=== PATIENT | female | born 1950 | race Caucasian/White ===

== ENCOUNTER 2016-08-28 06:42 | Observation (INO) | payer OTHER ==
[~2016-08-28] VITALS: Ht 175.3 cm; Wt 92.4 kg
[~2016-08-28 06:42] MED LIST: /ESOM40CA OR; /ESOM40CA PO; /WARF3TA OR; /WARF5TA PO; ACET65TA OR; ALBUTEROL INH; ALPR0.5T3 OR; AMBI5TAB OR; ANTI25TA OR; ASPI81TA45 OR; CLON1TAB OR; EFFE150C PO; GLUC1000 OR; HYDR25TA6 OR; LISI10TA4 OR; LISINOPRIL/HCTZ PO; LOPR100T OR; LOPR50TA PO; MACR50CA OR; MAGNESIUM OXIDE PO; METFORMIN PO; NICO21DI4 TD; NITR0.4S SL; PLAV75TA2 OR; SIMV80TA OR; ZOCO40TA OR; ZOCO80TA OR; ZYPR2.5T OR
[2016-08-28] MEDS ORDERED: LASI20TA PO (07:02)
[2016-08-28] MEDS ORDERED: SITA50TAB PO (07:02)
[2016-08-28] MEDS ORDERED: LISI10TA4 PO (07:02)
[2016-08-28] MEDS ORDERED: LIPI80TA PO (07:02)
[2016-08-28] MEDS ORDERED: RANI150T PO (07:02)
[2016-08-28] MEDS ORDERED: PLAV75TA38 PO (07:02)
[2016-08-28 07:32] LABS: CALCIUM LEVEL 9.3 MG/DL (8.8-10.2); CREATININE FOR GFR 1.48 MG/DL (0.55-1.02); GLOMERULAR FILTRATION RATE 37.8 (>45); POTASSIUM SERUM 4.1 MEQ/L (3.5-5.1)
[2016-08-28 07:35] LABS: BASO % 0.2 % (0.0-1.0); EOS % 0.4 % (0.0-3.0); LARGE UNSTAINED CELL # 0.2 K/mm3 (0.0-0.4); LARGE UNSTAINED CELL % 1.3 % (0.0-4.0); LYMPH # 1.1 K/mm3 (1.5-4.5); LYMPH % 9.2 % (24.0-44.0); MEAN CORPUSCULAR HEMOGLOBIN 31.9 pg (27.0-33.0); MEAN CORPUSCULAR HGB CONC 33.3 g/dl (32.0-36.5); MEAN CORPUSCULAR VOLUME 95.8 fl (80.0-96.0); MONO # 0.8 K/mm3 (0.0-0.8); MONO % 6.7 % (0.0-5.0); NEUTROPHILS # 9.8 K/mm3 (1.8-7.7); NEUTROPHILS % 82.1 % (36.0-66.0); PLATELET COUNT, AUTOMATED 202 k/mm3 (150-450); RED CELL DISTRIBUTION WIDTH 12.3 % (11.5-14.5)
[2016-08-28 07:42] LABS: INR 0.95
[2016-08-28] MEDS: IPRATROPIUM 0.5MG/ALBUTEROL 2.5MG INH SOL UD 3ML (DUONEB)(J7620) NEB SCH ×3 (08:00→20:09)
[2016-08-28] MEDS ORDERED: LORazepam 2 MG/ML VIAL (J2060) IV STA (08:05)
--- NOTE | 2016-08-28 08:09 | REP ---
CT study of the brain without contrast: History: CVA. Comparison study March 12, 2011. Findings: Bone window settings demonstrate an intact bony calvarium. There is fairly heavy vascular calcification in the distal carotid arteries bilaterally. Visualized paranasal sinuses are clear. No intraorbital abnormality is appreciated. There is mild to moderate diffuse cerebral atrophy. There is an area of encephalomalacia related to an old right middle cerebral artery territory infarct involving the right temporal lobe and right parietal lobe. A small cortical area of old encephalomalacia is seen in the left parietal lobe. These two areas are unchanged from the comparison CT study from March 12, 2011. No new cortical infarct is seen. There is no evidence of intracranial hemorrhage. There is however a small lacunar infarct in the periventricular white matter of the right frontal lobe which was not present in 2011. This does not appear acute either. No extra-axial fluid collection, mass, or midline shift is seen. There is also some vascular calcification in the vertebral arteries. No midline shift is seen. Impression: Old cortical infarcts bilaterally unchanged from the prior study. There is an old appearing lacunar infarct in the periventricular white matter of the right frontal lobe which has developed since 2010. No definite new infarct. No bleed, mass, or midline shift. Signed by Nic De La Fuente MD 08/28/2016 09:38 A
--- NOTE | 2016-08-28 08:10 | REP ---
Portable chest x-ray: Single view. History: CVA. Comparison study March 12, 2011. Findings: EKG monitoring electrodes overlie the chest. The lungs are hyperinflated as before. No acute infiltrate is seen. Heart size is normal. Pulmonary vasculature is not increased. Impression: Evidence of COPD. No acute disease. Signed by Nic De La Fuente MD 08/28/2016 09:38 A
[2016-08-28] MEDS ORDERED: GLUCAGON FOR INJ 1 MG VIAL (J1610) SC PRN (09:15)
[2016-08-28] MEDS ORDERED: GLUCOSE 4 GM CHEW TABLET PO PRN (09:15)
[2016-08-28] MEDS ORDERED: DEXTROSE 50% 50 ML SYRINGE IV PRN (09:15)
[2016-08-28] MEDS ORDERED: MAGN400T5 PO (09:41)
[2016-08-28] MEDS ORDERED: VENL75CA PO (09:41)
[2016-08-28] MEDS ORDERED: NITR4TASL SL (09:41)
[2016-08-28] MEDS ORDERED: METO50TA2 PO (09:41)
[2016-08-28] MEDS ORDERED: METF-699 PO (09:41)
[2016-08-28 09:42] LABS: ALBUMIN 4.4 GM/DL (3.2-5.2); ALBUMIN/GLOBULIN RATIO 1.07 (1.00-1.93); BILIRUBIN,DIRECT 0.1 MG/DL (0.0-0.2); BILIRUBIN,TOTAL 0.6 MG/DL (0.2-1.0); MAGNESIUM LEVEL 2.3 MG/DL (1.8-2.4); TOTAL PROTEIN 8.5 GM/DL (6.4-8.2)
[2016-08-28] MEDS ORDERED: ASPI81TA13 PO (09:42)
[2016-08-28] MEDS ORDERED: ACET-654 PO (09:42)
[2016-08-28] MEDS ORDERED: PROA1AER INH (09:42)
[2016-08-28] MEDS ORDERED: ONDANSETRON 4MG/2ML VIAL (J2405) IV PRN (10:15)
--- NOTE | 2016-08-28 10:18 | REP ---
MRI study of the brain without contrast: Technique: Axial and sagittal imaging planes are utilized for T1 and T2-weighted scans. Sequences include spin-echo, fast spin echo, FLAIR, and diffusion weighted sequences. Comparison MRI study is from March 12, 2011. MRI findings: No bony calvarial lesion is seen. No intraorbital abnormalities observed. The visualized paranasal sinuses are unremarkable. There is a large area of old encephalomalacia in the right temporal lobe extending into the right parietal lobe consistent with an old infarct. This is unchanged. There are is a small area of encephalomalacia in the left posterior parietal lobe consistent with an old infarct. These two areas are unchanged from the comparison study. There is a old lacunar infarct in the periventricular white matter of the right frontal lobe which is a new finding compared with 2011. Diffusion weighted scans show no evidence of acute ischemia today. There is no evidence of intracranial hemorrhage. No extra-axial fluid collection, mass or midline shift is seen. Craniocervical junction and upper cervical cord are normal in appearance. Impression: Old cortical infarctions in the right temporal and parietal lobes and left posterior parietal lobes unchanged from 2011. Old lacunar infarct in the periventricular white matter of the right frontal lobe as seen on CT. This is an interval change from 2011 but appears old. No acute ischemia is seen. No hemorrhage or mass. Signed by Nic De LaF uente MD 08/28/2016 10:18 A
[2016-08-28] MEDS: NS 1,000 ML IV SCH (10:20)
--- NOTE | 2016-08-28 10:42 | REP ---
MR angiography the brain without contrast: History: TIA. Comparison brain MR ANGIO is from March 12, 2011. Technique: 3-D [id number] MR angiography of the brain is acquired in the usual fashion and maximal intensity projection images were generated in rotational format about the vertical and horizontal axes. In addition, source axial T1-weighted images are viewed in cine mode. MR angiographic findings: The distal vertebral arteries are patent and co-dominant. Basilar artery is a little tortuous but widely patent. The posterior cerebral and superior cerebellar vessels are normal and symmetric. The distal internal carotid arteries are unremarkable, except for some mild atherosclerotic changes in the petrous segments unchanged from the prior study. Anterior and middle cerebral arteries appear intact. There is no visible cornejo aneurysm or arteriovenous malformation. Impression: Mild atherosclerotic irregularity again noted in the petrous segments of the internal carotid arteries bilaterally, otherwise unremarkable MR angiography the brain. Signed by Nic De La Fuente MD 08/28/2016 11:00 A
[2016-08-28 10:58] LABS: OSMOLALITY URINE 197 MOSM/KG (500-800)
[2016-08-28] MEDS ORDERED: IPRATROPIUM 0.5MG/ALBUTEROL 2.5MG INH SOL UD 3ML (DUONEB)(J7620) NEB PRN (11:00)
[2016-08-28] MEDS: HumaLOG INSULIN (NovoLOG) PER UNIT SC SCH ×2 (13:10→17:39)
[2016-08-28 13:13] VITALS: BP 135/71
[2016-08-28 15:57] VITALS: BP 153/71
--- NOTE | 2016-08-28 19:16 | CR ---
DATE OF CONSULTATION: 08/28/2016 REFERRING PHYSICIAN: Dr. Darrin Carranza REASON FOR CONSULTATION: Left arm numbness and weakness. HISTORY OF PRESENT ILLNESS: Jaquelin Hu is a 66-year-old woman with history of bilateral temporoparietal strokes in July and August 2010, who was at her baseline state of health until this morning when she woke up and felt fine. She went downstairs to make coffee and for 5-10 seconds, she felt that her left arm was numb and weak. There is no speech deficit. There was no incoordination or left leg weakness and numbness. Her symptoms went away on their own. The patient states that she has been going through increased stress due to health of her son who has cirrhosis and ascites. She denies any headaches, neck or back pain. She does feel symptoms of anxiety at times. She denies any falls, loss of consciousness. She takes her medications regularly. She had transesophageal echocardiogram when she had her strokes in 2010, and it showed atherosclerosis in her ascending and transverse aorta. She was on Coumadin for a couple of years and had no transient ischemic attacks or new strokes, so her medications were switched to aspirin and Plavix along with Zocor which she continues to take without any problems. She is very compliant with treatment. PAST MEDICAL HISTORY: Diabetes, hypertension, dyslipidemia, depression, anxiety, coronary artery disease status post myocardial infarction, bilateral temporoparietal strokes. ALLERGIES: CODEINE. CURRENT MEDICATIONS: - Zantac 300 mg by mouth daily - Zocor 80 mg by mouth daily - Plavix 75 mg by mouth daily - aspirin 81 mg by mouth daily - magnesium oxide 400 mg by mouth twice a day - Effexor XR 150 mg by mouth daily - she thinks that she is also on metoprolol - metformin XL 1500 mg by mouth daily SOCIAL HISTORY: She used to smoke cigarettes in past. She quit smoking in 2010. She currently does not work. She denies alcohol or illicit drugs. FAMILY HISTORY: Significant for diabetes, hypertension and dyslipidemia. REVIEW OF SYSTEMS: All systems were reviewed and were found to be noncontributory except as mentioned in history of present illness. PHYSICAL EXAMINATION: VITAL SIGNS: Blood pressure 146/71, pulse 66, 93% saturation on room air. Height 5 feet 9 inches, weight 200 pounds. HEART: Regular rate and rhythm. LUNGS: Clear to auscultation. ABDOMEN: Soft, nontender, nondistended. NEUROLOGIC EXAMINATION: The patient is awake, alert, oriented to place, person and time. Normal speech, comprehension and repetition. Extraocular muscles are intact. No facial weakness. Tongue and uvula midline. 5/5 strength in all four extremities. Deep tendon flexes 2+ throughout. Normal sensation to pinprick and light touch in arms. She has decreased cold, pinprick, vibration sensation in her feet likely due to her diabetic peripheral neuropathy. Gait is normal. There is no ataxia, dysmetria or nystagmus. DIAGNOSTIC STUDIES: Her MRI scan of brain was reviewed and showed old bilateral temporoparietal strokes. Her right-sided stroke was larger than left side. There is no new acute ischemic stroke. MRA brain showed mild carotid atherosclerosis. ASSESSMENT: 1. Possible transient ischemic attack. 2. History of bilateral temporoparietal old strokes. 3. Aortic atherosclerotic disease in ascending and thoracic aorta. 4. A peripheral nerve compressive neuropathy such as carpal tunnel syndrome or ulnar nerve compression in left arm can also produce these symptoms. PLAN 1. Carotid ultrasound. 2. Continue aspirin 81 mg by mouth daily and Plavix 75 mg by mouth daily. 3. Continue Zocor 80 mg by mouth daily. 4. Start hydroxyzine 12.5 or 25 mg by mouth three times a day as needed if she feels increased stress and anxiety due to health of her son. We will continue her Effexor XR which she believes is currently 75 mg by mouth daily. Its dose can be increased. Will confirm her current dose first. 5. Follow with us in 1-2 weeks after hospital discharge as outpatient. Electromyogram (EMG) nerve conduction study of left arm will be considered as outpatient. JENNIFERD
--- NOTE | 2016-08-28 19:58 | ECGEPIP ---
Stationary ECG Study [facility] - ED Test Date: 2016-08-28 Pat Name: GORDON CARIAS Department: Room: [place] [address] Gender: F Java Application Engineer: jazmine : [id number] Requested By: Danette Raymundo Order Number: [id number] Reading MD: Danette Raymundo Measurements Intervals [place] Rate: 66 P: 53 TX: 122 QRS: 76 QRSD: 158 T: 24 QT: 434 QTc: 455 Interpretive Statements SINUS RHYTHM RIGHT BUNDLE BRANCH BLOCK NO PRIOR FOR COMPARISON Electronically Signed On 08-28-2016 19:58:13 EDT by Danette Raymundo
[2016-08-28 20:00] VITALS: BP 145/91
[2016-08-28] MEDS: HEPARIN SOD (PORCINE) 5000 UNITS/ML VIAL SC SCH (20:36)
[2016-08-28] MEDS: DOCUSATE SODIUM 100 MG CAP PO SCH (20:36)
[2016-08-28] MEDS: ACETAMINOPHEN TAB 650MG DOSE (2X325MG) PO PRN (20:36)
[2016-08-28] MEDS ORDERED: HumaLOG INSULIN (NovoLOG) PER UNIT SC SCH (21:00)
--- NOTE | 2016-08-28 22:42 | HPE ---
DATE OF ADMISSION: 08/28/2016 The time the patient was seen was this morning at 9:30 a.m. PRIMARY CARE PROVIDER: Dr. Rahman at [facility] The patient's mineral industry teacher is Dr. Feliciano. NEUROLOGIST: Dr. Delgadillo CHIEF COMPLAINT: Numbness of the left arm and unable to move the arm. HISTORY OF PRESENT ILLNESS: 66-year-old female with multiple comorbidities including recurrent cerebrovascular accidents (CVAs), coronary artery disease, status post myocardial infarction (NE), chronic kidney disease, stage II to III, asthma, hypertension, noc-npnsyzf-hknlsrckx type 2 diabetes, depression, anxiety , presented with numbness in the left arm and was unable to move the left arm, started this morning after the patient woke up trying to make some coffee. The patient noticed the left arm was numb and she was unable to move it. It lasted 5 to 10 seconds. The patient and her came to the hospital due to she did have multiple strokes in the past and as far as heart attack. In addition, the patient has a history of aphasia from her bilateral temporoparietal stroke prior. Per the patient's , sometimes she has slow processing of words and could not pronounce certain words as well. Otherwise, she also admits to feeling more stressed last night when she found out that her son had end-stage liver disease. In addition to that, she did have an asthma attack last night and she did not give her treatment for it. In addition, she did have hyperkalemia for the past few weeks and was started on low-dose Lasix 20 mg per day, which makes her urinate more than usual. She has been told that she should make appointment with nephrology to establish with them to investigate the hyperkalemia. Otherwise, she denies any fever or chills, any chest pain, trouble breathing, any abdominal pains, nausea, vomiting, diarrhea or constipation, any problems with urination. ALLERGIES: The patient is allergic to CODEINE, which drops her blood pressure and makes her nauseous. HOME MEDICATIONS INCLUDE: - acetaminophen 650 mg one tablet by mouth every 6 hours as needed - ProAir 2 puffs inhalation four times a day as needed - aspirin 81 mg one tablet by mouth daily - Lipitor 80 mg one tablet by mouth at bedtime (hs) - Plavix 75 mg one tablet by mouth daily - Lasix 20 mg one tablet by mouth daily - lisinopril 10 mg one tablet by mouth daily - magnesium oxide 400 mg one tablet by mouth twice a day - metformin 1500 mg one tablet by mouth every morning - metoprolol 50 mg one tablet by mouth twice a day - nitroglycerin 0.4 mg sublingual every 5 minutes as needed - ranitidine one tablet by mouth as needed - Januvia 50 mg one tablet by mouth at bedtime (q.h.s.) - venlafaxine 75 mg by mouth daily PAST MEDICAL HISTORY INCLUDE: 1. Recurrent cerebrovascular accidents (CVAs) including bilateral temporoparietal stroke in the past. The patient's last one was in 2010, follows with Dr. Delgadillo. 2. Coronary artery disease, status post myocardial infarction (NE). Follows with Dr. Feliciano. 3. Chronic kidney disease, stage II to III. Has plans to establish with nephrology. 4. Recent hyperkalemia. 5. Asthma. 6. Hypertension. 7. Type 2 diabetes. 8. Depression/anxiety. 9. History of hypomagnesemia. PAST SURGICAL HISTORY INCLUDE: 1. Appendectomy. 2. Cholecystectomy. SOCIAL HISTORY: The patient currently smokes a few cigarettes a day for the past 30 years. She denies any drinking, denies any recreational drug use. FAMILY HISTORY: The patient's father had heart disease, also diabetes, hypertension, high cholesterol runs in the family. REVIEW OF SYSTEMS: GENERAL: The patient admits to losing 5 pounds, due to the patient is eating healthier. Denies any sick contact or recent traveling. Denies any fever or chills. HEENT: Denies any changes with vision, smell, hearing or taste. Denies any trouble swallowing, any sore throat. CARDIOVASCULAR: Denies any chest pain, any palpitations, any trouble breathing currently. PULMONARY: The patient does have asthma and had asthma attack last night. The patient did not care to give herself treatment. GASTROINTESTINAL (GI): Denies any abdominal pain, nausea, vomiting, diarrhea or constipation. Denies any blood in her stool. The patient also admits to some lower abdominal pain; however, she said it was mild and it was not a concern to her. GENITOURINARY (): Denies any problem with urination. However, she has been urinating more after she has been on Lasix. Denies any blood in her urine. MUSCULOSKELETAL: Denies any pain anywhere currently. ENDOCRINE: The patient does have diabetes; however, is not insulin dependent. Denies any heat or cold intolerance. HEMATOLOGY/ONCOLOGY: Denies any easy bruising, any bleeding anywhere. However, she did have a 5 pound weight loss over the past few months. NEURO: The patient does have a history of recurrent strokes and this morning she did have numbness of the left arm and also was unable to move the left arm for 5 to 10 seconds and the patient stated that when she stood up the numbness would return before she got to the hospital. PSYCHIATRIC: The patient does have anxiety/depression. Recently, she became more stress, found out that her son had end-stage liver disease. PHYSICAL EXAMINATION: VITAL SIGNS: Temperature 99.6, pulse 67, respirations 18 , blood pressure 138/76, oxygen was saturating 94% on room air. GENERAL: The patient is a morbidly obese elderly female, who was very pleasant, was alert, awake, oriented times three, does not appear to be in distress, laying in comfortably in bed with head elevated at 45 degree angle. HEENT: Normocephalic, atraumatic. Extraocular motor intact. Mucosa moist. NECK: Supple. No lymphadenopathy. CARDIOVASCULAR: Regular rate and rhythm. S1, S2. Difficult to auscultate due to increased AP diameter and body habitus. LUNGS: Slight wheezing bilaterally. ABDOMEN: Positive bowel sounds, soft, nontender. There are no peritoneal signs or ecchymosis. EXTREMITIES: No edema, clubbing or cyanosis. SKIN: Warm and dry. NEURO: Cranial nerves II/XII intact. No focal neurological deficit. Eyebrow raise was equal bilaterally. Tongue protruding was midline. Smile was symmetrical. Sensations were intact bilateral face. Xfqwjb-eh-ynbl was sluggish bilaterally. Eicy-gs-zztv was performed appropriately. Deep tendon reflex was showed somewhat hyperspasticity. However, muscle strength was 5/5 in upper and lower extremities. LABORATORY: White blood count (WBC) 12, hemoglobin 16.1 with hematocrit of 48.4 , platelet count of 202, MCV of 95.8. Sodium 138, potassium 4.1, chloride 102, bicarbonate 28, BUN 22, creatine 1.48, glomerular filtration rate (GFR) was 37.8%. Fasting glucose 202. Osmolality was elevated 302, calcium 9.3, magnesium 2.3, total bilirubin is 0.6, direct bilirubin is 0.1, AST 21, ALT 29, alkaline phosphatase 93. CK 74, CK-MB 1.1. Troponin was slightly elevated at 0.07, total protein 8.5, albumin 4.4, thyroid simulating hormone (TSH) was 1.78. COAGULATIONS: PT 12.8, INR 0.95, PTT 28.2. Urinalysis was negative. Urine osmolality was low 197. Urine culture is pending. The patient's brain Magnetic Resonance Imaging (MRI), Magnetic Resonance Angiography (MRA) shows mild atherosclerotic irregularity in the petrous segment of the internal carotid artery bilaterally, otherwise unremarkable Magnetic Resonance Angiography of the brain. The patient's Magnetic Resonance Imaging (MRI) also showed old cortical infarction at the right temporal and parietal lobes, left posterior parietal lobes unchanged from 2011. Old lacunar infarct in the periventricular white matter of the right frontal lobe as seen on CT. This is interval change from 2011 and appears to be old. No acute ischemia. No hemorrhagic or masses. The patient had portable chest x-ray in the emergency room, shows evidence of chronic obstructive pulmonary disease (COPD), no acute disease. The patient had a head CT without contrast in the emergency room, shows old cortical infarct bilaterally unchanged from prior study. There is an old appearing lacunar infarct in the periventricular white matter of the right frontal lobe, which has developed since 2011. No definite new infarct. No bleed, mass or midline shift. ASSESSMENT AND PLAN: 66-year-old female with past medical history most significantly for recurrent strokes, coronary artery disease, status post myocardial infarction (NE), chronic kidney disease, recent hyperkalemia, hypertension, hnu-yblztjs-addmhdmel type 2 diabetes, depression, anxiety, hypomagnesemia, presented with: 1. Left arm numbness and weakness, most likely secondary to transient ischemic attack (TIA), possible recurrent stroke. However, CT of the head and also MRI and MRA of the head was negative for any acute findings. Dr. Delgadillo from neurology was consulted. Will follow his recommendation at this point due to the patient has transesophageal echocardiogram (SHEILA) last time she was here in 2010. Will not perform a new echocardiogram. However, will order an ultrasound of her carotid. Will continue the patient on statin, Plavix and aspirin and continue to monitor the patient, neuro check every [address] the patient on aspiration and seizure precaution and continue to monitor the patient. 2. Slightly elevated troponin 0.07. Will trend cardiac marker two more times. Will order electrocardiogram (EKG) next day morning. The patient does have a coronary artery disease history and status post myocardial infarction (NE). Will continue statin, Plavix and beta bess. Continue to monitor the patient. 3. Acute on chronic kidney disease with a closed reduction of 1.48. Baseline was roughly 1.2. Will obtain urine lytes and the patient currently likely has prerenal azotemia secondary to Lasix usage for the past few weeks. Will hold the Lasix right now and start the patient on normal saline at a rate of 60 mL per hour. Resume the patient on normal diet. The patient's serum osmolality appears to be elevated and confirms that the patient likely has dehydration. Will continue to monitor. 4. Elevated white blood count (WBC) and polycythemia likely secondary to prerenal azotemia. Continue to monitor. Will repeat her complete blood count (CBC) in the morning. 5. Asthma with questionable chronic obstructive pulmonary disease (COPD). The patient did say that she had an attack last night. Today, her lung sounds appear to be slightly wheezy. Will start the patient on DuoNeb as needed and continue to monitor. 6. Recent hyperkalemia, which is resolved today. The patient has appointment with an establishment with nephrology. The patient will likely need outpatient work up. 7. Hypertension. Continue lisinopril, metoprolol and continue to monitor. Will hold Lasix. 8. Insulin-dependent type 2 diabetes. Will hold Januvia and metformin due to acute and chronic kidney disease (CKD) and will continue insulin sliding scale. If the patient's kidney function does not improve, will likely need to lower the patient's dose of metformin before she goes home. 9. Anxiety/depression. Continue home medication. 10. Hypomagnesemia. Will order daily magnesium level and supplement as needed. 11. Deep vein thrombosis (DVT) prophylaxis. Continue the patient on subcutaneous heparin every 12 hours. DISPOSITION: It is questionable if the patient has a transient ischemic attack (TIA). Neurology, Dr. Delgadillo, has been consulted. Will appreciate his recommendation. Will followup with carotid ultrasound. Will neuro check every 4 hours. Will also rule out any cardiac etiologies and possibly discharge the patient tomorrow pending physical therapy (PT), occupational therapy (OT) clearance. The patient has been discussed with attending doctor, Dr. Carranza. My preceptor for this patient encounter was Dr. Carranza. The preceptor was physically present in the building during the encounter and was fully available. As needed, all aspects of the patient interview, examination, medical decision making process, and medical care plan development were reviewed and approved by the preceptor. The preceptor is aware and concurs with the plan as stated in the body of this note and will attest to such by his/her cosignature. Attending note: Patient was examined independently. All aspects of the history and findings were discussed at length with the resident. I concur with the plan outlined above and a member of the hospitalist team will follow along during the hospital course. EYAL
[2016-08-28 23:59] VITALS: BP 147/76
[2016-08-29] MEDS: ACETAMINOPHEN TAB 650MG DOSE (2X325MG) PO PRN (01:35)
[2016-08-29] MEDS: NS 1,000 ML IV SCH (01:35)
[2016-08-29 04:45] VITALS: BP 132/75
[2016-08-29 06:02] LABS: BASO % 0.3 % (0.0-1.0); EOS % 0.6 % (0.0-3.0); LARGE UNSTAINED CELL # 0.2 K/mm3 (0.0-0.4); LARGE UNSTAINED CELL % 1.8 % (0.0-4.0); MEAN CORPUSCULAR VOLUME 97.1 fl (80.0-96.0); MONO # 0.8 K/mm3 (0.0-0.8); MONO % 8.8 % (0.0-5.0); NEUTROPHILS % 67.4 % (36.0-66.0); PLATELET COUNT, AUTOMATED 166 k/mm3 (150-450); RED CELL DISTRIBUTION WIDTH 12.5 % (11.5-14.5); WHITE BLOOD COUNT 8.9 K/mm3 (4.0-10.0)
[2016-08-29 06:04] LABS: CALCIUM LEVEL 8.4 MG/DL (8.8-10.2); CREATININE FOR GFR 1.11 MG/DL (0.55-1.02); GLOMERULAR FILTRATION RATE 52.7 (>45); MAGNESIUM LEVEL 2.2 MG/DL (1.8-2.4); POTASSIUM SERUM 4.4 MEQ/L (3.5-5.1)
[2016-08-29] MEDS: IPRATROPIUM 0.5MG/ALBUTEROL 2.5MG INH SOL UD 3ML (DUONEB)(J7620) NEB SCH (07:31)
[2016-08-29] MEDS: HEPARIN SOD (PORCINE) 5000 UNITS/ML VIAL SC SCH (07:43)
[2016-08-29] MEDS: DOCUSATE SODIUM 100 MG CAP PO SCH (07:43)
[2016-08-29] MEDS: HumaLOG INSULIN (NovoLOG) PER UNIT SC SCH ×2 (07:44→11:48)
[2016-08-29 07:57] VITALS: BP 144/76
--- NOTE | 2016-08-29 08:22 | REP ---
Duplex carotid sonography: History: TIA. Comparison carotid sonography August 07, 2010. Findings: Antegrade flow was observed in both vertebral arteries. Right carotid: The right common carotid artery shows mild diffuse intimal thickening. There is mixed plaquing in the bulb and proximal ICA on two-dimensional scanning on the right side. Color flow and spectral Doppler interrogation are unremarkable however. PSV EDV Right CCA 97.0 cm/s Right ICA 109.0 38.0 Right ECA 104.0 Right ICA/CCA ratio normal 1.1. Impression: 16-49% category narrowing in the right ICA by Doppler velocity criteria. Left carotid: The left common carotid artery shows mild diffuse intimal thickening. There is mixed plaquing in the bulb and proximal ICA on two-dimensional scanning on the left side. Color flow and spectral Doppler interrogation are unremarkable however on the left. PSV EDV Left CCA 138.0 cm/s Left ICA 72.0 29.0 Left ECA 106.0 Left ICA/CCA ratio 1.5. Impression: 16-49% category narrowing in the left ICA by Doppler velocity criteria, probably near the upper end of this range. Signed by Nic De La Fuente MD 08/29/2016 08:43 A
--- NOTE | 2016-08-29 10:37 | IPN ---
DATE: 08/29/2016 SUBJECTIVE: 66-year-old female resting comfortably. Symptomatology from yesterday has completely resolved and likely TIA. She can followup outpatient with Dr. Delgadillo. OBJECTIVE: Temperature is 99.1, pulse 72, respiratory rate 18, blood pressure 144/76, SpO2 is 94% on room air. GENERAL: The patient is alert, pleasant. HEENT: Unremarkable. LUNGS: Clear. HEART: Regular rate and rhythm. ABDOMEN: Soft. EXTREMITIES: No edema. No calf tenderness. NEURO: No focal deficits. Cranial nerves II through XII are intact. LABORATORY DATA: White count is 8.9, hemoglobin 13.5, platelets 166. Sodium is 143, potassium 4.4, chloride 109 bicarb 28, anion gap 6, BUN 16, creatinine 1.11, glucose 152. Lipid panel shows triglycerides 126, cholesterol 106, LDL is 49.8, HDL is 31, TSH 1.780. ASSESSMENT/PLAN: 1. Possible transient ischemic attack, which symptomatology has resolved. Workup so far is unremarkable. Carotid ultrasound shows less than 16-49% stenosis bilaterally. This does not appear to be a significant amount of stenosis. Can followup outpatient. 2. Bilateral temporal parietal old strokes as outlined previously. Can followup in 1-[address] Delgadillo as an outpatient for EMG nerve conduction involving the left arm. 3. Peripheral nerve compression neuropathy. Possible carpal tunnel syndrome or ulnar nerve compression. Again, follow up with Dr. Delgadillo as an outpatient for EMG study in 1-2 weeks. 4. Coronary artery disease status post myocardial infarction. Follows with Dr. Feliciano outpatient. 5. Chronic kidney disease, stage II. Stable and at baseline. 6. Asthma, stable. 7. Hypertension, stable. 8. Diabetes, stable. Keep outpatient followup. 9. Depression stable. 10. Hypomagnesemia. DISPOSITION: The patient likely will be discharged later today.
--- NOTE | 2016-08-29 10:55 | DSES ---
DATE OF ADMISSION: 08/28/2016 DATE OF DISCHARGE: 08/29/2016 PRIMARY CARE PROVIDER : Troy Charito PUBLIC WELFARE WORKER: Dr. Feliciano NEUROLOGIST: Dr. Delgadillo CONSULTANTS: Dr. Delgadillo PROCEDURES: None. COMPLICATIONS: None. ADMISSION/DISCHARGE DIAGNOSES: 1. Presumed transient ischemic attack (TIA). 2. Left arm weakness and numbness, possible nerve entrapment syndrome, possibly carpal tunnel versus ulnar nerve entrapment. 3. Coronary artery disease. 4. Chronic kidney disease (CKD) stage III. 5. Recurrent hyperkalemia. 6. Asthma. 7. Hypertension. 8. Diabetes. 9. Depression. 10. Hypomagnesemia by history. BRIEF HOSPITAL COURSE: 66-year-old female presented to the emergency department numbness of the left arm, unable to move temporarily for 5-10 seconds with gradual improvement. She states she has been under quite a bit of stress recently with her son diagnosed with end-stage cirrhosis. However, she was concerned because she had a heaviness, numbness in the left arm that she was concerned about. We did admit her for further evaluation for possible TIA versus stroke. Please refer to the history and physical dated yesterday by Dr. Hammonds. Her CT of the brain and head was only remarkable for old cortical infarcts bilaterally, unchanged from prior study, an old appearing lacunar infarct in the paraventricular white matter of the right frontal lobe, does not appear to be any acute finding. Her chest x-ray was unremarkable. MRI, MRA of the brain: Old cortical infarcts again noted in right temporal and parietal lobes, left posterior parietal lobes, unchanged from 2011. Interval change from 2011 did note the lacunar infarction in the periventricular white matter of the right frontal lobe, but there does not appear to be any acute findings seen on this study. The MRA did show some mild sclerotic irregularities and segments of the internal carotid arteries bilaterally, otherwise unremarkable, and carotid ultrasound showed 16-49% stenosis bilaterally with no significant stenosis. Dr. Delgadillo has seen the patient on consult and felt that there was no further intervention needed at this time, but she should followup with him as an outpatient for an EMG in the next couple weeks regarding workup for possible nerve entrapment syndrome involving the left upper extremity. Today, she is ambulating well without any difficulty. No complaints and feels that she is back to her baseline. For further examination and labs, please refer to this progress note from today. Discharge condition is good. DISPOSITION: Discharge to home. - Tylenol 650 mg every 6 hours as needed - ProAir inhaler 1-2 puffs every 4-6 hours as needed - aspirin 81 mg daily - Lipitor 80 mg daily - Plavix 75 mg daily - Lasix 10 mg daily - lisinopril 10 mg daily - magnesium oxide 400 mg twice a day - metformin 1500 mg every morning - metoprolol tartrate 50 mg twice a day - Nitrostat 0.4 mg sublingually every 5 minutes as needed, chest pain - ranitidine 150 mg daily - Januvia 50 mg nightly - Effexor 75 mg daily DISCHARGE INSTRUCTIONS: Discharge to home. Activity as tolerated. Consistent carbohydrate diet. Followup with primary care provider at [facility] in a week. See Dr. Delgadillo in 1-2 weeks for an EMG study and Dr. Feliciano to keep regular appointments. She should seek medical attention should symptoms worsen or progress. She voices understanding. Discharge took approximately 35 minutes. EYAL
--- NOTE | 2016-08-29 15:22 | ECGEPIP ---
Stationary ECG Study [facility] Test Date: 2016-08-29 Pat Name: GORDON CARIAS Department: Room: [place] [address] Gender: F Green Pipefitter: DANIEL : 1950 Requested By: MAT MEDRANO Order Number: [id number] Reading MD: John Feliciano Measurements Intervals [place] Rate: 79 P: 73 ID: 150 QRS: 76 QRSD: 154 T: 27 QT: 417 QTc: 478 Interpretive Statements Normal sinus rhythm with isolated PVC Right axis deviation with right bundle branch block Rule out prior IWMI No change from 08/29/15 Electronically Signed On 08-29-2016 15:21:30 EDT by John Feliciano
== END 2016-08-29 12:52 | disposition home or self-care (01) ==
LOC: M ED 08:14 → INTOOBSV 08:45 → M ED INP 08:45 → M PCU 13:01
PROVIDERS: ADMIT Hospitalist; ATTEND Hospitalist
DX: G45.9 Transient cerebral ischemic attack, unspecified (principal); R53.1 Weakness; I25.10 Atherosclerotic heart disease of native coronary artery without angina pectoris; N18.3 Chronic kidney disease, stage 3 (moderate); F32.9 Major depressive disorder, single episode, unspecified; I12.9 Hypertensive chronic kidney disease with stage 1 through stage 4 chronic kidney disease, or unspecified chronic kidney disease; I25.2 Old myocardial infarction; Z79.4 Long term (current) use of insulin; Z79.02 Long term (current) use of antithrombotics/antiplatelets; Z79.899 Other long term (current) drug therapy; Z79.82 Long term (current) use of aspirin; F17.210 Nicotine dependence, cigarettes, uncomplicated; E78.5 Hyperlipidemia, unspecified

== ENCOUNTER 2016-10-14 10:19 | Emergency (ER) | payer OTHER ==
[~2016-10-14] VITALS: Ht 175.3 cm; Wt 90.7 kg
[~2016-10-14 10:19] MED LIST changes: +ACET-654 PO; +ASPI81TA13 PO; +LASI20TA PO; +LIPI80TA PO; +LISI10TA4 PO; +MAGN400T5 PO; +METF-699 PO; +METO50TA2 PO; +NITR4TASL SL; +PLAV75TA38 PO; +PROA1AER INH; +RANI150T PO; +SITA50TAB PO; +VENL75CA PO
[2016-10-14 11:24] LABS: BASO % 0.2 % (0.0-1.0); EOS # 0.1 K/mm3 (0.0-0.50); EOS % 0.6 % (0.0-3.0); LARGE UNSTAINED CELL # 0.1 K/mm3 (0.0-0.4); LARGE UNSTAINED CELL % 0.9 % (0.0-4.0); LYMPH # 1.4 K/mm3 (1.5-4.5); LYMPH % 11.6 % (24.0-44.0); MEAN CORPUSCULAR HEMOGLOBIN 33.1 pg (27.0-33.0); MEAN CORPUSCULAR HGB CONC 32.7 g/dl (32.0-36.5); MEAN CORPUSCULAR VOLUME 101.3 fl (80.0-96.0); MONO # 0.6 K/mm3 (0.0-0.8); MONO % 4.7 % (0.0-5.0); NEUTROPHILS # 9.5 K/mm3 (1.8-7.7); NEUTROPHILS % 81.9 % (36.0-66.0); PLATELET COUNT, AUTOMATED 179 k/mm3 (150-450); RED CELL DISTRIBUTION WIDTH 12.6 % (11.5-14.5); WHITE BLOOD COUNT 11.6 K/mm3 (4.0-10.0)
[2016-10-14] MEDS: NITROGLYCERIN 0.4 MG SUBL TABLET SL PRN ×3 (11:25→11:45)
[2016-10-14 11:34] LABS: CALCIUM LEVEL 8.4 MG/DL (8.8-10.2); CREATININE FOR GFR 1.44 MG/DL (0.55-1.02); POTASSIUM SERUM 4.6 MEQ/L (3.5-5.1)
--- NOTE | 2016-10-14 11:56 | REP ---
PORTABLE CHEST: AP portable view of the chest is performed. Diffuse increased interstitial markings are stable. No new infiltrates are seen. Heart is not significantly enlarged. There is some calcification of the thoracic aorta. Mediastinal silhouette is unchanged. There is biapical pleural thickening. IMPRESSION: Stable chronic findings without evidence of acute infiltrate. Signed by Taurus Bermudez MD 10/15/2016 05:11 P
[2016-10-14] MEDS: MORPHINE 2 MG/ML 1ML SYRINGE IV PRN ×4 (13:00→14:40)
[2016-10-14 13:38] LABS: INR 0.98
[2016-10-14] MEDS ORDERED: HEPARIN DRIP 25,000 UNITS in APPROPRIATE DILUENT 1 EA IV SCH (14:05)
[2016-10-14] MEDS ORDERED: HEPARIN SOD (PORCINE) 5000 UNITS/ML VIAL IV ONE (14:15)
[2016-10-14] MEDS ORDERED: NITROGLYCERIN 2% OINT 1 GM *U/D* PKT TOP ONE (14:15)
[2016-10-14 14:27] VITALS: BP 160/102
[2016-10-14 14:47] VITALS: BP 121/73
--- NOTE | 2016-10-15 10:59 | ECGEPIP ---
Stationary ECG Study [facility] - ED Test Date: 2016-10-14 Pat Name: GORDON CARIAS Department: Room: - Gender: F Hand Cooper Helper: candido : 1950 Requested By: David Gonzalez Order Number: [id number] Reading MD: Danette Raymundo Measurements Intervals [place] Rate: 66 P: 56 ME: 132 QRS: 65 QRSD: 154 T: 24 QT: 426 QTc: 448 Interpretive Statements SINUS RHYTHM WITH OCCASIONAL SUPRAVENTRICULAR PREMATURE COMPLEXES RIGHT BUNDLE BRANCH BLOCK INCREASED ECTOPY 08/29/16 Electronically Signed On 10-15-2016 10:58:52 EDT by Danette Raymundo
--- NOTE | 2016-10-15 11:00 | ECGEPIP ---
Stationary ECG Study [facility] - ED Test Date: 2016-10-14 Pat Name: GORDON CARIAS Department: Room: - Gender: F Credit Cashier: josé antonio : 1950 Requested By: David Gonzalez Order Number: [id number] Reading MD: Danette Raymundo Measurements Intervals [place] Rate: 62 P: 69 [place]: 169 QRS: 66 QRSD: 154 T: 35 QT: 427 QTc: 435 Interpretive Statements SINUS RHYTHM RIGHT BUNDLE BRANCH BLOCK POSSIBLE ANTERIOR MYOCARDIAL INFARCTION, PROBABLY OLD Electronically Signed On 10-15-2016 11:00:08 EDT by Danette Raymundo
--- NOTE | 2016-10-15 11:02 | ECGEPIP ---
Stationary ECG Study [facility] - ED Test Date: 2016-10-14 Pat Name: GORDON CARIAS Department: Room: - Gender: F Gang Worker: josé antonio : 1950 Requested By: David Gonzalez Order Number: [id number] Reading MD: Danette Raymundo Measurements Intervals [place] Rate: 60 P: 59 [place]: 170 QRS: 61 QRSD: 150 T: -2 QT: 422 QTc: 424 Interpretive Statements SINUS RHYTHM INDETERMINATE AXIS RIGHT BUNDLE BRANCH BLOCK POSSIBLE ANTERIOR MYOCARDIAL INFARCTION, CLINICAL CORRELATION Electronically Signed On 10-15-2016 11:01:52 EDT by Danette Raymundo
== END 2016-10-14 14:52 | disposition short-term general hospital (02) ==
LOC: EDBD 10:19 → M ED 11:20
DX: I22.2 Subsequent non-ST elevation (NSTEMI) myocardial infarction (principal); I25.2 Old myocardial infarction; I25.10 Atherosclerotic heart disease of native coronary artery without angina pectoris; E11.29 Type 2 diabetes mellitus with other diabetic kidney complication; I12.9 Hypertensive chronic kidney disease with stage 1 through stage 4 chronic kidney disease, or unspecified chronic kidney disease; J45.909 Unspecified asthma, uncomplicated; N18.9 Chronic kidney disease, unspecified; Z95.5 Presence of coronary angioplasty implant and graft; Z88.5 Allergy status to narcotic agent; Z79.02 Long term (current) use of antithrombotics/antiplatelets; Z79.82 Long term (current) use of aspirin; Z79.899 Other long term (current) drug therapy

== ENCOUNTER → 2017-01-27 | Outpatient (REF) ==
[~2017-01-27] MED LIST changes: -ACET-654 PO; +ACET1TAB17 PO; -ASPI81TA13 PO; +ASPI81TA24 PO; -METO50TA2 PO; +METO50TA7 PO; +PLAV1TAB2 PO; -PLAV75TA38 PO; -PROA1AER INH; +PROAAER10 INH; -VENL75CA PO; +VENL75CA2 PO
[2017-01-27 09:25] LABS: MEAN CORPUSCULAR HEMOGLOBIN 34.9 pg (27.0-33.0); MEAN CORPUSCULAR HGB CONC 33.5 g/dl (32.0-36.5); RED CELL DISTRIBUTION WIDTH 12.8 % (11.5-14.5); WHITE BLOOD COUNT 16.4 K/mm3 (4.0-10.0)
[2017-01-27 09:39] LABS: CALCIUM LEVEL 8.7 MG/DL (8.8-10.2); CREATININE FOR GFR 1.18 MG/DL (0.55-1.02); GLOMERULAR FILTRATION RATE 49.1 (>45); POTASSIUM SERUM 4.1 MEQ/L (3.5-5.1)
== END ==
LOC: SKLAB5 07:50
PROVIDERS: ATTEND Internal Medicine
DX: E11.9 Type 2 diabetes mellitus without complications (principal); D64.9 Anemia, unspecified; N18.9 Chronic kidney disease, unspecified

== ENCOUNTER → 2017-01-29 | Outpatient (REF) ==
--- NOTE | 2017-01-30 12:42 | ECGEPIP ---
Stationary ECG Study [facility] Test Date: 2017-01-29 Pat Name: GORDON CARIAS Department: Room: - Gender: F Certified Ethical Hacker: SYLVIA : 1950 Requested By: IWONA Belle Order Number: [id number] Reading MD: Nicolas Saucedo Measurements Intervals [place] Rate: 95 P: 56 [place]: 164 QRS: 93 QRSD: 142 T: 40 QT: 400 QTc: 504 Interpretive Statements SINUS RHYTHM RIGHT BUNDLE BRANCH BLOCK CANNOT R/O IWMI, PROBABLY OLD SINCE 10/14/16 HR IS FASTER AND STT ABNORMALITIES ARE NO LONGER PRESENT Electronically Signed On 01-30-2017 12:42:11 EDT by Nicolas Saucedo
== END ==
LOC: SKLAB5 14:10
PROVIDERS: ATTEND Internal Medicine
DX: R00.8 Other abnormalities of heart beat (principal)

== ENCOUNTER → 2017-02-24 | Outpatient (REF) | LOC: SKLAB5 07:31 | PROVIDERS: ATTEND Internal Medicine | DX: E11.9 Type 2 diabetes mellitus without complications (principal) ==

== ENCOUNTER → 2017-02-28 | Outpatient (REF) | payer OTHER, MEDICARE ==
[2017-02-28 13:53] LABS: MEAN CORPUSCULAR HEMOGLOBIN 34.4 pg (27.0-33.0); MEAN CORPUSCULAR HGB CONC 34.1 g/dl (32.0-36.5); RED CELL DISTRIBUTION WIDTH 12.4 % (11.5-14.5); WHITE BLOOD COUNT 9.3 K/mm3 (4.0-10.0)
[2017-02-28 14:01] LABS: CALCIUM LEVEL 9.1 MG/DL (8.8-10.2); GLOMERULAR FILTRATION RATE 59.4 (>45); MAGNESIUM LEVEL 2.2 MG/DL (1.8-2.4); POTASSIUM SERUM 3.9 MEQ/L (3.5-5.1)
== END ==
LOC: SKLAB5 08:00
PROVIDERS: ATTEND Internal Medicine
DX: I50.9 Heart failure, unspecified (principal); Z79.01 Long term (current) use of anticoagulants

== ENCOUNTER 2017-11-08 18:24 | Emergency (ER) | payer OTHER, MEDICARE ==
[2017-11-08] MEDS: METHOCARBAMOL 750 MG TAB PO (20:32)
[2017-11-08] MEDS: NORCO, ANEXSIA 5/325MG TABLET (HYDROcodone/ACETAMINOPHEN) PO (20:32)
[2017-11-08] MEDS: NORCO 5/325MG TABLET (BULK FOR ED) PO (21:20)
== END 2017-11-08 21:40 | disposition home or self-care (01) ==
LOC: M ED 18:24
DX: S32.040A Wedge compression fracture of fourth lumbar vertebra, initial encounter for closed fracture (principal); W18.11XA Fall from or off toilet without subsequent striking against object, initial encounter; Y92.018 Other place in single-family (private) house as the place of occurrence of the external cause; E11.9 Type 2 diabetes mellitus without complications; J44.9 Chronic obstructive pulmonary disease, unspecified; I10 Essential (primary) hypertension; E78.5 Hyperlipidemia, unspecified; I25.2 Old myocardial infarction; Z86.73 Personal history of transient ischemic attack (TIA), and cerebral infarction without residual deficits; Z79.899 Other long term (current) drug therapy; Z79.82 Long term (current) use of aspirin; Z79.84 Long term (current) use of oral hypoglycemic drugs; Z79.02 Long term (current) use of antithrombotics/antiplatelets; Z88.5 Allergy status to narcotic agent; Z87.891 Personal history of nicotine dependence
CPT/HCPCS: 72110

== ENCOUNTER 2017-11-11 08:01 | Emergency (ER) | payer MEDICARE, OTHER ==
[2017-11-11] MEDS: ONDANSETRON 4 MG ORAL DISINTEGRATING TAB (Q0162 PER 1MG) PO (08:51)
[2017-11-11] MEDS: NORCO, ANEXSIA 5/325MG TABLET (HYDROcodone/ACETAMINOPHEN) PO (08:52)
[2017-11-11] MEDS: FLEET ENEMA PR (11:40)
== END 2017-11-11 12:47 | disposition home or self-care (01) ==
LOC: M ED 08:01
DX: M48.00 Spinal stenosis, site unspecified (principal); S20.229A Contusion of unspecified back wall of thorax, initial encounter; W01.198A Fall on same level from slipping, tripping and stumbling with subsequent striking against other object, initial encounter; Y92.89 Other specified places as the place of occurrence of the external cause; K59.00 Constipation, unspecified; E11.9 Type 2 diabetes mellitus without complications; I25.2 Old myocardial infarction; I10 Essential (primary) hypertension; Z87.891 Personal history of nicotine dependence; Z89.612 Acquired absence of left leg above knee; Z79.899 Other long term (current) drug therapy; Z79.84 Long term (current) use of oral hypoglycemic drugs; Z79.82 Long term (current) use of aspirin; Z88.5 Allergy status to narcotic agent
CPT/HCPCS: Q0162

== ENCOUNTER → 2017-11-24 | Outpatient (CLI) | payer MEDICARE, OTHER | LOC: M RAD 07:21 | DX: S32.040A Wedge compression fracture of fourth lumbar vertebra, initial encounter for closed fracture (principal); Y92.89 Other specified places as the place of occurrence of the external cause; X58.XXXA Exposure to other specified factors, initial encounter; Y93.9 Activity, unspecified; Y99.9 Unspecified external cause status | CPT/HCPCS: 78315 ==

== ENCOUNTER → 2017-11-28 | Outpatient (CLI) | payer MEDICARE, OTHER ==
[~2017-11-28] MED LIST changes: -/ESOM40CA OR; -/ESOM40CA PO; -/WARF3TA OR; -/WARF5TA PO; -ACET1TAB17 PO; -ACET65TA OR; -ALBUTEROL INH; -ALPR0.5T3 OR; -AMBI5TAB OR; -ANTI25TA OR; -ASPI81TA24 PO; -ASPI81TA45 OR; -CLON1TAB OR; -EFFE150C PO; -GLUC1000 OR; -HYDR25TA6 OR; +ISOVUE-370 76% 100ML VIAL (Q9967) As Ordered; -LASI20TA PO; -LIPI80TA PO; -LISI10TA4 OR; -LISI10TA4 PO; -LISINOPRIL/HCTZ PO; -LOPR100T OR; -LOPR50TA PO; -MACR50CA OR; -MAGN400T5 PO; -MAGNESIUM OXIDE PO; -METF-699 PO; -METFORMIN PO; -METO50TA7 PO; -NICO21DI4 TD; -NITR0.4S SL; -NITR4TASL SL; -PLAV1TAB2 PO; -PLAV75TA2 OR; -PROAAER10 INH; -RANI150T PO; -SIMV80TA OR; -SITA50TAB PO; -VENL75CA2 PO; -ZOCO40TA OR; -ZOCO80TA OR; -ZYPR2.5T OR
== END ==
LOC: M RAD 07:50
DX: R91.8 Other nonspecific abnormal finding of lung field (principal); J90 Pleural effusion, not elsewhere classified; Z87.891 Personal history of nicotine dependence; R59.0 Localized enlarged lymph nodes
CPT/HCPCS: Q9967

== ENCOUNTER → 2017-12-13 | Outpatient (CLI) | payer MEDICARE, OTHER | LOC: M PLARAD 11:15 | DX: C34.90 Malignant neoplasm of unspecified part of unspecified bronchus or lung (principal) | CPT/HCPCS: 78815 ==

== ENCOUNTER 2017-12-30 08:40 | Day surgery (SDC) | payer MEDICARE, OTHER ==
[2017-12-30] MEDS: ISOVUE-300 61% 50ML VIAL (Q9967) As Ordered ×2 (08:49)
[2017-12-30] MEDS: BACITRACIN PWD 50,000 UNITS VIAL As Ordered ×2 (08:49)
[2017-12-30] MEDS ORDERED: LR 1,000 ML IV ×2 (09:00)
[2017-12-30 09:53] LABS: BEDSIDE GLUCOSE 149 MG/DL (80-115)
[2017-12-30] MEDS: ACETAMINOPHEN TAB 650MG DOSE (2X325MG) PO ×2 (10:30)
[2017-12-30] MEDS: METOPROLOL TART 25 MG TABLET PO ×2 (10:43)
[2017-12-30] MEDS ORDERED: PROPOFOL 200 MG/20 ML VIAL As Ordered ×2 (11:10)
[2017-12-30] MEDS ORDERED: MIDAZOLAM INJ 2 MG/2 ML VIAL (J2250) As Ordered ×2 (11:10)
[2017-12-30] MEDS ORDERED: ROCURONIUM BROMIDE 50 MG/5 ML VIAL As Ordered ×2 (11:10)
[2017-12-30] MEDS ORDERED: LIDOCAINE 2% INJ 100 MG/5 ML SDV (FOR ANES.) As Ordered ×2 (11:10)
[2017-12-30] MEDS ORDERED: fentaNYL 100 MCG/2 ML INJECTION (J3010) As Ordered ×4 (11:11→12:55)
[2017-12-30] MEDS: ceFAZolin SOD 1 GM in D5W MINI-BAG PLUS 50 ML IV (11:30)
[2017-12-30] MEDS ORDERED: dexameTHASONE 4 MG/ML 1ML VIAL (J1100) As Ordered ×4 (12:00)
[2017-12-30] MEDS ORDERED: PHENYLEPHRINE INJ 10MG/ML VIAL (J2370) As Ordered ×2 (12:07)
[2017-12-30] MEDS ORDERED: ONDANSETRON 4MG/2ML VIAL (J2405) As Ordered ×2 (12:20)
[2017-12-30] MEDS ORDERED: NEOSTIGMINE 10 MG/10 ML VIAL (J2710) As Ordered ×2 (12:50)
[2017-12-30] MEDS ORDERED: GLYCOPYRROLATE INJ 0.2 MG/ML 2 ML VIAL As Ordered ×2 (12:50)
[2017-12-30] MEDS: BUPIVACAINE/EPIN 0.25% 30 ML VIAL As Ordered ×2 (12:53)
[2017-12-30] MEDS: ISOVUE-370 76% 100ML VIAL (Q9967) XX ×2 (13:23)
[2017-12-30] MEDS ORDERED: oxyCODONE 5MG TAB As Ordered ×2 (13:29)
[2017-12-30] MEDS ORDERED: ONDANSETRON 4MG/2ML VIAL (J2405) IV ×2 (13:30)
[2017-12-30] MEDS: LR 1,000 ML IV ×4 (13:30→15:12)
[2017-12-30] MEDS ORDERED: fentaNYL 100 MCG/2 ML INJECTION (J3010) IV ×2 (13:30)
[2017-12-30] MEDS: oxyCODONE 5MG TAB PO ×2 (13:32)
[2017-12-30] MEDS ORDERED: METAMUCIL (PSYLLIUM) PACKET PO ×2 (13:45)
[2017-12-30] MEDS ORDERED: NORCO, ANEXSIA 5/325MG TABLET (HYDROcodone/ACETAMINOPHEN) PO ×2 (13:45)
[2017-12-30] MEDS ORDERED: traZODone 50 MG TAB PO ×2 (13:45)
[2017-12-30] MEDS ORDERED: NITROGLYCERIN 0.4 MG SUBL TABLET SL ×2 (15:45)
[2017-12-30 17:12] LABS: BEDSIDE GLUCOSE 163 MG/DL (80-115)
[2017-12-30] MEDS: METAMUCIL (PSYLLIUM) PACKET PO ×2 (17:22)
[2017-12-30] MEDS: HumaLOG INSULIN (NovoLOG) PER UNIT SC ×4 (17:23→21:00)
[2017-12-30 20:53] LABS: BEDSIDE GLUCOSE 195 MG/DL (80-115)
[2017-12-30] MEDS: LISINOPRIL *2.5 MG* TAB PO ×2 (21:45)
[2017-12-30] MEDS: FAMOTIDINE 20 MG TAB PO ×2 (21:45)
[2017-12-31] MEDS: LR 1,000 ML IV ×2 (04:03)
[2017-12-31] MEDS: HumaLOG INSULIN (NovoLOG) PER UNIT SC ×2 (07:30)
[2017-12-31 07:45] LABS: BEDSIDE GLUCOSE 179 MG/DL (80-115)
[2017-12-31] MEDS: SITagliptin 50 MG TAB (JANUVIA) PO ×2 (08:16)
[2017-12-31] MEDS: ASPIRIN 81 MG CHEW TABLET PO ×2 (08:16)
[2017-12-31] MEDS: FAMOTIDINE 20 MG TAB PO ×2 (08:16)
[2017-12-31] MEDS: METOPROLOL TART 25 MG TABLET PO ×2 (08:17)
[2017-12-31] MEDS: VENLAFAXINE **XR** 75MG CAPSULE PO ×2 (08:19)
[2017-12-31] MEDS: NORCO, ANEXSIA 5/325MG TABLET (HYDROcodone/ACETAMINOPHEN) PO ×2 (08:51)
== END 2017-12-31 12:00 | disposition home or self-care (01) ==
LOC: M SDC 08:40 → M MS5PR 14:20
DX: M48.56XA Collapsed vertebra, not elsewhere classified, lumbar region, initial encounter for fracture (principal); M85.88 Other specified disorders of bone density and structure, other site; I25.10 Atherosclerotic heart disease of native coronary artery without angina pectoris; E78.00 Pure hypercholesterolemia, unspecified; E11.9 Type 2 diabetes mellitus without complications; I25.2 Old myocardial infarction; Z87.891 Personal history of nicotine dependence; F32.9 Major depressive disorder, single episode, unspecified; F41.9 Anxiety disorder, unspecified; Z79.899 Other long term (current) drug therapy; Z79.82 Long term (current) use of aspirin; Z98.61 Coronary angioplasty status; J44.9 Chronic obstructive pulmonary disease, unspecified; Z89.612 Acquired absence of left leg above knee; Z79.02 Long term (current) use of antithrombotics/antiplatelets
CPT/HCPCS: 22514

== ENCOUNTER → 2018-01-05 | Outpatient (REF) | payer MEDICARE, OTHER ==
[2018-01-05 14:46] LABS: FERRITIN 539 NG/ML (8-252); IRON (FE) 61 UG/DL (50-170); PERCENT SATURATION 23.3 % (13.2-45.0); TOTAL IRON BINDING CAPACITY 262 UG/DL (250-450)
== END ==
LOC: M LAB REF 13:24
DX: D50.9 Iron deficiency anemia, unspecified (principal)
CPT/HCPCS: 83550

== ENCOUNTER 2018-01-16 07:49 | Day surgery (SDC) | payer MEDICARE, OTHER ==
[2018-01-16] MEDS ORDERED: LIDOCAINE 2% INJ 100 MG/5 ML SDV (FOR ANES.) As Ordered (08:23)
[2018-01-16] MEDS ORDERED: ROCURONIUM BROMIDE 50 MG/5 ML VIAL As Ordered (08:23)
[2018-01-16] MEDS ORDERED: PROPOFOL 200 MG/20 ML VIAL As Ordered (08:23)
[2018-01-16] MEDS ORDERED: ONDANSETRON 4MG/2ML VIAL (J2405) As Ordered (08:23)
[2018-01-16] MEDS ORDERED: fentaNYL 100 MCG/2 ML INJECTION (J3010) As Ordered (08:23)
[2018-01-16] MEDS ORDERED: dexameTHASONE 4 MG/ML 1ML VIAL (J1100) As Ordered (08:23)
[2018-01-16] MEDS ORDERED: MIDAZOLAM INJ 2 MG/2 ML VIAL (J2250) As Ordered (08:23)
[2018-01-16] MEDS: LR 1,000 ML IV (08:35)
[2018-01-16] MEDS ORDERED: MORPHINE 10 MG/ML 1ML VIAL (J2270) As Ordered (08:40)
[2018-01-16 08:41] LABS: BEDSIDE GLUCOSE 158 MG/DL (80-115)
[2018-01-16] MEDS: MORPHINE 4 MG/ML 1ML VIAL/SYRINGE (J2270) IV (08:44)
[2018-01-16] MEDS: ALBUTEROL SULFATE 2.5 MG/0.5 ML INH NEB SOLN INH (08:45)
[2018-01-16] MEDS ORDERED: PHENYLephrine HCL 500 MCG/5 ML (100MCG/ML) SYRINGE (J2370) As Ordered (09:43)
[2018-01-16] MEDS: EPINEPHrine 1MG/10ML SYRINGE 1.5IN As Ordered (09:48)
[2018-01-16] MEDS: CETACAINE SPRAY 5GM As Ordered (09:48)
[2018-01-16] MEDS ORDERED: NEOSTIGMINE 10 MG/10 ML VIAL (J2710) As Ordered (09:56)
[2018-01-16] MEDS ORDERED: GLYCOPYRROLATE INJ 0.2 MG/ML 2 ML VIAL As Ordered (09:56)
[2018-01-16] MEDS ORDERED: ONDANSETRON 4MG/2ML VIAL (J2405) IV (11:15)
[2018-01-16] MEDS ORDERED: fentaNYL 100 MCG/2 ML INJECTION (J3010) IV (11:15)
[2018-01-16] MEDS ORDERED: LR 1,000 ML IV (11:15)
[2018-01-16] MEDS: LIDOCAINE 1% SDV INJ 30 ML VIAL As Ordered (11:37)
[2018-01-16] MEDS: LIDOCAINE VISCOUS 2% SOLN 15ML UDC As Ordered (11:38)
[2018-01-16] MEDS: THROMBIN SOLN 5,000 UNITS VIAL As Ordered (11:38)
[2018-01-16] MEDS ORDERED: PERCOCET 5MG/325MG TAB As Ordered (12:18)
[2018-01-16] MEDS: PERCOCET 5MG/325MG TAB PO ×2 (12:20→13:20)
[2018-01-16] MEDS ORDERED: LABETALOL HCL 100 MG/20 ML VIAL IV (13:30)
== END 2018-01-16 15:05 | disposition home or self-care (01) ==
LOC: M SDC 07:49
DX: R91.8 Other nonspecific abnormal finding of lung field (principal); I25.10 Atherosclerotic heart disease of native coronary artery without angina pectoris; E11.9 Type 2 diabetes mellitus without complications; N18.9 Chronic kidney disease, unspecified; I12.9 Hypertensive chronic kidney disease with stage 1 through stage 4 chronic kidney disease, or unspecified chronic kidney disease; F32.9 Major depressive disorder, single episode, unspecified; F41.9 Anxiety disorder, unspecified; E78.00 Pure hypercholesterolemia, unspecified; J44.9 Chronic obstructive pulmonary disease, unspecified; Z98.61 Coronary angioplasty status; Z79.82 Long term (current) use of aspirin; Z79.899 Other long term (current) drug therapy; Z79.02 Long term (current) use of antithrombotics/antiplatelets
CPT/HCPCS: 31623

== ENCOUNTER → 2018-01-24 | Outpatient (REF) | payer MEDICARE, OTHER ==
[2018-01-24 17:49] LABS: PLATELET COUNT, AUTOMATED 187 10^3/uL (150-450)
[2018-01-24 18:14] LABS: INR 1.16; PROTHROMBIN TIME 14.9 SECONDS (12.1-14.4)
[2018-01-24 18:15] LABS: PARTIAL THROMBOPLASTIN TIME 28.7 SECONDS (25.4-37.6)
== END ==
LOC: M LAB REF 16:52
DX: R91.8 Other nonspecific abnormal finding of lung field (principal); Z79.01 Long term (current) use of anticoagulants
CPT/HCPCS: 85049

== ENCOUNTER → 2018-02-06 | Outpatient (CLI) | payer MEDICARE, OTHER ==
[~2018-02-06] MED LIST changes: +ACETAMINOPHEN 325 MG TAB As Ordered; -ISOVUE-370 76% 100ML VIAL (Q9967) As Ordered; +LIDOCAINE 1% MDV 20ML VIAL As Ordered
== END ==
LOC: M RADPRO 08:30
DX: R91.8 Other nonspecific abnormal finding of lung field (principal); C34.90 Malignant neoplasm of unspecified part of unspecified bronchus or lung; I51.7 Cardiomegaly; J84.112 Idiopathic pulmonary fibrosis; J44.9 Chronic obstructive pulmonary disease, unspecified; Z87.891 Personal history of nicotine dependence; Z79.899 Other long term (current) drug therapy
CPT/HCPCS: 32405

== ENCOUNTER 2018-02-17 07:07 | Inpatient (IN) | payer MEDICARE, OTHER ==
[2018-02-17] MEDS: NS 1,000 ML IV (08:24)
[2018-02-17 08:27] LABS: VENOUS BASE EXCESS -0.7 (-2.0-2.0); VENOUS HCO3 24.6 MEQ/L (23.0-27.0); VENOUS O2 SATURATION 63.6 % (60.0-80.0); VENOUS PARTIAL PRESSURE CO2 42.5 mmHg (38.0-50.0); VENOUS PARTIAL PRESSURE O2 35.6 mmHg (30.0-50.0); VENOUS STANDARD HCO3 22.9 MEQ/L; VENOUS TOTAL CO2 25.9 MEQ/L (24.0-28.0)
[2018-02-17 08:28] LABS: BASO % 0.2 % (0.0-1.0); EOS % 0.3 % (0.0-3.0); HEMATOCRIT 52.8 % (36.0-47.0); IMMATURE GRANULOCYTE % 0.3 % (0-3.0); LYMPH # 0.8 10^3/uL (1.5-4.5); LYMPH % 8.2 % (24.0-44.0); MEAN CORPUSCULAR HEMOGLOBIN 33.2 pg (27.0-33.0); MEAN CORPUSCULAR HGB CONC 32.2 g/dl (32.0-36.5); MEAN CORPUSCULAR VOLUME 103.1 fl (80.0-96.0); MONO # 0.8 10^3/uL (0.0-0.8); MONO % 8.9 % (0.0-5.0); NEUTROPHILS # 7.7 10^3/uL (1.8-7.7); NEUTROPHILS % 82.1 % (36.0-66.0); PLATELET COUNT, AUTOMATED 147 10^3/uL (150-450); RED BLOOD COUNT 5.12 10^6/uL (4.00-5.40); RED CELL DISTRIBUTION WIDTH 16.3 % (11.5-14.5); WHITE BLOOD COUNT 9.4 10^3/uL (4.0-10.0)
[2018-02-17] MEDS: IPRATROPIUM 0.5MG/ALBUTEROL 2.5MG INH SOL UD 3ML (DUONEB)(J7620) NEB (08:28)
[2018-02-17] MEDS: ALBUTEROL SULFATE 2.5 MG/0.5 ML INH NEB SOLN INH (08:28)
[2018-02-17] MEDS: ONDANSETRON 4MG/2ML VIAL (J2405) IV (08:35)
[2018-02-17] MEDS: MORPHINE 2 MG/ML 1ML SYRINGE (J2270) IV ×3 (08:35→11:45)
[2018-02-17 08:40] LABS: INR 1.11; PROTHROMBIN TIME 14.5 SECONDS (12.1-14.4)
[2018-02-17 08:41] LABS: PARTIAL THROMBOPLASTIN TIME 29.6 SECONDS (25.4-37.6)
[2018-02-17 08:56] LABS: ALBUMIN 3.7 GM/DL (3.2-5.2); ALBUMIN/GLOBULIN RATIO 0.93 (1.00-1.93); ALKALINE PHOSPHATASE 255 U/L (45-117); ALT/SGPT 48 U/L (12-78); AMYLASE 21 U/L (25-115); ANION GAP 10 MEQ/L (8-16); AST/SGOT 34 U/L (7-37); BILIRUBIN,DIRECT 1.1 MG/DL (0.0-0.2); BILIRUBIN,TOTAL 2.3 MG/DL (0.2-1.0); BLOOD UREA NITROGEN 17 MG/DL (7-18); CALCIUM LEVEL 8.9 MG/DL (8.8-10.2); CARBON DIOXIDE LEVEL 26 MEQ/L (21-32); CHLORIDE LEVEL 104 MEQ/L (98-107); CK-MB VALUE MASS 1.9 NG/ML (<3.6); CPK CREATINE PHOSPHOKINASE 99 U/L (26-192); CREATININE FOR GFR 1.23 MG/DL (0.55-1.30); GLOMERULAR FILTRATION RATE 46.6 (>45); GLUCOSE, FASTING 154 MG/DL (70-100); LIPASE 88 U/L (73-393); MB/CK RELATIVE INDEX 1.91 (< OR =4); POTASSIUM SERUM 3.9 MEQ/L (3.5-5.1); SODIUM LEVEL 140 MEQ/L (136-145); THYROXINE (T4) 11.7 UG/DL (4.5-12.0); TOTAL PROTEIN 7.7 GM/DL (6.4-8.2); TROPONIN I 0.48 NG/ML (< 0.10)
[2018-02-17 09:08] LABS: LACTIC ACID SEPSIS PROTOCOL 2.5 MMOL/L (0.4-2.0)
[2018-02-17] MEDS ORDERED: ISOVUE-370 76% 100ML VIAL (Q9967) As Ordered (10:09)
[2018-02-17] MEDS: FUROSEMIDE 20 MG/2 ML VIAL (J1940) IV (12:59)
[2018-02-17 13:34] LABS: CK-MB VALUE MASS 2.1 NG/ML (<3.6); CPK CREATINE PHOSPHOKINASE 106 U/L (26-192); MB/CK RELATIVE INDEX 1.98 (< OR =4); TROPONIN I 0.42 NG/ML (< 0.10)
[2018-02-17 13:55] LABS: KETONE, URINE AUTO RFX NEGATIVE (NEGATIVE); MUCUS, URINE RFX SMALL (NEGATIVE); RBC, URINE AUTO RFX 9 /HPF (0-3); SQUAM EPITHELIAL CELL UR AURFX 2 /HPF (0-6)
[2018-02-17 14:05] LABS: LEUKOCYTE ESTERASE UR AUTO RFX 2+ (NEGATIVE); NITRITE, URINE AUTO RFX POSITIVE (NEGATIVE); WBC, URINE AUTO RFX 65 /HPF (0-3)
[2018-02-17] MEDS ORDERED: ACETAMINOPHEN TAB 650MG DOSE (2X325MG) PO (14:15)
[2018-02-17] MEDS ORDERED: NITROGLYCERIN 0.4 MG SUBL TABLET SL (14:15)
[2018-02-17] MEDS ORDERED: ONDANSETRON 4MG/2ML VIAL (J2405) IV (14:15)
[2018-02-17] MEDS ORDERED: GLUCOSE 4 GM CHEW TABLET PO (16:15)
[2018-02-17] MEDS ORDERED: IPRATROPIUM 0.5MG/ALBUTEROL 2.5MG INH SOL UD 3ML (DUONEB)(J7620) NEB (16:15)
[2018-02-17] MEDS ORDERED: GLUCAGON FOR INJ 1 MG VIAL (J1610) SC (16:15)
[2018-02-17] MEDS ORDERED: DEXTROSE 50% 50 ML SYRINGE IV (16:15)
[2018-02-17] MEDS ORDERED: PILL CRUSHER/CUTTER 1 EACH XX (16:30)
[2018-02-17 17:17] LABS: BEDSIDE GLUCOSE 122 MG/DL (80-115)
[2018-02-17] MEDS: FUROSEMIDE 40 MG/4 ML VIAL (J1940) IV (17:19)
[2018-02-17] MEDS: HumaLOG INSULIN (NovoLOG) PER UNIT SC ×2 (17:30→20:31)
[2018-02-17] MEDS: ACETAMINOPHEN 500 MG TAB PO (19:15)
[2018-02-17 20:19] LABS: BEDSIDE GLUCOSE 191 MG/DL (80-115)
[2018-02-17] MEDS: DOCUSATE SODIUM 100 MG CAP PO (20:30)
[2018-02-17] MEDS: traZODone 50 MG TAB PO (20:30)
[2018-02-17] MEDS: ATORVASTATIN 20 MG TAB PO (20:30)
[2018-02-17] MEDS: METOPROLOL TART 12.5 MG PER 1/2 TAB PO (20:31)
[2018-02-17] MEDS: **NOTE PATIENT COMMENT** MISC XX (20:32)
[2018-02-17] MEDS: HEPARIN SOD (PORCINE) 5000 UNITS/ML VIAL SC (20:32)
[2018-02-18 02:24] LABS: CK-MB VALUE MASS 2.1 NG/ML (<3.6); CPK CREATINE PHOSPHOKINASE 92 U/L (26-192); MB/CK RELATIVE INDEX 2.28 (< OR =4); TROPONIN I 0.49 NG/ML (< 0.10)
[2018-02-18 03:29] LABS: BEDSIDE GLUCOSE 118 MG/DL (80-115)
[2018-02-18] MEDS: HEPARIN SOD (PORCINE) 5000 UNITS/ML VIAL SC ×3 (05:44→21:16)
[2018-02-18 06:14] LABS: HEMATOCRIT 50.5 % (36.0-47.0); HEMOGLOBIN 15.9 g/dl (12.0-15.5); MEAN CORPUSCULAR HEMOGLOBIN 32.7 pg (27.0-33.0); MEAN CORPUSCULAR HGB CONC 31.5 g/dl (32.0-36.5); MEAN CORPUSCULAR VOLUME 103.9 fl (80.0-96.0); PLATELET COUNT, AUTOMATED 135 10^3/uL (150-450); RED BLOOD COUNT 4.86 10^6/uL (4.00-5.40); RED CELL DISTRIBUTION WIDTH 15.9 % (11.5-14.5); WHITE BLOOD COUNT 7.5 10^3/uL (4.0-10.0)
[2018-02-18 06:35] LABS: ANION GAP 9 MEQ/L (8-16); BLOOD UREA NITROGEN 16 MG/DL (7-18); CALCIUM LEVEL 8.8 MG/DL (8.8-10.2); CARBON DIOXIDE LEVEL 28 MEQ/L (21-32); CHLORIDE LEVEL 105 MEQ/L (98-107); CK-MB VALUE MASS 2.3 NG/ML (<3.6); CPK CREATINE PHOSPHOKINASE 121 U/L (26-192); CREATININE FOR GFR 1.24 MG/DL (0.55-1.30); GLOMERULAR FILTRATION RATE 46.2 (>45); GLUCOSE, FASTING 110 MG/DL (70-100); POTASSIUM SERUM 4.8 MEQ/L (3.5-5.1); SODIUM LEVEL 142 MEQ/L (136-145); TROPONIN I 0.48 NG/ML (< 0.10)
[2018-02-18] MEDS: HumaLOG INSULIN (NovoLOG) PER UNIT SC ×4 (08:12→20:54)
[2018-02-18] MEDS: VENLAFAXINE **XR** 75MG CAPSULE PO (08:14)
[2018-02-18] MEDS: FUROSEMIDE 40 MG/4 ML VIAL (J1940) IV (08:14)
[2018-02-18] MEDS: FAMOTIDINE 20 MG TAB PO (08:14)
[2018-02-18] MEDS: CLOPIDOGREL 75 MG TAB PO (08:15)
[2018-02-18] MEDS: METOPROLOL TART 12.5 MG PER 1/2 TAB PO ×2 (08:15→21:11)
[2018-02-18] MEDS: DOCUSATE SODIUM 100 MG CAP PO ×2 (08:15→21:16)
[2018-02-18] MEDS: ASPIRIN 81 MG ENTERIC TAB PO (08:16)
[2018-02-18] MEDS: INFLUENZA VIRUS VACCINE HIGH DOSE 0.5 ML SYRINGE (90662) IM (08:16)
[2018-02-18] MEDS: ARIPiprazole 2 MG TAB PO (10:17)
[2018-02-18] MEDS: NORCO, ANEXSIA 5/325MG TABLET (HYDROcodone/ACETAMINOPHEN) PO ×2 (11:08→18:38)
[2018-02-18 11:34] LABS: BEDSIDE GLUCOSE 166 MG/DL (80-115)
[2018-02-18] MEDS: ENTRESTO 24-26MG TABLET (SACUBITRIL/VALSARTAN) PO ×2 (14:22→21:16)
[2018-02-18] MEDS ORDERED: FUROSEMIDE 40 MG TAB PO (17:00)
[2018-02-18 17:08] LABS: BEDSIDE GLUCOSE 97 MG/DL (80-115)
[2018-02-18 20:53] LABS: BEDSIDE GLUCOSE 110 MG/DL (80-115)
[2018-02-18] MEDS: ATORVASTATIN 20 MG TAB PO (21:16)
[2018-02-18] MEDS: traZODone 50 MG TAB PO (21:16)
[2018-02-18] MEDS: **NOTE PATIENT COMMENT** MISC XX (21:17)
[2018-02-18 22:38] LABS: BEDSIDE GLUCOSE 94 MG/DL (80-115)
[2018-02-19] MEDS: HEPARIN SOD (PORCINE) 5000 UNITS/ML VIAL SC ×3 (05:04→20:27)
[2018-02-19 05:34] LABS: HEMATOCRIT 51.2 % (36.0-47.0); MEAN CORPUSCULAR HGB CONC 31.3 g/dl (32.0-36.5); MEAN CORPUSCULAR VOLUME 105.6 fl (80.0-96.0); PLATELET COUNT, AUTOMATED 122 10^3/uL (150-450); RED BLOOD COUNT 4.85 10^6/uL (4.00-5.40); RED CELL DISTRIBUTION WIDTH 15.9 % (11.5-14.5); WHITE BLOOD COUNT 7.4 10^3/uL (4.0-10.0)
[2018-02-19 05:46] LABS: BLOOD UREA NITROGEN 18 MG/DL (7-18); CALCIUM LEVEL 8.7 MG/DL (8.8-10.2); CARBON DIOXIDE LEVEL 32 MEQ/L (21-32); CHLORIDE LEVEL 105 MEQ/L (98-107); CREATININE FOR GFR 1.28 MG/DL (0.55-1.30); GLOMERULAR FILTRATION RATE 44.6 (>45); GLUCOSE, FASTING 96 MG/DL (70-100)
[2018-02-19 05:49] LABS: ANION GAP 5 MEQ/L (8-16); SODIUM LEVEL 142 MEQ/L (136-145)
[2018-02-19 05:50] LABS: POTASSIUM SERUM 3.4 MEQ/L (3.5-5.1)
[2018-02-19] MEDS: HumaLOG INSULIN (NovoLOG) PER UNIT SC ×4 (07:30→20:33)
[2018-02-19] MEDS: VENLAFAXINE **XR** 75MG CAPSULE PO (08:56)
[2018-02-19] MEDS: ENTRESTO 24-26MG TABLET (SACUBITRIL/VALSARTAN) PO ×2 (08:56→20:27)
[2018-02-19] MEDS: DOCUSATE SODIUM 100 MG CAP PO ×2 (08:56→20:27)
[2018-02-19] MEDS: SPIRONOLACTONE 12.5MG PER 1/2 TABLET PO (08:56)
[2018-02-19] MEDS: METOPROLOL TART 12.5 MG PER 1/2 TAB PO ×2 (08:57→20:32)
[2018-02-19] MEDS: FAMOTIDINE 20 MG TAB PO (08:57)
[2018-02-19] MEDS: ARIPiprazole 2 MG TAB PO (08:57)
[2018-02-19] MEDS: CLOPIDOGREL 75 MG TAB PO (08:58)
[2018-02-19] MEDS: ASPIRIN 81 MG ENTERIC TAB PO (08:58)
[2018-02-19] MEDS: NORCO, ANEXSIA 5/325MG TABLET (HYDROcodone/ACETAMINOPHEN) PO ×2 (08:58→19:37)
[2018-02-19] MEDS: POTASSIUM CHLORIDE 10 MEQ SR TABLET PO ×3 (08:59→20:27)
[2018-02-19 11:51] LABS: BEDSIDE GLUCOSE 136 MG/DL (80-115)
[2018-02-19 16:55] LABS: BEDSIDE GLUCOSE 153 MG/DL (80-115)
[2018-02-19 20:21] LABS: BEDSIDE GLUCOSE 105 MG/DL (80-115)
[2018-02-19] MEDS: **NOTE PATIENT COMMENT** MISC XX (20:27)
[2018-02-19] MEDS: ATORVASTATIN 20 MG TAB PO (20:27)
[2018-02-19] MEDS: traZODone 50 MG TAB PO (20:27)
[2018-02-20] MEDS: HEPARIN SOD (PORCINE) 5000 UNITS/ML VIAL SC ×3 (05:12→21:10)
[2018-02-20 06:00] LABS: HEMATOCRIT 53.5 % (36.0-47.0); HEMOGLOBIN 16.6 g/dl (12.0-15.5); MEAN CORPUSCULAR HEMOGLOBIN 32.8 pg (27.0-33.0); MEAN CORPUSCULAR VOLUME 105.7 fl (80.0-96.0); PLATELET COUNT, AUTOMATED 132 10^3/uL (150-450); RED BLOOD COUNT 5.06 10^6/uL (4.00-5.40); WHITE BLOOD COUNT 6.4 10^3/uL (4.0-10.0)
[2018-02-20 06:17] LABS: ANION GAP 6 MEQ/L (8-16); BLOOD UREA NITROGEN 17 MG/DL (7-18); CALCIUM LEVEL 8.6 MG/DL (8.8-10.2); CARBON DIOXIDE LEVEL 27 MEQ/L (21-32); CHLORIDE LEVEL 110 MEQ/L (98-107); GLOMERULAR FILTRATION RATE 53.1 (>45); GLUCOSE, FASTING 106 MG/DL (70-100); POTASSIUM SERUM 4.3 MEQ/L (3.5-5.1); SODIUM LEVEL 143 MEQ/L (136-145)
[2018-02-20 06:18] LABS: POS COUNT POS FLAG
[2018-02-20 08:12] LABS: BEDSIDE GLUCOSE 166 MG/DL (80-115)
[2018-02-20] MEDS: HumaLOG INSULIN (NovoLOG) PER UNIT SC ×4 (08:21→21:11)
[2018-02-20] MEDS: tiZANidine 4 MG TAB PO ×2 (08:32→17:39)
[2018-02-20] MEDS: NORCO, ANEXSIA 5/325MG TABLET (HYDROcodone/ACETAMINOPHEN) PO ×2 (08:33→16:43)
[2018-02-20] MEDS: METOPROLOL TART 12.5 MG PER 1/2 TAB PO ×3 (09:00→21:10)
[2018-02-20] MEDS: CLOPIDOGREL 75 MG TAB PO (09:00)
[2018-02-20] MEDS: FAMOTIDINE 20 MG TAB PO (09:00)
[2018-02-20] MEDS: DOCUSATE SODIUM 100 MG CAP PO ×2 (09:00→21:11)
[2018-02-20] MEDS: ARIPiprazole 2 MG TAB PO (09:00)
[2018-02-20] MEDS: ASPIRIN 81 MG ENTERIC TAB PO (09:00)
[2018-02-20] MEDS: VENLAFAXINE **XR** 75MG CAPSULE PO (09:01)
[2018-02-20] MEDS: POTASSIUM CHLORIDE 10 MEQ SR TABLET PO ×3 (09:01→21:10)
[2018-02-20] MEDS: ENTRESTO 24-26MG TABLET (SACUBITRIL/VALSARTAN) PO ×2 (09:03→21:10)
[2018-02-20] MEDS: SPIRONOLACTONE 12.5MG PER 1/2 TABLET PO (09:03)
[2018-02-20] MEDS ORDERED: SLF 3 ML SYR IV (11:00)
[2018-02-20 12:38] LABS: BEDSIDE GLUCOSE 104 MG/DL (80-115)
[2018-02-20] MEDS: SLF 3 ML SYR IV ×2 (14:00→21:14)
[2018-02-20 14:21] LABS: BEDSIDE GLUCOSE 100 MG/DL (80-115)
[2018-02-20] MEDS: LIDOCAINE 5% (LIDODERM) PATCH TD (14:40)
[2018-02-20] MEDS: ACETAMINOPHEN 500 MG TAB PO (14:41)
[2018-02-20 17:14] LABS: BEDSIDE GLUCOSE 136 MG/DL (80-115)
[2018-02-20] MEDS: **NOTE PATIENT COMMENT** MISC XX (21:00)
[2018-02-20 21:10] LABS: BEDSIDE GLUCOSE 100 MG/DL (80-115)
[2018-02-20] MEDS: ATORVASTATIN 20 MG TAB PO (21:10)
[2018-02-20] MEDS: traZODone 50 MG TAB PO (21:11)
[2018-02-21] MEDS: NORCO, ANEXSIA 5/325MG TABLET (HYDROcodone/ACETAMINOPHEN) PO ×2 (03:32→21:55)
[2018-02-21] MEDS: HEPARIN SOD (PORCINE) 5000 UNITS/ML VIAL SC ×3 (05:12→21:19)
[2018-02-21] MEDS: SLF 3 ML SYR IV ×3 (05:12→21:20)
[2018-02-21 06:39] LABS: HEMOGLOBIN 16.4 g/dl (12.0-15.5); MEAN CORPUSCULAR HEMOGLOBIN 32.9 pg (27.0-33.0); MEAN CORPUSCULAR HGB CONC 31.5 g/dl (32.0-36.5); MEAN CORPUSCULAR VOLUME 104.2 fl (80.0-96.0); PLATELET COUNT, AUTOMATED 159 10^3/uL (150-450); RED BLOOD COUNT 4.99 10^6/uL (4.00-5.40); WHITE BLOOD COUNT 7.3 10^3/uL (4.0-10.0)
[2018-02-21 07:10] LABS: ANION GAP 8 MEQ/L (8-16); BLOOD UREA NITROGEN 15 MG/DL (7-18); CALCIUM LEVEL 9.2 MG/DL (8.8-10.2); CARBON DIOXIDE LEVEL 24 MEQ/L (21-32); CHLORIDE LEVEL 111 MEQ/L (98-107); CREATININE FOR GFR 1.13 MG/DL (0.55-1.30); GLOMERULAR FILTRATION RATE 51.4 (>45); GLUCOSE, FASTING 108 MG/DL (70-100); POTASSIUM SERUM 4.7 MEQ/L (3.5-5.1); SODIUM LEVEL 143 MEQ/L (136-145)
[2018-02-21] MEDS: HumaLOG INSULIN (NovoLOG) PER UNIT SC ×4 (08:17→21:00)
[2018-02-21] MEDS: FAMOTIDINE 20 MG TAB PO (08:18)
[2018-02-21] MEDS: DOCUSATE SODIUM 100 MG CAP PO ×2 (08:18→21:00)
[2018-02-21] MEDS: SPIRONOLACTONE 12.5MG PER 1/2 TABLET PO (08:18)
[2018-02-21] MEDS: ENTRESTO 24-26MG TABLET (SACUBITRIL/VALSARTAN) PO ×2 (08:18→21:19)
[2018-02-21] MEDS: ASPIRIN 81 MG ENTERIC TAB PO (08:19)
[2018-02-21] MEDS: METOPROLOL TART 12.5 MG PER 1/2 TAB PO ×2 (08:19→21:20)
[2018-02-21] MEDS: POTASSIUM CHLORIDE 10 MEQ SR TABLET PO ×3 (08:19→21:19)
[2018-02-21] MEDS: ARIPiprazole 2 MG TAB PO (08:20)
[2018-02-21] MEDS: CLOPIDOGREL 75 MG TAB PO (08:20)
[2018-02-21] MEDS: VENLAFAXINE **XR** 75MG CAPSULE PO (08:33)
[2018-02-21] MEDS: tiZANidine 4 MG TAB PO (10:51)
[2018-02-21] MEDS: TORSEMIDE 20 MG TAB PO (10:52)
[2018-02-21] MEDS: METHOCARBAMOL 500 MG TAB PO ×2 (12:11→18:17)
[2018-02-21 12:16] LABS: BEDSIDE GLUCOSE 122 MG/DL (80-115)
[2018-02-21 16:43] LABS: BEDSIDE GLUCOSE 148 MG/DL (80-115)
[2018-02-21] MEDS ORDERED: MIRALAX *UNIT DOSE* 17GM PACKET PO (17:15)
[2018-02-21] MEDS: MOM 30ML SUSPENSION UDC PO (18:16)
[2018-02-21] MEDS: **NOTE PATIENT COMMENT** MISC XX (21:00)
[2018-02-21 21:02] LABS: BEDSIDE GLUCOSE 104 MG/DL (80-115)
[2018-02-21] MEDS: ATORVASTATIN 20 MG TAB PO (21:19)
[2018-02-21] MEDS: traZODone 50 MG TAB PO (21:20)
[2018-02-22] MEDS: SLF 3 ML SYR IV ×3 (05:30→20:19)
[2018-02-22] MEDS: HEPARIN SOD (PORCINE) 5000 UNITS/ML VIAL SC ×3 (05:30→20:18)
[2018-02-22 05:42] LABS: HEMATOCRIT 54.7 % (36.0-47.0); HEMOGLOBIN 17.1 g/dl (12.0-15.5); MEAN CORPUSCULAR HEMOGLOBIN 32.3 pg (27.0-33.0); MEAN CORPUSCULAR HGB CONC 31.3 g/dl (32.0-36.5); MEAN CORPUSCULAR VOLUME 103.2 fl (80.0-96.0); PLATELET COUNT, AUTOMATED 151 10^3/uL (150-450); RED CELL DISTRIBUTION WIDTH 15.9 % (11.5-14.5); WHITE BLOOD COUNT 6.4 10^3/uL (4.0-10.0)
[2018-02-22 05:55] LABS: ANION GAP 7 MEQ/L (8-16); BLOOD UREA NITROGEN 17 MG/DL (7-18); CALCIUM LEVEL 9.2 MG/DL (8.8-10.2); CARBON DIOXIDE LEVEL 22 MEQ/L (21-32); CHLORIDE LEVEL 111 MEQ/L (98-107); CREATININE FOR GFR 1.22 MG/DL (0.55-1.30); GLOMERULAR FILTRATION RATE 47.1 (>45); GLUCOSE, FASTING 148 MG/DL (70-100); POTASSIUM SERUM 5.2 MEQ/L (3.5-5.1); SODIUM LEVEL 140 MEQ/L (136-145)
[2018-02-22] MEDS: NORCO, ANEXSIA 5/325MG TABLET (HYDROcodone/ACETAMINOPHEN) PO (06:12)
[2018-02-22] MEDS: HumaLOG INSULIN (NovoLOG) PER UNIT SC ×4 (08:05→20:16)
[2018-02-22] MEDS: VENLAFAXINE **XR** 75MG CAPSULE PO (08:08)
[2018-02-22] MEDS: METOPROLOL TART 12.5 MG PER 1/2 TAB PO ×2 (08:08→20:17)
[2018-02-22] MEDS: ENTRESTO 24-26MG TABLET (SACUBITRIL/VALSARTAN) PO ×2 (08:08→20:18)
[2018-02-22] MEDS: ARIPiprazole 2 MG TAB PO (08:08)
[2018-02-22] MEDS: ASPIRIN 81 MG ENTERIC TAB PO (08:09)
[2018-02-22] MEDS: CLOPIDOGREL 75 MG TAB PO (08:09)
[2018-02-22] MEDS: SPIRONOLACTONE 12.5MG PER 1/2 TABLET PO (08:09)
[2018-02-22] MEDS: FAMOTIDINE 20 MG TAB PO (08:09)
[2018-02-22] MEDS: DOCUSATE SODIUM 100 MG CAP PO ×2 (08:09→20:18)
[2018-02-22] MEDS: POTASSIUM CHLORIDE 10 MEQ SR TABLET PO (09:00)
[2018-02-22 11:41] LABS: BEDSIDE GLUCOSE 143 MG/DL (80-115)
[2018-02-22] MEDS: METHOCARBAMOL 500 MG TAB PO (12:05)
[2018-02-22 12:56] LABS: ANION GAP 6 MEQ/L (8-16); BLOOD UREA NITROGEN 19 MG/DL (7-18); CALCIUM LEVEL 9.1 MG/DL (8.8-10.2); CARBON DIOXIDE LEVEL 26 MEQ/L (21-32); CHLORIDE LEVEL 109 MEQ/L (98-107); CREATININE FOR GFR 1.19 MG/DL (0.55-1.30); GLOMERULAR FILTRATION RATE 48.5 (>45); GLUCOSE, FASTING 134 MG/DL (70-100); POTASSIUM SERUM 5.4 MEQ/L (3.5-5.1); SODIUM LEVEL 141 MEQ/L (136-145)
[2018-02-22] MEDS: TORSEMIDE 10 MG TABLET PO (14:38)
[2018-02-22 16:28] LABS: BEDSIDE GLUCOSE 150 MG/DL (80-115)
[2018-02-22] MEDS ORDERED: BACLOFEN 5MG PER 1/2 TABLET PO (19:45)
[2018-02-22 20:12] LABS: BEDSIDE GLUCOSE 126 MG/DL (80-115)
[2018-02-22] MEDS: ATORVASTATIN 20 MG TAB PO (20:18)
[2018-02-22] MEDS: traZODone 50 MG TAB PO (20:18)
[2018-02-22] MEDS: **NOTE PATIENT COMMENT** MISC XX (20:19)
[2018-02-23] MEDS: NORCO, ANEXSIA 5/325MG TABLET (HYDROcodone/ACETAMINOPHEN) PO ×2 (01:51→08:33)
[2018-02-23] MEDS: HEPARIN SOD (PORCINE) 5000 UNITS/ML VIAL SC (05:54)
[2018-02-23] MEDS: SLF 3 ML SYR IV (05:54)
[2018-02-23 06:02] LABS: HEMATOCRIT 55.1 % (36.0-47.0); HEMOGLOBIN 17.5 g/dl (12.0-15.5); MEAN CORPUSCULAR HEMOGLOBIN 32.2 pg (27.0-33.0); MEAN CORPUSCULAR HGB CONC 31.8 g/dl (32.0-36.5); MEAN CORPUSCULAR VOLUME 101.5 fl (80.0-96.0); PLATELET COUNT, AUTOMATED 166 10^3/uL (150-450); RED BLOOD COUNT 5.43 10^6/uL (4.00-5.40); RED CELL DISTRIBUTION WIDTH 15.8 % (11.5-14.5); WHITE BLOOD COUNT 7.6 10^3/uL (4.0-10.0)
[2018-02-23 06:55] LABS: ANION GAP 7 MEQ/L (8-16); BLOOD UREA NITROGEN 20 MG/DL (7-18); CALCIUM LEVEL 9.2 MG/DL (8.8-10.2); CARBON DIOXIDE LEVEL 26 MEQ/L (21-32); CHLORIDE LEVEL 108 MEQ/L (98-107); CREATININE FOR GFR 1.23 MG/DL (0.55-1.30); GLOMERULAR FILTRATION RATE 46.6 (>45); GLUCOSE, FASTING 122 MG/DL (70-100); POTASSIUM SERUM 4.7 MEQ/L (3.5-5.1); SODIUM LEVEL 141 MEQ/L (136-145)
[2018-02-23] MEDS: ARIPiprazole 2 MG TAB PO (08:30)
[2018-02-23] MEDS: CLOPIDOGREL 75 MG TAB PO (08:30)
[2018-02-23] MEDS: DOCUSATE SODIUM 100 MG CAP PO (08:30)
[2018-02-23] MEDS: SPIRONOLACTONE 12.5MG PER 1/2 TABLET PO (08:30)
[2018-02-23] MEDS: FAMOTIDINE 20 MG TAB PO (08:30)
[2018-02-23] MEDS: VENLAFAXINE **XR** 75MG CAPSULE PO (08:30)
[2018-02-23] MEDS: ASPIRIN 81 MG ENTERIC TAB PO (08:31)
[2018-02-23] MEDS: HumaLOG INSULIN (NovoLOG) PER UNIT SC (08:32)
[2018-02-23] MEDS: METOPROLOL TART 12.5 MG PER 1/2 TAB PO (08:32)
[2018-02-23] MEDS: ENTRESTO 24-26MG TABLET (SACUBITRIL/VALSARTAN) PO (08:32)
[2018-02-23] MEDS: TORSEMIDE 5MG TABLET PO (10:14)
== END 2018-02-23 11:35 | disposition home or self-care (01) | DRG 291 ==
LOC: M ED 07:07 → M ED INP 14:13 → M PCU 16:41
DX: I13.0 Hypertensive heart and chronic kidney disease with heart failure and stage 1 through stage 4 chronic kidney disease, or unspecified chronic kidney disease (principal); I50.43 Acute on chronic combined systolic (congestive) and diastolic (congestive) heart failure; E87.2 Acidosis; C34.11 Malignant neoplasm of upper lobe, right bronchus or lung; M84.48XA Pathological fracture, other site, initial encounter for fracture; I25.10 Atherosclerotic heart disease of native coronary artery without angina pectoris; E11.22 Type 2 diabetes mellitus with diabetic chronic kidney disease; I25.2 Old myocardial infarction; N18.3 Chronic kidney disease, stage 3 (moderate); F41.9 Anxiety disorder, unspecified; F32.9 Major depressive disorder, single episode, unspecified; I27.20 Pulmonary hypertension, unspecified; I34.0 Nonrheumatic mitral (valve) insufficiency; I36.1 Nonrheumatic tricuspid (valve) insufficiency; E78.00 Pure hypercholesterolemia, unspecified; Z89.512 Acquired absence of left leg below knee; Z79.82 Long term (current) use of aspirin; Z86.73 Personal history of transient ischemic attack (TIA), and cerebral infarction without residual deficits; Z86.74 Personal history of sudden cardiac arrest; Z95.5 Presence of coronary angioplasty implant and graft; Z79.4 Long term (current) use of insulin; Z79.899 Other long term (current) drug therapy; Z88.5 Allergy status to narcotic agent; Z79.02 Long term (current) use of antithrombotics/antiplatelets; Z87.891 Personal history of nicotine dependence; Z91.14 Patient's other noncompliance with medication regimen

== ENCOUNTER → 2018-05-30 | Outpatient (CLI) | payer MEDICARE, OTHER ==
[~2018-05-30] MED LIST changes: +/ESOM40CA OR; +/ESOM40CA PO; +/WARF3TA OR; +/WARF5TA PO; +ABIL1TAB13 PO; +ACET-683 PO; +ACET1TAB55 PO; +ACET65TA OR; -ACETAMINOPHEN 325 MG TAB As Ordered; +ALBUTEROL INH; +ALDA25TA2 PO; +ALPR0.5T3 OR; +AMBI5TAB OR; +ANTI25TA OR; +ASPI1TAB20 PO; +ASPI81CH3 PO; +ASPI81TA24 PO; +ASPI81TA45 OR; +CLON1TAB OR; +COLA100C5 PO; +EFFE150C PO; +ENTR1TAB PO; +ENTR1TAB7 PO; +FURO40TA2 PO; +GLUC1000 OR; +HYDR-3713 PO; +HYDR25TA6 OR; +LASI20TA3 PO; +LIDO5DIS41 TD; -LIDOCAINE 1% MDV 20ML VIAL As Ordered; +LIPI80TA PO; +LISI10TA4 OR; +LISI10TA4 PO; +LISI2.5T5 PO; +LISINOPRIL/HCTZ PO; +LOPR100T OR; +LOPR50TA PO; +MACR50CA OR; +MAGN400T5 PO; +MAGNESIUM OXIDE PO; +METF-699 PO; +METFORMIN PO; +METH1TAB40 PO; +METO25TA4 PO; +METO50TA7 PO; +NICO21DI4 TD; +NITR0.4S SL; +NITR4TASL SL; +NORCOTAB PO; +PLAV1TAB2 PO; +PLAV75TA2 OR; +PROAAER10 INH; +RANI150T PO; +ROBA500T PO; +SIMV80TA OR; +SITA50TAB PO; +SPIR-10 PO; +TORS10TA3 PO; +TORS5TAB2 PO; +TRAM-533 PO; +TRAZ-163 PO; +VENL75CA2 PO; +ZANA2CAP PO; +ZOCO40TA OR; +ZOCO80TA OR; +ZYPR2.5T OR; +trazadone PO
--- NOTE | 2018-05-30 14:16 | REP ---
Show chest two views HISTORY: Lung cancer Comparison: 02/21/2018 The lungs are clear. The cardiac silhouette is enlarged. The pulmonary vasculature is normal in appearance. There are old right rib fractures. Degenerative change is present in the thoracic spine. IMPRESSION: Cardiomegaly. Electronically Signed by Fabricio Gomez MD 05/30/2018 02:08 P
== END ==
LOC: M RAD 13:00
PROVIDERS: ATTEND Internal Medicine Medical Oncology
DX: I51.7 Cardiomegaly (principal); N18.9 Chronic kidney disease, unspecified

== ENCOUNTER 2018-07-24 12:25 | Emergency (ER) | payer MEDICARE, OTHER ==
[~2018-07-24] VITALS: Ht 170.2 cm; Wt 77.3 kg
[2018-07-24] MEDS ORDERED: NS 1,000 ML IV ONE (13:00)
[2018-07-24 13:26] LABS: BASO % 0.3 % (0.0-1.0); EOS # 0.1 10^3/uL (0.0-0.50); HEMATOCRIT 42.4 % (36.0-47.0); HEMOGLOBIN 13.8 g/dl (12.0-15.5); LYMPH # 1.1 10^3/uL (1.5-4.5); LYMPH % 16.1 % (24.0-44.0); MEAN CORPUSCULAR HEMOGLOBIN 33.7 pg (27.0-33.0); MEAN CORPUSCULAR HGB CONC 32.5 g/dl (32.0-36.5); MEAN CORPUSCULAR VOLUME 103.4 fl (80.0-96.0); MONO # 0.7 10^3/uL (0.0-0.8); MONO % 10.6 % (0.0-5.0); NEUTROPHILS # 4.9 10^3/uL (1.8-7.7); NEUTROPHILS % 71.7 % (36.0-66.0); PLATELET COUNT, AUTOMATED 150 10^3/uL (150-450); WHITE BLOOD COUNT 6.8 10^3/uL (4.0-10.0)
[2018-07-24 13:58] LABS: ALBUMIN 4.4 GM/DL (3.2-5.2); BILIRUBIN,DIRECT 0.1 MG/DL (0.0-0.2); BILIRUBIN,TOTAL 0.3 MG/DL (0.2-1.0); CALCIUM LEVEL 9.1 MG/DL (8.8-10.2); CREATININE FOR GFR 1.77 MG/DL (0.55-1.30); GLOMERULAR FILTRATION RATE 30.6 (>45); POTASSIUM SERUM 5.7 MEQ/L (3.5-5.1); TOTAL PROTEIN 7.8 GM/DL (6.4-8.2)
[2018-07-24] MEDS ORDERED: PATIROMER SORBITEX CALCIUM 8.4 GM POWDER PACKET (VELTASSA) PO ONE (14:45)
[2018-07-24 15:16] VITALS: BP 133/64
--- NOTE | 2018-07-25 18:53 | ECGEPIP ---
Stationary ECG Study [facility] - ED Test Date: 2018-07-24 Pat Name: GORDON CARIAS Department: Room: - Gender: F Manager Category: : 1950 Requested By: NAZARIO FAIR PA-C. Order Number: [id number] Reading MD: Danette Raymundo Measurements Intervals [place] Rate: 57 P: 23 [place]: 152 QRS: 88 QRSD: 170 T: 42 QT: 489 QTc: 477 Interpretive Statements SINUS BRADYCARDIA RIGHT BUNDLE BRANCH BLOCK ANTEROSEPTAL MYOCARDIAL INFARCTION, OF INDETERMINATE AGE DECREASED RATE 02/17/18 Electronically Signed On 07-25-2018 18:52:43 EST by Danette Raymundo
== END 2018-07-24 15:23 | disposition home or self-care (01) ==
LOC: M ED 12:25
DX: E87.5 Hyperkalemia (principal); E86.0 Dehydration; I50.9 Heart failure, unspecified; N18.9 Chronic kidney disease, unspecified; Z79.899 Other long term (current) drug therapy; Z79.02 Long term (current) use of antithrombotics/antiplatelets; Z79.82 Long term (current) use of aspirin; Z88.5 Allergy status to narcotic agent

== ENCOUNTER → 2018-08-07 | Outpatient (CLI) | payer MEDICARE, OTHER ==
--- NOTE | 2018-08-07 10:33 | REP ---
Clinical: History of malignancy. Technique: Axial noncontrast images from the thoracic inlet to the upper abdomen with coronal and sagittal re-formations. Comparison: 02/17/2018. Findings: Right apical mass measuring approximately 2.8 cm with spiculated margins and adjacent small surgical clips again identified and essentially unchanged. Chronic left apical scarring along with evidence for diffuse emphysematous disease and minimal scattered subpleural fibrosis remains unchanged. Previously identified pleural effusions have resolved. Mediastinum demonstrates atherosclerotic changes to the thoracic aorta and coronary arteries along with stable mild cardiomegaly. No pericardial effusion. Small hiatal hernia noted at the gastroesophageal junction. Mediastinal and right hilar lymph nodes measuring up to approximately 14 mm are again identified. Surrounding musculoskeletal structures demonstrate osteopenia and degenerative changes along with old healed right rib fractures. Impression: 1. Right apical mass unchanged. Associated mediastinal/right hilar adenopathy with lymph nodes measuring up to approximately 14 mm. 2. Previously identified pleural effusions and changes related to CHF/interstitial edema have resolved. Electronically Signed by Armando Ca MD 08/07/2018 10:24 A
== END ==
LOC: M RAD 07:46
PROVIDERS: ATTEND Internal Medicine Pulmonary Disease
DX: C34.11 Malignant neoplasm of upper lobe, right bronchus or lung (principal)

== ENCOUNTER → 2018-08-08 | Outpatient (REF) | payer MEDICARE, OTHER ==
[2018-08-08 14:31] LABS: PERCENT SATURATION 38.8 % (13.2-45.0)
== END ==
LOC: M LAB REF 13:05
PROVIDERS: ATTEND Internal Medicine Nephrology
DX: D50.9 Iron deficiency anemia, unspecified (principal)

== ENCOUNTER → 2019-02-05 | Outpatient (CLI) | payer MEDICARE, OTHER ==
[~2019-02-05] MED LIST changes: -/ESOM40CA OR; -/ESOM40CA PO; -/WARF3TA OR; -/WARF5TA PO; +ASPI-524 PO; -ASPI1TAB20 PO; -ASPI81CH3 PO; +ASPI81CH48 PO; +COUM1TAB17 PO; +COUM1TAB19 OR; +HYDR-3715 PO; +LISI-1046 PO; -LISI2.5T5 PO; +NEXI1CAP3 OR; +NEXI1CAP3 PO; -NORCOTAB PO; +TREL1AER PO
--- NOTE | 2019-02-06 11:12 | REP ---
CT of the chest without IV contrast: Comparison is 08/07/2018. The known right apical pleural-based spiculated mass is unchanged in size. Again measuring 2.8 cm. Surgical clips again noted along the medial margin of this mass. There is chronic pleuroparenchymal scarring in the apex of the left lung. This is unchanged. There are scattered bulla throughout the lung beckham, unchanged. There is subpleural honeycombing compatible with fibrosis, vertically in the lower lobes, unchanged. There are no acute infiltrates. No pleural effusions. There are old right rib fractures, unchanged. There are borderline enlarged mediastinal paratracheal nodes measuring up to 8 mm short axis. This is unchanged. In the absence of IV contrast the study is insensitive for hilar lymph node evaluation. The thoracic aorta is unremarkable except for calcified atheroma. Cardiac size is upper normal. There is calcified vascular atheroma in the coronary arteries, unchanged. There is no pleural effusion. There is a fixed hiatal hernia, unchanged. The visualized unenhanced upper abdominal contents are unremarkable. There is no adrenal mass. There are surgical clips in the gallbladder fossa. This is unchanged. Impression: The known right apical mass is unchanged. The known mediastinal borderline lymph node enlargement is unchanged. There are no pleural effusions. There are scattered bulla throughout the lung beckham and subpleural fibrosis, unchanged. Electronically Signed by Taurus Bradshaw MD 02/05/2019 07:55 A
== END ==
LOC: M RAD 07:21
PROVIDERS: ATTEND Internal Medicine Pulmonary Disease
DX: C34.11 Malignant neoplasm of upper lobe, right bronchus or lung (principal)

== ENCOUNTER → 2019-03-21 | Outpatient (REF) | payer MEDICARE, OTHER ==
[~2019-03-21] MED LIST changes: -ASPI-524 PO; +ASPI325T57 PO; +FERR32TA PO
[2019-03-21 13:38] LABS: HEMOGLOBIN A1c 6.3 %
[2019-03-21 14:14] LABS: CHOLESTEROL RISK RATIO 3.044 (<5)
== END ==
LOC: M SFHCPLAZ 11:20
PROVIDERS: ATTEND Nurse Practitioner Adult Health
DX: E11.9 Type 2 diabetes mellitus without complications (principal)
CPT/HCPCS: 36415; 80061; 83036; G0463

== ENCOUNTER → 2019-03-22 | Outpatient (REF) | payer MEDICARE, OTHER ==
[~2019-03-22] MED LIST changes: -FERR32TA PO
[2019-03-22 18:16] LABS: CREATININE, URINE 53.2 MG/DL; MALB URINE SIEMENS 31.6 MG/L; MAU/CREAT RATIO 59.3 MCG/MG (0.0-30.0)
== END ==
LOC: M SFHCPLAZ 16:10
PROVIDERS: ATTEND Nurse Practitioner Adult Health
DX: E11.9 Type 2 diabetes mellitus without complications (principal)

== ENCOUNTER → 2019-03-23 | Outpatient (CLI) | payer MEDICARE, OTHER ==
[~2019-03-23] MED LIST changes: +FERR32TA PO
--- NOTE | 2019-03-23 13:04 | REPMRS ---
Patient History The patient states she has not had a clinical breast exam in over a year. Patient is postmenopausal, had previous chest radiation therapy at age 66, and has history of other cancer at age 66. No known family history of cancer. Benign cyst aspiration of the right breast, 1980. No Hormone Replacement Therapy Digital Woman Screen Mammo: March 23, 2019 - Exam #: [id number] Bilateral CC and MLO view(s) were taken. Technologist: Humaira Rivera, Technologist Prior study comparison: 2016, bilateral digital mammo screening bilat, performed at [facility] [employer]. May 21, 2015, bilateral digital woman screen mammo, performed at [facility] [employer] [facility]. FINDINGS: There are scattered fibroglandular densities. There has been no change in the appearance of the mammogram from the prior studies. There is a mild amount of scattered fibroglandular density which is fairly symmetric. There is no interval development of dominant mass, architectural distortion, or grouped microcalcification suggestive of malignancy. 3-D tomosynthesis shows no additional findings. Assessment: BI-RADS/ACR category 1 mammogram. Negative Mammogram. Recommendation Routine screening mammogram of both breasts in 1 year (for women over age 40). This patient's Lifetime Breast Cancer Risk is estimated at 3.4 %. This mammogram was interpreted with the aid of an FDA-approved computer-aided dectection system. Electronically Signed By: Valentin De La Fuente MD 03/23/19 [id number]
== END ==
LOC: M WHC 11:23
PROVIDERS: ATTEND Nurse Practitioner Adult Health
DX: Z12.31 Encounter for screening mammogram for malignant neoplasm of breast (principal); Z78.0 Asymptomatic menopausal state; Z92.3 Personal history of irradiation; Z85.3 Personal history of malignant neoplasm of breast

== ENCOUNTER → 2019-06-20 | Outpatient (REF) | payer MEDICARE, OTHER ==
[2019-06-20 14:35] LABS: ALBUMIN 4.1 GM/DL (3.2-5.2); BILIRUBIN,TOTAL 0.5 MG/DL (0.2-1.0); CALCIUM LEVEL 8.9 MG/DL (8.8-10.2); CREATININE FOR GFR 1.58 MG/DL (0.55-1.30); GLOMERULAR FILTRATION RATE 34.7 (>45); POTASSIUM SERUM 4.7 MEQ/L (3.5-5.1); TOTAL PROTEIN 7.4 GM/DL (6.4-8.2)
[2019-06-20 14:39] LABS: HEMOGLOBIN A1c 6.3 %
[2019-06-21 16:26] LABS: PTH INTACT 173.4 PG/ML (18.5-88.0)
== END ==
LOC: M SFHCPLAZ 11:38
PROVIDERS: ATTEND Nurse Practitioner Adult Health
DX: E11.9 Type 2 diabetes mellitus without complications (principal)

== ENCOUNTER → 2019-07-31 | Outpatient (CLI) | payer MEDICARE, OTHER ==
[~2019-07-31] MED LIST changes: -TRAZ-163 PO; +TRAZ-257 PO
--- NOTE | 2019-07-31 10:16 | REP ---
Clinical: Right axillary pain. Technique: Real time lewis scale ultrasound examination using linear high frequency transducer. Findings: Directed ultrasound examination demonstrates no obvious abnormality. No fluid, mass or adenopathy. Impression: Normal limited ultrasound examination. Electronically Signed by Armando Ca MD 07/31/2019 10:06 A
== END ==
LOC: M RAD 09:33
PROVIDERS: ATTEND Nurse Practitioner Adult Health
DX: M79.621 Pain in right upper arm (principal)

== ENCOUNTER → 2019-08-03 | Outpatient (REF) | payer MEDICARE, OTHER ==
[~2019-08-03] MED LIST changes: +TRUL10IN SC
== END ==
LOC: M SFHCPLAZ 13:09
PROVIDERS: ATTEND Nurse Practitioner Adult Health
DX: R35.0 Frequency of micturition (principal)
CPT/HCPCS: 81002; 87088; 87186; G0463

== ENCOUNTER → 2020-05-14 | Outpatient (CLI) | payer SELFPAY ==
[~2020-05-14] MED LIST changes: -LISI-1046 PO; +LISI2.5T2 PO; -METF-699 PO; +METF-817 PO; +OMEP40CA97 PO; +OSTE1TAB2 PO
== END ==
LOC: M LABSMTC 12:45
PROVIDERS: ATTEND Pediatrics
DX: Z20.828 Contact with and (suspected) exposure to other viral communicable diseases (principal)

== ENCOUNTER → 2020-08-26 | Outpatient (REF) | payer MEDICARE, OTHER ==
[~2020-08-26] MED LIST changes: +LISI10TA22 PO; -LISI10TA4 PO; +METH-1164 PO; -METH1TAB40 PO
[2020-08-26 17:50] LABS: ALBUMIN 4.1 GM/DL (3.2-5.2); BILIRUBIN,TOTAL 0.6 MG/DL (0.2-1.0); CALCIUM LEVEL 9.2 MG/DL (8.8-10.2); CHOLESTEROL RISK RATIO 3.441 (<5); CREATININE FOR GFR 1.5 MG/DL (0.55-1.30); GLOMERULAR FILTRATION RATE 36.8 (>45); POTASSIUM SERUM 4.6 MEQ/L (3.5-5.1); THYROID STIMULATING HORMONE 1.4 uIU/ML (0.358-3.740); TOTAL PROTEIN 7.4 GM/DL (6.4-8.2)
[2020-08-26 17:52] LABS: CREATININE, URINE 53.3 MG/DL
== END ==
LOC: M LAB REF 16:42
PROVIDERS: ATTEND Nurse Practitioner Adult Health
DX: E11.9 Type 2 diabetes mellitus without complications (principal); Z13.29 Encounter for screening for other suspected endocrine disorder

== ENCOUNTER → 2020-08-26 | Outpatient (REF) | payer MEDICARE, OTHER | LOC: M LAB REF 16:41 | PROVIDERS: ATTEND Internal Medicine Nephrology | DX: N39.0 Urinary tract infection, site not specified (principal) ==

== ENCOUNTER → 2020-08-29 | Outpatient (CLI) | payer MEDICARE, OTHER ==
--- NOTE | 2020-08-29 12:03 | REP ---
INDICATION: MAL LIZZIE OF UPPER LOBE, RT BRONCHUS OR LUNG. COMPARISON: Chest CT studies dated 07/19/2019 and 01/31/2020. TECHNIQUE: Chest CT without IV contrast. FINDINGS: There is a known right apical pleural-based lung mass posteriorly containing a surgical clip along its anterior margin, not significantly changed in size from the comparison studies. There are no other lung masses or nodules. There are multiple old healed right rib fractures. There are chronic fibrotic changes bilaterally, unchanged. There are no infiltrates or pleural effusions. There are subcentimeter the study is insensitive for hilar lymph node enlargement in the absence of IV contrast. There is no axillary lymph node enlargement. Thoracic aorta is unremarkable except for calcified atheroma. Cardiac size is normal. There is no pericardial effusion. There is a pacemaker, unchanged. Upper abdomen: There is no adrenal mass. There are surgical clips in the gallbladder fossa. The visualized portions of the unenhanced liver, pancreas and spleen are unremarkable. Mediastinal nodes, all unchanged. IMPRESSION: There is no significant interval change in size of the right apical pleural-based mass or in the mediastinal lymph nodes. There are no new nodules or masses. There are no infiltrates or pleural effusions. There are no lytic, blastic or destructive skeletal changes. There are compression deformities of the T12 and L1 vertebral bodies, unchanged. <Electronically signed by Taurus Bradshaw > 08/29/20 [id number]
== END ==
LOC: M RAD 11:26
PROVIDERS: ATTEND Internal Medicine Pulmonary Disease
DX: C34.11 Malignant neoplasm of upper lobe, right bronchus or lung (principal)

== ENCOUNTER → 2020-10-01 | Outpatient (CLI) | payer MEDICARE, OTHER ==
--- NOTE | 2020-10-01 11:12 | REPMRS ---
Patient History The patient states she has not had a clinical breast exam in over a year. Patient is postmenopausal, had previous chest radiation therapy at age 66, and has history of lung cancer at age 66. No known family history of cancer. Benign cyst aspiration of the right breast, 1980. Patient states no breast complaints Patient has signed the MRS history sheet Digital Woman Screen Mammo: October 01, 2020 - Exam #: [id number] Bilateral CC and MLO view(s) were taken. Technologist: Keyanna Leiva, Technologist Prior study comparison: March 23, 2019, bilateral digital woman screen mammo performed at [facility]. 2017, bilateral digital mammo screening bilat, performed at [facility]. FINDINGS: There are scattered fibroglandular densities. Screening. Digital screening (2D) mammography was performed bilaterally in the CC and MLO projections. Additionally, breast tomosynthesis (3D mammography) was performed bilaterally in the CC and MLO projections. Todays exam was compared to the prior exams(s). By history, the patient has no complaints of a palpable breast abnormality or other significant breast complaints. The breasts are unchanged in size and shape. There are no mike-soft tissue densities or spiculated masses. There is no internal architectural distortion. Stable benign appearing calcifications are again seen bilaterally. There are no suspicious mike-calcific clusters. Skin thickening or nipple retraction is not present. IMPRESSION: BI-RADS Category 2- Benign Findings(s). There is no evidence of malignant alteration of the breasts. Followup examination recommended in one year. The Volpara volumetric breast density category is B, there are scattered areas of fibroglandular density. This mammogram was read with the assistance of [employer],an FDA approved computer aided detection system for mammography. Negative x-ray reports should not delay surgical consultation if a dominant or clinically suspicious mass is present. Not all breast cancers can be identified by mammography. Therefore, we recommend that you continue to perform regular breast self-examination and physical examination and then promptly contact your physician of any concerns or changes. Adenosis and dense breasts may obscure an underlying neoplasm. Assessment: BI-RADS/ACR category 2 mammogram. Benign Findings. Recommendation Routine screening mammogram of both breasts in 1 year. Electronically Signed By: Derrick Plummer DO 10/01/20 1111
== END ==
LOC: M WHC 09:35
PROVIDERS: ATTEND Nurse Practitioner Adult Health
DX: Z12.31 Encounter for screening mammogram for malignant neoplasm of breast (principal)

== ENCOUNTER → 2020-12-05 | Outpatient (CLI) | payer MEDICARE, OTHER ==
[~2020-12-05] MED LIST changes: +CALC1CAP31 PO; +CRAN400C PO; +OMEP40CA4 PO; -OMEP40CA97 PO; +THERSOL3 OU; +TRUL0.5I SC; +VENTAER INH; +VITA200038 PO; +VITMTA PO
== END ==
LOC: M LABSMTC 11:04
PROVIDERS: ATTEND Anesthesiology
DX: Z01.818 Encounter for other preprocedural examination (principal); Z11.52 Encounter for screening for COVID-19

== ENCOUNTER 2020-12-10 07:01 | Day surgery (SDC) | payer MEDICARE, OTHER ==
[~2020-12-10] VITALS: Ht 175.3 cm; Wt 104.3 kg
[~2020-12-10 07:01] MED LIST changes: +NS 1,000 ML IV ONE
[2020-12-10] MEDS ORDERED: fentaNYL 100 MCG/2 ML INJECTION (J3010) As Ordered ONE ×2 (07:45→08:12)
[2020-12-10] MEDS ORDERED: propofoL 200 MG/20 ML VIAL As Ordered ONE ×3 (07:45→09:18)
[2020-12-10] MEDS ORDERED: LIDOCAINE 2% 100MG/5ML SDV (FOR ANES.) As Ordered ONE ×2 (07:45→08:16)
[2020-12-10] MEDS ORDERED: ePHEDrine SULFATE 25 MG/5 ML(5MG/ML) SYRINGE As Ordered ONE ×2 (08:29→08:51)
[2020-12-10] MEDS ORDERED: PROMETHAZINE INJ 25 MG/ML VIAL (J2550) As Ordered ONE ×3 (08:32→09:09)
[2020-12-10] MEDS ORDERED: PHENYLEPHRINE 10MG/ML 1ML VIAL (J2370 PER 1) As Ordered ONE (09:23)
--- NOTE | 2020-12-10 10:00 | ROOR ---
Patient Name: Jaquelin Hu Procedure Date: 12/10/2020 7:58 AM Date of : 1950 Age: 70 Room: [facility] Gender: Female Note Status: Finalized Procedure: Upper GI endoscopy Indications: Iron deficiency anemia Providers: Toney Melgar MD Referring MD: Daya Cedillo NP Requesting Provider: Medicines: Monitored Anesthesia Care Complications: No immediate complications. Procedure: Pre-Anesthesia Assessment: - Prior to the procedure, a History and Physical was performed, and patient medications and allergies were reviewed. The patient is competent. The risks and benefits of the procedure and the sedation options and risks were discussed with the patient. All questions were answered and informed consent was obtained. Patient identification and proposed procedure were verified by the physician, the nurse and the anesthesiologist in the procedure room. Mental Status Examination: alert and oriented. Airway Examination: normal oropharyngeal airway and neck mobility. Respiratory Examination: clear to auscultation. CV Examination: normal. Prophylactic Antibiotics: The patient does not require prophylactic antibiotics. Prior Anticoagulants: The patient has taken Plavix (clopidogrel), last dose was 6 days prior to procedure. ASA Grade Assessment: II - A patient with mild systemic disease. After reviewing the risks and benefits, the patient was deemed in satisfactory condition to undergo the procedure. The anesthesia plan was to use monitored anesthesia care (MAC). Immediately prior to administration of medications, the patient was re-assessed for adequacy to receive sedatives. The heart rate, respiratory rate, oxygen saturations, blood pressure, adequacy of pulmonary ventilation, and response to care were monitored throughout the procedure. The physical status of the patient was re-assessed after the procedure. The Endoscope was introduced through the mouth, and advanced to the second part of duodenum. The upper GI endoscopy was accomplished without difficulty. The patient tolerated the procedure well. Findings: A medium-sized hiatal hernia was present. The Z-line was regular and was found in the distal esophagus. Patchy moderate inflammation characterized by congestion (edema), erythema and granularity was found in the gastric body and in the gastric antrum. Biopsies were taken with a cold forceps for histology. Verification of patient identification for the specimen was done by the physician and nurse using the patient's name, date and medical record number. Estimated blood loss was minimal. The duodenal bulb and second portion of the duodenum were normal. Impression: - Medium-sized hiatal hernia. - Z-line regular, in the distal esophagus. - Gastritis. Biopsied. - Normal duodenal bulb and second portion of the duodenum. Recommendation: - Patient has a contact number available for emergencies. The signs and symptoms of potential delayed complications were discussed with the patient. Return to normal activities tomorrow. Written discharge instructions were provided to the patient. - Clear liquid diet today, then advance as tolerated to high fiber diet. - Continue present medications. - Resume Plavix (clopidogrel) at prior dose tomorrow. Refer to primary physician for further adjustment of therapy. - Telephone GI clinic if symptomatic. - Telephone GI clinic for pathology results in 2 weeks. - Follow the recommendations as per the other procedure note. - Return to primary care physician. Procedure Code(s): --- Professional --- 66113, Esophagogastroduodenoscopy, flexible, transoral; with biopsy, single or multiple Diagnosis Code(s): --- Professional --- K44.9, Diaphragmatic hernia without obstruction or gangrene K29.70, Gastritis, unspecified, without bleeding D50.9, Iron deficiency anemia, unspecified CPT copyright 2019 [employer]. All rights reserved. The codes documented in this report are preliminary and upon nutrition program instructor review may be revised to meet current compliance requirements. Toney Melgar MD Toney Melgar MD 12/10/2020 9:59:54 AM Electronically signed by Toney Melgar MD Number of Addenda: 0 Note Initiated On: 12/10/2020 7:58 AM Estimated Blood Loss: Estimated blood loss was minimal.
[2020-12-10 10:10] VITALS: BP 115/58
--- NOTE | 2020-12-10 10:50 | ROOR ---
Patient Name: Jaquelin Hu Procedure Date: 12/10/2020 7:59 AM Date of : 1950 Age: 70 Room: [facility] Gender: Female Note Status: Finalized Procedure: Colonoscopy Indications: Screening for colorectal malignant neoplasm, Incidental - Positive Cologuard test Providers: Toney Melgar MD Referring MD: Daya Cedillo NP Requesting Provider: Medicines: Monitored Anesthesia Care Complications: No immediate complications. Procedure: Pre-Anesthesia Assessment: - Prior to the procedure, a History and Physical was performed, and patient medications and allergies were reviewed. The patient is competent. The risks and benefits of the procedure and the sedation options and risks were discussed with the patient. All questions were answered and informed consent was obtained. Patient identification and proposed procedure were verified by the physician, the nurse and the anesthesiologist in the procedure room. Mental Status Examination: alert and oriented. Airway Examination: normal oropharyngeal airway and neck mobility. Respiratory Examination: clear to auscultation. CV Examination: normal. Prophylactic Antibiotics: The patient does not require prophylactic antibiotics. Prior Anticoagulants: The patient has taken Plavix (clopidogrel), last dose was 5 days prior to procedure. ASA Grade Assessment: III - A patient with severe systemic disease. After reviewing the risks and benefits, the patient was deemed in satisfactory condition to undergo the procedure. The anesthesia plan was to use monitored anesthesia care (MAC). Immediately prior to administration of medications, the patient was re-assessed for adequacy to receive sedatives. The heart rate, respiratory rate, oxygen saturations, blood pressure, adequacy of pulmonary ventilation, and response to care were monitored throughout the procedure. The physical status of the patient was re-assessed after the procedure. The Colonoscope was introduced through the anus and advanced to the cecum, identified by appendiceal orifice and ileocecal valve. The colonoscopy was performed without difficulty. The patient tolerated the procedure well. The quality of the bowel preparation was good. The terminal ileum, ileocecal valve, appendiceal orifice, and rectum were photographed. Scope insertion time was 2 minutes. Scope withdrawal time was 9 minutes. The total duration of the procedure was 12 minutes. Findings: The perianal and digital rectal examinations were normal. Multiple sessile polyps were found in the recto-sigmoid colon, transverse colon and ascending colon. The polyps were 6 to 20 mm in size. These polyps were removed with a hot snare. Resection and retrieval were complete. Verification of patient identification for the specimen was done by the physician and nurse using the patient's name, date and medical record number. Estimated blood loss was minimal. To close a defect after polypectomy, six hemostatic clips were successfully placed. There was no bleeding at the end of the procedure. A 25 mm polyp was found in the descending colon. The polyp was pedunculated. The polyp was removed with a hot snare. Resection and retrieval were complete. One ligature was successfully placed. There was no bleeding during and at the end of the procedure. Multiple small and large-mouthed diverticula were found from sigmoid to descending colon. There was no evidence of diverticular bleeding. Non-bleeding external and internal hemorrhoids were found during retroflexion. The hemorrhoids were medium-sized. Impression: - Multiple 6 to 20 mm polyps at the recto-sigmoid colon, in the transverse colon and in the ascending colon, removed with a hot snare. Resected and retrieved. Clips were placed. - One 25 mm polyp in the descending colon, removed with a hot snare. Resected and retrieved. Ligated. - Moderate diverticulosis from sigmoid to descending colon. There was no evidence of diverticular bleeding. - Non-bleeding external and internal hemorrhoids. Recommendation: - Patient has a contact number available for emergencies. The signs and symptoms of potential delayed complications were discussed with the patient. Return to normal activities tomorrow. Written discharge instructions were provided to the patient. - High fiber diet. - Continue present medications. - Resume Plavix (clopidogrel) at prior dose tomorrow. Refer to managing physician for further adjustment of therapy. - Await pathology results. - Repeat colonoscopy in 3 months for surveillance based on pathology results. - Telephone GI clinic to schedule appointment 1 - 2 weeks. Please call GI clinic @ [phone] for apppointment date and time. - Return to GI clinic in 4 weeks. - Return to primary care physician. Procedure Code(s): --- Professional --- 53371, Colonoscopy, flexible; with removal of tumor(s), polyp(s), or other lesion(s) by snare technique Diagnosis Code(s): --- Professional --- K63.5, Polyp of colon Z12.11, Encounter for screening for malignant neoplasm of colon K64.8, Other hemorrhoids K57.30, Diverticulosis of large intestine without perforation or abscess without bleeding CPT copyright 2019 [employer]. All rights reserved. The codes documented in this report are preliminary and upon crating and moving estimator review may be revised to meet current compliance requirements. Toney Melgar MD Toney Melgar MD 12/10/2020 10:50:35 AM Electronically signed by Toney Melgar MD Number of Addenda: 0 Note Initiated On: 12/10/2020 7:59 AM Estimated Blood Loss: Estimated blood loss was minimal.
== END 2020-12-10 10:37 | disposition home or self-care (01) ==
LOC: M OPP 07:01
PROVIDERS: ATTEND Internal Medicine Gastroenterology
DX: D12.2 Benign neoplasm of ascending colon (principal); D12.3 Benign neoplasm of transverse colon; D12.5 Benign neoplasm of sigmoid colon; R19.5 Other fecal abnormalities; K44.9 Diaphragmatic hernia without obstruction or gangrene; D50.9 Iron deficiency anemia, unspecified; K29.70 Gastritis, unspecified, without bleeding; I50.42 Chronic combined systolic (congestive) and diastolic (congestive) heart failure; Z79.82 Long term (current) use of aspirin; Z79.84 Long term (current) use of oral hypoglycemic drugs; Z79.899 Other long term (current) drug therapy; Z88.5 Allergy status to narcotic agent; Z91.040 Latex allergy status; Z95.5 Presence of coronary angioplasty implant and graft; Z87.891 Personal history of nicotine dependence
CPT/HCPCS: 43239; 45385; 88305; J2370; J3010

== ENCOUNTER → 2021-03-06 | Outpatient (CLI) | payer MEDICARE, OTHER ==
[~2021-03-06] MED LIST changes: -LISI2.5T2 PO; +LISI2.5T9 PO; -NS 1,000 ML IV ONE
[2021-03-06 07:20] LABS: CREATININE FOR GFR 1.6 MG/DL (0.55-1.30); GLOMERULAR FILTRATION RATE 34.1 (>45)
== END ==
LOC: M LAB 06:18
DX: C34.11 Malignant neoplasm of upper lobe, right bronchus or lung (principal)

== ENCOUNTER → 2021-03-10 | Outpatient (CLI) | payer MEDICARE, OTHER ==
[~2021-03-10] MED LIST changes: +ISOVUE-370 76% 100ML VIAL As Ordered ONE
--- NOTE | 2021-03-10 12:37 | REP ---
INDICATION: MALIGN NEOPLASM OF UPPER LOBE,RIGHT BRONCHUS OR LUNG. Right lung cancer status post SB RT. COMPARISON: Comparison CT studies are from August 29, 2020 and January 31, 2020. TECHNIQUE: Helical scanning is acquired following the intravenous injection of 75 mL of Isovue 370. 3 mm axial images are reformatted. Coronal and sagittal MPR images are generated. FINDINGS: Preliminary digital equal opportunity director radiograph shows a bipolar pacemaker and evidence of a fairly large hiatal hernia. There is no evidence of pleural or pericardial effusion. There is a hiatal hernia confirmed on axial CT images. Vascular calcification is noted in a pacemaker is seen in place in the right heart. Gallbladder surgically absent. The kidneys appear somewhat atrophic bilaterally and the adrenal glands are somewhat thickened. These findings are unchanged. There is a fiducial marker in is spiculated 3.7 cm mass in the right lung apex posterior adjacent the pleural space. This mass density appears essentially unchanged from the August 2020 study. No new pulmonary nodule is seen. There are mild emphysematous bulla lie in the lung apices. No mediastinal mass or adenopathy is observed. Stable pretracheal/precarinal nodes are seen. IMPRESSION: The previously noted spiculated right apical mass is again seen essentially unchanged. This contains a fiducial marker denoting previous biopsy. No new abnormality. <Electronically signed by Valentin De La Fuente > 03/10/21 [id number]
== END ==
LOC: M RAD 11:38
DX: C34.11 Malignant neoplasm of upper lobe, right bronchus or lung (principal)
CPT/HCPCS: 71260; Q9967

== ENCOUNTER → 2021-03-25 | Outpatient (CLI) | payer MEDICARE, OTHER ==
[~2021-03-25] MED LIST changes: +FAMO40TA3; -ISOVUE-370 76% 100ML VIAL As Ordered ONE
== END ==
LOC: M LABSMTC 09:51
PROVIDERS: ATTEND Anesthesiology
DX: Z01.818 Encounter for other preprocedural examination (principal); Z11.52 Encounter for screening for COVID-19

== ENCOUNTER 2021-03-30 06:44 | Day surgery (SDC) | payer MEDICARE, OTHER ==
[~2021-03-30] VITALS: Ht 175.3 cm; Wt 104.3 kg
[~2021-03-30 06:44] MED LIST changes: +NS 1,000 ML IV ONE
--- OUTSIDE RECORDS SUMMARY | 2021-03-30 06:47 | CCD | Continuity of Care Document ---
Author Author Jaquelin SNADERS PPhoebe Organization Unknown Address [address] [place] [address] Phone [phone] Care Team Providers Care Convention Services Manager Name Role Phone Daya Cedillo Keyla Logan AUTM [phone] AUTM Unavailable AUTM Unavailable AUTM Unavailable Problems Active Problems Provider Date Chronic obstructive lung disease Chandana Yang D.O. Onset: 12/19/2017 Ex-smoker Chandana Yang D.O. Onset: 12/19/2017 Full respiratory system examination Chandana Yang D.O. Onse t: 12/19/2017 Malignant neoplasm of upper lobe, bronchus or lung Chandana mendez D.O. Onset: 02/10/2018 Panacinar emphysema Chandana Yang D.O. Onset: 02/20/2019 Lung mass Chandana Yang D.O. Onset: 12/19/2017 History of malignant neoplasm of lung Chandana Yang D.O. On set: 09/05/2020 Essential hypertension CLAUDIA Gerber Onset: History of malignant neoplasm of lung Carlos Sloan On set: 03/25/2021 Social History Type Date Description Comments Sex Unknown ETOH Use Denies alcohol use Tobacco Use Start: Unknown End: Patient is a former smoker 1 1/2 ppd x 30 years; quit october 2016 Smoking Status Reviewed: 03/25/21 Patient is a former smoker 1 1/2 ppd x 30 years; quit october 2016 Allergies and adverse reactions Active Allergies Criticality Reaction | Severity Comments Date Codeine Unable to assess criticality 12/19/2017 Medications Active Medications SIG Qnty Indications Ordering Provide r Date Dulcolax 5mg Tablets DR take 4 tabs by mouth prior to procedure per instructions. 4tabs Z86.010 Chivo Glynn MD 02/04/2021 Miralax 17GM/Scoop Powder use as instructed by doctor for bowel prep 510gm Z86.010 Chivo Glynn MD 02/04/2021 Trelegy Ellipta 100- 62.5-25mcg/Inh Aerosol one inhalation daily 180units C34.11 Chandana Yang D.O. 04/2019 Trulicity 1.5mg/0.5ML Solution Pen -Inject once weekly Unknown Famotidine 20mg Tablets Daily Unknown Carboxymethylcellulose Sodium 0.5% Solution 1 drop each eye tid Unknown 00 Calcitriol 0.25mcg Capsules e very day Unknown Cranberry Extract 200mg Capsules takes 2 400 mg tabs daily Unknown Abilify 2mg Tablets Daily Unknown Acetaminophen 500mg Tablets a s needed Unknown Nitroglycerin 0.4mg Tablets Sub as needed Unknown Torsemide 5mg Tablets 2 ta bs every day Unknown Metoprolol Tartrate 25mg Tablets 1/2 tab by mouth twice a day Unknown Vitamin D 2000Unit Tablets da dangelo Unknown Multivitamin Tablets 1 by mouth every day Unknown Iron 325(65Fe) mg Tablets 1 by mouth every day Unknown Colace 100mg Capsules 1 by mouth twice a day 60caps Unknown Entresto 49-51mg Tablets 1 by mouth twice a day Unknown Proair HFA 108(90Base) mcg/Act Aer osol 2 puffs four times a day as needed Unknown Januvia 50mg Tablets 1 by mouth every day Unknown Aspir-[address] 1 by mouth every day Unknown Venlafaxine HCL ER 75mg Caps ER 24 HR 1 by mouth every day Unknown Plavix 75mg Tablets 1 by mouth every day Unknown Trazodone HCL 100mg Tablets 1 tab by mouth every night 30tabs Unknown Lipitor 80mg Tablets 1 by mouth every day every night Unknown History Medications Miralax 17GM/Scoop Powder use as instructed by doctor for bowel prep 510gm R19.5 Chivo Glynn MD 11/19/2020 - 02/02/[address] take 4 tabs by mouth prior to procedure per instructions. 4tabs R19.5 Chivo Glynn MD 11/19/2020 - 02/02/2021 Immunizations Description No Information Available Vital Signs Date Vital Result Comment 03/25/2021 10:43am BP Systolic 140 mmHg BP Diastolic 72 mmHg Heart Rate 73 /min O2 % BldC Oximetry 92 % Height 69 inches 5'9" Weight 230.00 lb verbally BMI (Body Mass Index) 34.0 kg/m2 [place] Body Weight 145 lb Weight 104.328 kg BSA (Body Surface Area) 2.19 m2 02/04/2021 8:33am BP Systolic 122 mmHg BP Diastolic 72 mmHg Height 69 inches 5'9" Weight 239.00 lb BMI (Body Mass Index) 35.3 kg/m2 [place] Body Weight 145 lb Weight 108.410 kg BSA (Body Surface Area) 2.23 m2 Results Test Acquired Date Facility Test Result H/L Range Note FVL/[place] 03/25/2021 [employer] PDFReport SEE IMAGE FVC-Pred 3.50 L FVC-Pre 2.61 L FVC-%Pred-Pre 74 L FVC-LLN 2.73 L Fev1-Pred 2.67 L Fev1-Pre 1.77 L Fev1-%Pred-Pre 66 L Fev1-LLN 2.02 L Fev6-Pred 3.36 L Fev6-Pre 2.59 L Fev6-%Pred-Pre 76 L Fev6-LLN 2.60 L Hln6qax-Drfl 76 % Tjv3val-Qrl 68 % Qmg9siq-%Pred-Pre 88 % Ecs0swp-HLH 67 % Pfc4mwf-Ajfv 96 % Gpk2wmx-Alk 99 % Wed1dvn-%Pred-Pre 103 % FEFMax-Pred 6.35 L/E/sec FEFMax-Pre 4.88 L/E/sec FEFMax-%Pred-Pre 76 L/E/sec FEFMax-LLN 4.44 L/E/sec Umz0570-Hmlx 2.20 L/E/sec Zse6960-Zyg 0.95 L/E/sec Nub3281-%Pred-Pre 43 L/E/sec Wbh6974-YVV 0.82 L/E/sec ExpTime-Pre 6.59 sec Dbm2jdz9-Brgf 79 % Vrh2rwe2-Hub 68 % Xeu9gns5-%Pred-Pre 85 % Qhz2npd4-YJJ 71 % Procedures Date Code Description Status 03/25/2021 16101 Office/Outpatient Established Mo d MDM 30-39 Min Completed 03/25/2021 77227 Spirometry Completed 02/04/2021 58047 Office/Outpatient Established Mo d MDM 30-39 Min Completed 12/10/2020 57129 Colonoscopy W/ Poly Completed 12/10/2020 15371 Endoscopy Upper GI Biopsy Comple sherron 11/19/2020 33786 Office/Outpatient New Moderate M DM 45-59 Minutes Completed Medical Devices Description No Information Available Encounters Type Date Location Provider Dx Diagnosis Office Visit 03/25/2021 11:00a [facility] Pulmonary/Thoracic Bruce Sanders P.A. J43.1 Panlobular emphysema Z85.118 Personal history of malignan t neoplasm of bronchus and lung Z87.891 Personal history of nicotine dependence Office Visit 02/04/2021 8:30a [facility] Gastroenterology Pra ROBLES ZavalaC D50.9 Iron deficiency anemia, unsp ecified Z86.010 Personal history of colonic polyps R12 Heartburn Office Visit 11/19/2020 11:30a [facility] Gastroenterology Pra CLAUDIA Zavala R19.5 Other fecal abnormalities D50.9 Iron deficiency anemia, unsp ecified Assessments Date Code Description Provider 03/25/2021 J43.1 Panlobular emphysema Bruce rojas, P.A. 03/25/2021 Z85.118 History of malignant neoplasm of lung Bruce Sanders P.AJanet 03/25/2021 Z87.891 Personal history of nicotine dep endence Bruce Sanders P.A. 02/04/2021 D50.9 Iron deficiency anemia, unspecif ied CLAUDIA Gerber 02/04/2021 Z86.010 Personal history of colonic poly ps Sarina Mir CLAUDIA Mullen 02/04/2021 R12 Heartburn Sarina lewisCLAUDIA 12/10/2020 Z12.11 Encounter for screening for kamaljit gnant neoplasm of colon Toney Melgar M.D. 12/10/2020 D12.2 Benign neoplasm of ascending col on Toney Melgar M.D. 12/10/2020 D12.5 Benign neoplasm of sigmoid colon Toney Melgar M.D. 12/10/2020 D12.3 Benign neoplasm of transverse co compa Toney Melgar M.D. 12/10/2020 K57.30 Diverticulosis of la rge intestine without perforation or abscess without bleeding Toney Melgar M.D. 12/10/2020 K64.8 Other hemorrhoids Toney johnson M.D. 12/10/2020 D50.9 Iron deficiency anemia, unspecif ied Toney Melgar M.D. 12/10/2020 K44.9 Diaphragmatic hernia without obs truction or gangrene Toney Melgar M.D. 12/10/2020 K29.70 Gastritis, unspecified, without bleeding Toney Melagr M.D. 11/19/2020 R19.5 Other fecal abnormalities Echodenise mir CLAUDIA Crane 11/19/2020 D50.9 Iron deficiency anemia, unspecif ied Sarina Mir CLAUDIA Mullen Plan of Treatment Future Appointment(s):* 06/25/2021 8:30 am - Chandana Yang D.O. at [facility] Pulmonary/Thoracic * 04/08/2021 2:15 pm - Toney Melgar M.D. at [facility] Gastroenterology Practice * 03/30/2021 7:30 am - Toney Melgar M.D. at [facility] Gastroenterology Practice 03/25/2021 - Bruce Sanders PKesha.* J43.1 Panlobular emphysema * Z85.118 History of malignant neoplasm of lung * Z87.891 Personal history of nicotine dependence * * Follow up:* Follow up in [address] Yang Functional Status Description No Information Available Mental Status Description No Information Available Referrals Refer to Reason for Referral Status Appt Date Toney Melgar M.D. POSITIVE OGUALIZ Scheduled 11/21/2020 [facility]-[address], [address] [place], [place] [address] [phone]
--- OUTSIDE RECORDS SUMMARY | 2021-03-30 06:47 | CCD | Continuity of Care Document ---
Author Author Jaquelin SANDERS PPhoebe Organization Unknown Address [address] [place] [address] Phone [phone] Care Team Providers Care Access Developer Name Role Phone Daya Cedillo Keyla Logan AUTM [phone] AUTM Unavailable AUTM Unavailable AUTM Unavailable Problems [...] verbally BMI (Body Mass Index) 34.0 kg/m2 [employer] Body Weight 145 lb Weight 104.328 kg BSA (Body Surface Area) 2.19 m2 02/04/2021 8:33am BP Systolic 122 mmHg BP Diastolic 72 mmHg Height 69 inches 5'9" Weight 239.00 lb BMI (Body Mass Index) 35.3 kg/m2 [employer] Body Weight 145 lb Weight 108.410 kg BSA (Body Surface Area) 2.23 m2 Results Test Acquired Date Facility Test Result H/L Range Note FVL/[place] 03/25/2021 [employer] PDFReport SEE IMAGE FVC-Pred 3.50 L FVC-Pre 2.61 L FVC-%Pred-Pre 74 L FVC-LLN 2.73 L Fev1-Pred 2.67 L Fev1-Pre 1.77 L Fev1-%Pred-Pre 66 L Fev1-LLN 2.02 L Fev6-Pred 3.36 L Fev6-Pre 2.59 L Fev6-%Pred-Pre 76 L Fev6-LLN 2.60 L Dhs5xds-Zyoo 76 % Pzz2yge-Nth 68 % Kmy5bob-%Pred-Pre 88 % Dqi3yqw-GFA 67 % Vlo8ozy-Hryo 96 % Uyc3cvj-Gtt 99 % Koh6fsw-%Pred-Pre 103 % FEFMax-Pred 6.35 L/E/sec FEFMax-Pre 4.88 L/E/sec FEFMax-%Pred-Pre 76 L/E/sec FEFMax-LLN 4.44 L/E/sec Shu8418-Ovcd 2.20 L/E/sec Uls8113-Jpn 0.95 L/E/sec Tcr2786-%Pred-Pre 43 L/E/sec Ifc4353-JVG 0.82 L/E/sec ExpTime-Pre 6.59 sec Vwq5eho7-Sdbm 79 % Drp6ffb4-Axv 68 % Rxp3skl1-%Pred-Pre 85 % Ffr4noe5-HVI 71 % Procedures Date Code Description Status 02/04/2021 98356 Office/Outpatient Established Mo d MDM 30-39 Min Completed 12/10/2020 92527 Colonoscopy W/ Poly Completed 12/10/2020 06756 Endoscopy Upper GI Biopsy Comple sherron 11/19/2020 46786 Office/Outpatient New Moderate M DM 45-59 Minutes Completed Medical Devices Description No Information Available Encounters Type Date Location Provider Dx Diagnosis Office Visit 02/04/2021 8:30a [facility] Gastroenterology Pra ctice Sarina Lafleurjoshua, LÓPEZ-C D50.9 Iron deficiency anemia, unsp ecified Z86.010 Personal history of colonic polyps R12 Heartburn Office Visit 11/19/2020 11:30a [facility] Gastroenterology Pra ctice Sarina Daltontristan, RPA-C R19.5 Other fecal abnormalities D50.9 Iron deficiency anemia, unsp ecified Assessments Date Code Description Provider 03/25/2021 J43.1 Panlobular emphysema Bruce rojas, P.A. 03/25/2021 Z85.118 History of malignant neoplasm of lung Bruce Sanders P.A. 03/25/2021 Z87.891 Personal history of nicotine dep endence Bruce Sanders, P.A. 02/04/2021 D50.9 Iron deficiency anemia, unspecif ied Sarina Daltontristan, RPA-C 02/04/2021 Z86.010 Personal history of colonic poly ps Sarina Mcleod Ambermalikjoshua, LÓPEZ-C 02/04/2021 R12 Heartburn Sarina Lafleur botristan, LÓPEZ-C 12/10/2020 Z12.11 Encounter for screening for kamaljit [...] 12/10/2020 K29.70 Gastritis, unspecified, without bleeding Toney Melgar M.D. 11/19/2020 R19.5 Other fecal abnormalities CLAUDIA Gutierrez 11/19/2020 D50.9 Iron deficiency anemia, unspecif ied CLAUDIA Gerber Plan of Treatment Future Appointment(s):* 06/25/2021 8:30 am - Chandana Yang D.O. at [facility] Pulmonary/Thoracic * 04/08/2021 2:15 pm - Toney Melgar M.D. at [facility] Gastroenterology Practice * 03/30/2021 7:30 am - Toney Melgar M.D. at [facility] Gastroenterology Practice 03/25/2021 - Bruce Sanders, PJanetAJanet* J43.1 Panlobular emphysema * Z85.118 History of malignant neoplasm of lung * Z87.891 Personal history of nicotine dependence * * Follow up:* Follow up in [address] Yang Functional Status Description No Information Available Mental Status Description No Information Available Referrals Refer to Reason for Referral Status Appt Date Toney Melgar M.D. POSITIVE COLOGUARD Scheduled 11/21/2020 [facility]-GI [address], [address] [place] [address] [phone]
--- OUTSIDE RECORDS SUMMARY | 2021-03-30 06:47 | CCD | Continuity of Care Document ---
Author Author Jaquelin SANDERS PPhoebe Organization Unknown Address [address] [place] [address] Phone [phone] Care Team Providers Care Beater Room Supervisor Name Role Phone Daya Cedillo Keyla Logan AUTM [phone] AUTM Unavailable AUTM Unavailable AUTM Unavailable Problems [...] verbally BMI (Body Mass Index) 34.0 kg/m2 [place] Body Weight 145 lb Weight 104.328 kg BSA (Body Surface Area) 2.19 m2 02/04/2021 8:33am BP Systolic 122 mmHg BP Diastolic 72 mmHg Height 69 inches 5'9" Weight 239.00 lb BMI (Body Mass Index) 35.3 kg/m2 [place] Body Weight 145 lb Weight 108.410 kg BSA (Body Surface Area) 2.23 m2 Results Test Acquired Date Facility Test Result H/L Range Note FVL/[place] 03/25/2021 [employer] PDFReport SEE IMAGE FVC-Pred 3.50 L FVC-Pre 2.61 L FVC-%Pred-Pre 74 L FVC-LLN 2.73 L Fev1-Pred 2.67 L Fev1-Pre 1.77 L Fev1-%Pred-Pre 66 L Fev1-LLN 2.02 L Fev6-Pred 3.36 L Fev6-Pre 2.59 L Fev6-%Pred-Pre 76 L Fev6-LLN 2.60 L Akw7yzq-Nerh 76 % Nqb9rsv-Kso 68 % Ydg7qsx-%Pred-Pre 88 % Zrw9nwe-MCT 67 % Zsl4btc-Gbdj 96 % Ywg1jdl-Mvu 99 % Hlo2iok-%Pred-Pre 103 % FEFMax-Pred 6.35 L/E/sec FEFMax-Pre 4.88 L/E/sec FEFMax-%Pred-Pre 76 L/E/sec FEFMax-LLN 4.44 L/E/sec Vyb8961-Uecb 2.20 L/E/sec Cnn5582-Gmp 0.95 L/E/sec Dyu2787-%Pred-Pre 43 L/E/sec Hun0463-YMH 0.82 L/E/sec ExpTime-Pre 6.59 sec Pis7osi0-Taox 79 % Ibb7hgl6-Bvz 68 % Rfk1tql3-%Pred-Pre 85 % Pen3jlt7-JCZ 71 % Procedures Date Code Description Status 02/04/2021 86537 Office/Outpatient Established Mo d MDM 30-39 Min Completed 12/10/2020 74499 Colonoscopy W/ Poly Completed 12/10/2020 70880 Endoscopy Upper GI Biopsy Comple sherron 11/19/2020 87371 Office/Outpatient New Moderate M DM 45-59 Minutes Completed Medical Devices Description No Information Available Encounters Type Date Location Provider Dx Diagnosis Office Visit 02/04/2021 8:30a [facility] Gastroenterology Pra ctice Sarina Lafleurjoshua, LÓPEZ-C D50.9 Iron deficiency anemia, unsp ecified Z86.010 Personal history of colonic polyps R12 Heartburn Office Visit 11/19/2020 11:30a [facility] Gastroenterology Pra ctice Sarina Daltontristan, RPA-C [...] 8:30 am - Chandana Yang D.O. at [facility] Pulmonary/Thoracic * 04/08/2021 2:15 pm - Toney Melgar M.D. at [facility] Gastroenterology Practice * 03/30/2021 7:30 am - Toney Melgar M.D. at [facility] Gastroenterology Practice 03/25/2021 - Bruce Sanders, [...] Toney Melgar M.D. POSITIVE COLOGUARD Scheduled 11/21/2020 [facility]-GI [address], [address] [place] [address] [phone]
--- OUTSIDE RECORDS SUMMARY | 2021-03-30 06:47 | CCD | Continuity of Care Document ---
Author Author Jaquelin SANDERS PPhoebe Organization Unknown Address [address] [place] [address] Phone [phone] Care Team Providers Care Torch Brazer Name Role Phone Daya Cedillo Keyla Logan AUTM [phone] AUTM Unavailable AUTM Unavailable AUTM Unavailable Problems [...] verbally BMI (Body Mass Index) 34.0 kg/m2 [place] Body Weight 145 lb Weight 104.328 kg BSA (Body Surface Area) 2.19 m2 02/04/2021 8:33am BP Systolic 122 mmHg BP Diastolic 72 mmHg Height 69 inches 5'9" Weight 239.00 lb BMI (Body Mass Index) 35.3 kg/m2 [place] Body Weight 145 lb Weight 108.410 kg BSA (Body Surface Area) 2.23 m2 Results Test Acquired Date Facility Test Result H/L Range Note FVL/[place] 03/25/2021 [facility] SEE IMAGE FVC-Pred 3.50 L FVC-Pre 2.61 L FVC-%Pred-Pre 74 L FVC-LLN 2.73 L Fev1-Pred 2.67 L Fev1-Pre 1.77 L Fev1-%Pred-Pre 66 L Fev1-LLN 2.02 L Fev6-Pred 3.36 L Fev6-Pre 2.59 L Fev6-%Pred-Pre 76 L Fev6-LLN 2.60 L Xbc8dug-Oiim 76 % Xdt6wva-Zav 68 % Bwj0zkh-%Pred-Pre 88 % Izm3eab-AOI 67 % Rvt6scj-Uikr 96 % Vhi7gpy-Rsi 99 % Ggu7nqi-%Pred-Pre 103 % FEFMax-Pred 6.35 L/E/sec FEFMax-Pre 4.88 L/E/sec FEFMax-%Pred-Pre 76 L/E/sec FEFMax-LLN 4.44 L/E/sec Wud4275-Hckw 2.20 L/E/sec Beg2404-Iho 0.95 L/E/sec Cwj7432-%Pred-Pre 43 L/E/sec Ijr6846-DDX 0.82 L/E/sec ExpTime-Pre 6.59 sec Qni4syg9-Ggah 79 % Kbk4nsw5-His 68 % Tlw0tjf4-%Pred-Pre 85 % Mnr1epq2-KXV 71 % Procedures Date Code Description Status 02/04/2021 57338 Office/Outpatient Established Mo d MDM 30-39 Min Completed 12/10/2020 05718 Colonoscopy W/ Poly Completed 12/10/2020 22094 Endoscopy Upper GI Biopsy Comple sherron 11/19/2020 80295 Office/Outpatient New Moderate M DM 45-59 Minutes Completed Medical Devices Description No Information Available Encounters Type Date Location Provider Dx Diagnosis Office Visit 02/04/2021 8:30a [facility] Gastroenterology Pra ctice Sarina Lafleurojshua, LÓPEZ-C D50.9 Iron deficiency anemia, unsp ecified Z86.010 Personal history of colonic polyps R12 Heartburn Office Visit 11/19/2020 11:30a [facility] Gastroenterology Pra ctice Sarina Daltontristan, RPA-C [...] - Chandana Yang D.O. at [facility] Pulmonary/Thoracic * 04/08/2021 2:15 pm - Toney Melgar M.D. at [facility] Gastroenterology Practice * 03/30/2021 7:30 am - Toney Melgar M.D. at [facility] Gastroenterology Practice 03/25/2021 - Bruce Sanders, [...] Toney Melgar M.D. POSITIVE COLOGUARD Scheduled 11/21/2020 [facility]-GI [address] [facility], [address] [place] [address] [phone]
--- OUTSIDE RECORDS SUMMARY | 2021-03-30 06:47 | CCD ---
Author Author [facility] Organization [facility] Address Unknown Phone Unavailable Care Team Providers Care Managing Principal Name Role Phone Daya Cedillo Unavailable PROBLEMS Type Condition ICD9-CM Code OGS75-YR Code Onset Dates Condition S tatus W/U Status Risk SNOMED Code Notes Problem CVA, old, aphasia I69.320 Active confirmed 4 23425440 Problem Stage II pressure ulcer of sacral region L89.152 Active confirmed 962100830 Problem Psychophysiological insomnia F51.04 Active confirme d 890403690 Problem Reactive depression F32.9 Active confirmed 54187649 Problem Malignant neoplasm of right lung, unspecified part of lung C34.91 Active confirmed 127988150 Problem Above knee amputation of left lower extremity S78. 112A Active confirmed [id number] Problem Type 2 diabetes mellitus wit hout complication, without long-term current use of insulin E11.9 Active confirmed 242079318 Problem AAA (abdominal aortic aneurysm) without rupture I7 1.4 Active confirmed 30162911 Problem Cardiac disease I51.9 Active confirmed 5626 5001 Problem Panlobular emphysema J43.1 Active confirmed 6534876 Problem Systolic and diastolic CHF, chronic I50.42 Acti ve confirmed 734783508137309 Problem Gastroesophageal reflux disease without esophagitis K21.9 Active confirmed 807288010 Problem CKD (chronic kidney disease) stage 3, GFR 30-59 ml/min N18.3 Active confirmed 697427751 ALLERGIES Allergen (clinical drug ingredient) Drug/Non Drug Allergy do cumented on EMR Reaction Allergy Type Onset Date Status Codeine Codeine Nausea/Vomiting Non Drug Allergy Act eugene ENCOUNTERS from 1950 to 2021-03-23 Encounter Location Date Provider Diagnosis [address] [phone] [place] [address] 06 Mar, 2021 Daya Cedillo Type 2 diabetes mellitus wit hout complication, without long-term current use of insulin E11.9 ; Encounter for Medicare annual wellness exam Z00.00 ; Malignant neoplasm of right lung, unspecified part of lung C34.91 ; Systolic and diastolic CHF, chronic I50.42 ; Panlobular emphysema J43.1 ; Cardiac disease I51.9 ; Reactive depression F32.9 ; Psychophysiological insomnia F51.04 ; Gastroesophageal reflux disease without esophagitis K21.9 ; CKD (chronic kidney disease) stage 3, GFR 30-59 ml/min N18.3 ; Physical deconditioning R53.81 and AAA (abdominal aortic aneurysm) without rupture I71.4 IMMUNIZATIONS Vaccine Route Administration Date Status Moderna #1 dose COVID-19 (given elsewhere) SARSCOV2 VAC 100M CG/0.5ML IM Unknown Aug 07, 2020 Administered Moderna #2 dose COVID-19 (given elsewhere) SARSCOV2 VAC 100M CG/0.5ML IM Unknown September 08, 2020 Administered Influenza 18 yrs & older Flublok IM Intramuscular Mar 13, 2020 Administered Influenza 18 yrs & older Flublok Unknown Mar 27, 2018 Administered Pneumococcal Adult 0.5mL Pneumovax 23 Unknown Apr 19 16 Administered Pneumococcal 0.5mL Prevnar 13 Unknown Mar 20, 2018 Ad ministered SOCIAL HISTORY Tobacco Use: Social History Observation Description Date Details (start date - stop date) Former Smoker Sex Assigned At : Social History Observation Description Sex Assigned At Unknown Education: Question Answer Notes Level of Education: College Audit Question Answer Notes Total Score: 0 Interpretation: Alcohol Education Language: Question Answer Notes Languages spoken: Uzbek Pentecostalism: Question Answer Notes Pentecostalism No synagogue beliefs that would impact health care. Domestic Violence: Question Answer Notes Status: Does the patient divulge that the partner hit them? No Does the patient divulge that the partner hits the children in the household? N/A Does the patient consider the partner abusive? No Has the patient ever been in a situation involving domestic violence? No Has the patietn ever been injured, homeb ound, or hospitalized due to an altercation with significant other? No Drug and Alcohol Question Answer Notes Total Score: 0 Interpretation: No problems reported Alcohol Screening: Question Answer Notes Did you have a drink containing alcohol in the past year? No Points 0 Interpretation Negative Tobacco Use: Question Answer Notes Are you a: former smoker Smoking Cessation Information Given 03/04/2017 How long has it been since you last smoked? 5-10 years REASON FOR REFERRAL No Information VITAL SIGNS Weight 230 lbs Mar, Weight-kg 104.33 kg Mar, Height 67.5 in Mar, BMI 35.49 kg/m2 Mar, Heart Rate 77 /min Mar, Respiratory Rate 18 /min Mar, Temperature 98.6 degrees Fahrenheit Mar, Oximetry 100 Mar, Blood pressure systolic 132 mm Hg Mar, Blood pressure diastolic 74 mm Hg Mar, MEDICATIONS Medication SIG (Take, Route, Frequency, Duration) Notes Start Da te End Date Status Calcitriol 0.25 MCG 1 capsule Orally Once a day for 30 day(s) Active Trulicity 1.5 MG/0.5ML as directed Subcutaneous weekly for 90 days Active Multivitamin Adult - Orally Acti ve Aspirin 81 MG 1 tablet Orally Once a day for 90 day(s) Active Vitamin D 1000 UNIT 1 tablet Orally Once a day for 30 day(s) Active Docusate Sodium 100 MG 1 capsule as needed Orally twice daily Active Trelegy Ellipta 100-62.5-25 MCG/INH 1 puff Inhalation Once a day Active Lipitor 80 MG 1 tablet Orally Once a day for 90 days Active Blood Glucose Test - 1 strip/Free Style In Vitro/E11.9 Daily for 90 day(s) Apr, Active traZODone HCl 50 MG 1 tablet at bedtime as needed Orally Onc e a day for 90 days Active Nitroglycerin 0.4 MG as directed Sublingual take 1 tab x's 3 doses 5 minutes apart if no relief from chest pain after 3 does go to the ER for 90 day(s) as needed Active traZODone HCl 100 MG 1 tablet at bedtime Orally before bedtime f or 90 days Jun, Active Tylenol Extra Strength 500 MG 1 tablet as needed Orally every 6 hrs Active ProAir HFA 108 (90 Base) MCG/ACT 2 puff as needed Inha lation every 4 hrs for cough/shortness of breath Jun, Active Effexor XR 75 MG 1 capsule with food Orally Once a day for 90 days Active Refresh Plus 0.5 % 1 drop into affected eye as needed Ophthalmic Three times a day for 90 day(s) Feb, Active FreeStyle Lancets - 1 lancet E11.9- 28 guage use bid for 90 day( s) Jun, Active Abilify 2 MG 1 tablet Orally Once a day 990399133 for 30 days Active Famotidine 40 MG 1 tablet at bedtime Orally Once a day for 90 da ys Dec, Active Entresto 49-51 MG 1 tablet Orally Twice a day Active Torsemide 5 MG 2 tablets Orally Once a day Active Omeprazole 40 MG 1 capsule Orally Once a day for 90 days Active Plavix 75 MG 1 tablet Orally Once a day for 90 days Active Metoprolol Tartrate 25 MG 1/2 tablet Orally Twice a day Active PROCEDURES No Information RESULTS No Results REASON FOR VISIT 6 month MAW MEDICAL (GENERAL) HISTORY Type Description Date Medical History Chronic Systolic/Diasolic CHF-Grade III- IV EF 15% echo 02/18/18 Medical History Chronic Kidney Disease Stage IIImoderate GFR 34- 41-Dr. 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 Medical History moderately differentialed on a right upper lobe lung biopsy 01/2018 PD-L1 tumor proprotion score 80% Medical History non rheumatic mitral insuffiency Medical History moderate stenosis of 50% right internal carotid artery Medical History Left Lower extremity ischemi a following cardiac arrest requiring above knee amputation AKA 10/2016 Medical History Compression fx T12-L1 and L3 02/2018 Medical History prior 30 yr one-half pack per day smokin g quit 2006 Medical History secondary hyperparathyroidism renal orig in Medical History Osteoporosis Medical History vitamin d defiency 29.8 Dr. Perez Medical History AAA 2.9 cm 02/[address] Feliciano Surgical History Appendectomy age 17 1965 Surgical History right breast cystectomy 1988 Surgical History Cholecystectomy age 42 1991 Surgical History Left AKA 10/2016 Surgical History Kyphoplasty 01/08/18 Surgical History ovarian cystectomy Surgical History Colonoscopy 2011 Hospitalization History PR 1993 Hospitalization History Stroke 2010 Hospitalization History PR/Stroke [place] 10/2016 Hospitalization History [facility]F 02/2018 Goals Section No Information Health Concerns No Information MEDICAL EQUIPMENT No Information MENTAL STATUS No Information FUNCTIONAL STATUS No Information ASSESSMENTS Encounter Date Diagnosis Assessment Notes Treatment Notes Treatm ent Clinical Notes Mar, Type 2 diabetes mellitus wit hout complication, without long-term current use of insulin (ICD-10 - E11.9) started on trulicity weekly ok with renal status. to aide in weight loss, may need to stop januvia blood sugars low dropped down trulicity does, has gained weight discussed will go back to 1.5 mg dose. will use up what they have then call for new script russell sent 12/2020 hga1c 6.2 lost 11 lbs doing well feels good 03/2021 off januvia only trulicity hga1c 6.1 Mar, Encounter for Medicare annual wellness exam (ICD -10 - Z00.00) Mar, Malignant neoplasm of right lung, unspecified part of lung (ICD-10 - C34.91) follows with pulmonary as well as [facility] [place] Mar, Systolic and diastolic CHF, chronic (ICD-10 - I5 0.42) follows with Cardiology notes reviewed doing well with pacemaker feels better Mar, Panlobular emphysema (ICD-10 - J43.1) pulmonary notes reviewed on inhaler, [facility] Mar, Cardiac disease (ICD-10 - I51.9) pt signed release to obtain records follows with cardiology, arrived extensive history dating back to first PR 1991 and 1996. Mar, Reactive depression (ICD-10 - F32.9) due to health, states she is doing well on her meds. has enough meds for now Mar, Psychophysiological insomnia (ICD-10 - F51.04) has enough trazadone at the current time works well for sleep Mar, Gastroesophageal reflux dise ase without esophagitis (ICD-10 - K21.9) controlled with omeprazole Mar, CKD (chronic kidney disease) stage 3, GFR 30-59 ml/min (ICD-10 - N18.3) follows with nephrology stable at the current time. recent notes and labs reviewed Mar, Physical deconditioning (ICD-10 - R53.81) doing well with physical therapy to strengthen muscles and continue to learn to walk with prothesis balance improving has used up her visits for this year has to wait until June to she can restart her physical therapy Mar, AAA (abdominal aortic aneurysm) without rupture (ICD-10 - I71.4) followed thru Dr. Feliciano, ultrasound November 18 2020, performed, stable per pt PLAN OF TREATMENT Medication Medication Name Sig Start Date Stop Date traZODone HCl 50 MG 1 tablet at bedtime as needed Orally Onc e a day for 90 days Omeprazole 40 MG 1 capsule Orally Once a day for 90 days Abilify 2 MG 1 tablet Orally Once a day 578572437 for 30 days Effexor XR 75 MG 1 capsule with food Orally Once a day for 90 da ys Trulicity 1.5 MG/0.5ML as directed Subcutaneous weekly for 90 da ys Torsemide 5 MG 2 tablets Orally Once a day Metoprolol Tartrate 25 MG 1/2 tablet Orally Twice a day ProAir HFA 108 (90 Base) MCG/ACT 2 puff as needed Inha lation every 4 hrs for cough/shortness of breath Jun, Entresto 49-51 MG 1 tablet Orally Twice a day Trelegy Ellipta 100-62.5-25 MCG/INH 1 puff Inhalation Once a day Treatment Notes Assessment Notes Clinical Notes Type 2 diabetes mellitus without complic ation, without long-term current use of insulin started on trulicity weekly ok with renal status. to aide in weight loss, may need to stop januviablood sugars low dropped down trulicity does,has gained weight discussed will go back to 1.5 mg dose. will use up what they have then call for new script russell sent12/2020 hga1c 6.2 lost 11 lbs doing well feels good03/2021 off januvia only trulicity hga1c 6.1 Malignant neoplasm of right lung, unspecified part of lung follows with pulmonary as well as [facility] [place] Systolic and diastolic CHF, chronic foll ows with Cardiology notes reviewed doing well with pacemaker feels better Panlobular emphysema pulmonary notes rev iewed on inhaler, states breathing has improved in trelogy Cardiac disease pt signed release to obtain records follows with cardiology, arrived extensive history dating back to first PR 1991 and 1996. Reactive depression due to health, state s she is doing well on her meds. has enough meds for now Psychophysiological insomnia has enough trazadone at the current time works well for sleep Gastroesophageal reflux disease without esophagitis controlled with omeprazole CKD (chronic kidney disease) stage 3, GFR 30-59 ml/min follows with nephrology stable at the current time. recent notes and labs reviewed Physical deconditioning doing well with physical therapy to strengthen muscles and continue to learn to walk with prothesis balance improving has used up her visits for this year has to wait until June to she can restart her physical therapy AAA (abdominal aortic aneurysm) without rupture followed thru Dr. Feliciano, ultrasound November 18 2020, performed, stable per pt Next Appt Details September routine visit Reason: Provider Name:Daya Keyla Cedillo, 10:30:00 AM, [address] [facility], , [place], [address], Insurance Providers Payer Name Payer Address Payer Phone Insured Name Patient Relati onship to Insured Coverage Start Date Coverage End Date MEDICARE Part A and B [address] [facility] [id number] [employer] self [employer] [address] [facility] [id number] Harris Carlson
--- OUTSIDE RECORDS SUMMARY | 2021-03-30 06:47 | CCD | Continuity of Care Document ---
Author Author Jaquelin SANDERS PPhoebe Organization Unknown Address [address] [place] [address] Phone [phone] Care Team Providers Care Superintendent General Name Role Phone Daya Cedillo Keyla Logan AUTM [phone] AUTM Unavailable AUTM Unavailable AUTM Unavailable Problems [...] verbally BMI (Body Mass Index) 34.0 kg/m2 [place] Body Weight 145 lb Weight 104.328 kg BSA (Body Surface Area) 2.19 m2 02/04/2021 8:33am BP Systolic 122 mmHg BP Diastolic 72 mmHg Height 69 inches 5'9" Weight 239.00 lb BMI (Body Mass Index) 35.3 kg/m2 [place] Body Weight 145 lb Weight 108.410 kg BSA (Body Surface Area) 2.23 m2 Results Test Acquired Date Facility Test Result H/L Range Note FVL/[place] 03/25/2021 [facility] PD[facility]eport SEE IMAGE FVC-Pred 3.50 L FVC-Pre 2.61 L FVC-%Pred-Pre 74 L FVC-LLN 2.73 L Fev1-Pred 2.67 L Fev1-Pre 1.77 L Fev1-%Pred-Pre 66 L Fev1-LLN 2.02 L Fev6-Pred 3.36 L Fev6-Pre 2.59 L Fev6-%Pred-Pre 76 L Fev6-LLN 2.60 L Kfm4szs-Scld 76 % Rhg6bxp-Wrl 68 % Gdl8ntj-%Pred-Pre 88 % Lhi3jhb-YFX 67 % Zyf4hii-Rluq 96 % Ger3xgf-Qul 99 % Xxp3osf-%Pred-Pre 103 % FEFMax-Pred 6.35 L/E/sec FEFMax-Pre 4.88 L/E/sec FEFMax-%Pred-Pre 76 L/E/sec FEFMax-LLN 4.44 L/E/sec Gmq0818-Ykak 2.20 L/E/sec Scr0100-Yhz 0.95 L/E/sec Wyu1412-%Pred-Pre 43 L/E/sec Zqz6967-DMO 0.82 L/E/sec ExpTime-Pre 6.59 sec Qvo7viu3-Jmxa 79 % Ege3khh5-Fkx 68 % Qie0acz7-%Pred-Pre 85 % Pvo8kic5-UGM 71 % Procedures Date Code Description Status 02/04/2021 48184 Office/Outpatient Established Mo d MDM 30-39 Min Completed 12/10/2020 25163 Colonoscopy W/ Poly Completed 12/10/2020 33022 Endoscopy Upper GI Biopsy Comple sherron 11/19/2020 24070 Office/Outpatient New Moderate M DM 45-59 Minutes Completed Medical Devices Description No Information Available Encounters Type Date Location Provider Dx Diagnosis Office Visit 02/04/2021 8:30a [facility] Gastroenterology Pra ctice Sarina Lafleurjoshua, LÓPEZ-C D50.9 Iron deficiency anemia, unsp ecified Z86.010 Personal history of colonic polyps R12 Heartburn Office Visit 11/19/2020 11:30a [facility] Gastroenterology Pra ctice Sarina Daltontristan, RPA-C [...] 8:30 am - Chandana Yang D.O. at [facility] Pulmonary/Thoracic * 04/08/2021 2:15 pm - Toney Melgar M.D. at [facility] Gastroenterology Practice * 03/30/2021 7:30 am - Toney Melgar M.D. at [facility] Gastroenterology Practice 03/25/2021 - Bruce Sanders, [...] Toney Melgar M.D. POSITIVE COLOGUARD Scheduled 11/21/2020 [facility]GI [address] [facility], [address] [place] [address] [phone]
--- OUTSIDE RECORDS SUMMARY | 2021-03-30 06:47 | CCD | Continuity of Care Document ---
Author Author Jaquelin SANDERS PPhoebe Organization Unknown Address [address] [place] [address] Phone [phone] Care Team Providers Care Automation Technician Name Role Phone Daya Cedillo Keyla Logan AUTM [phone] AUTM Unavailable AUTM Unavailable AUTM Unavailable Problems [...] verbally BMI (Body Mass Index) 34.0 kg/m2 [place] Body Weight 145 lb Weight 104.328 kg BSA (Body Surface Area) 2.19 m2 02/04/2021 8:33am BP Systolic 122 mmHg BP Diastolic 72 mmHg Height 69 inches 5'9" Weight 239.00 lb BMI (Body Mass Index) 35.3 kg/m2 [place] Body Weight 145 lb Weight 108.410 kg BSA (Body Surface Area) 2.23 m2 Results Test Acquired Date Facility Test Result H/L Range Note FVL/[place] 03/25/2021 [facility] PDFReport SEE IMAGE FVC-Pred 3.50 L FVC-Pre 2.61 L FVC-%Pred-Pre 74 L FVC-LLN 2.73 L Fev1-Pred 2.67 L Fev1-Pre 1.77 L Fev1-%Pred-Pre 66 L Fev1-LLN 2.02 L Fev6-Pred 3.36 L Fev6-Pre 2.59 L Fev6-%Pred-Pre 76 L Fev6-LLN 2.60 L Vtj7rdn-Gfdm 76 % Qiu5wun-Flc 68 % Acl5ooo-%Pred-Pre 88 % Qgg2dla-YUV 67 % Gji5llh-Ycec 96 % Gsk6puf-Gii 99 % Dyl0mic-%Pred-Pre 103 % FEFMax-Pred 6.35 L/E/sec FEFMax-Pre 4.88 L/E/sec FEFMax-%Pred-Pre 76 L/E/sec FEFMax-LLN 4.44 L/E/sec Inb9428-Iyme 2.20 L/E/sec Jxh5830-Pbo 0.95 L/E/sec Jzb3104-%Pred-Pre 43 L/E/sec Ckc1737-MRE 0.82 L/E/sec ExpTime-Pre 6.59 sec Xsj4axd8-Sazt 79 % Vqq6zdj5-Rwi 68 % Lck9hqd7-%Pred-Pre 85 % Cxy7ksz8-EOH 71 % Procedures Date Code Description Status 02/04/2021 74338 Office/Outpatient Established Mo d MDM 30-39 Min Completed 12/10/2020 66535 Colonoscopy W/ Poly Completed 12/10/2020 85984 Endoscopy Upper GI Biopsy Comple sherron 11/19/2020 08850 Office/Outpatient New Moderate M DM 45-59 Minutes Completed Medical Devices Description No Information Available Encounters Type Date Location Provider Dx Diagnosis Office Visit 02/04/2021 8:30a [facility] Gastroenterology Pra ctice Sarina Lafleurjoshua, LÓPEZ-C D50.9 Iron deficiency anemia, unsp ecified Z86.010 Personal history of colonic polyps R12 Heartburn Office Visit 11/19/2020 11:30a [facility] Gastroenterology Pra ctice Sarina Daltontristan, RPA-C [...] Diaphragmatic hernia without obs truction or gangrene oTney Melgar M.D. 12/10/2020 K29.70 Gastritis, unspecified, without bleeding Toney Melgar M.D. 11/19/2020 R19.5 Other fecal abnormalities CLAUDIA Gutierrez 11/19/2020 D50.9 Iron deficiency anemia, unspecif ied CLAUDIA Gerber Plan of Treatment Future Appointment(s):* 06/25/2021 8:30 am - Chandana Yang D.O. at [facility] Pulmonary/Thoracic * 04/08/2021 2:15 pm - Toney Melgar M.D. at [facility] Gastroenterology Practice * 03/30/2021 7:30 am - Toney Melgar M.D. at [facility] Gastroenterology Practice 03/25/2021 - Bruce Sanders, [...] Toney Melgar M.D. POSITIVE COLOGUARD Scheduled 11/21/2020 [facility] [address] [facility], [address] [place] [address] [phone]
--- OUTSIDE RECORDS SUMMARY | 2021-03-30 06:47 | CCD | Continuity of Care Document ---
Author Author Jaquelin SANDERS PPhoebe Organization Unknown Address [address] [place] [address] Phone [phone] Care Team Providers Care University Manager Name Role Phone Daya Cedillo Keyla Logan AUTM [phone] AUTM Unavailable AUTM Unavailable AUTM Unavailable Problems [...] verbally BMI (Body Mass Index) 34.0 kg/m2 Turner Body Weight 145 lb Weight 104.328 kg BSA (Body Surface Area) 2.19 m2 02/04/2021 8:33am BP Systolic 122 mmHg BP Diastolic 72 mmHg Height 69 inches 5'9" Weight 239.00 lb BMI (Body Mass Index) 35.3 kg/m2 Turner Body Weight 145 lb Weight 108.410 kg BSA (Body Surface Area) 2.23 m2 Results Test Acquired Date Facility Test Result H/L Range Note FVL/[place] 03/25/2021 [facility] SEE IMAGE FVC-Pred 3.50 L FVC-Pre 2.61 L FVC-%Pred-Pre 74 L FVC-LLN 2.73 L Fev1-Pred 2.67 L Fev1-Pre 1.77 L Fev1-%Pred-Pre 66 L Fev1-LLN 2.02 L Fev6-Pred 3.36 L Fev6-Pre 2.59 L Fev6-%Pred-Pre 76 L Fev6-LLN 2.60 L Weu9lab-Ivvh 76 % Jkw8alo-Hjn 68 % Spv2xdu-%Pred-Pre 88 % Yry3ran-WXQ 67 % Bgm2yvt-Soui 96 % Clr6wpt-Qcq 99 % Aqc0nds-%Pred-Pre 103 % FEFMax-Pred 6.35 L/E/sec FEFMax-Pre 4.88 L/E/sec FEFMax-%Pred-Pre 76 L/E/sec FEFMax-LLN 4.44 L/E/sec Zaw0048-Wmlv 2.20 L/E/sec Iyk0745-Ioe 0.95 L/E/sec Fpb8914-%Pred-Pre 43 L/E/sec Cbl0966-IVC 0.82 L/E/sec ExpTime-Pre 6.59 sec Ace7tlq6-Ryuj 79 % Ize9ssj8-Thg 68 % Hgb6xcj1-%Pred-Pre 85 % Nwq0kbm0-NMG 71 % Procedures Date Code Description Status 02/04/2021 39265 Office/Outpatient Established Mo d MDM 30-39 Min Completed 12/10/2020 98955 Colonoscopy W/ Poly Completed 12/10/2020 30637 Endoscopy Upper GI Biopsy Comple sherron 11/19/2020 37719 Office/Outpatient New Moderate M DM 45-59 Minutes Completed Medical Devices Description No Information Available Encounters Type Date Location Provider Dx Diagnosis Office Visit 02/04/2021 8:30a [facility] Pra ctice Sarina Lafleurjoshua, LÓPEZ-C D50.9 Iron deficiency anemia, unsp ecified Z86.010 Personal history of colonic polyps R12 Heartburn Office Visit 11/19/2020 11:30a [facility] Gastroenterology Pra ctice Sarina Daltontristan, RPA-C R19.5 [...] 8:30 am - Chandana Yang D.O. at [facility] Pulmonary/Thoracic * 04/08/2021 2:15 pm - Toney Melgar M.D. at [facility] Gastroenterology Practice * 03/30/2021 7:30 am - Toney Melgar M.D. at [facility] Gastroenterology Practice 03/25/2021 - Bruce Sanders, PJanetAJanet* [...] Toney Melgar M.D. POSITIVE COLOGUARD Scheduled 11/21/2020 [facility] [address] [facility], [address] [place] [address] [phone]
--- OUTSIDE RECORDS SUMMARY | 2021-03-30 06:48 | CCD ---
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 112A Active confirmed 085660776518643 Problem Type 2 diabetes mellitus wit hout complication, without long-term current use of insulin E11.9 Active confirmed 758066489 Problem AAA (abdominal aortic aneurysm) without rupture I7 1.4 Active confirmed 64027321 Problem Cardiac disease I51.9 Active confirmed 5626 5001 Problem Panlobular emphysema J43.1 Active confirmed 6407288 Problem Systolic and diastolic CHF, chronic I50.42 Acti ve confirmed 121155593188568 Problem Gastroesophageal reflux disease without esophagitis K21.9 Active confirmed 798366361 Problem CKD (chronic kidney disease) stage 3, GFR 30-59 ml/min N18.3 Active confirmed 914799993 ALLERGIES Allergen (clinical drug ingredient) Drug/Non Drug Allergy do cumented on EMR Reaction Allergy Type Onset Date Status Codeine Codeine Nausea/Vomiting Non Drug Allergy Act eugene ENCOUNTERS from 1950 to 2021-01-14 Encounter Location Date Provider Diagnosis [address] [phone] [place] [address] Jan, Daya Geneage IMMUNIZATIONS Vaccine Route Administration Date Status Influenza 18 yrs & older Flublok IM [...] Education Language: Question Answer Notes Languages spoken: British Mosque: Question Answer Notes Mosque No oriental orthodox beliefs that would impact health care. Domestic Violence: Question Answer Notes Has the patient ever been in a situation involving domestic violence? No Has the patietn ever been injured, homeb ound, or hospitalized due to an altercation with significant other? No Status: Does the patient divulge that the partner hit them? No Does the patient divulge that the partner hits the children in the household? N/A Does the patient consider the partner abusive? No Drug and Alcohol Question Answer Notes [...] REASON FOR REFERRAL No Information VITAL SIGNS No information MEDICATIONS Medication SIG (Take, Route, Frequency, Duration) Notes Start Da te End Date Status Torsemide 5 MG 2 tablets Orally Once a day Active Cipro 250 MG 1 tablet Orally bid for 5 day(s) Jul, Not-Taking Cipro 250 MG 1 tablet Orally bid for 5 days Jul, Not-Taking Tylenol Extra Strength 500 MG 1 tablet as needed Orally every 6 hrs Active Docusate Sodium 100 MG 1 capsule as needed Orally twice daily Active Januvia 50 MG 1 tablet Orally Once a day Active Diflucan 150 MG 1 tablet Orally as directed 1 today then 1 in 5 days for 2 days Jul, Not-Taking Blood Glucose Test - 1 strip/Free Style In Vitro/E11.9 Daily for 90 day(s) Apr, Active Abilify 2 MG 1 tablet Orally Once a day 529595003 for 30 days Active Aspirin 81 MG 1 tablet Orally Once a day for 90 day(s) Active Trulicity 1.5 MG/0.5ML as directed Subcutaneous weekly for 90 days Active Effexor XR 75 MG 1 capsule with food Orally Once a day for 90 days Active Nitroglycerin 0.4 MG as directed Sublingual take 1 tab x's 3 doses 5 minutes apart if no relief from chest pain after 3 does go to the ER for 90 day(s) Active Lipitor 80 MG 1 tablet Orally Once a day for 90 days Active FreeStyle Lancets - 1 lancet E11.9- 28 guage use bid for 90 day( s) Jun, Active Diflucan 150 MG 1 tablet Orally as directed 1 today and 1 in 5 days for 2 days Jul, Not-Taking Vitamin D 1000 UNIT 1 tablet Orally Once a day for 30 day(s) Active Omeprazole 40 MG 1 capsule Orally Once a day for 90 days Active Refresh Plus 0.5 % 1 drop into affected eye as needed Ophthalmic Three times a day for 90 day(s) Feb, Active Multivitamin Adult - Orally Acti ve Famotidine 40 MG 1 tablet at bedtime Orally Once a day for 90 da ys Dec, Active Plavix 75 MG 1 tablet Orally Once a day for 90 days Active traZODone HCl 50 MG 1 tablet at bedtime as needed Orally Onc e a day for 90 days Active Metoprolol Tartrate 25 mg 1/2 tablet Orally Twice a day Active Entresto 49-51 MG 1 tablet Orally Twice a day for 90 day(s) Active traZODone HCl 100 MG 1 tablet at bedtime Orally before bedtime f or 90 days Jun, Active Calcitriol 0.25 MCG 1 capsule Orally Once a day for 30 day(s) Active Trelegy Ellipta 100-62.5-25 MCG/INH 1 puff Inhalation Once a day for 90 day(s) Active ProAir HFA 108 (90 Base) MCG/ACT 2 puff as needed Inha lation every 4 hrs for cough/shortness of breath for 90 days Jun, Active Ferrous Gluconate 324 (37.5 Fe) MG 1 tablet Orally Once a day for 9 0 day(s) Active PROCEDURES No Information RESULTS No Results REASON FOR VISIT refill- plavix MEDICAL (GENERAL) HISTORY Type Description Date Medical History Chronic Systolic/Diasolic CHF-Grade III- IV EF 15% echo 02/18/18 Medical History Chronic Kidney Disease Stage IIImoderate GFR 34- 41-Dr. Perez Medical History Hypertensive Heart Disease Medical History Hx CVA Medical History Diabetes II Medical History Non Q Wave [place] 1991 and 1996 Medical History Anterior Wall [place] complicated by Cardioge balwinder Shock 10/17/16 Medical [...] cystectomy 1988 Surgical History Cholecystectomy age 42 1990 Surgical History Left AKA 10/2016 Surgical History Kyphoplasty 01/08/18 Surgical History ovarian cystectomy Surgical History Colonoscopy 2011 Hospitalization History [place] 1993 Hospitalization History Stroke 2010 Hospitalization History [place]/Stroke [place] 10/2016 Hospitalization History [facility]F 02/2018 Goals Section No Information Health Concerns No Information MEDICAL EQUIPMENT No Information MENTAL STATUS No Information FUNCTIONAL STATUS No Information ASSESSMENTS No Information PLAN OF TREATMENT Medication Medication Name Sig Start Date Stop Date Omeprazole 40 MG 1 capsule Orally Once a day for 90 days traZODone HCl 50 MG 1 tablet at bedtime as needed Orally Onc e a day for 90 days Januvia 50 MG 1 tablet Orally Once a day Lipitor 80 MG 1 tablet Orally Once a day for 90 days Abilify 2 MG 1 tablet Orally Once a day 040522162 for 30 days Trulicity 1.5 MG/0.5ML as directed Subcutaneous weekly for 90 da ys Plavix 75 MG 1 tablet Orally Once a day for 90 days Effexor XR 75 MG 1 capsule with food Orally Once a day for 90 da ys Next Appt Details Provider Name:Daya Cedillo, 07:30:00 AM, [address] [facility], , [place], [address], Insurance Providers Payer Name Payer Address Payer Phone Insured Name Patient Relati onship to Insured Coverage Start Date Coverage End Date MEDICARE Part A and B [address] [facility] [address] [phone] [employer] self FOR LIFE [address] [facility] [phone] Harris Carlson
--- OUTSIDE RECORDS SUMMARY | 2021-03-30 06:48 | CCD ---
Author Author [facility] Organization 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 112A Active confirmed 018640688172837 Problem Type 2 diabetes mellitus wit hout complication, without long-term current use of insulin E11.9 Active confirmed 302393541 Problem AAA (abdominal aortic aneurysm) without rupture I7 1.4 Active confirmed 86800678 Problem Cardiac disease I51.9 Active confirmed 5626 5001 Problem Panlobular emphysema J43.1 Active confirmed 0594957 Problem Systolic and diastolic CHF, chronic I50.42 Acti ve confirmed 783461143468816 Problem Gastroesophageal reflux disease without esophagitis K21.9 Active confirmed 460653118 Problem CKD (chronic kidney disease) stage 3, GFR 30-59 ml/min N18.3 Active confirmed 543346580 ALLERGIES Allergen (clinical drug ingredient) Drug/Non Drug Allergy do cumented on EMR Reaction Allergy Type Onset Date Status Codeine Codeine Nausea/Vomiting Non Drug Allergy Act eugene ENCOUNTERS from 1952 to 2021-01-12 Encounter Location Date Provider Diagnosis [address] [phone] [place] [address] Jan, Daya Millshubert IMMUNIZATIONS Vaccine Route Administration Date Status Influenza [...] Education Language: Question Answer Notes Languages spoken: Tongan Protestant: Question Answer Notes Protestant No caodaism beliefs that would impact health care. Domestic [...] Notes Start Da te End Date Status Cipro 250 MG 1 tablet Orally bid for 5 days Jul, Not-Taking Tylenol Extra Strength 500 MG 1 tablet as needed Orally every 6 hrs Active Metoprolol Tartrate 25 mg 1/2 tablet Orally Twice a day Active Famotidine 40 MG 1 tablet at bedtime Orally Once a day for 90 da ys Dec, Active Diflucan 150 MG 1 tablet Orally as directed 1 today then 1 in 5 days for 2 days Jul, Not-Taking Blood Glucose Test - 1 strip/Free Style In Vitro/E11.9 Daily for 90 day(s) Apr, Active Torsemide 5 MG 2 tablets Orally Once a day Active Cipro 250 MG 1 tablet Orally bid for 5 day(s) Jul, Not-Taking Trulicity 1.5 MG/0.5ML as directed Subcutaneous weekly for 90 days Active Docusate Sodium 100 MG 1 capsule as needed Orally twice daily Active Januvia 50 MG 1 tablet Orally Once a day Active Abilify 2 MG 1 tablet Orally Once a day 204635737 for 30 days Active Lipitor 80 MG 1 tablet Orally Once a day for 90 days Active Plavix 75 MG 1 tablet Orally Once a day for 90 day(s) Active FreeStyle Lancets - 1 lancet E11.9- 28 guage use bid for 90 day( s) Jun, Active Refresh Plus 0.5 % 1 drop into affected eye as needed Ophthalmic Three times a day for 90 day(s) Feb, Active Multivitamin Adult - Orally Acti ve Omeprazole 40 MG 1 capsule Orally Once a day for 90 days Active Nitroglycerin 0.4 MG as directed Sublingual take 1 tab x's 3 doses 5 minutes apart if no relief from chest pain after 3 does go to the ER for 90 day(s) Active Aspirin 81 MG 1 tablet Orally Once a day for 90 day(s) Active Vitamin D 1000 UNIT 1 tablet Orally Once a day for 30 day(s) Active Effexor XR 75 MG 1 capsule with food Orally Once a day for 90 days Active traZODone HCl 50 MG 1 tablet at bedtime as needed Orally Onc e a day for 90 days Active Diflucan 150 MG 1 tablet Orally as directed 1 today and 1 in 5 days for 2 days Jul, Not-Taking Entresto 49-51 MG 1 tablet Orally Twice [...] RESULTS No Results REASON FOR VISIT refill- lipitor MEDICAL (GENERAL) HISTORY Type Description Date Medical History Chronic Systolic/Diasolic CHF-Grade III- IV EF 15% echo 02/18/18 Medical History Chronic Kidney Disease Stage IIImoderate GFR 34- 41-Dr. Perez Medical History Hypertensive Heart Disease Medical History Hx CVA Medical History Diabetes II Medical History Non Q Wave [place] 1991 and 1996 Medical History Anterior Wall [place] complicated by Cardioge balwinder Shock 10/17/16 Medical [...] cystectomy Surgical History Colonoscopy 2011 Hospitalization History [place] 1993 Hospitalization History Stroke 2010 Hospitalization History [place]/Stroke [place] 10/2016 Hospitalization History [facility]F 02/2018 Goals [...] MG 1 tablet Orally Once a day 714775783 for 30 days Trulicity 1.5 MG/0.5ML as directed Subcutaneous weekly for 90 da ys Effexor XR 75 MG 1 capsule with food Orally Once a day for 90 da ys Next Appt Details Provider Name:Daya Cedillo, 07:30:00 AM, [address] [facility], , [place], [address], Insurance Providers Payer Name Payer Address Payer Phone Insured Name Patient Relati onship to Insured Coverage Start Date Coverage End Date MEDICARE Part A and B [address] [facility] [phone] [employer] self [employer] [address] [facility] [phone] Harris Carlson
--- OUTSIDE RECORDS SUMMARY | 2021-03-30 06:48 | CCD | Continuity of Care Document ---
Author Organization Unknown Address Unknown Phone Unavailable Care Team Providers Care Step Finisher Name Role Phone Maricruz Delgadillo MD AUTM [phone] Zohaib Rahman MD AUTM [phone] Yong Rees MD AUTM [phone] Naye Gee MD AUTM [phone] Daya Cedillo NP AUTM [phone] Toney Melgar MD AUTM [phone] Problems Active Problems Provider Date Electrocardiogram abnormal John Feliciano MD Onset: 2014 Aortic valve disorder John Feliciano MD Onset: 07/10/2014 Coronary arteriosclerosis John Feliciano MD Onset: 015 Benign hypertensive heart disease without congestive h eart failure John Feliciano MD Onset: 07/10/2014 Obesity John Feliciano MD Onset: 07/10/2014 Old myocardial infarction Gena Cruz NP Onset: 015 Hyperlipidemia Gena Cruz NP Onset: 10/22/2014 Right bundle branch block Gena Cruz NP Onset: 015 Patient post percutaneous transluminal coronary angiop lasty TD Woodward Onset: 03/07/2017 Mixed hyperlipidemia TD Woodward Onset: 03/07/2017 Dietary management surveillance TD Woodward Onset: 03/07/2017 Preoperative cardiovascular examination LIZBET Kim Onset: 12/23/2017 Chronic combined systolic and diastolic heart failure LIZBET Sheridan Onset: 03/13/2018 Mitral valve disorder LIZBET Kim Onset: 11/13/2018 Automatic implantable cardiac defibrillator in situ LIZBET Kim Onset: 04/16/2019 Aneurysm of thoracic aorta LIZBET Ramírez Onset: Hypertensive heart disease with heart failure LIZBET Black Onset: 01/11/2020 Social History Type Date Description Comments Sex Unknown ETOH Use Does not consume alcohol Tobacco Use Start: Unknown End: Unknown Patient is a former smoker Smoked 2 ppd for 20 years, quit in 2011 Smoking Status Reviewed: 11/28/20 Patient is a former smoker Sm oked 2 ppd for 20 years, quit in 2011 Exercise Type/Frequency Ambulatory & sal f-care, unable to carry out any work activities Exercise Type/Frequency Does housework sporadica lly Exercise Type/Frequency Swims sporadically Exercise Type/Frequency Physical Therapy Exercise Limitations Amputation Allergies, Adverse Reactions, Alerts Active Allergies Criticality Reaction | Severity Comments Date Codeine Sulfate Unable to assess criticality low BP, N ausea 04/24/2007 Medications Active Medications SIG Qnty Indications Ordering Provide r Date Calcitriol 0.25mcg Capsules 1 by mouth every day Unknown 11/27/2020 Cranberry Concentrate 156-078-9ow-mg-Unit Capsules Unknown 11/27/2020 Multivitamin Women Tablets 1 by mouth every day Unknown 07/14/2020 Carboxymethylcellulose Sodium 0.5% Solution instill 1 drop in each eye 3 times daily Unknown 07/14/2020 Vitamin D3 50mcg (2000 Ut) Capsule s 1 by mouth every day Дмитрий Perez MD 01/10/2020 Trazodone HCL 100mg Tablets 1 by mouth every night at bedtime Daya Cedillo NP 01/09 Trulicity 1.5mg/0.5ML Solution Pen -Inject 1 injection weekly as directed Daya Cedillo NP 01/10/2020 Proair HFA 108(90Base) mcg/Act Aer osol 2 puffs by mouth as needed Yong Rees MD 05/14/[address] 1 by mouth every day Unknown 04/12/2019 Torsemide 5mg Tablets 2 by mouth every day 180tabs Chivo Conroy MD 01/24/2019 Ferrous Gluconate 324(38Fe) mg Tab lets 1 by mouth once a day Yong Rees MD 0 12/03/2018 Metoprolol Tartrate 25mg Tablets 1/2 by mouth twice a day I11.9 Yong Rees MD Trelegy Ellipta 100- 62.5-25mcg/Inh Aerosol one puff once daily Unknown 11/13/19 19 Entresto 49-51mg Tablets 1 by mouth twice a day 90tabs Chivo Conroy MD 05/15/2018 Colace 100mg Capsules 1 by mouth twice a day Unknown 12/22/2017 Januvia 50mg Tablets 1 by mouth every day Montserrat Pardo, [facility] 03/06/2017 Abilify 2mg Tablets 1 by mouth every day Montserrat Pardo, [facility] 03/06/2017 Nitrostat 0.4mg Tablets Sub 1 sl every 5min x3 as needed for chest pain 25tabs I25.10 John Feliciano MD 10/22/2014 Plavix 75mg Tablets 1 by mouth every day 30tabs Unknown 07/09/2014 Venlafaxine HCL ER 75mg Caps ER 24 HR 1 by mouth every day Unknown 07/09/2014 Acetaminophen 500mg Capsules by mouth as needed Unknown 07/09/2014 Lipitor 80mg Tablets 1 po qd John Feliciano MD 05/11/2011 Aspirin 81mg Tablets 1 po qd John Feliciano MD 04/13/2011 Immunizations Description No Information Available Vital Signs Date Vital Result Comment 11/28/2020 11:30am Home Weight 230lb Dr Lombardi o ffice BP Systolic Sitting 112 mmHg Ra, large cuff BP Diastolic Sitting 68 mmHg Ra, large cuff 07/15/2020 10:05am Home Weight 236lb a month ago Height 69 inches 5'9" BP Systolic Sitting 112 mmHg LA, large cuff BP Diastolic Sitting 68 mmHg LA, large cuff Results Test Acquired Date Facility Test Result H/L Range Note CBC without Differential 02/17/2021 [facility] ([facility] - White Blood Count 8.9 4.3-10.9 Red Blood Count 4.23 Low 4.70-6.20 Platelets 184 130-400 Hemoglobin 14.1 13.0-17.0 Hematocrit 42.4 39.0-50.0 BMP 02/17/2021 [facility] ([facility])- - Calcium Ser/Plasma Mass/Vol 9.8 Sodium 139.7 Carbon Dioxide Ser/Plasm 27.1 Chloride Serum/Plasma 101.7 Potassium 4.79 Glucose 133 High 70-100 Blood Urea Nitrogen 29.0 High 5-21 Creatinine 1.5 0.6-1.5 G F R 34 Hemoglobin A1c 02/17/2021 [facility] ([facility])- - Hemoglobin A1c 6.1 CBC without Differential 11/26/2020 [facility] ([facility] - White Blood Count 10.4 High 4.0-10.0 Red Blood Count 4.42 4.00-5.40 Platelets 205 172-450 Hemoglobin 14.6 12.0-16.0 Hematocrit 44.6 36.0-47.0 Renal Profile 11/26/2020 [facility] ([facility])- - Glucose 145 High 70-106 Blood Urea Nitrogen 31.1 High 7-18 Creatinine 1.3 0.55-1.3 GFR (Calculated) 41 Low >60 Sodium 137.4 135-145 Potassium 4.03 3.5-5.5 Chloride 106 94-110 Carbon Dioxide 25.9 21-32 Calcium 9.2 8.5-10.1 Phosphorus 3.0 2.5-4.9 Albumin 4.1 3.2-4.9 Renal Profile 08/26/2020 [facility] ([facility])- - Glucose 134 High 70-100 Blood Urea Nitrogen 28.4 High 5-21 Creatinine 1.2 0.6-1.5 GFR (Calculated) 45 Sodium 136.4 136-146 Potassium 4.58 3.5-5.3 Chloride 102.1 98-110 Carbon Dioxide 27.5 20-32 Calcium 8.7 8.4-10.4 Phosphorus 3.0 Albumin 4.2 3.5-4.7 CBC without Differential 08/26/[address] [facility] (315)- - White Blood Count 7.3 4.3-10.9 Red Blood Count 4.43 Low 4.70-6.20 Platelets 153 130-400 Hemoglobin 14.7 13.0-17.0 Hematocrit 45.1 39.0-50.0 Procedures Date Code Description Status 02/04/2021 64368 Remote Pacemaker/Cardio-Defibril lator Data Acquistion Completed 02/04/2021 03505 Remote Interrogate D evice Eval Cardioverter/Defibrillator-90 Days Completed 11/28/2020 69834 Office/Outpatient Established Mo d MDM 30-39 Min Completed 11/28/2020 75325 ECG 12-Lead Completed 11/18/2020 52383 Echocardiogram 2-D Doppler Color Completed 11/05/2020 31463 Remote Pacemaker/Cardio-Defibril lator Data Acquistion Completed 11/05/2020 06595 Remote Interrogate D evice Eval Cardioverter/Defibrillator-90 Days Completed Medical Devices Description No Information Available Encounters Type Date Location Provider Dx Diagnosis Office Visit 11/28/2020 11:30a Main Office LIZBET Ramírez Z01 .810 Encounter for preprocedural cardiovascular examination I50.42 Chronic combined systolic an d diastolic hrt fail I34.0 Nonrheumatic mitral (valve) insufficiency I35.1 Nonrheumatic aortic (valve) insufficiency Z95.810 Presence of automatic (impla ntable) cardiac defibrillator I25.10 Athscl heart disease of enrique ve coronary artery w/o ang pctrs I11.0 Hypertensive heart disease w ith heart failure E78.5 Hyperlipidemia, unspecified R94.31 Abnormal electrocardiogram [ ECG] [EKG] E66.8 Other obesity Z71.3 Dietary counseling and surve illance Assessments Date Code Description Provider 02/04/2021 Z95.810 Presence of automatic (implantab le) cardiac defibrillator [facility] 11/28/2020 Z01.810 Encounter for preprocedural card iovascular examination LIZBET Ramírez 11/28/2020 I50.42 Chronic combined systolic (conge stive) and diastolic (conges LIZBET Ramírez 11/28/2020 I34.0 Nonrheumatic mitral (valve) insu fficiency LIZBET Ramírez 11/28/2020 I35.1 Nonrheumatic aortic (valve) insu fficiency LIZBET Ramírez 11/28/2020 Z95.810 Presence of automatic (implantab le) cardiac defibrillator LIZBET Ramírez 11/28/2020 I25.10 Atherosclerotic heart disease of [place] coronary artery with LIZBET Ramírez 11/28/2020 I11.0 Hypertensive heart disease with heart failure LIZBET Ramírez 11/28/2020 E78.5 Hyperlipidemia, unspecified LIZBET Pino 11/28/2020 R94.31 Abnormal electrocardiogram [ECG] [EKG] LIZBET Ramírez 11/28/2020 E66.8 Other obesity LIZBET Snowden Cha, se 11/28/2020 Z71.3 Dietary counseling and surveilla nce LIZBET Ramírez 11/18/2020 I50.42 Chronic combined systolic (conge stive) and diastolic (conges ECHO 11/18/2020 I34.0 Nonrheumatic mitral (valve) insu fficiency ECHO 11/18/2020 I35.1 Nonrheumatic aortic (valve) insu fficiency ECHO 11/18/2020 I71.2 Thoracic aortic aneurysm, withou t rupture ECHO 11/05/2020 Z95.810 Presence of automatic (implantab le) cardiac defibrillator [facility] Plan of Treatment Future Appointment(s):* 05/11/2021 12:45 pm - LIZBET Ramírez at Main Office * 06/01/2021 8:45 am - LIZBET Ramírez at Main Office 11/28/2020 - LIZBET Ramírez* Z01.810 Encounter for preprocedural cardiovascular examination* Recommendations:* With patient's medical history she is in automatic intermediate risk to proceed with any surgical procedure. At this time due to her lack of any cardiac symptoms and her relatively benign physical exam, I do believe she is optimized from a cardiac standpoint to proceed with the scheduled endoscopy and colonoscopy Regarding her cardiac medications, she may discontinue aspirin and Plavix 5-7 days prior to this scope, if recommended by Dr. Melgar * I50.42 Chronic combined systolic (congestive) and diastolic (conges* Recommendations:* Continue Entresto, metoprolol, and torsemide at the current dosages Advised patient to please contact our office with a weight gain of >3 pounds or the onset of shortness of breath or lower extremity edema * I34.0 Nonrheumatic mitral (valve) insufficiency* Recommendations:* No further evaluation is needed at this time * I35.1 Nonrheumatic aortic (valve) insufficiency * Z95.810 Presence of automatic (implantable) cardiac defibrillator* Recommendations:* Continue 91 day home/12 month office checks * I25.10 Atherosclerotic heart disease of [place] coronary artery with* Recommendations:* No further evaluation is needed at this time as patient has remained free from chest pain and had a recent ischemic workup Continue aspirin, ARB (Via Entresto), atorvastatin, metoprolol, and Plavix at the current dosages Advised patient to contact our office with any chest pain, shortness of breath, new or concerning symptoms * I11.0 Hypertensive heart disease with heart failure* Recommendations:* Continue valsartan (Via Entresto), metoprolol, and torsemide at the current dosages Advised patient to monitor blood pressures at home and to alert our office with readings >140/>90 * E78.5 Hyperlipidemia, unspecified* Recommendations:* Continue atorvastatin at the current dosage Continue per PCP * R94.31 Abnormal electrocardiogram [ECG] [EKG]* Recommendations:* No further evaluation is needed at this time. * E66.8 Other obesity * Z71.3 Dietary counseling and surveillance* Recommendations:* Recommended for patient to follow a more whole food diet. Advised patient to avoid overly processed foods and packaged foods. Advised patient to avoid sodas, juices and other liquid calories. Recommended at least 30 minutes of exercise 3 days a week. * All * Follow up:* Follow up in 6 months Functional Status Functional Condition Comment Date Status Independent with all ADL's Activ e Dependent with ambulating wheelchair and prosthetic use occaiona humaira Active Mental Status Description No Information Available Referrals Description No Information Available
--- OUTSIDE RECORDS SUMMARY | 2021-03-30 06:48 | CCD | Continuity of Care Document ---
Author Author Jaquelin ALEJANDRA Organization Unknown Address [address] [place] [address], [address] [place] [address] Phone [phone] Care Team Providers Care Hacksaw Inspector Name Role Phone Nguyen Daya Ramires R.N. AUTM [phone] AUTM Unavailable Problems Active Problems Provider Date [...] set: 09/05/2020 Essential hypertension CLAUDIA Gerber Onset: Social History Type Date Description Comments Sex Unknown ETOH Use Denies alcohol use Tobacco Use Start: Unknown End: Patient is a former smoker 1 1/2 ppd x 30 years; quit october 2016 Smoking Status Reviewed: 09/05/20 Patient is a former smoker 1 1/2 ppd x 30 years; quit october 2016 Allergies, Adverse Reactions, Alerts Active Allergies Criticality Reaction | Severity Comments Date Michelle Unable to assess criticality 12/19/2017 Medications Active [...] Available Vital Signs Date Vital Result Comment 02/04/2021 8:33am BP Systolic 122 mmHg BP Diastolic 72 mmHg Height 69 inches 5'9" Weight 239.00 lb BMI (Body Mass Index) 35.3 kg/m2 Bertrand Body Weight 145 lb Weight 108.410 kg BSA (Body Surface Area) 2.23 m2 11/19/2020 11:38am BP Systolic 134 mmHg BP Diastolic 84 mmHg Height 69 inches 5'9" Weight 236.00 lb Stated weight BMI (Body Mass Index) 34.8 kg/m2 Bertrand Body Weight 145 lb Weight 107.050 kg BSA (Body Surface Area) 2.22 m2 Results Test Acquired Date Facility Test Result H/L Range Note FVL/Charlie 09/05/2020 [facility] SEE IMAGE FVC-Pred 3.50 L FVC-Pre 2.57 L FVC-%Pred-Pre 73 L FVC-LLN 2.73 L Fev1-Pred 2.67 L Fev1-Pre 1.71 L Fev1-%Pred-Pre 64 L Fev1-LLN 2.02 L Fev6-Pred 3.36 L Fev6-Pre 2.49 L Fev6-%Pred-Pre 74 L Fev6-LLN 2.60 L Nlp4zsa-Owlc 76 % Xzj2cgw-Vid 67 % Cjv5lza-%Pred-Pre 87 % Tkn9jtz-SGB 67 % Hyb3yvq-Avcy 96 % Nod9mdw-Luk 97 % Qph2jew-%Pred-Pre 101 % FEFMax-Pred 6.35 L/E/sec FEFMax-Pre 4.60 L/E/sec FEFMax-%Pred-Pre 72 L/E/sec FEFMax-LLN 4.44 L/E/sec Szh9754-Dolb 2.20 L/E/sec Biv2294-Ldn 0.84 L/E/sec Oru5165-%Pred-Pre 38 L/E/sec Huj6231-AOW 0.82 L/E/sec ExpTime-Pre 7.30 sec Xzn6yin6-Zyay 79 % Wwl3qpq4-Qzq 69 % Jqt3dsz2-%Pred-Pre 86 % Rdv9chn4-XSX 71 % Procedures Date Code Description Status 02/04/2021 58503 Office/Outpatient Established Mo d MDM 30-39 Min Completed 12/10/2020 23237 Colonoscopy W/ Poly Completed 12/10/2020 79145 Endoscopy Upper GI Biopsy Comple sherron 11/19/2020 88521 Office/Outpatient New Moderate M DM 45-59 Minutes Completed 09/05/2020 89597 Office/Outpatient Established Mo d MDM 30-39 Min Completed 09/05/2020 79398 Spirometry Completed Medical Devices Description No Information Available Encounters Type Date Location Provider Dx Diagnosis Office Visit 02/04/2021 8:30a [facility] Sarina Mcleod Sebas, RPA-C D50.9 Iron deficiency anemia, unsp ecified Z86.010 Personal history of colonic polyps R12 Heartburn Office Visit 11/19/2020 11:30a [facility] Sarina Mcleod Sebas, RPA-C R19.5 Other fecal abnormalities D50.9 Iron deficiency anemia, unsp ecified Office Visit 09/05/2020 10:30a [facility] Pulmonary/Thoracic Chandana oakes D.O. J43.1 Panlobular emphysema Z85.118 Personal history of malignan t neoplasm of bronchus and lung Z87.891 Personal history of nicotine dependence Assessments Date Code Description Provider 02/04/2021 D50.9 Iron deficiency anemia, unspecif ied Sarina Mcleod Sebas, RPA-C 02/04/2021 Z86.010 Personal history of colonic poly ps Sarinabhargav Alejandra, RPA-C 02/04/2021 R12 Heartburn Sarina Mcleod Miquel joshua, RPA-C 12/10/2020 Z12.11 Encounter for screening for kamaljit gnant neoplasm of colon Toney Melgar M.D. 12/10/2020 D12.2 Benign neoplasm of ascending col on Toney Melgar M.D. 12/10/2020 D12.5 Benign neoplasm of sigmoid colon Tonye Melgar M.D. 12/10/2020 D12.3 Benign neoplasm of [...] Iron deficiency anemia, unspecif ied CLAUDIA Gerber 09/05/2020 J43.1 Panlobular emphysema Chandana Yang D.O. 09/05/2020 Z85.118 History of malignant neoplasm of lung Chandana Yang D.O. 09/05/2020 Z87.891 Personal history of nicotine dep endence Chandana Yang D.O. Plan of Treatment Future Appointment(s):* 03/11/2021 9:30 am - Chandana Yang D.O. at [facility] Pulmonary/Thoracic 02/04/2021 - CLAUDIA Gerber* D50.9 Iron deficiency anemia, unspecified * Z86.010 Personal history of colonic polyps * R12 Heartburn * * New Orders:* Colonoscopy, Ordered: 02/04/21 * Comments:* Will arrange for colonoscopy. Reviewed risks and benefits of the procedures, as well as other options, with the patient. Prep for this procedure was discussed with patient, including risks and side effects associated with the prep. A letter will be sent to Dr. Feliciano for cardiac clearance and permission to hold Plavix. Patient verbalized understanding of all of the above and is in agreement to proceed. Patient will seek medical attention for any acute changes. Will monitor. * Follow up:* As scheduled, sooner if needed. Functional Status Description No Information Available Mental Status Description No Information Available Referrals Refer to Reason for Referral Status Appt Date Toney Melgar M.D. POSITIVE COLOGUARD Scheduled 11/21/2020 [facility]-[address], [place] [address] [phone]
--- OUTSIDE RECORDS SUMMARY | 2021-03-30 06:48 | CCD ---
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 112A Active confirmed 381897188726789 Problem Type 2 diabetes mellitus wit hout complication, without long-term current use of insulin E11.9 Active confirmed 114316104 Problem AAA (abdominal aortic aneurysm) without rupture I7 1.4 Active confirmed 12247696 Problem Cardiac disease I51.9 Active confirmed 5626 5001 Problem Panlobular emphysema J43.1 Active confirmed 0360656 Problem Systolic and diastolic CHF, chronic I50.42 Acti ve confirmed 580080590530431 Problem Gastroesophageal reflux disease without esophagitis K21.9 Active confirmed 001121278 Problem CKD (chronic kidney disease) stage 3, GFR 30-59 ml/min N18.3 Active confirmed 635025774 ALLERGIES Allergen (clinical drug ingredient) Drug/Non Drug Allergy do cumented on EMR Reaction Allergy Type Onset Date Status Codeine Codeine Nausea/Vomiting Non Drug Allergy Act eugene ENCOUNTERS from 1950 to 2021-02-18 Encounter Location Date Provider Diagnosis [address] [phone] [place] [address] 08 Feb, 2021 Daya Geneage IMMUNIZATIONS Vaccine Route Administration Date [...] Education Language: Question Answer Notes Languages spoken: Swedish Spiritism: Question Answer Notes Spiritism No sabianism beliefs that would impact health care. Domestic [...] MG 1 tablet Orally Once a day 234625610 for 30 days Active Aspirin 81 MG [...] e a day for 90 days Active Refresh Plus 0.5 % 1 drop into affected eye as needed Ophthalmic Three times a day for 90 day(s) Feb, Active Vitamin D 1000 UNIT 1 tablet Orally Once a day for 30 day(s) Active Entresto 49-51 MG 1 tablet Orally Twice a day for 90 day(s) Active Trelegy Ellipta 100-62.5-25 MCG/INH 1 puff Inhalation Once a day for 90 day(s) Active Multivitamin Adult - Orally Acti ve Famotidine 40 MG 1 tablet at bedtime Orally Once a day for 90 da ys Dec, Active Plavix 75 MG 1 tablet Orally Once a day for 90 days Active Omeprazole 40 MG 1 capsule Orally Once a day for 90 days Active Diflucan 150 MG 1 tablet Orally as directed 1 today and 1 in 5 days for 2 days Jul, Not-Taking Metoprolol Tartrate 25 MG 1/2 tablet Orally Twice a day for 90 days Active FreeStyle Lancets - 1 lancet E11.9- 28 guage use bid for 90 day( s) Jun, Active Calcitriol 0.25 MCG 1 capsule Orally Once a day for 30 day(s) Active traZODone HCl 100 MG 1 tablet at bedtime Orally before bedtime f or 90 days Jun, Active ProAir HFA 108 (90 Base) MCG/ACT 2 puff as needed Inha lation every 4 hrs for cough/shortness of breath for 90 days Jun, Active Ferrous Gluconate 324 (37.5 Fe) MG 1 tablet Orally Once a day for 9 0 day(s) Active PROCEDURES No Information RESULTS No Results REASON FOR VISIT refill MEDICAL (GENERAL) HISTORY Type Description Date Medical History Chronic Systolic/Diasolic CHF-Grade III- IV EF 15% echo 02/18/18 Medical History Chronic Kidney Disease Stage IIImoderate GFR 34- 41-Dr. Perez Medical History Hypertensive Heart Disease Medical History Hx CVA Medical History Diabetes II Medical History Non Q Wave SD 1991 and 1996 Medical History Anterior Wall SD complicated by Cardioge balwinder Shock 10/17/16 Medical [...] cystectomy Surgical History Colonoscopy 2011 Hospitalization History [place] 1993 Hospitalization History Stroke 2010 Hospitalization History SD/Stroke [facility] 10/2016 Hospitalization History [facility] CHF 02/2018 Goals [...] Onc e a day for 90 days Lipitor 80 MG 1 tablet Orally Once a day for 90 days Metoprolol Tartrate 25 MG 1/2 tablet Orally Twice a day for 90 d ays Plavix 75 MG 1 tablet Orally Once a day for 90 days Effexor XR 75 MG 1 capsule with food Orally Once a day for 90 da ys Januvia 50 MG 1 tablet Orally Once a day Trelegy Ellipta 100-62.5-25 MCG/INH 1 puff Inhalation Once a day for 90 day(s) Abilify 2 MG 1 tablet Orally Once a day 639252025 for 30 days Trulicity 1.5 MG/0.5ML as directed Subcutaneous weekly for 90 da ys Next Appt Details Provider Name:Daya Cedillo, 07:30:00 AM, [address] [facility], , [place], [address], Insurance Providers Payer Name Payer Address Payer Phone Insured Name Patient Relati onship to Insured Coverage Start Date Coverage End Date FOR LIFE [address] [facility] [phone] Harris Carlson MEDICARE Part A and B [address] [facility] [phone] GORDON CARIAS self
--- OUTSIDE RECORDS SUMMARY | 2021-03-30 06:48 | CCD ---
Author Author [facility] Organization [facility] Address Unknown Phone Unavailable Care Team Providers Care Medical Logistics Specialist Name Role Phone Daya Cedillo Unavailable PROBLEMS Type Condition ICD9-CM Code FQT65-XG Code Onset Dates Condition S tatus W/U Status Risk SNOMED Code Notes Problem CVA, old, aphasia I69.320 Active confirmed 4 06269886 Problem Stage II pressure ulcer of sacral region L89.152 Active confirmed 224680240 Problem Psychophysiological insomnia F51.04 Active confirme d 396672607 Problem Reactive depression F32.9 Active confirmed 29805051 Problem Malignant neoplasm of right lung, unspecified part of lung C34.91 Active confirmed 919923394 Problem Above knee amputation of left lower extremity S78. 112A Active confirmed 312193283122724 Problem Type 2 diabetes mellitus wit hout complication, without long-term current use of insulin E11.9 Active confirmed 643297072 Problem AAA (abdominal aortic aneurysm) without rupture I7 1.4 Active confirmed 56645224 Problem Cardiac disease I51.9 Active confirmed 5626 5001 Problem Panlobular emphysema J43.1 Active confirmed 1071206 Problem Systolic and diastolic CHF, chronic I50.42 Acti ve confirmed 644764418376873 Problem Gastroesophageal reflux disease without esophagitis K21.9 Active confirmed 526354396 Problem CKD (chronic kidney disease) stage 3, GFR 30-59 ml/min N18.3 Active confirmed 483023629 ALLERGIES Allergen (clinical drug ingredient) Drug/Non Drug Allergy do cumented on EMR Reaction Allergy Type Onset Date Status Codeine Codeine Nausea/Vomiting Non Drug Allergy Act eugene ENCOUNTERS from 1950 to 2021-02-11 Encounter Location Date Provider Diagnosis [address] [phone] [place] [address] Feb, Daya Nguyen IMMUNIZATIONS Vaccine Route Administration Date Status Influenza [...] Education Language: Question Answer Notes Languages spoken: Portuguese Jehovah'S Witness: Question Answer Notes Jehovah'S Witness No evangelical beliefs that would impact health care. Domestic [...] MG 1 tablet Orally Once a day 672248966 for 30 days Active Aspirin 81 MG 1 tablet Orally Once a day for 90 day(s) Active Trulicity 1.5 MG/0.5ML as directed Subcutaneous weekly for 90 days Active Effexor XR 75 MG 1 capsule with food Orally Once a day for 90 days Active Lipitor 80 MG 1 tablet [...] to the ER for 90 day(s) Active Multivitamin Adult - [...] Diabetes II Medical History Non Q Wave MD 1991 and 1996 Medical History Anterior Wall MD complicated by Cardioge balwinder Shock 10/17/16 Medical [...] cystectomy Surgical History Colonoscopy 2011 Hospitalization History MD 1993 Hospitalization History Stroke 2010 Hospitalization History MD/Stroke [place] 10/2016 Hospitalization History [facility] 02/2018 Goals [...] Orally Once a day for 90 days Trulicity 1.5 MG/0.5ML as directed Subcutaneous weekly for 90 da ys Januvia 50 MG 1 tablet Orally Once a day Effexor XR 75 MG 1 capsule with food Orally Once a day for 90 da ys Abilify 2 MG 1 tablet Orally Once a day 407293118 for 30 days Next Appt Details Provider Name:Daya Cedillo, 07:30:00 AM, [address] [facility], , [place], [address], Insurance Providers Payer Name Payer Address Payer Phone Insured Name Patient Relati onship to Insured Coverage Start Date Coverage End Date FOR LIFE [address] [facility] [address] Harris Carlosn MEDICARE Part A and B [address] [facility] [place] [address] GORDON CARIAS self
--- OUTSIDE RECORDS SUMMARY | 2021-03-30 06:48 | CCD | Continuity of Care Document ---
Author Author Jaquelin DELGADILLO M.D. Organization Unknown Address [address] [place] [address] Phone [phone] Care Team Providers Care Loom Stop Checker Name Role Phone Daya Cedillo AUTM [phone] Problems Active Problems Provider Date Ischemic stroke Maricruz Delgadillo M.D. Onset: 06/04/2014 Carotid artery stenosis Maricruz Delgadillo M.D. Onset: 4 Fatigue Maricruz Delgadillo M.D. 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 Onset: 07/02/2015 Cerebral arterial aneurysm Maricruz Delgadillo M.D. 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 Onset: 02/01/2017 Disorders of initiating and maintaining sleep Palma Berrios Onset: 10/04/2017 Social History Type Date Description Comments Sex Unknown ETOH Use Denies alcohol use Tobacco Use Start: Unknown End: Unknown Patient is a former smoker Recreational Drug Use Never Used Drugs Allergies, Adverse Reactions, Alerts Active Allergies Criticality Reaction | Severity Comments Date Codeine Unable to assess criticality 06/04/2014 Inactive Allergies NKDA Unable to assess criticality 06/04/2014 Medications Active Medications SIG Qnty Indications Ordering Provide r Date Clopidogrel Bisulfate 75mg Tablets 1 by mouth every day 90tabs Maricruz Delgadillo M.D. 12/05/2018 Trazodone HCL 100mg Tablets 1 or 2 tab by mouth every night at bedtime 180tabs Maricruz Delgadillo M.D. Immunizations Description No Information Available Vital Signs Date Vital Result Comment 07/09/2014 9:18am BP Systolic 130 mmHg BP Diastolic 85 mmHg Heart Rate 70 /min Respiratory Rate 16 /min Height 68 inches 5'8" Weight 211.00 lb BMI (Body Mass Index) 32.1 kg/m2 [place] Body Weight 140 lb 06/04/2014 9:51am BP Systolic 115 mmHg BP Diastolic 60 mmHg Heart Rate 72 /min Respiratory Rate 16 /min Height 69 inches 5'9" Weight 211.00 lb BMI (Body Mass Index) 31.2 kg/m2 [place] Body Weight 145 lb Results Description No Information Available Procedures Date Code Description Status 02/06/2021 23107 Office/Outpatient Established Mo d MDM 30-39 Min Completed Medical Devices Description No Information Available Encounters Type Date Location Provider Dx Diagnosis Office Visit 02/06/2021 9:00a [facility] office - [place] Palma Berrios I67.1 Cerebral aneurysm, nonruptured I65.23 Occlusion and stenosis of bi lateral carotid arteries I63.031 Cerebral infrc due to thromb osis of right carotid artery I63.032 Cerebral infarction due to t hrombosis of left carotid artery F51.01 Primary insomnia Assessments Date Code Description Provider 02/06/2021 I67.1 Cerebral aneurysm, nonruptured M vito Delgadillo M.D. 02/06/2021 I65.23 Occlusion and stenosis of bilate ral carotid arteries Maricruz Delgadillo M.D. 02/06/2021 I63.031 Cerebral infarction due to thrombosis of right carotid artery Maricruz Delgadillo M.D. 02/06/2021 I63.032 Cerebral infarction due to throm bosis of left carotid artery Maricruz Delgadillo M.D. 02/06/2021 F51.01 Primary insomnia Tremayne Berrios Plan of Treatment Future Appointment(s):* 02/05/2022 8:00 am - Maricruz Delgadillo M.D. at Main office - [place] Functional Status Description No Information Available Mental Status Description No Information Available Referrals Description No Information Available
--- OUTSIDE RECORDS SUMMARY | 2021-03-30 06:48 | CCD | Continuity of Care Document ---
Author Author Jaquelin ALEJANDRA Organization Unknown Address [address] [place] [address], [address] [place] [address] Phone [phone] Care Team Providers Care Resilient Tile Installer Name Role Phone Nguyen Daya Ramires R.N. AUTM [phone] AUTM Unavailable Problems Active Problems Provider Date [...] lb BMI (Body Mass Index) 35.3 kg/m2 [place] Body Weight 145 lb Weight 108.410 kg BSA (Body Surface Area) 2.23 m2 11/19/2020 11:38am BP Systolic 134 mmHg BP Diastolic 84 mmHg Height 69 inches 5'9" Weight 236.00 lb Stated weight BMI (Body Mass Index) 34.8 kg/m2 [place] Body Weight 145 lb Weight 107.050 kg [...] L Fev6-%Pred-Pre 74 L Fev6-LLN 2.60 L Zyb5qka-Kmbr 76 % Lrj4ieb-Wdt 67 % Ffn5grr-%Pred-Pre 87 % Hxh9vsq-PFL 67 % How9azy-Kfue 96 % Epp4nnc-Ijp 97 % Ija0pnr-%Pred-Pre 101 % FEFMax-Pred 6.35 L/E/sec FEFMax-Pre 4.60 L/E/sec FEFMax-%Pred-Pre 72 L/E/sec FEFMax-LLN 4.44 L/E/sec Pgs7387-Hfxn 2.20 L/E/sec Uhj1312-Bdq 0.84 L/E/sec Nam8049-%Pred-Pre 38 L/E/sec Ura8122-VVD 0.82 L/E/sec ExpTime-Pre 7.30 sec Zgw7jdz6-Olal 79 % Mwv4waf6-Emf 69 % Unz2cec2-%Pred-Pre 86 % Ojl2luw8-IGP 71 % Procedures Date Code Description Status 12/10/2020 90701 Colonoscopy W/ Poly Completed 12/10/2020 13378 Endoscopy Upper GI Biopsy Comple sherron 11/19/2020 33850 Office/Outpatient New Moderate M DM 45-59 Minutes Completed 09/05/2020 86665 Office/Outpatient Established Mo d MDM 30-39 Min Completed 09/05/2020 11087 Spirometry Completed Medical Devices Description No Information Available Encounters Type Date Location Provider Dx Diagnosis Office Visit 11/19/2020 11:30a [facility] Gastroenterology Pra ctice Sarina Mcleod Ambermalikjoshua, [facility] R19.5 Other fecal abnormalities D50.9 Iron deficiency anemia, unsp ecified Office Visit 09/05/2020 10:30a [facility] Pulmonary/Thoracic Chandana Se oakes D.OJanet J43.1 Panlobular emphysema Z85.118 Personal history of malignan t neoplasm of bronchus and lung Z87.891 Personal history of nicotine dependence Assessments Date Code Description Provider 02/04/2021 D50.9 Iron deficiency anemia, unspecif ied Sarina Alejandra, LÓPEZ-C 02/04/2021 Z86.010 Personal history of colonic poly ps Sarina Mcleod ROBLES AlejandraC 02/04/2021 R12 Heartburn Sarina Lafleur joshua, LÓPEZ-C 12/10/2020 Z12.11 Encounter for screening for [...] 9:30 am - Chandana Yang D.O. at [facility] Pulmonary/Thoracic 02/04/2021 - CLAUDIA Gerber* D50.9 Iron [...] Description No Information Available Referrals Refer to Dr Reason for Referral Status Appt Date Toney Melgar M.D. POSITIVE COLOGUARD Scheduled 11/21/2020 [facility] [address] [facility], [address] [place] [address] [phone]
--- OUTSIDE RECORDS SUMMARY | 2021-03-30 06:48 | CCD | Continuity of Care Document ---
Author Author Jaquelin DELGADILLO M.D. Organization Unknown Address [address] [place] [address] Phone [phone] Care Team Providers Care Pinball Machine Repairer Name Role Phone Daya Cedillo AUTM [phone] Problems Active Problems Provider Date Ischemic stroke Maricruz Delgadillo M.D. Onset: 06/04/2014 Carotid artery stenosis Maricruz Delgadillo M.D. Onset: 4 Fatigue Maricruz Delgadillo M.D. 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 Onset: 07/02/2015 Cerebral arterial aneurysm Maricruz Delgadillo M.D. 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 Onset: 02/01/2017 Disorders of initiating and [...] lb BMI (Body Mass Index) 32.1 kg/m2 [place] Body Weight 140 lb 06/04/2014 9:51am BP Systolic 115 mmHg BP Diastolic 60 mmHg Heart Rate 72 /min Respiratory Rate 16 /min Height 69 inches 5'9" Weight 211.00 lb BMI (Body Mass Index) 31.2 kg/m2 Bruce Body Weight 145 lb Results Description No Information Available Procedures Date Code Description Status 02/06/2021 00661 Office/Outpatient Established Mo d MDM 30-39 Min Completed Medical Devices Description No Information Available Encounters Type Date Location Provider Dx Diagnosis Office Visit 02/06/2021 9:00a [place] I67.1 Cerebral aneurysm, nonruptured I65.23 Occlusion and stenosis of bi lateral carotid arteries I63.031 Cerebral infrc due to thromb osis of right carotid artery I63.032 Cerebral infarction due to t hrombosis of left carotid artery F51.01 Primary insomnia Assessments Date Code Description Provider 02/06/2021 I67.1 Cerebral aneurysm, nonruptured Ronnie Delgadillo M.D. 02/06/2021 I65.23 Occlusion and stenosis of bilate ral carotid arteries Maricruz Delgadillo M.D. 02/06/2021 I63.031 Cerebral infarction due to thrombosis of right carotid artery Maricruz Delgadillo M.D. 02/06/2021 I63.032 Cerebral infarction due to throm bosis of left carotid artery Maricruz Delgadillo M.D. 02/06/2021 F51.01 Primary insomnia Tremayne Berrios Plan of Treatment No Information Available Functional Status Description No Information Available Mental Status Description No Information Available Referrals Description No Information Available
--- OUTSIDE RECORDS SUMMARY | 2021-03-30 06:48 | CCD | Continuity of Care Document ---
Author Author Pacer/Icd Jaquelin Mcneill Organization Unknown Address [address] [place] [address], [facility] [address] Phone Unavailable Care Team Providers Care Locator Name Role Phone Maricruz Delgadillo MD AUTM [phone] Zohaib Rahman MD AUTM [phone] Yong Rees MD AUTM Naye Gee MD AUTM [phone] Daya Cedillo NP AUTM [phone] Toney Melgar MD AUTM [phone] Problems Active Problems Provider Date Electrocardiogram abnormal [...] mouth every day Unknown 11/27/2020 Cranberry Concentrate [id number]-mg-Unit Capsules Unknown 11/27/2020 Multivitamin Women Tablets 1 [...] mouth every day Montserrat Pardo, [facility] 03/06/2017 Abilify 2mg Tablets 1 by mouth every day Montserrat Pardo, [facility] 03/06/2017 Nitrostat 0.4mg Tablets Sub [...] 07/09/2014 Lipitor 80mg Tablets 1 po qd Jonh Feliciano MD 05/11/2011 Aspirin 81mg Tablets 1 po qd John Feliciano MD 04/13/2011 Immunizations Description No Information Available Vital Signs Date Vital Result Comment 11/28/2020 11:30am Home Weight 230lb Dr Perez's o ffice BP Systolic Sitting 112 mmHg Ra, large cuff BP Diastolic Sitting 68 mmHg Ra, large cuff 07/15/2020 10:05am Home Weight 236lb a month ago Height 69 inches 5'9" BP Systolic Sitting 112 mmHg LA, large cuff BP Diastolic Sitting 68 mmHg LA, large cuff Results Test Acquired Date Facility Test Result H/L Range Note CBC without Differential 11/26/2020 [facility] ([facility] - White Blood Count 10.4 [...] 4.2 3.5-4.7 CBC without Differential 08/26/2020 [facility] ([facility])- - White Blood Count 7.3 4.3-10.9 Red Blood Count 4.43 Low 4.70-6.20 Platelets 153 130-400 Hemoglobin 14.7 13.0-17.0 Hematocrit 45.1 39.0-50.0 Procedures Date Code Description Status 02/04/2021 57506 Remote Pacemaker/Cardio-Defibril lator Data Acquistion Completed 02/04/2021 62389 Remote Interrogate D evice Eval Cardioverter/Defibrillator-90 Days Completed 11/28/2020 31391 Office/Outpatient Established Mo d MDM 30-39 Min Completed 11/28/2020 48496 ECG 12-Lead Completed 11/18/2020 25659 Echocardiogram 2-D Doppler Color Completed 11/05/2020 56584 Remote Pacemaker/Cardio-Defibril lator Data Acquistion Completed 11/05/2020 56259 Remote Interrogate D evice Eval Cardioverter/Defibrillator-90 Days [...] Ramírez 11/28/2020 I25.10 Atherosclerotic heart disease of [place] coronary artery with LIZBET Ramírez 11/28/2020 I11.0 [...] checks * I25.10 Atherosclerotic heart disease of [place] coronary artery with* Recommendations:* No further evaluation [...] Dependent with ambulating wheelchair and prosthetic use josephine gerardo Active Mental Status Description No Information Available Referrals Description No Information Available
--- OUTSIDE RECORDS SUMMARY | 2021-03-30 06:49 | CCD ---
Author Author [facility] Organization [facility] Address Unknown Phone Unavailable Care Team Providers Care Addresser Name Role Phone Charlebois, A Sarina RPA C Unavailable Unavailable Charlebois, A Sarina RPA C Unavailable Unavailable Charlebois, A Sarina RPA C Unavailable Unavailable Charlebois, A Sarina RPA C Unavailable Unavailable Charlebois, A Sarina RPA C Unavailable Unavailable Charlebois, A Sarina RPA C Unavailable Unavailable Charlebois, A Sarina RPA C Unavailable Unavailable Charlebois, A Sarina RPA C Unavailable Unavailable Charlebois, A Sarina RPA C Unavailable Unavailable Charlebois, A Sarina RPA C Unavailable Unavailable Charlebois, A Sarina RPA C Unavailable Unavailable Charlebois, A Sarina RPA C Unavailable Unavailable Charlebois, A Sarina RPA C Unavailable Unavailable Charlebois, A Sarina RPA C Unavailable Unavailable Charlebois, A Sarina RPA C Unavailable Unavailable Charlebois, A Sarina RPA C Unavailable Unavailable Charlebois, A Sarina RPA C Unavailable Unavailable Charlebois, A Sarina RPA C Unavailable Unavailable Charlebois, A Sarina RPA C Unavailable Unavailable Charlebois, A Sarina RPA C Unavailable Unavailable Charlebois, A Sarina RPA C Unavailable Unavailable Charlebois, A Sarina RPA C Unavailable Unavailable Charlebois, A Sarina RPA C Unavailable Unavailable Charlebois, A Sarina RPA C Unavailable Unavailable Charlebois, A Sarina RPA C Unavailable Unavailable Charlebois, A Sarina RPA C Unavailable Unavailable Charlebois, A Sarina RPA C Unavailable Unavailable Charlebois, A Sarina RPA C Unavailable Unavailable Charlebois, A Sarina RPA C Unavailable Unavailable Charlebois, A Sarina RPA C Unavailable Unavailable Charlebois, A Sarina RPA C Unavailable Unavailable Charlebois, A Sarina RPA C Unavailable Unavailable Charlebois, A Sarina RPA C Unavailable Unavailable AliMaricruz MD Unavailable Unavailable AliMaricruz MD Unavailable Unavailable Ali, Maricruz PATEL Unavailable Unavailable Ali, Maricruz PATEL Unavailable Unavailable Ali, Maricruz PATEL Unavailable Unavailable Ali, Maricruz PATEL Unavailable Unavailable Ali, Maricruz PATEL Unavailable Unavailable Ali, Maricruz PATEL Unavailable Unavailable Ali, Maricruz PATEL Unavailable Unavailable Ali, Maricruz PATEL Unavailable Unavailable Ali, Maricruz PATEL Unavailable Unavailable Ali, Maricruz PATEL Unavailable Unavailable Ali, Maricruz PATEL Unavailable Unavailable Ali, Maricruz PATEL Unavailable Unavailable Ali, Maricruz PATEL Unavailable Unavailable Ali, Maricruz PATEL Unavailable Unavailable Ali, Maricruz PATEL Unavailable Unavailable Ali, Maricruz PATEL Unavailable Unavailable Ali, Maricruz PATEL Unavailable Unavailable Ali, Maricruz PATEL Unavailable Unavailable Ali, Maricruz PATEL Unavailable Unavailable Ali, Maricruz PATEL Unavailable Unavailable Ali, Maricruz PATEL Unavailable Unavailable Ali, Maricruz PATEL Unavailable Unavailable Ali, Maricruz PATEL Unavailable Unavailable Ali, Maricurz PATEL Unavailable Unavailable Ali, Maricruz PATEL Unavailable Unavailable Ali, Maricruz PATEL Unavailable Unavailable Ali, Maricruz PATEL Unavailable Unavailable Ali, Maricruz PATEL Unavailable Unavailable Ali, Maricruz PATEL Unavailable Unavailable Ali, Maricruz PATEL Unavailable Unavailable Ali, Maricruz PATEL Unavailable Unavailable Ali, Maricruz PATEL Unavailable Unavailable Ali, Maricruz PATEL Unavailable Unavailable AliMaricruz MD Unavailable Unavailable AliMaricruz MD Unavailable Unavailable AliMaricruz MD Unavailable Unavailable AliMaricruz MD Unavailable Unavailable Ali, Maricruz PATEL Unavailable Unavailable Ali, Maricruz PATEL Unavailable Unavailable Ali, Maricruz PATEL Unavailable Unavailable Ali, Maricruz PATEL Unavailable Unavailable Ali, Maricruz PATEL Unavailable Unavailable AliMaricruz MD Unavailable Unavailable AliMaricruz MD Unavailable Unavailable Ali, Maricruz PATEL Unavailable Unavailable Ali, Maricruz PATEL Unavailable Unavailable Ali, Maricruz PATEL Unavailable Unavailable Ali, Maricruz PATEL Unavailable Unavailable SEARS, A RAHUL DO Unavailable Unavailable SEARS, A RAHUL DO Unavailable Unavailable SEARS, A RAHUL DO Unavailable Unavailable SEARS, A RAHUL DO Unavailable Unavailable SEARS, A RAHUL DO Unavailable Unavailable SEARS, A RAHUL DO Unavailable Unavailable SEARS, A RAHUL DO Unavailable Unavailable SEARS, A RAHUL DO Unavailable Unavailable SEARS, A RAHUL DO Unavailable Unavailable SEARS, A RAHUL DO Unavailable Unavailable SEARS, A RAHUL DO Unavailable Unavailable SEARS, A RAHUL DO Unavailable Unavailable SEARS, A RAHUL DO Unavailable Unavailable SEARS, A RAHUL DO Unavailable Unavailable SEARS, A RAHUL DO Unavailable Unavailable SEARS, A RAHUL DO Unavailable Unavailable SEARS, A RAHUL DO Unavailable Unavailable SEARS, A RAHUL DO Unavailable Unavailable SEARS, A RAHUL DO Unavailable Unavailable SEARS, A RAHUL DO Unavailable Unavailable SEARS, A RAHUL DO Unavailable Unavailable SEARS, A RAHUL DO Unavailable Unavailable SEARS, A RAHUL DO Unavailable Unavailable SEARS, A RAHUL DO Unavailable Unavailable SEARS, A RAHUL DO Unavailable Unavailable SEARS, A RAHUL DO Unavailable Unavailable SEARS, A RAHUL DO Unavailable Unavailable SEARS, A RAHUL DO Unavailable Unavailable SEARS, A RAHUL DO Unavailable Unavailable SEARS, A RAHUL DO Unavailable Unavailable SEARS, A RAHUL DO Unavailable Unavailable SEARS, A RAHUL DO Unavailable Unavailable SEARS, A RAHUL DO Unavailable Unavailable SEARS, A RAHUL DO Unavailable Unavailable SEARS, A RAHUL DO Unavailable Unavailable SEARS, A RAHUL DO Unavailable Unavailable SEARS, A RAHUL DO Unavailable Unavailable SEARS, A RAHUL DO Unavailable Unavailable SEARS, A RAHUL DO Unavailable Unavailable SEARS, A RAHUL DO Unavailable Unavailable SEARS, A RAHUL DO Unavailable Unavailable SEARS, A RAHUL DO Unavailable Unavailable SEARS, A RAHUL DO Unavailable Unavailable SEARS, A RAHUL DO Unavailable Unavailable SEARS, A RAHUL DO Unavailable Unavailable SEARS, A RAHUL DO Unavailable Unavailable SEARS, A RAHUL DO Unavailable Unavailable SEARS, A RAHUL DO Unavailable Unavailable KATHLEEN, L KEVIN PA Unavailable Unavailable KATHLEEN, L KEVIN PA Unavailable Unavailable KATHLEEN, L KEVIN PA Unavailable Unavailable KATHLEEN, L KEVIN PA Unavailable Unavailable KATHLEEN, L KEVIN PA Unavailable Unavailable KATHLEEN, L KEVIN PA Unavailable Unavailable KATHLEEN, L KEVIN PA Unavailable Unavailable KATHLEEN, L KEVIN PA Unavailable Unavailable KATHLEEN, L KEVIN PA Unavailable Unavailable KATHLEEN, L KEVIN PA Unavailable Unavailable KATHLEEN, L KEVIN PA Unavailable Unavailable KATHLEEN, L KEVIN PA Unavailable Unavailable KATHLEEN, L KEVIN PA Unavailable Unavailable KATHLEEN, L KEVIN PA Unavailable Unavailable KATHLEEN, L KEVIN PA Unavailable Unavailable KATHLEEN, L KEVIN PA Unavailable Unavailable MITALI HELLER MD Unavailable Unavailable MITALI HELLER MD Unavailable Unavailable MCGEE, M BEULAH PA Unavailable Unavailable MCGEE, M BEULAH PA Unavailable Unavailable MCGEE, M BEULAH PA Unavailable Unavailable MCGEE, M BEULAH PA Unavailable Unavailable MCGEE, M BEULAH PA Unavailable Unavailable MCGEE, M BEULAH PA Unavailable Unavailable MCGEE, M BEULAH PA Unavailable Unavailable MCGEE, M BEULAH PA Unavailable Unavailable MCGEE, M BEULAH PA Unavailable Unavailable MCGEE, M BEULAH PA Unavailable Unavailable MCGEE, M BEULAH PA Unavailable Unavailable MCGEE, M BEULAH PA Unavailable Unavailable MCGEE, M BEULAH PA Unavailable Unavailable MCGEE, M BEULAH PA Unavailable Unavailable MCGEE, M BEULAH PA Unavailable Unavailable MCGEE, M BEULAH PA Unavailable Unavailable MCGEE, M BEULAH PA Unavailable Unavailable MCGEE, M BEULAH PA Unavailable Unavailable MCGEE, M BEULAH PA Unavailable Unavailable MCGEE, M BEULAH PA Unavailable Unavailable MCGEE, M BEULAH PA Unavailable Unavailable MCGEE, M BEULAH PA Unavailable Unavailable MCGEE, M BEULAH PA Unavailable Unavailable MCGEE, M BEULAH PA Unavailable Unavailable MCGEE, M BEULAH PA Unavailable Unavailable MCGEE, M BEULAH PA Unavailable Unavailable MCGEE, M BEULAH PA Unavailable Unavailable MCGEE, M BEULAH PA Unavailable Unavailable MCGEE, M BEULAH PA Unavailable Unavailable MCGEE, M BEULAH PA Unavailable Unavailable MCGEE, M BEULAH PA Unavailable Unavailable MCGEE, M BEULAH PA Unavailable Unavailable MCGEE, M BEULAH PA Unavailable Unavailable MCGEE, M BEULAH PA Unavailable Unavailable MCGEE, M BEULAH PA Unavailable Unavailable Zeus WELLS MD Unavailable Unavailable Zeus WELLS MD Unavailable Unavailable Zeus WELLS MD Unavailable Unavailable Zeus WELLS MD Unavailable Unavailable Zeus WELLS MD Unavailable Unavailable Zeus WELLS MD Unavailable Unavailable Zeus WELLS MD Unavailable Unavailable Zeus WELLS MD Unavailable Unavailable Zeus WELLS MD Unavailable Unavailable Zeus WELLS MD Unavailable Unavailable Zeus WELLS MD Unavailable Unavailable Zeus WELLS MD Unavailable Unavailable Zeus WELLS MD Unavailable Unavailable Zeus WELLS MD Unavailable Unavailable Zeus WELLS MD Unavailable Unavailable KOTLOVE, Zeus HORVATH MD Unavailable Unavailable KOTLOVE, Zeus HORVATH MD Unavailable Unavailable KOTLOVE, Zeus HORVATH MD Unavailable Unavailable KOTLOVE, Zeus HORVATH MD Unavailable Unavailable KOTLOVE, J YULIET MD Unavailable Unavailable KOTLOVE, J YULIET PATEL Unavailable Unavailable KOTLOVE, J YULIET MD Unavailable Unavailable KOTLOVE, J YULIET PATEL Unavailable Unavailable KOTLOVE, J YULIET PATEL Unavailable Unavailable KOTLOVE, Zeus HORVATH MD Unavailable Unavailable KOTLOVE, J YULIET MD Unavailable Unavailable KOTLOVE, J YULIET PATEL Unavailable Unavailable KOTLOVE, J YULIET PATEL Unavailable Unavailable KOTLOVE, Zeus HORVATH MD Unavailable Unavailable KOTLOVE, J YULIET MD Unavailable Unavailable KOTLOVE, J YULIET MD Unavailable Unavailable KOTLOVE, J YULIET MD Unavailable Unavailable KOTLOVE, J YULIET MD Unavailable Unavailable KOTLOVE, J YULIET MD Unavailable Unavailable KOTLOVE, Zeus HORVATH MD Unavailable Unavailable KOTLOVE, Zeus HORVATH MD Unavailable Unavailable KOTLOVE, Zeus HORVATH MD Unavailable Unavailable KOTLOVE, Zeus HORVATH MD Unavailable Unavailable KOTLOVE, Zeus HORVATH MD Unavailable Unavailable KOTLOVE, Zeus HORVATH MD Unavailable Unavailable KOTLOVE, Zeus HORVATH MD Unavailable Unavailable KOTLOVE, Zeus HORVATH MD Unavailable Unavailable KOTLOVE, J YULIET PATEL Unavailable Unavailable KOTLOVE, J YULIET PATEL Unavailable Unavailable KOTLOVE, J YULIET MD Unavailable Unavailable KOTLOVE, J YULIET MD Unavailable Unavailable KOTLOVE, J YULIET MD Unavailable Unavailable KOTLOVE, J YULIET MD Unavailable Unavailable KOTLOVE, J YULIET MD Unavailable Unavailable Re-disclosure Warning The records that you are about to access may contain information from federally-assisted alcohol or drug abuse programs. If such information is present, then the following federally mandated warning applies: This information has been disclosed to you from records protected by federal confidentiality rules (42 CFR part 2). The federal rules prohibit you from making any further disclosure of this information unless further disclosure is expressly permitted by the written consent of the person to whom it pertains or as otherwise permitted by 42 CFR part 2. A general authorization for the release of medical or other information is NOT sufficient for this purpose. The Federal rules restrict any use of the information to criminally investigate or prosecute any alcohol or drug abuse patient.The records that you are about to access may contain highly sensitive health information, the redisclosure of which is protected by Article 27-F of the [facility] Public Health law. If you continue you may have access to information: Regarding HIV / AIDS; Provided by facilities licensed or operated by the [facility] Office of Mental Health; or Provided by the [facility] Office for People With Developmental Disabilities. If such information is present, then the following [facility] mandated warning applies: This information has been disclosed to you from confidential records which are protected by state law. State law prohibits you from making any further disclosure of this information without the specific written consent of the person to whom it pertains, or as otherwise permitted by law. Any unauthorized further disclosure in violation of state law may result in a fine or alf sentence or both. A general authorization for the release of medical or other information is NOT sufficient authorization for further disc losure. Family History Family Member Name Family Member Gender Family Member Status Date o f Status Description Data Source(s) Unknown Unknown Problem [facility] ([facility] Unknown Male Problem [facility] ([facility]) Encounters Encounter Providers Location Date Indications Data Source(s ) Outpatient Attender: BEULAH Angeles/Paz/Chiki/Hansel dl 03/25/2021 11:00:00 AM EDT [facility] ([facility] Office Visit, Est Pt., Level 3 PC [address] [place] [address] 03/18/2021 12:00:00 AM EDT eCW1 ([facility]) Outpatient Attender: MITALI HELLER MD 03/17/2021 01:00:0 0 PM EDT [facility] Unknown [address] [facility] [address] 02/18/2021 12:00:00 AM EDT eCW1 ([facility]) Unknown [address] [facility] [address] 02/11/2021 12:00:00 AM EDT eCW1 ([facility]) Outpatient Attender: Maricruz Delgadillo MD Main office - [place] 02/06/2021 09:00:00 AM EDT [facility] ([facility]) Outpatient Attender: Sarina Mullen RPA C Bridget[place]/A ngel/Reindl 02/04/2021 08:30:00 AM EDT [facility] ([facility]) [place] [address] [facility] [address] 01/14/2021 12:00:00 AM EDT [facility]CW1 ([facility]) [place] [address] [facility] [address] 01/12/2021 12:00:00 AM EDT eCW1 ([facility]) [place] [address] [facility] [address] 12/23/2020 12:00:00 AM EDT eCW1 ([facility]) [place] [address] [facility] [address] 12/10/2020 12:00:00 AM EDT eCW1 ([facility]) Outpatient Attender: KEVIN WANG PA Main Office 11/28/2020 1 1:30:00 AM EDT [facility] ([facility]) [place] [address] [facility] [address] 11/27/2020 12:00:00 AM EDT eCW1 ([facility]) Outpatient Attender: Sarina Mullen RPA C [place]/A ngel/Reindl 11/19/2020 11:30:00 AM EDT [facility] ([facility] [place] [address] [facility] [address] 11/19/2020 12:00:00 AM EDT eCW1 ([facility]) [place] [address] [facility] [address] 10/22/2020 12:00:00 AM EDT eCW1 ([facility]) [place] [address] [facility] [address] 10/13/2020 12:00:00 AM EDT eCW1 ([facility]) [place] [address] [facility] [address] 09/30/2020 12:00:00 AM EDT eCW1 ([facility]) [place] [address] [facility] [address] 09/17/2020 12:00:00 AM EDT eCW1 ([facility]) [place] [address] [facility] [address] 09/11/2020 12:00:00 AM EDT eCW1 ([facility]) Outpatient Attender: YULIET WELLS MD 09/08/2020 08:20:00 AM EDT [facility] Outpatient Attender: RAHUL Whittaker/Paz/Chiki/Renard 09/05/2020 10:30:00 AM EDT [facility] ([facility] [place] [place] [address] [facility] [address] 08/18/2020 12:00:00 AM EST eCW1 ([facility]) [place] [address] [facility] [address] 07/24/2020 12:00:00 AM EST eCW1 ([facility]) [place] [address] [facility] [address] 07/16/2020 12:00:00 AM EST eCW1 ([facility]) Outpatient Attender: KEVIN WANG PA Main Office 07/15/2020 0 8:45:00 AM EST [facility] ([facility]) [place] [address] [facility] [address] 07/08/2020 12:00:00 AM EST eCW1 ([facility]) [place] [address] [facility] [place] [address] 07/03/2020 12:00:00 AM EST eCW1 ([facility]) [place] [address] [facility] [address] 06/25/2020 12:00:00 AM EST eCW1 ([facility]) [place] [address] [facility] [address] 06/18/2020 12:00:00 AM EST eCW1 ([facility]) [place] [address] [facility] [address] 06/11/2020 12:00:00 AM EST eCW1 ([facility]) [place] [address] [facility] [address] 05/26/2020 12:00:00 AM EST eCW1 ([facility]) [place] [address] [facility] [address] 04/24/2020 12:00:00 AM EST eCW1 ([facility]) [place] [address] [facility] [address] 03/26/2020 12:00:00 AM EDT eCW1 ([facility]) [place] [address] [facility] [address] 03/13/2020 12:00:00 AM EDT eCW1 ([facility]) Outpatient Attender: YULIET WELLS MD 09/05/2019 03:17:00 PM EDT [facility] Immunizations Vaccine Date Status Description Data Source(s) Moderna #2 dose COVID-19 (given elsewhere) SARSCOV2 VA C 100MCG/0.5ML IM 09/08/2020 07:51:00 AM EDT completed eCW1 ([facility]) COVID-19 VACCINE Moderna 09/08/2020 12:00:00 AM EDT completed [facility] Vaccine Series Complete: YESThis Data wa s Submitted to [facility] Via [employer]. Moderna #1 dose COVID-19 (given elsewhere) SARSCOV2 VA C 100MCG/0.5ML IM 08/07/2020 07:50:00 AM EST completed eCW1 ([facility]) influenza, recombinant, quadrIvalent,injectable, prese rvative free 03/13/2020 11:23:00 AM EDT completed eCW1 ([facility]) influenza, recombinant, quadrIvalent,injectable, prese rvative free 03/13/2020 11:23:00 AM EDT completed eCW1 ([facility]) influenza, recombinant, quadrIvalent,injectable, prese rvative free 03/13/2020 11:23:00 AM EDT completed eCW1 ([facility]) influenza, recombinant, quadrIvalent,injectable, prese rvative free 03/13/2020 11:23:00 AM EDT completed eCW1 ([facility]) influenza, recombinant, quadrIvalent,injectable, prese rvative free 03/13/2020 11:23:00 AM EDT completed eCW1 ([facility]) influenza, recombinant, quadrIvalent,injectable, prese rvative free 03/13/2020 11:23:00 AM EDT completed eCW1 ([facility]) influenza, recombinant, quadrIvalent,injectable, prese rvative free 03/13/2020 11:23:00 AM EDT completed eCW1 ([facility]) influenza, recombinant, quadrIvalent,injectable, prese rvative free 03/13/2020 11:23:00 AM EDT completed eCW1 ([facility]) influenza, recombinant, quadrIvalent,injectable, prese rvative free 03/13/2020 11:23:00 AM EDT completed eCW1 ([facility]) influenza, recombinant, quadrIvalent,injectable, prese rvative free 03/13/2020 11:23:00 AM EDT completed eCW1 ([facility]) influenza, recombinant, quadrIvalent,injectable, prese rvative free 03/13/2020 11:23:00 AM EDT completed eCW1 ([facility]) influenza, recombinant, quadrIvalent,injectable, prese rvative free 03/13/2020 11:23:00 AM EDT completed eCW1 ([facility]) influenza, recombinant, quadrIvalent,injectable, prese rvative free 03/13/2020 11:23:00 AM EDT completed eCW1 ([facility]) influenza, recombinant, quadrIvalent,injectable, prese rvative free 03/13/2020 11:23:00 AM EDT completed eCW1 ([facility]) influenza, recombinant, quadrIvalent,injectable, prese rvative free 03/13/2020 11:23:00 AM EDT completed eCW1 ([facility]) influenza, recombinant, quadrIvalent,injectable, prese rvative free 03/13/2020 11:23:00 AM EDT completed eCW1 ([facility]) influenza, recombinant, quadrIvalent,injectable, prese rvative free 03/13/2020 11:23:00 AM EDT completed eCW1 ([facility]) influenza, recombinant, quadrIvalent,injectable, prese rvative free 03/13/2020 11:23:00 AM EDT completed eCW1 ([facility]) influenza, recombinant, quadrIvalent,injectable, prese rvative free 03/13/2020 11:23:00 AM EDT completed eCW1 ([facility]) influenza, recombinant, quadrIvalent,injectable, prese rvative free 03/13/2020 11:23:00 AM EDT completed eCW1 ([facility]) influenza, recombinant, quadrIvalent,injectable, prese rvative free 03/13/2020 11:23:00 AM EDT completed eCW1 ([facility]) influenza, recombinant, quadrIvalent,injectable, prese rvative free 03/13/2020 11:23:00 AM EDT completed eCW1 ([facility]) influenza, recombinant, quadrIvalent,injectable, prese rvative free 03/13/2020 11:23:00 AM EDT completed eCW1 ([facility]) influenza, recombinant, quadrIvalent,injectable, prese rvative free 03/13/2020 11:23:00 AM EDT completed eCW1 ([facility]) influenza, recombinant, quadrIvalent,injectable, prese rvative free 03/13/2020 11:23:00 AM EDT completed eCW1 ([facility]) influenza, recombinant, quadrIvalent,injectable, prese rvative free 03/13/2020 11:23:00 AM EDT completed eCW1 ([facility]) Medications Medication Brand Name Start Date Product Form Dose Route Admi nistrative Instructions Pharmacy Instructions Status Indications Reaction Description Data Source(s) POLYETHYLENE GLYCOL 3350 142 MG/ML Oral Solution [Miralax] M iralax 02/04/2021 12:00[facility] Bisacodyl 5 MG Delayed Release Oral Tablet [Dulcolax] Dulcol ax 02/04/2021 12:00:00 AM EDT [facility] Famotidine 40 MG Oral Tablet Famotidine 40 MG 12/17/2020 12:00:00 A M EDT 1.0 {tablet_at_bedtime} active Famotidine 4 0 MG eCW1 ([facility]) Famotidine 40 MG Oral Tablet Famotidine 40 MG 12/17/2020 12:00:00 A M EDT 1.0 {tablet_at_bedtime} active Famotidine 4 0 MG eCW1 ([facility]) Famotidine 40 MG Oral Tablet Famotidine 40 MG 12/17/2020 12:00:00 A M EDT 1.0 {tablet_at_bedtime} active Famotidine 4 0 MG eCW1 ([facility]) Famotidine 40 MG Oral Tablet Famotidine 40 MG 12/17/2020 12:00:00 A M EDT 1.0 {tablet_at_bedtime} active Famotidine 4 0 MG eCW1 ([facility]) Famotidine 40 MG Oral Tablet Famotidine 40 MG 12/17/2020 12:00:00 A M EDT 1.0 {tablet_at_bedtime} active Famotidine 4 0 MG eCW1 ([facility]) Famotidine 40 MG Oral Tablet Famotidine 40 MG 12/17/2020 12:00:00 A M EDT 1.0 {tablet_at_bedtime} active Famotidine 4 0 MG eCW1 ([facility]) Famotidine 40 MG Oral Tablet Famotidine 40 MG 12/17/2020 12:00:00 A M EDT 1.0 {tablet_at_bedtime} active Famotidine 4 0 MG eCW1 ([facility]) Calcitriol 0.57719 MG Oral Capsule Calcitriol 11/27/2020 12:00:00 AM EDT ORAL active [facility] ([facility] [place] Concentrate 11/27/2020 12:00:00 AM EDT active [facility] ([facility]) POLYETHYLENE GLYCOL 3350 142 MG/ML Oral Solution [Miralax] M iralax 11/19/2020 12:00:00 AM EDT completed [facility] ([facility], ) Bisacodyl 5 MG Delayed Release Oral Tablet [Dulcolax] Dulcol ax 11/19/2020 12:00:00 AM EDT ORAL completed [facility] ([facility], ) Fluconazole 150 MG Oral Tablet [Diflucan] Diflucan 150 MG Di flucan 150 MG 07/24/2020 12:00:00 AM EST 1.0 {tablet} active Diflucan 150 MG [facility] [facility]) Fluconazole 150 MG Oral Tablet [Diflucan] Diflucan 150 MG Di flucan 150 MG 07/24/2020 12:00:00 AM EST 1.0 {tablet} suspended Diflucan 150 MG eCW1 ([facility]) Ciprofloxacin 250 MG Oral Tablet [Cipro] Cipro 250 MG Cipro 250 MG 07/24/2020 12:00:00 AM EST 1.0 {tablet} suspended Cipro 250 MG eCW1 ([facility]) Ciprofloxacin 250 MG Oral Tablet [Cipro] Cipro 250 MG Cipro 250 MG 07/24/2020 12:00:00 AM EST 1.0 {tablet} suspended Cipro 250 MG eCW1 ([facility]) Fluconazole 150 MG Oral Tablet [Diflucan] Diflucan 150 MG Di flucan 150 MG 07/24/2020 12:00:00 AM EST 1.0 {tablet} suspended Diflucan 150 MG eCW1 ([facility]) Ciprofloxacin 250 MG Oral Tablet [Cipro] Cipro 250 MG Cipro 250 MG 07/24/2020 12:00:00 AM EST 1.0 {tablet} active Ci pro 250 MG eCW1 ([facility]) Ciprofloxacin 250 MG Oral Tablet [Cipro] Cipro 250 MG Cipro 250 MG 07/24/2020 12:00:00 AM EST 1.0 {tablet} suspended Cipro 250 MG eCW1 ([facility]) Fluconazole 150 MG Oral Tablet [Diflucan] Diflucan 150 MG Di flucan 150 MG 07/24/2020 12:00:00 AM EST 1.0 {tablet} suspended Diflucan 150 MG eCW1 ([facility]) Fluconazole 150 MG Oral Tablet [Diflucan] Diflucan 150 MG Di flucan 150 MG 07/24/2020 12:00:00 AM EST 1.0 {tablet} suspended Diflucan 150 MG eCW1 ([facility]) Ciprofloxacin 250 MG Oral Tablet [Cipro] Cipro 250 MG Cipro 250 MG 07/24/2020 12:00:00 AM EST 1.0 {tablet} suspended Cipro 250 MG eCW1 ([facility]) Fluconazole 150 MG Oral Tablet [Diflucan] Diflucan 150 MG Di flucan 150 MG 07/24/2020 12:00:00 AM EST 1.0 {tablet} suspended Diflucan 150 MG eCW1 ([facility]) Ciprofloxacin 250 MG Oral Tablet [Cipro] Cipro 250 MG Cipro 250 MG 07/24/2020 12:00:00 AM EST 1.0 {tablet} suspended Cipro 250 MG eCW1 ([facility]) Fluconazole 150 MG Oral Tablet [Diflucan] Diflucan 150 MG Di flucan 150 MG 07/24/2020 12:00:00 AM EST 1.0 {tablet} suspended Diflucan 150 MG eCW1 ([facility]) Fluconazole 150 MG Oral Tablet [Diflucan] Diflucan 150 MG Di flucan 150 MG 07/24/2020 12:00:00 AM EST 1.0 {tablet} suspended Diflucan 150 MG eCW1 ([facility]) Fluconazole 150 MG Oral Tablet [Diflucan] Diflucan 150 MG Di flucan 150 MG 07/24/2020 12:00:00 AM EST 1.0 {tablet} active Diflucan 150 MG eCW1 ([facility]) Ciprofloxacin 250 MG Oral Tablet [Cipro] Cipro 250 MG Cipro 250 MG 07/24/2020 12:00:00 AM EST 1.0 {tablet} suspended Cipro 250 MG eCW1 ([facility]) Ciprofloxacin 250 MG Oral Tablet [Cipro] Cipro 250 MG Cipro 250 MG 07/24/2020 12:00:00 AM EST 1.0 {tablet} suspended Cipro 250 MG eCW1 ([facility]) Ciprofloxacin 250 MG Oral Tablet [Cipro] Cipro 250 MG Cipro 250 MG 07/24/2020 12:00:00 AM EST 1.0 {tablet} suspended Cipro 250 MG eCW1 ([facility]) Fluconazole 150 MG Oral Tablet [Diflucan] Diflucan 150 MG Di flucan 150 MG 07/24/2020 12:00:00 AM EST 1.0 {tablet} suspended Diflucan 150 MG eCW1 ([facility]) Fluconazole 150 MG Oral Tablet [Diflucan] Diflucan 150 MG Di flucan 150 MG 07/24/2020 12:00:00 AM EST 1.0 {tablet} suspended Diflucan 150 MG eCW1 ([facility]) Ciprofloxacin 250 MG Oral Tablet [Cipro] Cipro 250 MG Cipro 250 MG 07/24/2020 12:00:00 AM EST 1.0 {tablet} suspended Cipro 250 MG eCW1 ([facility]) Ciprofloxacin 250 MG Oral Tablet [Cipro] Cipro 250 MG Cipro 250 MG 07/24/2020 12:00:00 AM EST 1.0 {tablet} suspended Cipro 250 MG eCW1 ([facility]) Fluconazole 150 MG Oral Tablet [Diflucan] Diflucan 150 MG Di flucan 150 MG 07/24/2020 12:00:00 AM EST 1.0 {tablet} suspended Diflucan 150 MG eCW1 ([facility]) Ciprofloxacin 250 MG Oral Tablet [Cipro] Cipro 250 MG Cipro 250 MG 07/24/2020 12:00:00 AM EST 1.0 {tablet} active Ci pro 250 MG eCW1 ([facility]) Fluconazole 150 MG Oral Tablet [Diflucan] Diflucan 150 MG Di flucan 150 MG 07/24/2020 12:00:00 AM EST 1.0 {tablet} suspended Diflucan 150 MG eCW1 ([facility]) Ciprofloxacin 250 MG Oral Tablet [Cipro] Cipro 250 MG Cipro 250 MG 07/24/2020 12:00:00 AM EST 1.0 {tablet} suspended Cipro 250 MG eCW1 ([facility]) Ciprofloxacin 250 MG Oral Tablet [Cipro] Cipro 250 MG Cipro 250 MG 07/24/2020 12:00:00 AM EST 1.0 {tablet} suspended Cipro 250 MG eCW1 ([facility]) Fluconazole 150 MG Oral Tablet [Diflucan] Diflucan 150 MG Di flucan 150 MG 07/24/2020 12:00:00 AM EST 1.0 {tablet} suspended Diflucan 150 MG eCW1 ([facility]) Ciprofloxacin 250 MG Oral Tablet [Cipro] Cipro 250 MG Cipro 250 MG 07/24/2020 12:00:00 AM EST 1.0 {tablet} suspended Cipro 250 MG eCW1 ([facility]) Ciprofloxacin 250 MG Oral Tablet [Cipro] Cipro 250 MG Cipro 250 MG 07/24/2020 12:00:00 AM EST 1.0 {tablet} suspended Cipro 250 MG eCW1 ([facility]) Fluconazole 150 MG Oral Tablet [Diflucan] Diflucan 150 MG Di flucan 150 MG 07/24/2020 12:00:00 AM EST 1.0 {tablet} suspended Diflucan 150 MG eCW1 ([facility]) Fluconazole 150 MG Oral Tablet [Diflucan] Diflucan 150 MG Di flucan 150 MG 07/24/2020 12:00:00 AM EST 1.0 {tablet} suspended Diflucan 150 MG eCW1 ([facility]) Multivitamin Women 07/14/2020 12:00:00 AM EST ORAL active [facility] ([facility]) Carboxymethylcellulose Sodium 5 MG/ML Ophthalmic Solut ion Carboxymethylcellulose Sodium 07/14/2020 12:00:00 AM EST active [facility] ([facility]) 200 ACTUAT Albuterol 0.09 MG/ACTUAT Mete red Dose Inhaler [ProAir] ProAir HFA 108 (90 Base) MCG/ACT ProAir HFA 108 (90 Base) MCG/ACT 07/08/2020 12:00:00 AM EST 2.0 {puff_as_needed} active Pro Air HFA 108 (90 Base) MCG/ACT eCW1 ([facility]) 200 ACTUAT Albuterol 0.09 MG/ACTUAT Mete red Dose Inhaler [ProAir] ProAir HFA 108 (90 Base) MCG/ACT ProAir HFA 108 (90 Base) MCG/ACT 07/08/2020 12:00:00 AM EST 2.0 {puff_as_needed} active Pro Air HFA 108 (90 Base) MCG/ACT eCW1 ([facility]) 200 ACTUAT Albuterol 0.09 MG/ACTUAT Mete red Dose Inhaler [ProAir] ProAir HFA 108 (90 Base) MCG/ACT ProAir HFA 108 (90 Base) MCG/ACT 07/08/2020 12:00:00 AM EST 2.0 {puff_as_needed} active Pro Air HFA 108 (90 Base) MCG/ACT eCW1 ([facility]) 200 ACTUAT Albuterol 0.09 MG/ACTUAT Mete red Dose Inhaler [ProAir] ProAir HFA 108 (90 Base) MCG/ACT ProAir HFA 108 (90 Base) MCG/ACT 07/08/2020 12:00:00 AM EST 2.0 {puff_as_needed} active Pro Air HFA 108 (90 Base) MCG/ACT eCW1 ([facility]) 200 ACTUAT Albuterol 0.09 MG/ACTUAT Mete red Dose Inhaler [ProAir] ProAir HFA 108 (90 Base) MCG/ACT ProAir HFA 108 (90 Base) MCG/ACT 07/08/2020 12:00:00 AM EST 2.0 {puff_as_needed} active Pro Air HFA 108 (90 Base) MCG/ACT eCW1 ([facility]) 200 ACTUAT Albuterol 0.09 MG/ACTUAT Mete red Dose Inhaler [ProAir] ProAir HFA 108 (90 Base) MCG/ACT ProAir HFA 108 (90 Base) MCG/ACT 07/08/2020 12:00:00 AM EST 2.0 {puff_as_needed} active Pro Air HFA 108 (90 Base) MCG/ACT eCW1 ([facility]) 200 ACTUAT Albuterol 0.09 MG/ACTUAT Mete red Dose Inhaler [ProAir] ProAir HFA 108 (90 Base) MCG/ACT ProAir HFA 108 (90 Base) MCG/ACT 07/08/2020 12:00:00 AM EST 2.0 {puff_as_needed} active Pro Air HFA 108 (90 Base) MCG/ACT eCW1 ([facility]) 200 ACTUAT Albuterol 0.09 MG/ACTUAT Mete red Dose Inhaler [ProAir] ProAir HFA 108 (90 Base) MCG/ACT ProAir HFA 108 (90 Base) MCG/ACT 07/08/2020 12:00:00 AM EST 2.0 {puff_as_needed} active Pro Air HFA 108 (90 Base) MCG/ACT eCW1 ([facility]) 200 ACTUAT Albuterol 0.09 MG/ACTUAT Mete red Dose Inhaler [ProAir] ProAir HFA 108 (90 Base) MCG/ACT ProAir HFA 108 (90 Base) MCG/ACT 07/08/2020 12:00:00 AM EST 2.0 {puff_as_needed} active Pro Air HFA 108 (90 Base) MCG/ACT eCW1 ([facility]) 200 ACTUAT Albuterol 0.09 MG/ACTUAT Mete red Dose Inhaler [ProAir] ProAir HFA 108 (90 Base) MCG/ACT ProAir HFA 108 (90 Base) MCG/ACT 07/08/2020 12:00:00 AM EST 2.0 {puff_as_needed} active Pro Air HFA 108 (90 Base) MCG/ACT eCW1 ([facility]) 200 ACTUAT Albuterol 0.09 MG/ACTUAT Mete red Dose Inhaler [ProAir] ProAir HFA 108 (90 Base) MCG/ACT ProAir HFA 108 (90 Base) MCG/ACT 07/08/2020 12:00:00 AM EST 2.0 {puff_as_needed} active Pro Air HFA 108 (90 Base) MCG/ACT eCW1 ([facility]) 200 ACTUAT Albuterol 0.09 MG/ACTUAT Mete red Dose Inhaler [ProAir] ProAir HFA 108 (90 Base) MCG/ACT ProAir HFA 108 (90 Base) MCG/ACT 07/08/2020 12:00:00 AM EST 2.0 {puff_as_needed} active Pro Air HFA 108 (90 Base) MCG/ACT eCW1 ([facility]) 200 ACTUAT Albuterol 0.09 MG/ACTUAT Mete red Dose Inhaler [ProAir] ProAir HFA 108 (90 Base) MCG/ACT ProAir HFA 108 (90 Base) MCG/ACT 07/08/2020 12:00:00 AM EST 2.0 {puff_as_needed} active Pro Air HFA 108 (90 Base) MCG/ACT eCW1 ([facility]) 200 ACTUAT Albuterol 0.09 MG/ACTUAT Mete red Dose Inhaler [ProAir] ProAir HFA 108 (90 Base) MCG/ACT ProAir HFA 108 (90 Base) MCG/ACT 07/08/2020 12:00:00 AM EST 2.0 {puff_as_needed} active Pro Air HFA 108 (90 Base) MCG/ACT eCW1 ([facility]) 200 ACTUAT Albuterol 0.09 MG/ACTUAT Mete red Dose Inhaler [ProAir] ProAir HFA 108 (90 Base) MCG/ACT ProAir HFA 108 (90 Base) MCG/ACT 07/08/2020 12:00:00 AM EST 2.0 {puff_as_needed} active Pro Air HFA 108 (90 Base) MCG/ACT eCW1 ([facility]) 200 ACTUAT Albuterol 0.09 MG/ACTUAT Mete red Dose Inhaler [ProAir] ProAir HFA 108 (90 Base) MCG/ACT ProAir HFA 108 (90 Base) MCG/ACT 07/08/2020 12:00:00 AM EST 2.0 {puff_as_needed} active Pro Air HFA 108 (90 Base) MCG/ACT eCW1 ([facility]) 200 ACTUAT Albuterol 0.09 MG/ACTUAT Mete red Dose Inhaler [ProAir] ProAir HFA 108 (90 Base) MCG/ACT ProAir HFA 108 (90 Base) MCG/ACT 07/08/2020 12:00:00 AM EST 2.0 {puff_as_needed} active Pro Air HFA 108 (90 Base) MCG/ACT eCW1 ([facility]) 200 ACTUAT Albuterol 0.09 MG/ACTUAT Mete red Dose Inhaler [ProAir] ProAir HFA 108 (90 Base) MCG/ACT ProAir HFA 108 (90 Base) MCG/ACT 07/08/2020 12:00:00 AM EST 2.0 {puff_as_needed} active Pro Air HFA 108 (90 Base) MCG/ACT eCW1 ([facility]) FreeStyle Lancets - FreeStyle Lancets - 06/24/2020 12:00:00 AM EST active FreeStyle Lancets - eCW1 ([facility]) FreeStyle Lancets - FreeStyle Lancets - 06/24/2020 12:00:00 AM EST active FreeStyle Lancets - eCW1 ([facility]) FreeStyle Lancets - FreeStyle Lancets - 06/24/2020 12:00:00 AM EST active FreeStyle Lancets - eCW1 ([facility]) FreeStyle Lancets - FreeStyle Lancets - 06/24/2020 12:00:00 AM EST active FreeStyle Lancets - eCW1 ([facility]) FreeStyle Lancets - FreeStyle Lancets - 06/24/2020 12:00:00 AM EST active FreeStyle Lancets - eCW1 ([facility]) FreeStyle Lancets - FreeStyle Lancets - 06/24/2020 12:00:00 AM EST active FreeStyle Lancets - eCW1 ([facility]) FreeStyle Lancets - FreeStyle Lancets - 06/24/2020 12:00:00 AM EST active FreeStyle Lancets - eCW1 ([facility]) FreeStyle Lancets - FreeStyle Lancets - 06/24/2020 12:00:00 AM EST active FreeStyle Lancets - eCW1 ([facility]) FreeStyle Lancets - FreeStyle Lancets - 06/24/2020 12:00:00 AM EST active FreeStyle Lancets - eCW1 ([facility]) FreeStyle Lancets - FreeStyle Lancets - 06/24/2020 12:00:00 AM EST active FreeStyle Lancets - eCW1 ([facility]) FreeStyle Lancets - FreeStyle Lancets - 06/24/2020 12:00:00 AM EST active FreeStyle Lancets - eCW1 ([facility]) FreeStyle Lancets - FreeStyle Lancets - 06/24/2020 12:00:00 AM EST active FreeStyle Lancets - eCW1 ([facility]) FreeStyle Lancets - FreeStyle Lancets - 06/24/2020 12:00:00 AM EST active FreeStyle Lancets - eCW1 ([facility]) FreeStyle Lancets - FreeStyle Lancets - 06/24/2020 12:00:00 AM EST active FreeStyle Lancets - eCW1 ([facility]) FreeStyle Lancets - FreeStyle Lancets - 06/24/2020 12:00:00 AM EST active FreeStyle Lancets - eCW1 ([facility]) FreeStyle Lancets - FreeStyle Lancets - 06/24/2020 12:00:00 AM EST active FreeStyle Lancets - eCW1 ([facility]) FreeStyle Lancets - FreeStyle Lancets - 06/24/2020 12:00:00 AM EST active FreeStyle Lancets - eCW1 ([facility]) FreeStyle Lancets - FreeStyle Lancets - 06/24/2020 12:00:00 AM EST active FreeStyle Lancets - eCW1 ([facility]) FreeStyle Lancets - FreeStyle Lancets - 06/24/2020 12:00:00 AM EST active FreeStyle Lancets - eCW1 ([facility]) FreeStyle Lancets - FreeStyle Lancets - 06/24/2020 12:00:00 AM EST active FreeStyle Lancets - eCW1 ([facility]) Insurance Providers Payer name Policy type / Coverage type Policy ID Covered democrat ID Covered democrat's relationship to gill Policy Gill Plan Information [id number] [facility] [id number] [facility] [id number] 2 [id number] MEDICARE [id number] [place] Antonia [id number] J71 MEDICARE [id number] SP [id number] J71 MEDICARE A [id number] Self [id number] A MEDICARE [id number] [id number] MEDICARE [id number] SP [id number] A FOR LIFE [id number] 2 [id number] FOR LIFE [id number] 2 [id number] FOR LIFE U [id number] Self [id number] [phone] [id number] MCRB [id number] S [id number] MCRB [id number] S [id number] J71 [facility] [id number] 2 [id number] ANSI-Commercial [id number] ANSI-Medicare Part B [id number] ANSI-Commercial [id number] ANSI-Medicare Part B [id number] ANSI-Medicare Part B [id number] ANSI-Commercial [id number] MEDICARE VONNIE SHANKAR VONNIE ANSI-Not a Secondary Insurance [id number] ANSI-Medicare Part B [id number] Prime - [employer] Maintenance Organization (O) [id number] Family Dependent [id number] For Life - [employer] Medigap Part B [id number] Family Dependent [id number] Medicare (Part B) Medicare Primary [id number] Self [id number] Prime - [employer] Maintenance Organization (O) 001 [id number] Family Dependent [id number] For Life - [employer] Part B [id number] Family Dependent [id number] Medicare (Part B) Medicare Primary [id number] Self [id number] Prime - [employer] Maintenance Organization (O) 001 [id number] Family Dependent [id number] For Life - WPS [facility] B [id number] Family Dependent [id number] Medicare (Part B) Medicare Primary [id number] Self [id number] [place] [employer] ([facility]) [facility] Part B [id number] Family Dependent [id number] [place] Primary [id number] Self [id number] [place] [employer] ([facility]) [facility] Part B [id number] Family Dependent [id number] [place] Primary [id number] 2.16.840.1.327790.3.227.99.991.263657.0 Self [id number] Prime - [employer] Maintenance Organization (HMO) 001 [id number]9.572.5682.0 Family Dependent 00 [id number] For Life - WPS [facility] Part B [id number] Family Dependent 06 [id number] Medicare (Part B) Medicare Primary [id number] 2.16.840.1.285873.3.227.99.572.5682.0 Self [id number] MEDICARE [id number] SP [id number] A [place] [employer] ([facility]) [facility] Part B [id number] Family Dependent [id number] [place] Primary [id number] [id number] Self [id number] [place] [employer] (TFL) [facility] Part B [id number] Family Dependent [id number] Medicare [place] Medicare Primary [id number] [id number] Self [id number] MEDICARE [id number] SP [id number] A MEDICARE [id number] S [id number] A [place] [facility] ([facility]) [facility] Part B [id number] Family Dependent [id number] Medicare [place] Medicare Primary [id number] [id number] Self [id number] Prime - [employer] Maintenance Organization (HMO) 001 [id number] 2.0.1.524954.3.227.99.572.5682.0 Family Dependent 00 [id number] For Life - WPS [facility] Part B [id number] Family Dependent 06 [id number] Medicare (Part B) Medicare Primary [id number] 2.16.840.1.216658.3.227.99.572.5682.0 Self 00 [id number] [facility]) [facility] Part B [id number] Family Dependent [id number] Medicare [place] Medicare Primary [id number] 2.16.840.1.132448.3.227.99.991.813988.0 Self [id number] [facility] (H[facility]) 001 [id number]9.572.5682.0 Family Dependent 00 [id number] For Life - [employer] Part B [id number]9.572.5682.0 Family Dependent 06 [id number] Medicare (Part B) Medicare Primary [id number] 2.16.840.1.632131.3.227.99.572.5682.0 Self 00 [id number] [facility] [employer] Maintenance Organization (HMO) 001 [id number]9.572.5682.0 Family Dependent 00 [id number] For Life - WPS Med[employer] Part B [id number] Family Dependent 06 [id number] Medicare (Part B) Medicare Primary [id number] 2.16.840.1.971913.3.227.99.572.5682.0 Self 00 [id number] [facility] Health Maintenance Organization (HMO) [id number] Family Dependent 00 [id number] For Life - [employer] Part B [id number] Family Dependent 06 [id number] Medicare (Part B) Medicare Primary [id number] [id number] Self 00 [id number] [facility] Maintenance [facility] ([facility]) [id number] Family Dependent 00 [id number] [facility] Maintenance [facility] ([facility]) [id number] Family Dependent 00 [id number] [employer]/ AD O [id number] P [id number] MEDICARE [id number] SP [id number] J71 [facility] Maintenance Organization (O) 8785 Family Dependent FOR LIFE [id number] 2 001 [id number] MCRB [id number] S [id number] J71 [facility] [id number] S [id number] MEDICARE [id number] S [id number] J71 MEDICARE C [id number] S [id number] J71 FOR LIFE O [id number] S 001 [id number] SELF PAY ONLY [id number] SP [id number] [facility] [id number] Medicare Part B [facility] Other 0 [id number] Self 0 Problems, Conditions, and Diagnoses Code Display Name Description Problem Type Effective Dates Data Source(s) Z87.891 Personal history of nicotine dependence PERSONAL HISTORY OF NICOTINE DEPENDENCE Diagnosis 09/08/2020 08:20:00 AM EDT [facility] Z92.3 Personal history of irradiation PERSONAL HISTORY OF IR RADIATION Diagnosis 09/08/2020 08:20:00 AM EDT [facility] Z85.118 Personal history of other malignant neop lasm of bronchus and lung PERSONAL HISTORY OF MALIGNANT NEOPLASM OF BRONCHUS Diagnosis 08:20:00 AM EDT [facility] Z08 Encounter for follow-up exam ination after completed treatment for malignant neoplasm ENCNTR FOR FOLLOW-UP EXAM AFTER TRTMT FOR MALIGNANT NEOPLASM Diagnosis 09/08/2020 08:20:00 AM EDT [facility] C34.11 Malignant neoplasm of upper lobe, right bronchus or lung MALIGNANT NEOPLASM OF UPPER LOBE, RIGHT Diagnosis 02/14/2020 09:15:00 AM EDT [facility] Z85.118 History of malignant neoplasm of lung Hi story of malignant neoplasm of lung Problem 03/25/2021 12:00:00 AM ED[facility] I71.2 Aneurysm of thoracic aorta Aneurysm of thoracic aorta Problem 11/28/2020 12:00:00 AM EDT [facility] ([facility]) [id number] Essential hypertension Essential hypertension Problem 11/19/2020 12:00:00 AM EDT [facility]) I71.4 [id number] (abdominal aortic aneurysm) without r upture Problem 09/20/2020 12:00:00 AM EDT [facility] ([facility]) Z85.118 History of malignant neoplasm of lung Hi story of malignant neoplasm of lung Problem 09/05/2020 12:00:00 AM EDT [facility]) Surgeries/Procedures Procedure Description Date Indications Data Source(s) Spirometry 03/25/2021 12:00:00 [facility] OFFICE OUTPATIENT VISIT 25 MINUTES 03/25/2021 12:00:00 AM EDT [facility]) OFFICE OUTPATIENT VISIT 25 MINUTES 02/06/2021 12:00:00 AM EDT [facility] ([facility], ) OFFICE OUTPATIENT VISIT 25 MINUTES 02/04/2021 12:00:00 AM EDT [facility]) INTERROGATION EVAL REMOTE </90 D 1/2/> LD CVDFB 2020 12:00:00 AM EDT [facility] ([facility]) INTERROGATION REMOTE </90 D [employer] REVIEW 02/05/20 21 12:00:00 AM EDT [facility]) Endoscopy Upper GI Biopsy 12/10/2020 12:00:00 AM EDT [facility]) Colonoscopy W/ Poly 12/10/2020 12:00:00 AM EDT [facility]) ECG ROUTINE ECG W/LEAST 12 LDS W/I&R 11/28/2020 12:00: 00 AM EDT [facility] ([facility]) OFFICE OUTPATIENT VISIT 25 MINUTES 11/28/2020 12:00:00 AM EDT [facility] ([facility]) OFFICE OUTPATIENT NEW 45 MINUTES 11/19/2020 12:00:00 A M EDT [facility]) ECHO TTHRC R-T 2D W/WOM-MODE COMPL SPEC&COLR DOP 11/18 12:00:00 AM EDT [facility]) INTERROGATION EVAL REMOTE </90 D 1/2/> LD CVDFB 2020 12:00:00 AM EDT [facility]) INTERROGATION REMOTE </90 D [employer] INST[employer] REVIEW 11/06/19 12:00:00 AM EDT [facility] ([facility]) Spirometry 09/05/2020 12:00:00 AM [facility] OFFICE OUTPATIENT VISIT 25 MINUTES 09/05/2020 12:00:00 AM EDT [facility]) INTERROGATION EVAL REMOTE </90 D 1/2/> LD CVDFB 2020 12:00:00 AM EST [facility] ([facility]) INTERROGATION REMOTE </90 D [employer] REVIEW 08/06/19 12:00:00 AM EST [facility] ([facility]) ECG ROUTINE ECG W/LEAST 12 LDS W/I&R 07/15/2020 12:00: 00 AM EST [facility] ([facility]) OFFICE OUTPATIENT VISIT 25 MINUTES 07/15/2020 12:00:00 AM EST [facility] ([facility]) PROGRM EVAL IMPLANTABLE IN PRSN EDUCATIONAL/DEVELOPMENT ASSISTANT LD CARD/DFB 2019 12:00:00 AM EST [facility] ([facility]) Immunization: Flublok Quadrivalent (18 years & older) 0.5mL IM (Influenza) 03/13/2020 12:00:00 AM EDT eCW1 ([facility]) INTERROGATION EVAL REMOTE </90 D 1/2/> LD CVDFB 2019 12:00:00 AM EDT [facility] ([facility]) INTERROGATION REMOTE </90 D [employer] IN[employer] REVIEW 02/05/20 20 12:00:00 AM EDT [facility] ([facility]) Results ID Date Data Source [id number] 03/25/2021 10:42:00 AM EDT [facility] ([facility]) Name Value Range Interpretation Code Description Data Bettie rce(s) Supporting Document(s) FVC-Pre 2.61 L [facility] ([facility]) FVC-Pred 3.50 L [facility] ([facility]) PDFReport Laboratory test result [facility] ([facility]) FVC-LLN 2.73 L [facility] ([facility]) Fev1-Pred 2.67 L [facility] ([facility]) FVC-%Pred-Pre 74 L [facility] ([facility]) Fev1-%Pred-Pre 66 L [facility] ([facility]) Fev1-Pre 1.77 L [facility] ([facility]) Fev1-LLN 2.02 L [facility] ([facility]) Fev6-Pred 3.36 L [facility] ([facility]) Fev6-Pre 2.59 L [facility] ([facility]) Fev6-LLN 2.60 L [facility] ([facility]) Fyo7uks-Qgoe 76 % [facility] ([facility]) Fev6-%Pred-Pre 76 L [facility] ([facility]) Lbl2wbk-%Pred-Pre 88 % [facility] ([facility]) Yth9zqq-RPQ 67 % [facility] ([facility], ) Vhd4wvs-Asd 68 % [facility] ([facility]) Vlu6qtj-Zgp 99 % [facility] ([facility]) Oqd7xph-%Pred-Pre 103 % [facility] ([facility]) Pga1daf-Fjgd 96 % [facility] ([facility]) FEFMax-Pre 4.88 L/E/sec [facility] ([facility]) FEFMax-%Pred-Pre 76 L/E/sec [facility] ([facility]) FEFMax-Pred 6.35 L/E/sec [facility] ([facility]) Uyc1124-Fje 0.95 L/E/sec [facility] ([facility]) FEFMax-LLN 4.44 L/E/sec [facility] ([facility]) Tzu6732-Stfn 2.20 L/E/sec [facility] ([facility]) Yuc2767-YTL 0.82 L/E/sec [facility] ([facility]) Ypv6447-%Pred-Pre 43 L/E/sec [facility] ([facility]) ExpTime-Pre 6.59 sec [facility] ([facility]) Aqt3yrr6-Xfvi 79 % [facility] ([facility], ) Htu4ulj7-%Pred-Pre 85 % [facility] ([facility]) Exu7ohm8-Sqh 68 % [facility] ([facility]) Oje3ceq2-UQS 71 % [facility] ([facility]) ID Date Data Source [id number] 02/17/2021 04:10:00 PM EDT [facility] ([facility]) Name Value Range Interpretation Code Description Data Bettie rce(s) Supporting Document(s) Hemoglobin A1c/Hemoglobin.total in Blood 6.1 [facility] ([facility]) ID Date Data Source [id number] 02/17/2021 04:10:00 PM EDT [facility] ([facility]) Name Value Range Interpretation Code Description Data Bettie rce(s) Supporting Document(s) Calcium [Mass/volume] in Serum or Plasma 9.8 [facility] ([facility]) Carbon dioxide, total [Moles/volume] in Serum or Plasma 27.1 [facility] ([facility]) Sodium 139.7 [facility] ([facility]) Chloride [Moles/volume] in Serum or Plasma 101.7 [facility] ([facility]) Glucose 133 70-100 [facility] ([facility]) Potassium [Moles/volume] in Serum or Plasma 4.79 [facility] ([facility]) Creatinine 1.5 0.6-1.5 [facility] ([facility]) Blood Urea Nitrogen 29.0 5-21 [facility] ([facility]) Glomerular filtration rate/1.73 sq M.pre dicted [Volume Rate/Area] in Serum or Plasma by Creatinine-based formula (MDRD) 34 [facility] ([facility]) ID Date Data Source [id number] 02/17/2021 04:10:00 PM EDT [facility] ([facility]) Name Value Range Interpretation Code Description Data Bettie rce(s) Supporting Document(s) Red Blood Count 4.23 4.70-6.20 [facility] ([facility]) White Blood Count 8.9 4.3-10.9 [facility] ([facility]) Platelets 184 130-400 [facility] ([facility]) Hemoglobin 14.1 13.0-17.0 [facility] ([facility]) Hematocrit 42.4 39.0-50.0 [facility] ([facility]) ID Date Data Source [id number] 12/05/2020 11:05:00 AM EDT [facility] Name Value Range Interpretation Code Description Data Bettie rce(s) Supporting Document(s) SARS-CoV-2 (COVID-19) RNA [Presence] in Respiratory specimen by VIMAL with probe detection Not Detected [facility] This lab was ordered by [facility] and reported by [email or web address] ID Date Data Source [id number] 11/26/2020 01:34:00 PM EDT [facility] Name Value Range Interpretation Code Description Data Bettie rce(s) Supporting Document(s) Glucose 145 70-106 [facility] Creatinine 1.3 0.55-1.3 [facility]) Blood Urea Nitrogen 31.1 7-18 [facility] ([facility] Potassium 4.03 3.5-5.5 [facility] Sodium 137.4 135-145 [facility] Glomerular filtration rate/1.73 sq M.pre dicted [Volume Rate/Area] in Serum or Plasma by Creatinine-based formula (MDRD) 41 [facility] ([facility]) Carbon Dioxide 25.9 21-32 [facility] Chloride 106 94-110 [facility] Calcium 9.2 8.5-10.1 [facility] Phosphorus 3.0 2.5-4.9 [facility] ([facility]) Albumin 4.1 3.2-4.9 [facility] ID Date Data Source [id number] 11/26/2020 01:34:00 PM EDT [facility] Name Value Range Interpretation Code Description Data Bettie rce(s) Supporting Document(s) White Blood Count 10.4 4.0-10.0 [facility] Red Blood Count 4.42 4.00-5.40 [facility] Platelets 205 172-450 [facility] Hemoglobin 14.6 12.0-16.0 [facility] ([facility]) Hematocrit 44.6 36.0-47.0 [facility] ([facility]) ID Date Data Source [id number] 09/05/2020 10:38:00 AM EDT [facility] ([facility], ) Name Value Range Interpretation Code Description Data Bettie rce(s) Supporting Document(s) PDFReport Laboratory test result [facility] ([facility]) FVC-Pre 2.57 L [facility] ([facility], ) FVC-Pred 3.50 L [facility] ([facility], ) FVC-%Pred-Pre 73 L [facility] ([facility], ) Fev1-Pred 2.67 L [facility] ([facility], ) FVC-LLN 2.73 L [facility] ([facility], ) Fev1-%Pred-Pre 64 L [facility] ([facility], ) Fev1-Pre 1.71 L [facility] ([facility], ) Fev1-LLN 2.02 L [facility] ([facility], ) Fev6-Pre 2.49 L [facility] ([facility], ) Fev6-Pred 3.36 L [facility] ([facility]) Fev6-LLN 2.60 L [facility] ([facility], ) Fev6-%Pred-Pre 74 L [facility] ([facility], ) Oyr6lmi-Pxl 67 % [facility] ([facility], ) Myl4rkh-Ijbr 76 % [facility] ([facility]) Lew9bgx-%Pred-Pre 87 % [facility] ([facility]) Znx4yon-JSW 67 % [facility] ([facility]) Rly0edt-Nsas 96 % [facility] ([facility]) Kqw6brb-Cod 97 % [facility] ([facility]) Lyu2wes-%Pred-Pre 101 % [facility] ([facility]) FEFMax-Pred 6.35 L/E/sec [facility] ([facility], ) FEFMax-%Pred-Pre 72 L/E/sec [facility] ([facility]) FEFMax-Pre 4.60 L/E/sec [facility] ([facility]) FEFMax-LLN 4.44 L/E/sec [facility] ([facility], ) Pwv9226-%Pred-Pre 38 L/E/sec [facility] ([facility]) Iiw1741-Jedg 2.20 L/E/sec [facility] ([facility]) Zla8034-Aiu 0.84 L/E/sec [facility] ([facility]) Pps2946-JHL 0.82 L/E/sec [facility] ([facility]) ExpTime-Pre 7.30 sec [facility] ([facility]) Nfy7lmf0-Agtv 79 % [facility] ([facility]) Bcu3jdp2-Ayi 69 % [facility] ([facility]) Tmy5usk4-%Pred-Pre 86 % [facility] ([facility]) Vsx5igi4-EZS 71 % [facility] ([facility]) ID Date Data Source [id number] 08/26/2020 09:57:00 AM EDT [facility]) Name Value Range Interpretation Code Description Data Bettie rce(s) Supporting Document(s) Red Blood Count 4.43 4.70-6.20 [facility] ([facility]) White Blood Count 7.3 4.3-10.9 [facility] ([facility]) Platelets 153 130-400 [facility] Hemoglobin 14.7 13.0-17.0 [facility] ([facility]) Hematocrit 45.1 39.0-50.0 [facility] ([facility]) ID Date Data Source [id number] 08/26/2020 09:57:00 AM EDT [facility] ([facility]) Name Value Range Interpretation Code Description Data Bettie rce(s) Supporting Document(s) Glucose 134 70-100 [facility] Blood Urea Nitrogen 28.4 5-21 [facility] ([facility]) Sodium 136.4 136-146 [facility] Creatinine 1.2 0.6-1.5 [facility] ([facility]) Glomerular filtration rate/1.73 sq M.pre dicted [Volume Rate/Area] in Serum or Plasma by Creatinine-based formula (MDRD) 45 [facility] ([facility]) Chloride 102.1 98-110 [facility] Potassium 4.58 3.5-5.3 [facility] Carbon Dioxide 27.5 20-32 [facility] ([facility]) Calcium 8.7 8.4-10.4 [facility] Phosphorus 3.0 [facility]) Albumin 4.2 3.5-4.7 [facility] ID Date Data Source [id number] 05/14/2020 12:00:00 AM EST [facility] Name Value Range Interpretation Code Description Data Bettie rce(s) Supporting Document(s) 2019-nCoV RNA XXX VIMAL+probe-Imp [facility]IA This lab was ordered by [facility] and reported by [email or web address] ID Date Data Source [id number] 02/27/2020 09:20:00 AM EDT [facility] ([facility]) Name Value Range Interpretation Code Description Data Bettie rce(s) Supporting Document(s) Hemoglobin A1c/Hemoglobin.total in Blood 5.5 [facility] ([facility]) ID Date Data Source [id number] 02/27/2020 09:20:00 AM EDT [facility] ([facility]) Name Value Range Interpretation Code Description Data Bettie rce(s) Supporting Document(s) White Blood Count 7.5 4.3-10.9 [facility] ([facility]) Platelets 249 130-400 [facility] Red Blood Count 4.24 4.70-6.20 [facility] ([facility]) Hemoglobin 14.6 13.0-17.0 [facility] ([facility]) Hematocrit 41.9 39.0-50.0 [facility]) ID Date Data Source [id number] 02/27/2020 09:20:00 AM EDT [facility] ([facility]) Name Value Range Interpretation Code Description Data Bettie rce(s) Supporting Document(s) Creatinine 1.7 0.6-1.5 [facility] ([facility]) Glucose 112 70-100 [facility] Blood Urea Nitrogen 29.8 5-21 [facility] ([facility]) Potassium 4.47 3.5-5.3 [facility] ([facility] Sodium 138 136-146 [facility] Glomerular filtration rate/1.73 sq M.pre dicted [Volume Rate/Area] in Serum or Plasma by Creatinine-based formula (MDRD) 30 [facility] ([facility]) Calcium 8.5 8.4-10.4 [facility] Carbon Dioxide 25.3 20-32 [facility] ([facility]) Chloride 102.4 98-110 [facility] Phosphorus 3.6 [facility] ([facility]) Albumin 4.0 3.5-4.7 [facility] ID Date Data Source [id number] 01/31/2020 12:00:00 AM EDT [facility] Froylan Farrell MD Patient Name: GORDON CARIAS [id number] [facility] Date of : 1950ummit [facility]: [facility] [id number] Fax: [phone] EXAM: CT THORAX WITHOUT CONTRASTCLINICAL INFORMATION: History of carcinoma of the right lung. The patienthas a known right apical mass.COMPARISON: 07/19/2019.There are no older exams for comparison. [facility] exhausted allefforts to obtain prior images for comparison in addition to the oneaforementioned but due to catastrophic technology limitations/failures atthe holding/originating facility since January 05, 2020, priors remainunavailable at this time for his report.The mediastinum and pulmonary joel are unchanged. There are no pleural orpericardial effusions. There is no change in the imaged upper abdomen orimaged osseous structures.Evaluation of the lung beckham shows a large right apical mass status quo.There are emphysematous changes throughout the lung beckham status quo.There is fibrotic change. There is cylindrical bronchiectasis. No newabnormal nodules, masses, or opacities have developed.IMPRESSION:Stable exam.Accredited by the [employer] in [place].MISSY Molina/Ana iverson for referring GORDON CARIAS to our office. Electronically Signed - ELIZABETH TALLEY DO 02/01/20 16:06 Name Value Range Interpretation Code Description Data Bettie rce(s) Supporting Document(s) Procedure Social History Code Duration Value Status Description Data Source(s ) Smoking 03/25/2021 12:00:00 AM EDT - 06/13/2016 12:00:00 AM EST Patient is a former smoker completed Patient is a former smoker ESTEFANÍA ([facility], ) Smoking 03/18/2021 12:00:00 AM EDT Former Smoker completed Former Smoker eCW1 ([facility]) Smoking 12/23/2020 12:00:00 AM EDT Former Smoker completed Former Smoker eCW1 ([facility]) Smoking 12/23/2020 12:00:00 AM EDT Former Smoker completed Former Smoker eCW1 ([facility]) Smoking 12/23/2020 12:00:00 AM EDT Former Smoker completed Former Smoker eCW1 ([facility]) Smoking 12/23/2020 12:00:00 AM EDT Former Smoker completed Former Smoker eCW1 ([facility]) Smoking 12/23/2020 12:00:00 AM EDT Former Smoker completed Former Smoker eCW1 ([facility]) Smoking 11/28/2020 12:00:00 AM EDT Patient is a former smoker completed Patient is a former smoker [facility] ([facility]) Smoking 09/20/2020 12:00:00 AM EDT Former Smoker completed Former Smoker eCW1 ([facility]) Smoking 09/20/2020 12:00:00 AM EDT Former Smoker completed Former Smoker eCW1 ([facility]) Smoking 09/20/2020 12:00:00 AM EDT Former Smoker completed Former Smoker eCW1 ([facility]) Smoking 09/20/2020 12:00:00 AM EDT Former Smoker completed Former Smoker eCW1 ([facility]) Smoking 09/20/2020 12:00:00 AM EDT Former Smoker completed Former Smoker eCW1 ([facility]) Smoking 09/20/2020 12:00:00 AM EDT Former Smoker completed Former Smoker eCW1 ([facility]) Smoking 09/20/2020 12:00:00 AM EDT Former Smoker completed Former Smoker eCW1 ([facility]) Smoking 09/20/2020 12:00:00 AM EDT Former Smoker completed Former Smoker eCW1 ([facility]) Smoking 09/17/2020 12:00:00 AM EDT Former Smoker completed Former Smoker eCW1 ([facility]) Smoking 07/24/2020 12:00:00 AM EST Former Smoker completed Former Smoker eCW1 ([facility]) Smoking 07/24/2020 12:00:00 AM EST Former Smoker completed Former Smoker eCW1 ([facility]) Vital Signs ID Date Data Source UNK Name Value Range Interpretation Code Description Data Source(s) Oxygen saturation in Arterial blood by Pulse oximetry 92 % 92 % MEDCHIDI ([facility], ) Body height 69 [in_i] 69 [in_i] [facility] ([facility], ) 5'9" [place] body weight 145 [lb_av] 145 [lb_av] MEDEN T ([facility], ) Systolic blood pressure 140 mm[Hg] 140 mm[Hg] M EDENT ([facility]) Diastolic blood pressure 72 mm[Hg] 72 mm[Hg] [facility] ([facility]) Heart rate 73 /min 73 /min [facility] ([facility]) Body weight 230.00 [lb_av] 230.00 [lb_av] MEDEN T ([facility]) verbally Body mass index (BMI) [Ratio] 34.0 kg/m2 34.0 k g/m2 [facility] ([facility]) Body weight 104.328 kg 104.328 kg [facility] ([facility]) Body surface area Derived from formula 2.19 m2 2.19 m2 [facility] ([facility]) Respiratory rate 18 /min 18 /min eCW1 ([facility]) Body weight 230 [lb_av] 230 [lb_av] eCW1 ([facility]) Body weight 104.33 kg 104.33 kg W1 ([facility]) Body height 67.5 [in_i] 67.5 [in_i] eCW1 ([facility]) Body mass index (BMI) [Ratio] 35.49 kg/m2 35.49 kg/m2 W1 ([facility]) Heart rate 77 /min 77 /min W1 ([facility]) Body temperature 98.6 [degF] 98.6 [degF] eCW1 ( [facility]) Systolic blood pressure 132 mm[Hg] 132 mm[Hg] e CW1 ([facility]) Diastolic blood pressure 74 mm[Hg] 74 mm[Hg] eCW1 ([facility]) Diastolic blood pressure 72 mm[Hg] 72 mm[Hg] [facility] ([facility]) Body height 69 [in_i] 69 [in_i] [facility] ([facility]) 5'9" Body weight 239.00 [lb_av] 239.00 [lb_av] MEDEN T ([facility]) Systolic blood pressure 122 mm[Hg] 122 mm[Hg] M EDENT ([facility]) Body mass index (BMI) [Ratio] 35.3 kg/m2 35.3 k g/m2 [facility] ([facility]) [place] body weight 145 [lb_av] 145 [lb_av] MEDEN T ([facility]) Body weight 108.410 kg 108.410 kg [facility] ([facility]) Body surface area Derived from formula 2.23 m2 2.23 m2 [facility] ([facility]) Body weight 232.0 [lb_av] 232.0 [lb_av] eCW1 ([facility]) Body height 67.5 [in_i] 67.5 [in_i] eCW1 ([facility]) Body mass index (BMI) [Ratio] 35.80 kg/m2 35.80 kg/m2 eCW1 ([facility]) Heart rate 90 /min 90 /min eCW1 ([facility]) Respiratory rate 18 /min 18 /min eCW1 ([facility]) Body temperature 98.1 [degF] 98.1 [degF] eCW1 ( [facility]) Systolic blood pressure 130 mm[Hg] 130 mm[Hg] e CW1 ([facility]) Diastolic blood pressure 86 mm[Hg] 86 mm[Hg] eCW1 ([facility]) Diastolic blood pressure--sitting 68 mm[Hg] 68 mm[Hg] [facility] ([facility]) Ra, large cuff Systolic blood pressure--sitting 112 mm[Hg] 112 mm[Hg] [facility] ([facility]) Ra, large cuff Body height 69 [in_i] 69 [in_i] [facility] ([facility]) 5'9" Body weight 236.00 [lb_av] 236.00 [lb_av] MEDEN T ([facility]) Stated weight Systolic blood pressure 134 mm[Hg] 134 mm[Hg] M EDENT ([facility]) Diastolic blood pressure 84 mm[Hg] 84 mm[Hg] [facility] ([facility]) Body mass index (BMI) [Ratio] 34.8 kg/m2 34.8 k g/m2 [facility] [place] body weight 145 [lb_av] 145 [lb_av] MEDEN T ([facility]) Body weight 107.050 kg 107.050 kg [facility] Body surface area Derived from formula 2.22 m2 2.22 m2 [facility] ([facility]) Body height 69 [in_i] 69 [in_i] [facility] 5'9" Body surface area Derived from formula 2.22 m2 2.22 m2 [facility] ([facility]) Body weight 236.00 [lb_av] 236.00 [lb_av] MEDEN T ([facility]) Stated weight Body mass index (BMI) [Ratio] 34.8 kg/m2 34.8 k g/m2 [facility] ([facility]) [place] body weight 145 [lb_av] 145 [lb_av] MEDEN T ([facility]) Body weight 107.050 kg 107.050 kg [facility] ([facility]) Systolic blood pressure 148 mm[Hg] 148 mm[Hg] e CW1 ([facility]) Diastolic blood pressure 84 mm[Hg] 84 mm[Hg] eCW1 ([facility]) Body weight 243 [lb_av] 243 [lb_av] eCW1 ([facility]) Body height 67.5 [in_i] 67.5 [in_i] eCW1 ([facility]) Body mass index (BMI) [Ratio] 37.49 kg/m2 37.49 kg/m2 eCW1 ([facility]) Heart rate 72 /min 72 /min eCW1 ([facility]) Respiratory rate 18 /min 18 /min eCW1 ([facility]) Body temperature 96.1 [degF] 96.1 [degF] eCW1 ( [facility]) Systolic blood pressure 120 mm[Hg] 120 mm[Hg] M EDENT ([facility]) Heart rate 68 /min 68 /min [facility] Diastolic blood pressure 80 mm[Hg] 80 mm[Hg] MEDENT ([facility]) Body weight 236.00 [lb_av] 236.00 [lb_av] [facility] PT States Body mass index (BMI) [Ratio] 36.4 kg/m2 36.4 k g/m2 [facility] ([facility]) [place] body weight 135 [lb_av] 135 [lb_av] MEDEN T ([facility]) Body weight 107.050 kg 107.050 kg [facility] ([facility]) Oxygen saturation in Arterial blood by Pulse oximetry 94 % 94 % [facility] ([facility]) Body temperature 98.0 [degF] 98.0 [degF] [facility] ([facility]) Body height 67.5 [in_i] 67.5 [in_i] [facility] ([facility]) 5'7.50" Stated Body surface area Derived from formula 2.18 m2 2.18 m2 [facility] ([facility]) Diastolic blood pressure--sitting 68 mm[Hg] 68 mm[Hg] [facility] ([facility]) [place], large cuff Body height 69 [in_i] 69 [in_i] [facility] 5'9" Systolic blood pressure--sitting 112 mm[Hg] 112 mm[Hg] [facility] ([facility]) [place], large cuff Patient Treatment Plan of Care Planned Activity Planned Date Details Description Data Source (s) Famotidine 40 MG Oral Tablet 12/17/2020 12:00:00 AM EDT eCW1 ([facility]) Fluconazole 150 MG Oral Tablet [Diflucan] 07/24/2020 12:00:00 AM ES T eCW1 ([facility]) Ciprofloxacin 250 MG Oral Tablet [Cipro] 07/24/2020 12:00:00 AM EST eCW1 ([facility]) Fluconazole 150 MG Oral Tablet [Diflucan] 07/24/2020 12:00:00 AM ES T eCW1 ([facility]) Ciprofloxacin 250 MG Oral Tablet [Cipro] 07/24/2020 12:00:00 AM EST eCW1 ([facility]) 200 ACTUAT Albuterol 0.09 MG/ACTUAT Metered Dose Inhal er [ProAir] 07/08/2020 12:00:00 AM EST eCW1 (formerly [facility]) 200 ACTUAT Albuterol 0.09 MG/ACTUAT Metered Dose Inhal er [ProAir] 07/08/2020 12:00:00 AM EST eCW1 (formerly [facility]) 200 ACTUAT Albuterol 0.09 MG/ACTUAT Metered Dose Inhal er [ProAir] 07/08/2020 12:00:00 AM EST eCW1 (formerly [facility]) 200 ACTUAT Albuterol 0.09 MG/ACTUAT Metered Dose Inhal er [ProAir] 07/08/2020 12:00:00 AM EST eCW1 (formerly [facility]) FreeStyle Lancets - 06/24/2020 12:00:00 AM EST eCW1 ([facility]) FreeStyle Lancets - 06/24/2020 12:00:00 AM EST eCW1 ([facility])
[2021-03-30] MEDS ORDERED: LIDOCAINE 2% INJ 100 MG/5 ML SYRINGE As Ordered ONE (07:17)
[2021-03-30] MEDS ORDERED: propofoL 200 MG/20 ML VIAL As Ordered ONE ×2 (07:17→08:05)
--- NOTE | 2021-03-30 08:21 | ROOR ---
Patient Name: Jaquelin Hu Procedure Date: 03/30/2021 7:37 AM Date of : 1950 Age: 70 Room: [facility] Gender: Female Note Status: Finalized Procedure: Colonoscopy Indications: High risk colon cancer surveillance: Personal history of colonic polyps Providers: Toney Melgar MD Referring MD: Daya Cedillo NP Requesting Provider: Medicines: Monitored Anesthesia Care Complications: No immediate complications. Procedure: Pre-Anesthesia Assessment: - Prior to the procedure, a History and Physical was performed, and patient medications and allergies were reviewed. The patient is competent. The risks and benefits of the procedure and the sedation options and risks were discussed with the patient. All questions were answered and informed consent was obtained. Patient identification and proposed procedure were verified by the physician, the nurse and the anesthesiologist in the procedure room. Mental Status Examination: alert and oriented. Airway Examination: normal oropharyngeal airway and neck mobility. Respiratory Examination: clear to auscultation. CV Examination: normal. Prophylactic Antibiotics: The patient does not require prophylactic antibiotics. Prior Anticoagulants: The patient has taken Plavix (clopidogrel), last dose was 5 days prior to procedure. ASA Grade Assessment: II - A patient with mild systemic disease. After reviewing the risks and benefits, the patient was deemed in satisfactory condition to undergo the procedure. The anesthesia plan was to use monitored anesthesia care (MAC). Immediately prior to administration of medications, the patient was re-assessed for adequacy to receive sedatives. The heart rate, respiratory rate, oxygen saturations, blood pressure, adequacy of pulmonary ventilation, and response to care were monitored throughout the procedure. The physical status of the patient was re-assessed after the procedure. The Colonoscope was introduced through the anus and advanced to the terminal ileum, with identification of the appendiceal orifice and IC valve. The colonoscopy was performed without difficulty. The patient tolerated the procedure well. The quality of the bowel preparation was good. The terminal ileum, ileocecal valve, appendiceal orifice, and rectum were photographed. Scope insertion time was 2 minutes. Scope withdrawal time was 9 minutes. The total duration of the procedure was 11 minutes. Findings: The perianal and digital rectal examinations were normal. The terminal ileum appeared normal. Four sessile polyps were found in the recto-sigmoid colon, transverse colon and ascending colon. The polyps were 3 to 6 mm in size. These polyps were removed with a cold snare. Resection and retrieval were complete. These polyps were removed with a jumbo cold forceps. Resection and retrieval were complete. Verification of patient identification for the specimen was done by the physician and nurse using the patient's name, date and medical record number. Estimated blood loss was minimal. Multiple small and large-mouthed diverticula were found in the sigmoid colon. There was no evidence of diverticular bleeding. Non-bleeding external and internal hemorrhoids were found during retroflexion. The hemorrhoids were medium-sized. Impression: - The examined portion of the ileum was normal. - Four 3 to 6 mm polyps at the recto-sigmoid colon, in the transverse colon and in the ascending colon, removed with a cold snare and removed with a jumbo cold forceps. Resected and retrieved. - Moderate diverticulosis in the sigmoid colon. There was no evidence of diverticular bleeding. - Non-bleeding external and internal hemorrhoids. Recommendation: - Patient has a contact number available for emergencies. The signs and symptoms of potential delayed complications were discussed with the patient. Return to normal activities tomorrow. Written discharge instructions were provided to the patient. - High fiber diet. - Continue present medications. - Await pathology results. - Repeat colonoscopy in 3 years for surveillance based on pathology results and depending on clinical and functional status. - Return to GI clinic in 3 years. - Telephone GI clinic for pathology results in 2 weeks. - Return to primary care physician. Procedure Code(s): --- Professional --- 63063, Colonoscopy, flexible; with removal of tumor(s), polyp(s), or other lesion(s) by snare technique Diagnosis Code(s): --- Professional --- Z86.010, Personal history of colonic polyps K64.8, Other hemorrhoids K63.5, Polyp of colon K57.30, Diverticulosis of large intestine without perforation or abscess without bleeding CPT copyright 2019 [employer]. All rights reserved. The codes documented in this report are preliminary and upon new business clerk review may be revised to meet current compliance requirements. Toney Melgar MD Toney Melgar MD 03/30/2021 8:20:37 AM Electronically signed by Toney Melgar MD Number of Addenda: 0 Note Initiated On: 03/30/2021 7:37 AM Estimated Blood Loss: Estimated blood loss was minimal.
[2021-03-30 08:35] VITALS: BP 130/93
== END 2021-03-30 08:39 | disposition home or self-care (01) ==
LOC: M OPP 06:44
PROVIDERS: ATTEND Internal Medicine Gastroenterology
DX: Z12.11 Encounter for screening for malignant neoplasm of colon (principal); Z86.010 Personal history of colon polyps; K63.5 Polyp of colon; K57.30 Diverticulosis of large intestine without perforation or abscess without bleeding; K64.8 Other hemorrhoids; Z79.01 Long term (current) use of anticoagulants; Z79.82 Long term (current) use of aspirin; Z79.84 Long term (current) use of oral hypoglycemic drugs; Z79.899 Other long term (current) drug therapy; Z88.5 Allergy status to narcotic agent; Z85.118 Personal history of other malignant neoplasm of bronchus and lung; Z80.3 Family history of malignant neoplasm of breast; I50.9 Heart failure, unspecified; Z95.0 Presence of cardiac pacemaker

== ENCOUNTER → 2021-06-26 | Outpatient (CLI) | payer MEDICARE, OTHER ==
[~2021-06-26] MED LIST changes: -NS 1,000 ML IV ONE
== END ==
LOC: M LABSMTC 10:12
PROVIDERS: ATTEND Family Medicine
DX: Z11.52 Encounter for screening for COVID-19 (principal); Z20.822 Contact with and (suspected) exposure to COVID-19
CPT/HCPCS: C9803; U0003

== ENCOUNTER → 2021-09-08 | Outpatient (CLI) | payer MEDICARE, OTHER ==
[2021-09-08 07:40] LABS: HEMOGLOBIN A1c 7.6 %
[2021-09-08 07:44] LABS: ALBUMIN 3.9 GM/DL (3.2-5.2); BILIRUBIN,TOTAL 0.8 MG/DL (0.2-1.0); CALCIUM LEVEL 8.9 MG/DL (8.8-10.2); CHOLESTEROL RISK RATIO 3.5 (<5); CREATININE FOR GFR 1.55 MG/DL (0.55-1.30); GLOMERULAR FILTRATION RATE 35.3 (>45); POTASSIUM SERUM 4.4 MEQ/L (3.5-5.1); THYROID STIMULATING HORMONE 1.72 uIU/ML (0.358-3.740); TOTAL PROTEIN 7.2 GM/DL (6.4-8.2)
[2021-09-08 09:35] LABS: PTH INTACT 87.1 PG/ML (18.5-88.0)
[2021-09-08 12:24] LABS: CREATININE, URINE 93.5 MG/DL
== END ==
LOC: M LAB 06:08
PROVIDERS: ATTEND Nurse Practitioner Adult Health
DX: E11.9 Type 2 diabetes mellitus without complications (principal)

== ENCOUNTER → 2021-10-19 | Outpatient (REF) | payer MEDICARE, OTHER ==
[2021-10-19 17:58] LABS: APPEARANCE, URINE CLOUDY (CLEAR); BACTERIA, URINE AUTO 1+ (NEGATIVE); BILIRUBIN, URINE AUTO NEGATIVE (NEGATIVE); BLOOD, URINE BLOOD NEGATIVE (NEGATIVE); COLOR, URINE YELLOW (YELLOW); GLUCOSE, URINE (UA) AUTO 3+ mg/dL (NEGATIVE); KETONE, URINE AUTO NEGATIVE (NEGATIVE); LEUKOCYTE ESTERASE, URINE AUTO 3+ (NEGATIVE); MUCUS, URINE SMALL (NEGATIVE); NITRITE, URINE AUTO POSITIVE (NEGATIVE); PROTEIN, URINE AUTO 1+ mg/dL (NEGATIVE); RBC, URINE AUTO 3 /HPF (0-3); SPECIFIC GRAVITY URINE AUTO 1.022 (1.002-1.035); SQUAMOUS EPITHELIAL CELL UR AU 2 /HPF (0-6); TRANSITIONAL EPITHELIAL AUTO <1 /HPF; UROBILINOGEN, URINE AUTO 0.2 mg/dL (0.0-2.0); WBC, URINE AUTO TNTC /HPF (0-3)
== END ==
LOC: M SFHCPLAZ 16:48
PROVIDERS: ATTEND Physician Assistant
DX: R30.0 Dysuria (principal)

== ENCOUNTER → 2021-11-10 | Outpatient (CLI) | payer MEDICARE, OTHER ==
[2021-11-10 07:21] LABS: APPEARANCE, URINE HAZY (CLEAR); BACTERIA, URINE AUTO NEGATIVE (NEGATIVE); BILIRUBIN, URINE AUTO NEGATIVE (NEGATIVE); BLOOD, URINE BLOOD NEGATIVE (NEGATIVE); COLOR, URINE YELLOW (YELLOW); GLUCOSE, URINE (UA) AUTO 3+ mg/dL (NEGATIVE); KETONE, URINE AUTO NEGATIVE (NEGATIVE); LEUKOCYTE ESTERASE, URINE AUTO NEGATIVE (NEGATIVE); NITRITE, URINE AUTO NEGATIVE (NEGATIVE); PROTEIN, URINE AUTO NEGATIVE (NEGATIVE); RBC, URINE AUTO 0 /HPF (0-3); SPECIFIC GRAVITY URINE AUTO 1.022 (1.002-1.035); SQUAMOUS EPITHELIAL CELL UR AU 2 /HPF (0-6); UROBILINOGEN, URINE AUTO 0.2 mg/dL (0.0-2.0); WBC, URINE AUTO 3 /HPF (0-3)
== END ==
LOC: M LAB 06:23
PROVIDERS: ATTEND Physician Assistant
DX: R31.9 Hematuria, unspecified (principal)

== ENCOUNTER → 2021-11-25 | Outpatient (REF) | payer MEDICARE, OTHER | LOC: M LAB REF 17:02 | PROVIDERS: ATTEND Internal Medicine Nephrology | DX: N39.0 Urinary tract infection, site not specified (principal) ==

== ENCOUNTER → 2022-01-25 | Outpatient (CLI) | payer MEDICARE, OTHER | LOC: M WHC 12:23 | PROVIDERS: ATTEND Nurse Practitioner Adult Health | DX: Z12.31 Encounter for screening mammogram for malignant neoplasm of breast (principal) ==

== ENCOUNTER → 2022-01-25 | Outpatient (CLI) | payer MEDICARE, OTHER | LOC: M PLAIMG 13:46 | PROVIDERS: ATTEND Internal Medicine Pulmonary Disease | DX: Z85.118 Personal history of other malignant neoplasm of bronchus and lung (principal); R07.9 Chest pain, unspecified ==

== ENCOUNTER → 2022-02-18 | Outpatient (CLI) | payer MEDICARE, OTHER | LOC: M WHC 11:37 | PROVIDERS: ATTEND Psychiatry & Neurology Neurology | DX: I65.23 Occlusion and stenosis of bilateral carotid arteries (principal) ==

== ENCOUNTER → 2022-03-25 | Outpatient (CLI) | payer MEDICARE, OTHER ==
[2022-03-25 07:49] LABS: HEMOGLOBIN A1c 7.2 %
[2022-03-25 07:50] LABS: BILIRUBIN,TOTAL 0.7 MG/DL (0.2-1.0); CALCIUM LEVEL 8.9 MG/DL (8.8-10.2); CHOLESTEROL RISK RATIO 3.65 (<5); CREATININE FOR GFR 1.86 MG/DL (0.55-1.30); GLOMERULAR FILTRATION RATE 28.6 (>45); POTASSIUM SERUM 4.3 MEQ/L (3.5-5.1); THYROID STIMULATING HORMONE 1.46 uIU/ML (0.358-3.740); TOTAL PROTEIN 7.3 GM/DL (6.4-8.2)
[2022-03-25 07:52] LABS: MAU/CREAT RATIO 97.6 MCG/MG (0.0-30.0)
[2022-03-25 10:44] LABS: PTH INTACT 107.1 PG/ML (18.5-88.0)
== END ==
LOC: M LAB 06:12
PROVIDERS: ATTEND Nurse Practitioner Adult Health
DX: E11.9 Type 2 diabetes mellitus without complications (principal)

== ENCOUNTER → 2022-05-21 | Outpatient (REF) | payer MEDICARE, OTHER ==
[~2022-05-21] MED LIST changes: +CLOP75TA99 PO; -PLAV1TAB2 PO
[2022-05-21 14:43] LABS: APPEARANCE, URINE MANUAL HAZY (CLEAR); COLOR, URINE MANUAL YELLOW (YELLOW)
[2022-05-21 14:44] LABS: SPECIFIC GRAVITY,URINE MANUAL 1.025 (1.002-1.035)
[2022-05-21 14:45] LABS: GLUCOSE, URINE (UA) MANUAL 4+(1000 MG/DL) mg/dL (NEGATIVE); PROTEIN, URINE MANUAL 1+ mg/dL (NEGATIVE)
[2022-05-21 14:46] LABS: BILIRUBIN, URINE MANUAL NEGATIVE (NEGATIVE); BLOOD URINE MANUAL TRACE (NEGATIVE); KETONE, URINE MANUAL NEGATIVE (NEGATIVE); LEUKOCYTE ESTERASE, URINE MAN TRACE (NEGATIVE); NITRITE, URINE MANUAL NEGATIVE (NEGATIVE); UROBILINOGEN, URINE MANUAL NORMAL (NORMAL)
[2022-05-21 15:03] LABS: BACTERIA, URINE SMALL AMOUNT; HYALINE CAST, URINE NONE SEEN /lpf (0-1); SQUAMOUS EPITHELIAL CELL URINE MOD AMOUNT /hpf (SMALL AMT); WBC, URINE TNTC /hpf (0-3)
== END ==
LOC: M SFHCPLAZ 13:02
PROVIDERS: ATTEND Nurse Practitioner Family
DX: N39.0 Urinary tract infection, site not specified (principal)

== ENCOUNTER → 2022-09-27 | Outpatient (CLI) | payer MEDICARE, OTHER ==
[2022-09-27 07:22] LABS: HEMATOCRIT 49.2 % (36.0-47.0); HEMOGLOBIN 16.6 g/dl (12.0-15.5); MEAN CORPUSCULAR HEMOGLOBIN 33.7 pg (27.0-33.0); MEAN CORPUSCULAR HGB CONC 33.7 g/dl (32.0-36.5); PLATELET COUNT, AUTOMATED 141 10^3/uL (150-450); RED BLOOD COUNT 4.92 10^6/uL (4.00-5.40); WHITE BLOOD COUNT 6.4 10^3/uL (4.0-10.0)
[2022-09-27 07:51] LABS: MAU/CREAT RATIO 200.7 MCG/MG (0.0-30.0)
[2022-09-27 07:53] LABS: THYROID STIMULATING HORMONE 1.709 uIU/ML (0.55-4.78)
[2022-09-27 07:55] LABS: ALBUMIN 4.3 G/DL (3.2-5.2); CHOLESTEROL RISK RATIO 4.7 (<5); CREATININE FOR GFR 1.27 MG/DL (0.55-1.30); GLOMERULAR FILTRATION RATE 44.3 (>39); HDL CHOLESTEROL 30.4 MG/DL (>40); LDL CHOLESTEROL 80.8 MG/DL (<100); NON-HDL-C 112.6 MG/DL; POTASSIUM SERUM 3.9 MMOL/L (3.5-5.1); PTH INTACT 55.6 PG/ML (18.5-88.0); TOTAL PROTEIN 7.1 G/DL (5.7-8.2)
[2022-09-27 12:04] LABS: HEMOGLOBIN A1c 9.4 % (4.0-6.0)
== END ==
LOC: M LAB 06:03
PROVIDERS: ATTEND Nurse Practitioner Adult Health
DX: I50.42 Chronic combined systolic (congestive) and diastolic (congestive) heart failure (principal)

== ENCOUNTER → 2022-10-01 | Outpatient (REF) | payer MEDICARE, OTHER ==
[2022-10-01 18:21] LABS: APPEARANCE, URINE HAZY (CLEAR); BACTERIA, URINE AUTO 1+ (NEGATIVE); BILIRUBIN, URINE AUTO NEGATIVE (NEGATIVE); BLOOD, URINE BLOOD NEGATIVE (NEGATIVE); COLOR, URINE YELLOW (YELLOW); GLUCOSE, URINE (UA) AUTO 3+ mg/dL (NEGATIVE); KETONE, URINE AUTO NEGATIVE (NEGATIVE); LEUKOCYTE ESTERASE, URINE AUTO 1+ (NEGATIVE); MUCUS, URINE SMALL (NEGATIVE); NITRITE, URINE AUTO NEGATIVE (NEGATIVE); PROTEIN, URINE AUTO 1+ mg/dL (NEGATIVE); RBC, URINE AUTO 1 /HPF (0-3); SPECIFIC GRAVITY URINE AUTO 1.026 (1.002-1.035); SQUAMOUS EPITHELIAL CELL UR AU 1 /HPF (0-6); UROBILINOGEN, URINE AUTO 0.2 mg/dL (0.0-2.0); WBC, URINE AUTO 41 /HPF (0-3)
== END ==
LOC: M SFHCPLAZ 16:41
PROVIDERS: ATTEND Physician Assistant
DX: R39.9 Unspecified symptoms and signs involving the genitourinary system (principal); R31.9 Hematuria, unspecified

== ENCOUNTER → 2022-12-07 | Outpatient (CLI) | payer MEDICARE, OTHER ==
[2022-12-07 06:58] LABS: BILIRUBIN,TOTAL 0.7 MG/DL (0.3-1.2); CALCIUM LEVEL 8.9 MG/DL (8.3-10.6); CHOLESTEROL RISK RATIO 4.44 (<5); CREATININE FOR GFR 1.38 MG/DL (0.55-1.30); GLOMERULAR FILTRATION RATE 40.2 (>39); HDL CHOLESTEROL 27.2 MG/DL (>40); LDL CHOLESTEROL 69.2 MG/DL (<100); NON-HDL-C 93.8 MG/DL; POTASSIUM SERUM 4.1 MMOL/L (3.5-5.1); TOTAL PROTEIN 6.6 G/DL (5.7-8.2)
[2022-12-07 07:01] LABS: THYROID STIMULATING HORMONE 1.594 uIU/ML (0.55-4.78)
[2022-12-07 09:30] LABS: HEMOGLOBIN A1c 6.8 % (4.0-6.0)
== END ==
LOC: M LAB 06:02
PROVIDERS: ATTEND Nurse Practitioner Adult Health
DX: E11.9 Type 2 diabetes mellitus without complications (principal)

== ENCOUNTER → 2023-01-26 | Outpatient (CLI) | payer MEDICARE, OTHER | LOC: M WHC 09:02 | PROVIDERS: ATTEND Nurse Practitioner Adult Health | DX: Z12.31 Encounter for screening mammogram for malignant neoplasm of breast (principal) ==

== ENCOUNTER → 2023-02-07 | Outpatient (CLI) | payer MEDICARE, OTHER | LOC: M PLAIMG 08:00 | PROVIDERS: ATTEND Internal Medicine Pulmonary Disease | DX: Z85.118 Personal history of other malignant neoplasm of bronchus and lung (principal) ==

== ENCOUNTER 2023-03-27 12:52 | Inpatient (IN) | payer MEDICARE, OTHER ==
[~2023-03-27] VITALS: Ht 175.3 cm; Wt 97.4 kg
[~2023-03-27 12:52] MED LIST changes: -FAMO40TA3; +FAMO40TA3 PO
[2023-03-27] MEDS ORDERED: ISOVUE-370 76% 100ML VIAL As Ordered ONE (13:27)
[2023-03-27 13:43] LABS: BASO % 0.2 % (0.0-1.0); EOS % 0.1 % (0.0-3.0); HEMOGLOBIN 16.1 g/dl (12.0-15.5); LYMPH # 0.3 10^3/uL (1.5-5.0); LYMPH % 3.6 % (24.0-44.0); MEAN CORPUSCULAR HEMOGLOBIN 33.1 pg (27.0-33.0); MEAN CORPUSCULAR HGB CONC 33.5 g/dl (32.0-36.5); MEAN CORPUSCULAR VOLUME 98.6 fl (80.0-96.0); MONO # 0.8 10^3/uL (0.0-0.8); MONO % 8.1 % (2.0-8.0); NEUTROPHILS # 8.1 10^3/uL (1.5-8.5); NEUTROPHILS % 87.7 % (36.0-66.0); PLATELET COUNT, AUTOMATED 154 10^3/uL (150-450); RED BLOOD COUNT 4.87 10^6/uL (4.00-5.40); WHITE BLOOD COUNT 9.3 10^3/uL (4.0-10.0)
[2023-03-27 14:00] LABS: INR 1.05; PROTHROMBIN TIME 13.4 SECONDS (12.5-14.5); RSV AMPLIFICATION NEGATIVE (NEGATIVE)
[2023-03-27 14:02] LABS: PARTIAL THROMBOPLASTIN TIME 25.5 SECONDS (24.8-34.2)
[2023-03-27 14:06] LABS: ALBUMIN 4.2 G/DL (3.2-5.2); BILIRUBIN,DIRECT 0.3 MG/DL (<0.4); BILIRUBIN,TOTAL 0.9 MG/DL (0.3-1.2); TOTAL PROTEIN 7.3 G/DL (5.7-8.2)
[2023-03-27] MEDS ORDERED: MED REC IN PROGRESS XX SCH (15:10)
[2023-03-27] MEDS ORDERED: TORS5TAB2 PO (15:49)
[2023-03-27] MEDS ORDERED: PRIM50TA6 PO (15:49)
[2023-03-27] MEDS ORDERED: JARD1TAB PO (15:49)
[2023-03-27] MEDS ORDERED: HOME MED LIST COMPLETE! XX SCH (15:55)
[2023-03-27 15:58] LABS: PROCALCITONIN 0.04 ng/ml
[2023-03-27] MEDS ORDERED: NITROGLYCERIN 0.4MG SUBL TABLET SL PRN (16:05)
[2023-03-27] MEDS ORDERED: ALBUTEROL 90 MCG/ACT 8GM HFA INHALER INH PRN (16:05)
[2023-03-27] MEDS ORDERED: GLUCAGON INJ 1MG VIAL SC PRN (16:10)
[2023-03-27] MEDS ORDERED: GLUCOSE 4GM CHEW TABLET PO PRN (16:10)
[2023-03-27] MEDS ORDERED: DEXTROSE 50% 50ML SYRINGE IV PRN (16:10)
[2023-03-27 16:14] LABS: MAGNESIUM LEVEL 1.9 MG/DL (1.8-2.4)
[2023-03-27 16:15] LABS: C REACTIVE PROTEIN QUANTITATIV 1.3 MG/DL (<1.0)
[2023-03-27 16:19] LABS: FERRITIN 147.5 NG/ML (7.3-270.7)
[2023-03-27] MEDS ORDERED: PILL CUTTER 1 EACH XX PRN (16:25)
[2023-03-27] MEDS ORDERED: ONDANSETRON 4MG 2ML VIAL IV PRN (16:40)
[2023-03-27] MEDS: ACETAMINOPHEN 500 MG TAB PO PRN ×2 (17:40→22:56)
[2023-03-27] MEDS ORDERED: REMDESIVIR 200 MG in NS 250 ML IV ONE (18:00)
[2023-03-27] MEDS: INSULIN LISPRO (NovoLOG) PER UNIT SC SCH ×2 (18:38→21:00)
[2023-03-27 18:57] LABS: INR 1.12; PROTHROMBIN TIME 14.1 SECONDS (12.5-14.5)
[2023-03-27 18:58] LABS: PARTIAL THROMBOPLASTIN TIME 26.2 SECONDS (24.8-34.2)
[2023-03-27] MEDS: SYMBICORT 160/4.5MCG INHALER 6GM INH SCH (20:30)
[2023-03-27] MEDS: DOCUSATE SODIUM 100MG CAPSULE PO SCH (21:00)
[2023-03-27 21:58] VITALS: BP 109/50; TEMP 97.8; O2SAT 94
[2023-03-27] MEDS: METOPROLOL TART 25 MG TABLET PO SCH (22:54)
[2023-03-27] MEDS: ATORVASTATIN 20 MG TAB PO SCH (22:55)
[2023-03-27] MEDS: PRIMIDONE 50MG TAB PO SCH (22:56)
[2023-03-27] MEDS: traZODone 100 MG TAB PO SCH (22:56)
[2023-03-27] MEDS: ENTRESTO 49-51MG TABLET (SACUBITRIL/VALSARTAN) PO SCH (22:56)
[2023-03-27 23:36] VITALS: BP 99/51; TEMP 97.9; O2SAT 93
[2023-03-28] VITALS (7 sets, daily range): BP systolic 99–130; BP diastolic 50–63; TEMP 96.8–97.7; O2SAT 93–96
[2023-03-28 06:18] LABS: HEMATOCRIT 45.4 % (36.0-47.0); HEMOGLOBIN 14.8 g/dl (12.0-15.5); MEAN CORPUSCULAR HEMOGLOBIN 32.6 pg (27.0-33.0); MEAN CORPUSCULAR HGB CONC 32.6 g/dl (32.0-36.5); PLATELET COUNT, AUTOMATED 147 10^3/uL (150-450); RED BLOOD COUNT 4.54 10^6/uL (4.00-5.40); WHITE BLOOD COUNT 6.6 10^3/uL (4.0-10.0)
[2023-03-28 06:46] LABS: ALBUMIN 3.6 G/DL (3.2-5.2); BILIRUBIN,DIRECT 0.2 MG/DL (<0.4); BILIRUBIN,TOTAL 0.5 MG/DL (0.3-1.2); CREATININE FOR GFR 1.4 MG/DL (0.55-1.30); GLOMERULAR FILTRATION RATE 39.6 (>39); POTASSIUM SERUM 4.6 MMOL/L (3.5-5.1); TOTAL PROTEIN 6.7 G/DL (5.7-8.2)
[2023-03-28] MEDS: TIOTROPIUM INHALER/CAPSULE (SPIRIVA) INH SCH (08:22)
[2023-03-28] MEDS: SYMBICORT 160/4.5MCG INHALER 6GM INH SCH ×2 (08:22→20:36)
[2023-03-28] MEDS: INSULIN LISPRO (NovoLOG) PER UNIT SC SCH ×5 (08:54→21:00)
[2023-03-28] MEDS: DOCUSATE SODIUM 100MG CAPSULE PO SCH ×2 (08:55→21:15)
[2023-03-28] MEDS: PANTOPRAZOLE 40MG TAB (PROTONIX) PO SCH (08:55)
[2023-03-28] MEDS: ENOXAPARIN 40MG/0.4ML SYRINGE (J1650 PER 10MG) SC SCH (08:55)
[2023-03-28] MEDS: MULTIVITAMINS/MINERALS THERAP 1 TAB PO SCH (08:55)
[2023-03-28] MEDS: CLOPIDOGREL 75 MG TAB PO SCH (08:55)
[2023-03-28] MEDS: ENTRESTO 49-51MG TABLET (SACUBITRIL/VALSARTAN) PO SCH ×2 (08:55→21:00)
[2023-03-28] MEDS: FAMOTIDINE 20 MG TAB PO SCH (08:56)
[2023-03-28] MEDS: TORSEMIDE 10 MG TABLET PO SCH (08:56)
[2023-03-28] MEDS: VENLAFAXINE **XR** 75MG CAPSULE PO SCH (08:56)
[2023-03-28] MEDS: PRIMIDONE 50MG TAB PO SCH ×2 (08:57→21:52)
[2023-03-28] MEDS: CALCITRIOL 0.25 MCG CAP (S0169) PO SCH (08:57)
[2023-03-28] MEDS: ASPIRIN 81MG CHEW TABLET PO SCH (08:57)
[2023-03-28] MEDS: METOPROLOL TART 25 MG TABLET PO SCH ×2 (08:57→21:00)
[2023-03-28] MEDS: ARIPiprazole 2 MG TAB PO SCH (08:57)
[2023-03-28] MEDS ORDERED: REMDESIVIR 100 MG in NS 250 ML IV SCH (18:00)
[2023-03-28] MEDS: ATORVASTATIN 20 MG TAB PO SCH (21:15)
[2023-03-28] MEDS: traZODone 100 MG TAB PO SCH (21:15)
[2023-03-29 03:20] VITALS: BP 129/68; TEMP 97; O2SAT 97
[2023-03-29 06:41] LABS: HEMATOCRIT 45.8 % (36.0-47.0); MEAN CORPUSCULAR HEMOGLOBIN 32.5 pg (27.0-33.0); MEAN CORPUSCULAR HGB CONC 32.8 g/dl (32.0-36.5); MEAN CORPUSCULAR VOLUME 99.3 fl (80.0-96.0); PLATELET COUNT, AUTOMATED 152 10^3/uL (150-450); RED BLOOD COUNT 4.61 10^6/uL (4.00-5.40); WHITE BLOOD COUNT 5.6 10^3/uL (4.0-10.0)
[2023-03-29 07:08] LABS: CALCIUM LEVEL 8.8 MG/DL (8.3-10.6); CREATININE FOR GFR 1.32 MG/DL (0.55-1.30); GLOMERULAR FILTRATION RATE 42.4 (>39); POTASSIUM SERUM 3.6 MMOL/L (3.5-5.1)
[2023-03-29] MEDS: SYMBICORT 160/4.5MCG INHALER 6GM INH SCH (07:26)
[2023-03-29] MEDS: TIOTROPIUM INHALER/CAPSULE (SPIRIVA) INH SCH (07:26)
[2023-03-29 08:16] VITALS: BP 110/57; TEMP 96.8; O2SAT 95
[2023-03-29] MEDS: DOCUSATE SODIUM 100MG CAPSULE PO SCH (09:00)
[2023-03-29] MEDS: METOPROLOL TART 25 MG TABLET PO SCH ×2 (09:00→10:05)
[2023-03-29] MEDS: ENTRESTO 49-51MG TABLET (SACUBITRIL/VALSARTAN) PO SCH (09:00)
[2023-03-29] MEDS: INSULIN LISPRO (NovoLOG) PER UNIT SC SCH (10:05)
[2023-03-29] MEDS: ASPIRIN 81MG CHEW TABLET PO SCH (10:05)
[2023-03-29] MEDS: CALCITRIOL 0.25 MCG CAP (S0169) PO SCH (10:05)
[2023-03-29] MEDS: MULTIVITAMINS/MINERALS THERAP 1 TAB PO SCH (10:06)
[2023-03-29] MEDS: TORSEMIDE 10 MG TABLET PO SCH (10:06)
[2023-03-29] MEDS: FAMOTIDINE 20 MG TAB PO SCH (10:06)
[2023-03-29] MEDS: CLOPIDOGREL 75 MG TAB PO SCH (10:06)
[2023-03-29] MEDS: PANTOPRAZOLE 40MG TAB (PROTONIX) PO SCH (10:06)
[2023-03-29] MEDS: ARIPiprazole 2 MG TAB PO SCH (10:06)
[2023-03-29] MEDS: PRIMIDONE 50MG TAB PO SCH (10:07)
[2023-03-29] MEDS: VENLAFAXINE **XR** 75MG CAPSULE PO SCH (10:07)
[2023-03-29] MEDS: ENOXAPARIN 40MG/0.4ML SYRINGE (J1650 PER 10MG) SC SCH (10:08)
== END 2023-03-29 12:19 | disposition home or self-care (01) | DRG 177 ==
LOC: M ED 12:52 → EDBD 12:52 → M ED INP 15:02 → ENRESERV 20:47 → M PCU 21:47
PROVIDERS: ADMIT Internal Medicine; ATTEND Internal Medicine
PROC: 3E0333Z Introduction of Anti-inflammatory into Peripheral Vein, Percutaneous Approach (ICD-10-PCS; principal; 2023-03-27)
PROC: XW033E5 Introduction of Remdesivir Anti-infective into Peripheral Vein, Percutaneous Approach, New Technology Group 5 (ICD-10-PCS; 2023-03-27)
DX: U07.1 COVID-19 (principal); J96.01 Acute respiratory failure with hypoxia; I50.22 Chronic systolic (congestive) heart failure; I13.0 Hypertensive heart and chronic kidney disease with heart failure and stage 1 through stage 4 chronic kidney disease, or unspecified chronic kidney disease; J44.9 Chronic obstructive pulmonary disease, unspecified; F80.2 Mixed receptive-expressive language disorder; M54.9 Dorsalgia, unspecified; G89.29 Other chronic pain; Z95.810 Presence of automatic (implantable) cardiac defibrillator; I25.10 Atherosclerotic heart disease of native coronary artery without angina pectoris; Z95.5 Presence of coronary angioplasty implant and graft; E78.5 Hyperlipidemia, unspecified; N18.30 Chronic kidney disease, stage 3 unspecified; E11.22 Type 2 diabetes mellitus with diabetic chronic kidney disease; F32.A Depression, unspecified; F41.9 Anxiety disorder, unspecified; I69.320 Aphasia following cerebral infarction; Z79.82 Long term (current) use of aspirin; Z79.899 Other long term (current) drug therapy; Z88.5 Allergy status to narcotic agent; Z91.040 Latex allergy status; Z85.118 Personal history of other malignant neoplasm of bronchus and lung

== ENCOUNTER → 2023-05-24 | Outpatient (CLI) | payer MEDICARE, OTHER ==
[~2023-05-24] MED LIST changes: +JARD1TAB PO; +PRIM50TA6 PO
[2023-05-24 09:26] LABS: HEMATOCRIT 47.6 % (36.0-47.0); HEMOGLOBIN 15.7 g/dl (12.0-15.5); MEAN CORPUSCULAR HEMOGLOBIN 33.5 pg (27.0-33.0); MEAN CORPUSCULAR VOLUME 101.5 fl (80.0-96.0); PLATELET COUNT, AUTOMATED 173 10^3/uL (150-450); RED BLOOD COUNT 4.69 10^6/uL (4.00-5.40); WHITE BLOOD COUNT 7.9 10^3/uL (4.0-10.0)
[2023-05-24 09:48] LABS: CREATININE, URINE 50.4 MG/DL
[2023-05-24 09:53] LABS: ALBUMIN 3.8 G/DL (3.2-5.2); BILIRUBIN,TOTAL 0.6 MG/DL (0.3-1.2); CALCIUM LEVEL 9.3 MG/DL (8.3-10.6); CHOLESTEROL RISK RATIO 3.85 (<5); CREATININE FOR GFR 1.26 MG/DL (0.55-1.30); GLOMERULAR FILTRATION RATE 44.6 (>39); HDL CHOLESTEROL 35.5 MG/DL (>40); LDL CHOLESTEROL 76.1 MG/DL (<100); NON-HDL-C 101.5 MG/DL; POTASSIUM SERUM 4.8 MMOL/L (3.5-5.1); THYROID STIMULATING HORMONE 1.226 uIU/ML (0.55-4.78)
[2023-05-24 11:58] LABS: HEMOGLOBIN A1c 5.9 % (4.0-6.0)
== END ==
LOC: M LAB 08:44
PROVIDERS: ATTEND Nurse Practitioner Adult Health
DX: I50.42 Chronic combined systolic (congestive) and diastolic (congestive) heart failure (principal); E11.9 Type 2 diabetes mellitus without complications; Z13.29 Encounter for screening for other suspected endocrine disorder

== ENCOUNTER → 2023-09-02 | Outpatient (CLI) | payer MEDICARE, OTHER | LOC: M PLAIMG 13:51 | PROVIDERS: ATTEND Physician Assistant | DX: I50.42 Chronic combined systolic (congestive) and diastolic (congestive) heart failure (principal); I08.0 Rheumatic disorders of both mitral and aortic valves ==

== ENCOUNTER → 2023-09-23 | Outpatient (REF) | payer MEDICARE, OTHER | LOC: M LAB REF 19:20 | PROVIDERS: ATTEND Physician Assistant | DX: R30.0 Dysuria (principal) ==

== ENCOUNTER → 2023-10-03 | Outpatient (CLI) | payer MEDICARE, OTHER | LOC: M PLAIMG 09:48 | PROVIDERS: ATTEND Internal Medicine Pulmonary Disease | DX: R91.8 Other nonspecific abnormal finding of lung field (principal) ==

== ENCOUNTER → 2023-10-05 | Outpatient (REF) | payer MEDICARE, OTHER ==
[2023-10-05 12:24] LABS: APPEARANCE, URINE HAZY (CLEAR); BACTERIA, URINE AUTO NEGATIVE (NEGATIVE); BILIRUBIN, URINE AUTO NEGATIVE (NEGATIVE); BLOOD, URINE BLOOD NEGATIVE (NEGATIVE); COLOR, URINE YELLOW (YELLOW); GLUCOSE, URINE (UA) AUTO 3+ mg/dL (NEGATIVE); KETONE, URINE AUTO NEGATIVE (NEGATIVE); LEUKOCYTE ESTERASE, URINE AUTO TRACE (NEGATIVE); NITRITE, URINE AUTO NEGATIVE (NEGATIVE); PROTEIN, URINE AUTO 2+ mg/dL (NEGATIVE); RBC, URINE AUTO 5 /HPF (0-3); SPECIFIC GRAVITY URINE AUTO 1.024 (1.002-1.035); SQUAMOUS EPITHELIAL CELL UR AU 1 /HPF (0-6); UROBILINOGEN, URINE AUTO 0.2 mg/dL (0.0-2.0); WBC, URINE AUTO 96 /HPF (0-3)
== END ==
LOC: M SFHCPLAZ 12:05
PROVIDERS: ATTEND Physician Assistant Medical
DX: R30.0 Dysuria (principal)

== ENCOUNTER → 2023-11-25 | Outpatient (CLI) | payer MEDICARE, OTHER ==
[~2023-11-25] MED LIST changes: -CRAN400C PO; +CRANBERRY400 MG PO
[2023-11-25 07:33] LABS: BASO % 0.3 % (0.0-1.0); EOS # 0.1 10^3/uL (0.0-0.5); EOS % 0.7 % (0.0-3.0); HEMATOCRIT 48.6 % (36.0-47.0); HEMOGLOBIN 16.4 g/dl (12.0-15.5); LYMPH # 1.1 10^3/uL (1.5-5.0); LYMPH % 15.4 % (24.0-44.0); MEAN CORPUSCULAR HEMOGLOBIN 33.5 pg (27.0-33.0); MEAN CORPUSCULAR HGB CONC 33.7 g/dl (32.0-36.5); MEAN CORPUSCULAR VOLUME 99.4 fl (80.0-96.0); MONO # 0.8 10^3/uL (0.0-0.8); MONO % 10.5 % (2.0-8.0); NEUTROPHILS # 5.3 10^3/uL (1.5-8.5); NEUTROPHILS % 72.7 % (36.0-66.0); PLATELET COUNT, AUTOMATED 179 10^3/uL (150-450); RED BLOOD COUNT 4.89 10^6/uL (4.00-5.40); WHITE BLOOD COUNT 7.3 10^3/uL (4.0-10.0)
[2023-11-25 08:06] LABS: ALBUMIN 3.9 G/DL (3.2-5.2); BILIRUBIN,TOTAL 0.6 MG/DL (0.3-1.2); CALCIUM LEVEL 9.4 MG/DL (8.3-10.6); POTASSIUM SERUM 4.5 MMOL/L (3.5-5.1)
[2023-11-25 12:54] LABS: CREATININE FOR GFR 1.44 MG/DL (0.55-1.30); GLOMERULAR FILTRATION RATE 38.2 (>39)
[2023-11-27 18:18] LABS: PHENOBARBITAL (PRIMIDONE) 5.6 mg/L (15.0-40.0); PRIMIDONE, SERUM 8.5 mg/L (5.0-12.0)
== END ==
LOC: M LAB 06:10
PROVIDERS: ATTEND Psychiatry & Neurology Neurology
DX: R25.1 Tremor, unspecified (principal)

== ENCOUNTER → 2023-12-12 | Outpatient (REF) | payer MEDICARE, OTHER | LOC: M SFHCPLAZ 14:56 | PROVIDERS: ATTEND Nurse Practitioner Adult Health | DX: J02.9 Acute pharyngitis, unspecified (principal) ==

== ENCOUNTER → 2023-12-23 | Outpatient (CLI) | payer MEDICARE, OTHER ==
[2023-12-23 08:00] LABS: CHOLESTEROL RISK RATIO 3.69 (<5); HDL CHOLESTEROL 34.9 MG/DL (>40); LDL CHOLESTEROL 63.3 MG/DL (<100); NON-HDL-C 94.1 MG/DL
[2023-12-23 08:03] LABS: FREE T4 1.13 NG/DL (0.89-1.76); THYROID STIMULATING HORMONE 1.022 uIU/ML (0.55-4.78)
== END ==
LOC: M LAB 06:29
PROVIDERS: ATTEND Nurse Practitioner Adult Health
DX: E11.9 Type 2 diabetes mellitus without complications (principal)

== ENCOUNTER → 2024-01-07 | Outpatient (REF) | payer MEDICARE, OTHER ==
[2024-01-07 17:44] LABS: APPEARANCE, URINE HAZY (CLEAR); BACTERIA, URINE AUTO NEGATIVE (NEGATIVE); BILIRUBIN, URINE AUTO NEGATIVE (NEGATIVE); BLOOD, URINE BLOOD NEGATIVE (NEGATIVE); COLOR, URINE YELLOW (YELLOW); GLUCOSE, URINE (UA) AUTO 3+ mg/dL (NEGATIVE); KETONE, URINE AUTO NEGATIVE (NEGATIVE); LEUKOCYTE ESTERASE, URINE AUTO 1+ (NEGATIVE); NITRITE, URINE AUTO NEGATIVE (NEGATIVE); PROTEIN, URINE AUTO NEGATIVE (NEGATIVE); RBC, URINE AUTO 0 /HPF (0-3); SPECIFIC GRAVITY URINE AUTO 1.025 (1.002-1.035); SQUAMOUS EPITHELIAL CELL UR AU 1 /HPF (0-6); UROBILINOGEN, URINE AUTO 0.2 mg/dL (0.0-2.0); WBC, URINE AUTO 115 /HPF (0-3)
== END ==
LOC: M LAB REF 17:32
PROVIDERS: ATTEND Physician Assistant Medical
DX: N39.0 Urinary tract infection, site not specified (principal)

== ENCOUNTER 2024-01-15 17:37 | Emergency (ER) | payer MEDICARE, OTHER ==
[~2024-01-15] VITALS: Ht 177.8 cm; Wt 99.5 kg
[2024-01-15 18:54] LABS: VENOUS BASE EXCESS -0.9 (-2.0-2.0); VENOUS HCO3 22.5 MMOL/L (23.0-27.0); VENOUS O2 SATURATION 93.3 % (60.0-80.0); VENOUS PARTIAL PRESSURE CO2 33.9 mmHg (38.0-50.0); VENOUS PARTIAL PRESSURE O2 64.9 mmHg (30.0-50.0); VENOUS PH 7.439 UNITS (7.330-7.430); VENOUS STANDARD HCO3 23.6 MMOL/L; VENOUS TOTAL CO2 23.5 MMOL/L (24.0-28.0)
[2024-01-15] MEDS: NS 1,000 ML IV ONE (18:54)
[2024-01-15] MEDS: ACETAMINOPHEN TAB 650MG DOSE (2X325MG) PO ONE (18:54)
[2024-01-15] MEDS: PIPERACILLIN/TAZOBACTAM SOD 4.5 GM in D5W MINI-BAG PLUS 50 ML IV ONE (18:54)
[2024-01-15 19:00] LABS: BASO % 0.1 % (0.0-1.0); EOS % 0.1 % (0.0-3.0); HEMATOCRIT 44.3 % (36.0-47.0); HEMOGLOBIN 14.6 g/dl (12.0-15.5); LYMPH # 0.5 10^3/uL (1.5-5.0); LYMPH % 5.9 % (24.0-44.0); MEAN CORPUSCULAR HEMOGLOBIN 33.2 pg (27.0-33.0); MEAN CORPUSCULAR VOLUME 100.7 fl (80.0-96.0); MONO % 10.5 % (2.0-8.0); NEUTROPHILS # 7.6 10^3/uL (1.5-8.5); NEUTROPHILS % 83.1 % (36.0-66.0); PLATELET COUNT, AUTOMATED 161 10^3/uL (150-450); WHITE BLOOD COUNT 9.2 10^3/uL (4.0-10.0)
[2024-01-15 19:11] LABS: INR 1.04; PARTIAL THROMBOPLASTIN TIME 25.5 SECONDS (24.8-34.2); PROTHROMBIN TIME 13.3 SECONDS (12.5-14.5)
[2024-01-15 19:31] LABS: C REACTIVE PROTEIN QUANTITATIV 3.1 MG/DL (<1.0)
[2024-01-15 19:32] LABS: ALBUMIN 3.9 G/DL (3.2-5.2); BILIRUBIN,DIRECT 0.2 MG/DL (<0.4); BILIRUBIN,TOTAL 0.6 MG/DL (0.3-1.2); CALCIUM LEVEL 8.9 MG/DL (8.3-10.6); CREATININE FOR GFR 1.24 MG/DL (0.55-1.30); GLOMERULAR FILTRATION RATE 45.4 (>39); POTASSIUM SERUM 4.5 MMOL/L (3.5-5.1); TOTAL PROTEIN 7.1 G/DL (5.7-8.2)
[2024-01-15 19:39] LABS: PROCALCITONIN 0.11 ng/ml
[2024-01-15 21:28] LABS: APPEARANCE, URINE CLEAR (CLEAR); BACTERIA, URINE AUTO NEGATIVE (NEGATIVE); BILIRUBIN, URINE AUTO NEGATIVE (NEGATIVE); BLOOD, URINE BLOOD NEGATIVE (NEGATIVE); COLOR, URINE YELLOW (YELLOW); GLUCOSE, URINE (UA) AUTO 3+ mg/dL (NEGATIVE); KETONE, URINE AUTO NEGATIVE (NEGATIVE); LEUKOCYTE ESTERASE, URINE AUTO NEGATIVE (NEGATIVE); NITRITE, URINE AUTO NEGATIVE (NEGATIVE); PROTEIN, URINE AUTO 2+ mg/dL (NEGATIVE); RBC, URINE AUTO 1 /HPF (0-3); SPECIFIC GRAVITY URINE AUTO 1.027 (1.002-1.035); SQUAMOUS EPITHELIAL CELL UR AU 0 /HPF (0-6); UROBILINOGEN, URINE AUTO 0.2 mg/dL (0.0-2.0); WBC, URINE AUTO 1 /HPF (0-3)
[2024-01-15] MEDS ORDERED: NIRM1TAB14 PO (21:39)
[2024-01-15 22:31] VITALS: BP 113/53; TEMP 98.1; O2SAT 97
== END 2024-01-15 22:34 | disposition home or self-care (01) ==
LOC: M ED 17:37
DX: U07.1 COVID-19 (principal); E11.9 Type 2 diabetes mellitus without complications; I45.10 Unspecified right bundle-branch block; I11.0 Hypertensive heart disease with heart failure; E78.5 Hyperlipidemia, unspecified; N18.30 Chronic kidney disease, stage 3 unspecified; J44.9 Chronic obstructive pulmonary disease, unspecified; Z87.891 Personal history of nicotine dependence; Z88.5 Allergy status to narcotic agent; Z91.040 Latex allergy status; Z79.1 Long term (current) use of non-steroidal anti-inflammatories (NSAID); Z79.51 Long term (current) use of inhaled steroids; Z79.84 Long term (current) use of oral hypoglycemic drugs; Z79.810 Long term (current) use of selective estrogen receptor modulators (SERMs); Z79.899 Other long term (current) drug therapy
CPT/HCPCS: 70450; 71045; 80048; 80076; 81001; 82150; 82803; 83605; 84145; 85025; 85610; 85730; 86140; 86850; 86900; 86901; 87040; 87086; 87486; 87581; 87633; 87798; 93005; 93041; 94760; 96365; 96366; 99284; J2543

== ENCOUNTER 2024-01-21 05:17 | Emergency (ER) | payer MEDICARE, OTHER ==
[~2024-01-21 05:17] MED LIST changes: +NIRM1TAB14 PO
[2024-01-21 07:49] LABS: BASO % 0.2 % (0.0-1.0); EOS % 0.4 % (0.0-3.0); HEMATOCRIT 45.8 % (36.0-47.0); HEMOGLOBIN 15.2 g/dl (12.0-15.5); LYMPH % 10.7 % (24.0-44.0); MEAN CORPUSCULAR HEMOGLOBIN 32.9 pg (27.0-33.0); MEAN CORPUSCULAR HGB CONC 33.2 g/dl (32.0-36.5); MEAN CORPUSCULAR VOLUME 99.1 fl (80.0-96.0); MONO # 0.6 10^3/uL (0.0-0.8); MONO % 6.5 % (2.0-8.0); NEUTROPHILS # 7.4 10^3/uL (1.5-8.5); NEUTROPHILS % 81.9 % (36.0-66.0); PLATELET COUNT, AUTOMATED 181 10^3/uL (150-450); RED BLOOD COUNT 4.62 10^6/uL (4.00-5.40)
[2024-01-21 08:06] LABS: ALBUMIN 3.7 G/DL (3.2-5.2); BILIRUBIN,DIRECT 0.2 MG/DL (<0.4); BILIRUBIN,TOTAL 0.6 MG/DL (0.3-1.2); CALCIUM LEVEL 9.1 MG/DL (8.3-10.6); CREATININE FOR GFR 1.18 MG/DL (0.55-1.30); GLOMERULAR FILTRATION RATE 48.1 (>39); POTASSIUM SERUM 4.2 MMOL/L (3.5-5.1)
[2024-01-21] MEDS: cefTRIAXone SOD 1 GM in D5W MINI-BAG PLUS 50 ML IV ONE (08:53)
[2024-01-21 09:11] VITALS: BP 127/78; TEMP 97; O2SAT 93
== END 2024-01-21 09:31 | disposition home or self-care (01) ==
LOC: M ED 05:17
DX: N30.00 Acute cystitis without hematuria (principal); I11.0 Hypertensive heart disease with heart failure; I25.119 Atherosclerotic heart disease of native coronary artery with unspecified angina pectoris; I25.2 Old myocardial infarction; E11.9 Type 2 diabetes mellitus without complications; E78.5 Hyperlipidemia, unspecified; Z85.118 Personal history of other malignant neoplasm of bronchus and lung; Z88.5 Allergy status to narcotic agent; Z91.040 Latex allergy status; Z79.1 Long term (current) use of non-steroidal anti-inflammatories (NSAID); Z79.51 Long term (current) use of inhaled steroids; Z79.4 Long term (current) use of insulin; Z79.810 Long term (current) use of selective estrogen receptor modulators (SERMs); Z79.899 Other long term (current) drug therapy
CPT/HCPCS: 80048; 80076; 81001; 83605; 85025; 87040; 87088; 87186; 96365; 99284; J0696

== ENCOUNTER 2024-01-23 15:45 | Outpatient (CLI) | payer MEDICARE, OTHER ==
[~2024-01-23] VITALS: Ht 177.8 cm; Wt 101.0 kg
[2024-01-23 16:20] VITALS: BP 167/81; O2SAT 96
[2024-01-23] MEDS: ERTAPENEM SODIUM 1 GM in NS MINI-BAG PLUS 50 ML IV SCH (16:46)
[2024-01-23 17:28] VITALS: BP 164/84; O2SAT 92
== END 2024-01-23 17:25 ==
LOC: M INFU 15:45
PROVIDERS: ATTEND Physician Assistant Medical
DX: N39.0 Urinary tract infection, site not specified (principal); Z88.5 Allergy status to narcotic agent; Z91.040 Latex allergy status
CPT/HCPCS: 96365; G0463; J1335

== ENCOUNTER 2024-01-24 15:55 | Outpatient (CLI) | payer MEDICARE, OTHER ==
[~2024-01-24] VITALS: Ht 177.8 cm; Wt 101.0 kg
[2024-01-24 16:05] VITALS: BP 140/73; O2SAT 95
[2024-01-24] MEDS: ERTAPENEM SODIUM 1 GM in NS MINI-BAG PLUS 50 ML IV SCH (16:25)
[2024-01-24 16:55] VITALS: BP 177/88; O2SAT 95
== END 2024-01-24 17:00 ==
LOC: M INFU 15:55
PROVIDERS: ATTEND Physician Assistant Medical
DX: N39.0 Urinary tract infection, site not specified (principal); Z88.5 Allergy status to narcotic agent; Z91.040 Latex allergy status
CPT/HCPCS: 96365; J1335

== ENCOUNTER 2024-01-25 16:00 | Outpatient (CLI) | payer MEDICARE, OTHER ==
[~2024-01-25] VITALS: Ht 177.8 cm; Wt 101.0 kg
[2024-01-25] MEDS: ERTAPENEM SODIUM 1 GM in NS MINI-BAG PLUS 50 ML IV ONE (16:03)
[2024-01-25 16:10] VITALS: BP 116/66; O2SAT 95
[2024-01-25 16:33] VITALS: BP 131/64; O2SAT 95
== END 2024-01-25 16:45 ==
LOC: M INFU 16:00
PROVIDERS: ATTEND Physician Assistant Medical
DX: N39.0 Urinary tract infection, site not specified (principal); Z88.5 Allergy status to narcotic agent; Z91.040 Latex allergy status
CPT/HCPCS: 96365; J1335

== ENCOUNTER 2024-01-26 15:40 | Outpatient (CLI) | payer MEDICARE, OTHER ==
[2024-01-26 15:40] VITALS: BP 131/82; O2SAT 94
[2024-01-26] MEDS: ERTAPENEM SODIUM 1 GM in NS MINI-BAG PLUS 50 ML IV ONE (16:05)
[2024-01-26 16:40] VITALS: BP 135/74; O2SAT 95
== END 2024-01-26 16:40 ==
LOC: M INFU 15:40
PROVIDERS: ATTEND Physician Assistant Medical
DX: N39.0 Urinary tract infection, site not specified (principal); Z88.5 Allergy status to narcotic agent; Z91.040 Latex allergy status
CPT/HCPCS: 96365; J1335

== ENCOUNTER 2024-01-27 15:40 | Outpatient (CLI) | payer MEDICARE, OTHER ==
[~2024-01-27] VITALS: Ht 177.8 cm; Wt 111.5 kg
[2024-01-27 15:40] VITALS: BP 135/73; O2SAT 96
[2024-01-27] MEDS: ERTAPENEM SODIUM 1 GM in NS MINI-BAG PLUS 50 ML IV ONE (15:45)
[2024-01-27 16:20] VITALS: BP 140/70; O2SAT 95
== END 2024-01-27 16:25 ==
LOC: M INFU 15:40
PROVIDERS: ATTEND Physician Assistant Medical
DX: N39.0 Urinary tract infection, site not specified (principal); Z88.5 Allergy status to narcotic agent; Z91.040 Latex allergy status
CPT/HCPCS: 96365; J1335

== ENCOUNTER 2024-01-28 10:42 | Outpatient (CLI) | payer MEDICARE, OTHER ==
[~2024-01-28] VITALS: Ht 177.8 cm; Wt 101.4 kg
[2024-01-28 12:03] VITALS: BP 111/51; O2SAT 93
[2024-01-28] MEDS: ERTAPENEM SODIUM 1 GM in NS MINI-BAG PLUS 50 ML IV ONE (12:06)
[2024-01-28 12:34] VITALS: BP 107/52; O2SAT 93
== END 2024-01-28 12:50 | disposition home or self-care (01) ==
LOC: M OPCLI5PR 10:42 → M MS5PR 11:20 → M OPCLI5PR 12:50
PROVIDERS: ATTEND Physician Assistant Medical
DX: N39.0 Urinary tract infection, site not specified (principal); Z88.5 Allergy status to narcotic agent; Z91.040 Latex allergy status
CPT/HCPCS: 96365; J1335

== ENCOUNTER 2024-01-29 08:53 | Outpatient (CLI) | payer MEDICARE, OTHER ==
[~2024-01-29] VITALS: Ht 177.8 cm; Wt 101.3 kg
[2024-01-29 09:05] VITALS: BP 120/70; O2SAT 96
[2024-01-29] MEDS: ERTAPENEM SODIUM 1 GM in NS MINI-BAG PLUS 50 ML IV ONE (09:46)
[2024-01-29 10:20] VITALS: BP 125/72; O2SAT 96
== END 2024-01-29 10:20 | disposition home or self-care (01) ==
LOC: M INFU 08:53 → M OPCLI5PR 08:53 → M MS5PR 08:56 → M OPCLI5PR 08:56 → M INFU 10:20
PROVIDERS: ATTEND Physician Assistant Medical
DX: N39.0 Urinary tract infection, site not specified (principal); Z88.5 Allergy status to narcotic agent; Z91.040 Latex allergy status
CPT/HCPCS: 96365; J1335

== ENCOUNTER → 2024-01-30 | Outpatient (CLI) | payer MEDICARE, OTHER ==
[~2024-01-30] MED LIST changes: +JANU25TA PO
== END ==
LOC: M WHC 09:03 → EEVIPCON 09:30
PROVIDERS: ATTEND Nurse Practitioner Adult Health
DX: Z12.31 Encounter for screening mammogram for malignant neoplasm of breast (principal)

== ENCOUNTER 2024-01-31 18:18 | Emergency (ER) | payer MEDICARE, OTHER ==
[~2024-01-31] VITALS: Ht 177.8 cm; Wt 97.3 kg
[~2024-01-31 18:18] MED LIST changes: -JANU25TA PO
[2024-01-31] MEDS ORDERED: JANU25TA PO (19:23)
[2024-01-31] MEDS: NORCO, ANEXSIA 5/325MG TABLET (HYDROcodone/ACETAMINOPHEN) PO ONE ×2 (20:19→23:56)
[2024-02-01] MEDS ORDERED: HYDR-3713 PO (00:26)
[2024-02-01 00:46] VITALS: BP 146/75; TEMP 97.4
[2024-02-01 00:56] VITALS: O2SAT 92
[2024-02-01] MEDS: NORCO 5/325MG TABLET (HOME DOSE PACK) PO ONE (01:07)
[2024-02-01 01:29] VITALS: O2SAT 92
== END 2024-02-01 01:31 | disposition home or self-care (01) ==
LOC: EDBD 18:18 → M ED 18:18
DX: S93.401A Sprain of unspecified ligament of right ankle, initial encounter (principal); M25.511 Pain in right shoulder; Y92.019 Unspecified place in single-family (private) house as the place of occurrence of the external cause; Y93.9 Activity, unspecified; Y99.9 Unspecified external cause status; W19.XXXA Unspecified fall, initial encounter; I11.0 Hypertensive heart disease with heart failure; E11.9 Type 2 diabetes mellitus without complications; J44.9 Chronic obstructive pulmonary disease, unspecified; K21.9 Gastro-esophageal reflux disease without esophagitis; E78.5 Hyperlipidemia, unspecified; F41.9 Anxiety disorder, unspecified; F32.A Depression, unspecified; Z88.5 Allergy status to narcotic agent; Z91.040 Latex allergy status; Z79.1 Long term (current) use of non-steroidal anti-inflammatories (NSAID); Z79.51 Long term (current) use of inhaled steroids; Z79.4 Long term (current) use of insulin; Z79.810 Long term (current) use of selective estrogen receptor modulators (SERMs); Z79.899 Other long term (current) drug therapy

== ENCOUNTER → 2024-02-07 | Outpatient (REF) | payer MEDICARE, OTHER ==
[~2024-02-07] MED LIST changes: +JANU25TA PO
[2024-02-07 13:18] LABS: APPEARANCE, URINE CLOUDY (CLEAR); BACTERIA, URINE AUTO 1+ (NEGATIVE); BILIRUBIN, URINE AUTO NEGATIVE (NEGATIVE); BLOOD, URINE BLOOD 1+ (NEGATIVE); COLOR, URINE YELLOW (YELLOW); GLUCOSE, URINE (UA) AUTO NEGATIVE (NEGATIVE); KETONE, URINE AUTO NEGATIVE (NEGATIVE); LEUKOCYTE ESTERASE, URINE AUTO 3+ (NEGATIVE); NITRITE, URINE AUTO NEGATIVE (NEGATIVE); PROTEIN, URINE AUTO 3+ mg/dL (NEGATIVE); RBC, URINE AUTO 8 /HPF (0-3); SPECIFIC GRAVITY URINE AUTO 1.018 (1.002-1.035); SQUAMOUS EPITHELIAL CELL UR AU 5 /HPF (0-6); UROBILINOGEN, URINE AUTO 0.2 mg/dL (0.0-2.0); WBC, URINE AUTO TNTC /HPF (0-3)
== END ==
LOC: M SMT 12:27
PROVIDERS: ATTEND Specialist
DX: N39.0 Urinary tract infection, site not specified (principal)

== ENCOUNTER → 2024-02-17 | Outpatient (CLI) | payer MEDICARE, OTHER ==
[2024-02-17 06:52] LABS: CALCIUM LEVEL 8.7 MG/DL (8.3-10.6); CREATININE FOR GFR 1.12 MG/DL (0.55-1.30); GLOMERULAR FILTRATION RATE 51.1 (>39); POTASSIUM SERUM 4.4 MMOL/L (3.5-5.1)
== END ==
LOC: M LAB 06:06
PROVIDERS: ATTEND Specialist
DX: R31.21 Asymptomatic microscopic hematuria (principal)

== ENCOUNTER → 2024-02-22 | Outpatient (CLI) | payer MEDICARE, OTHER ==
[~2024-02-22] MED LIST changes: +ISOVUE-370 76% 100ML VIAL As Ordered ONE
== END ==
LOC: M RAD 09:17
PROVIDERS: ATTEND Specialist
DX: R31.29 Other microscopic hematuria (principal); N20.0 Calculus of kidney
CPT/HCPCS: 74178; Q9967

== ENCOUNTER → 2024-03-30 | Outpatient (CLI) | payer MEDICARE, OTHER ==
[~2024-03-30] MED LIST changes: -ISOVUE-370 76% 100ML VIAL As Ordered ONE
== END ==
LOC: M WUC 10:01
PROVIDERS: ATTEND Nurse Practitioner Adult Health
DX: M79.671 Pain in right foot (principal)

== ENCOUNTER → 2024-04-03 | Outpatient (CLI) | payer MEDICARE, OTHER ==
[2024-04-03 11:30] LABS: HEMATOCRIT 42.3 % (36.0-47.0); MEAN CORPUSCULAR HEMOGLOBIN 33.7 pg (27.0-33.0); MEAN CORPUSCULAR HGB CONC 33.1 g/dl (32.0-36.5); MEAN CORPUSCULAR VOLUME 101.9 fl (80.0-96.0); PLATELET COUNT, AUTOMATED 179 10^3/uL (150-450); RED BLOOD COUNT 4.15 10^6/uL (4.00-5.40); WHITE BLOOD COUNT 8.9 10^3/uL (4.0-10.0)
[2024-04-03 12:05] LABS: CALCIUM LEVEL 9.3 MG/DL (8.3-10.6); CREATININE FOR GFR 1.1 MG/DL (0.55-1.30); GLOMERULAR FILTRATION RATE 52.1 (>39); POTASSIUM SERUM 4.5 MMOL/L (3.5-5.1)
== END ==
LOC: M LAB 10:24
PROVIDERS: ATTEND Physician Assistant
DX: I25.10 Atherosclerotic heart disease of native coronary artery without angina pectoris (principal); I50.42 Chronic combined systolic (congestive) and diastolic (congestive) heart failure

== ENCOUNTER 2024-05-06 05:37 | Emergency (ER) | payer MEDICARE, OTHER ==
[~2024-05-06] VITALS: Ht 176.5 cm; Wt 101.4 kg
[~2024-05-06 05:37] MED LIST changes: +ATOR-398 PO; -LIPI80TA PO; +METF-1156 PO; -METF-817 PO
[2024-05-06] MEDS: ACETAMINOPHEN 500 MG TAB PO ONE (06:29)
[2024-05-06] MEDS: LIDOCAINE 5% (LIDODERM) PATCH TD ONE (08:28)
[2024-05-06] MEDS: methocarbamoL 500 MG TAB PO ONE (09:14)
[2024-05-06] MEDS ORDERED: METH-1164 PO (10:39)
[2024-05-06] MEDS ORDERED: LIDO5DIS41 TOP (10:39)
[2024-05-06 10:49] VITALS: BP 154/62; TEMP 97; O2SAT 92
== END 2024-05-06 11:07 | disposition home or self-care (01) ==
LOC: M ED 05:37
DX: S29.011A Strain of muscle and tendon of front wall of thorax, initial encounter (principal); Y92.9 Unspecified place or not applicable; Y93.9 Activity, unspecified; Y99.9 Unspecified external cause status; I25.2 Old myocardial infarction; E11.9 Type 2 diabetes mellitus without complications; I10 Essential (primary) hypertension; E78.5 Hyperlipidemia, unspecified; Z88.5 Allergy status to narcotic agent; Z91.040 Latex allergy status; Z79.1 Long term (current) use of non-steroidal anti-inflammatories (NSAID); Z79.51 Long term (current) use of inhaled steroids; Z79.4 Long term (current) use of insulin; Z79.810 Long term (current) use of selective estrogen receptor modulators (SERMs); Z79.899 Other long term (current) drug therapy

== ENCOUNTER → 2024-05-16 | Outpatient (CLI) | payer MEDICARE, OTHER ==
[~2024-05-16] MED LIST changes: +LIDO5DIS41 TOP
[2024-05-16 12:34] LABS: HEMATOCRIT 41.7 % (36.0-47.0); HEMOGLOBIN 13.8 g/dl (12.0-15.5); MEAN CORPUSCULAR HEMOGLOBIN 33.1 pg (27.0-33.0); MEAN CORPUSCULAR HGB CONC 33.1 g/dl (32.0-36.5); PLATELET COUNT, AUTOMATED 203 10^3/uL (150-450); RED BLOOD COUNT 4.17 10^6/uL (4.00-5.40); WHITE BLOOD COUNT 8.5 10^3/uL (4.0-10.0)
[2024-05-16 12:47] LABS: CALCIUM LEVEL 9.4 MG/DL (8.3-10.6); CREATININE FOR GFR 1.05 MG/DL (0.55-1.30); GLOMERULAR FILTRATION RATE 54.8 (>39); POTASSIUM SERUM 4.2 MMOL/L (3.5-5.1)
[2024-05-16 12:49] LABS: THYROID STIMULATING HORMONE 1.06 uIU/ML (0.55-4.78)
== END ==
LOC: M LAB 11:38
PROVIDERS: ATTEND Physician Assistant
DX: I47.20 Ventricular tachycardia, unspecified (principal); E07.9 Disorder of thyroid, unspecified

== ENCOUNTER → 2024-06-21 | Outpatient (CLI) | payer MEDICARE, OTHER ==
[~2024-06-21] MED LIST changes: +ALBU8.5H INH; +ARIP1TAB4 PO; +ATOR80TA59 PO; +CLOP75TA2 PO; +CVS500CA5 PO; +D31000TA PO; +DULA4.5P SC; +FLUT1BLS8 INH; +METH-855 PO; +METO1TAB87 PO; +THERTAB52 PO; +VENL75CA47 PO
[2024-06-21 13:39] LABS: ALBUMIN 3.7 G/DL (3.2-5.2); BILIRUBIN,DIRECT 0.1 MG/DL (<0.4); BILIRUBIN,TOTAL 0.3 MG/DL (0.3-1.2); TOTAL PROTEIN 7.7 G/DL (5.7-8.2)
[2024-06-21 13:53] LABS: HEMOGLOBIN A1c 5.9 % (4.0-6.0)
== END ==
LOC: M WUC 09:08
PROVIDERS: ATTEND Nurse Practitioner Adult Health
DX: E11.9 Type 2 diabetes mellitus without complications (principal)

== ENCOUNTER 2024-07-10 07:07 | Day surgery (SDC) | payer MEDICARE, OTHER ==
[~2024-07-10] VITALS: Ht 172.7 cm; Wt 94.0 kg
[2024-07-10] MEDS ORDERED: dexmedeTOMIDine (4MCG/ML)200MCG/50ML BTL (PRECEDEX) As Ordered ONE (07:41)
[2024-07-10] MEDS ORDERED: LIDOCAINE 2% 100MG/5ML SDV (FOR ANES.) As Ordered ONE (07:41)
[2024-07-10] MEDS ORDERED: propofoL 200 MG/20 ML VIAL As Ordered ONE (07:41)
[2024-07-10] MEDS ORDERED: LABETALOL 100MG/20ML VIAL As Ordered ONE (07:43)
[2024-07-10] MEDS ORDERED: PHENYLephrine 500MCG 5ML (100MCG/ML) SYRINGE As Ordered ONE (08:32)
[2024-07-10 08:57] VITALS: TEMP 97.1
[2024-07-10 09:22] VITALS: BP 123/68; O2SAT 92
== END 2024-07-10 09:36 | disposition home or self-care (01) ==
LOC: M OPP 07:07
PROVIDERS: ATTEND Internal Medicine Gastroenterology
DX: D12.2 Benign neoplasm of ascending colon (principal); D12.0 Benign neoplasm of cecum; D12.5 Benign neoplasm of sigmoid colon; D12.4 Benign neoplasm of descending colon; K57.30 Diverticulosis of large intestine without perforation or abscess without bleeding; K64.8 Other hemorrhoids; Z86.0101 Personal history of adenomatous and serrated colon polyps; Z79.02 Long term (current) use of antithrombotics/antiplatelets; Z95.810 Presence of automatic (implantable) cardiac defibrillator; Z95.2 Presence of prosthetic heart valve; Z86.73 Personal history of transient ischemic attack (TIA), and cerebral infarction without residual deficits; Z88.5 Allergy status to narcotic agent; Z91.040 Latex allergy status; Z79.82 Long term (current) use of aspirin; Z79.84 Long term (current) use of oral hypoglycemic drugs; Z79.899 Other long term (current) drug therapy; Z87.891 Personal history of nicotine dependence; Z79.85 Long-term (current) use of injectable non-insulin antidiabetic drugs; J44.9 Chronic obstructive pulmonary disease, unspecified
CPT/HCPCS: 45381; 45385; 88305; J1920; J2371

== ENCOUNTER → 2024-08-07 | Outpatient (REF) | payer MEDICARE, OTHER ==
[2024-08-07 10:16] LABS: APPEARANCE, URINE CLEAR (CLEAR); BACTERIA, URINE AUTO NEGATIVE (NEGATIVE); BILIRUBIN, URINE AUTO NEGATIVE (NEGATIVE); BLOOD, URINE BLOOD NEGATIVE (NEGATIVE); COLOR, URINE STRAW (YELLOW); GLUCOSE, URINE (UA) AUTO NEGATIVE (NEGATIVE); KETONE, URINE AUTO NEGATIVE (NEGATIVE); LEUKOCYTE ESTERASE, URINE AUTO NEGATIVE (NEGATIVE); NITRITE, URINE AUTO NEGATIVE (NEGATIVE); PROTEIN, URINE AUTO NEGATIVE (NEGATIVE); RBC, URINE AUTO 0 /HPF (0-3); SPECIFIC GRAVITY URINE AUTO 1.005 (1.002-1.035); SQUAMOUS EPITHELIAL CELL UR AU 2 /HPF (0-6); UROBILINOGEN, URINE AUTO 0.2 mg/dL (0.0-2.0); WBC, URINE AUTO 1 /HPF (0-3)
== END ==
LOC: M SMT 09:57
PROVIDERS: ATTEND Specialist
DX: N39.0 Urinary tract infection, site not specified (principal)

== ENCOUNTER → 2024-08-09 | Outpatient (CLI) | payer MEDICARE, OTHER | LOC: M PLAIMG 12:19 | PROVIDERS: ATTEND Nurse Practitioner Adult Health | DX: M81.0 Age-related osteoporosis without current pathological fracture (principal); M47.814 Spondylosis without myelopathy or radiculopathy, thoracic region; M54.50 Low back pain, unspecified ==

== ENCOUNTER → 2024-08-20 | Outpatient (CLI) | payer MEDICARE, OTHER | LOC: M PLAIMG 10:24 | PROVIDERS: ATTEND Nurse Practitioner Adult Health | DX: I28.9 Disease of pulmonary vessels, unspecified (principal); J81.0 Acute pulmonary edema; J43.1 Panlobular emphysema; R09.89 Other specified symptoms and signs involving the circulatory and respiratory systems ==

== ENCOUNTER → 2024-08-20 | Outpatient (REF) | payer MEDICARE, OTHER | LOC: M SFHCPLAZ 10:17 | PROVIDERS: ATTEND Nurse Practitioner Adult Health | DX: R09.89 Other specified symptoms and signs involving the circulatory and respiratory systems (principal) ==

== ENCOUNTER → 2024-09-26 | Outpatient (CLI) | payer MEDICARE, OTHER | LOC: M PLAIMG 09:25 | PROVIDERS: ATTEND Internal Medicine Pulmonary Disease | DX: R91.8 Other nonspecific abnormal finding of lung field (principal) ==

== ENCOUNTER 2024-12-27 07:52 | Inpatient (IN) | payer MEDICARE, OTHER ==
[2024-12-27] VITALS: BP 150/85; TEMP 97.8; O2SAT 96
[~2024-12-27] VITALS: Ht 167.6 cm; Wt 89.1 kg
[~2024-12-27 07:52] MED LIST changes: +LIDO1ADH93 TD; +LIDO1ADH93 TOP; -LIDO5DIS41 TD; -LIDO5DIS41 TOP
[2024-12-27 08:54] LABS: BASO # 0.0 10^3/uL (0.0-0.2); BASO % 0.3 % (0.0-1.0); EOS # 0.0 10^3/uL (0.0-0.5); EOS % 0.0 % (0.0-3.0); LYMPH # 0.6 10^3/uL (1.5-5.0); LYMPH % 5.7 % (24.0-44.0); MONO # 1.1 10^3/uL (0.0-0.8); MONO % 11.4 % (2.0-8.0); NEUTROPHILS # 7.9 10^3/uL (1.5-8.5); NEUTROPHILS % 82.0 % (36.0-66.0); PLATELET COUNT, AUTOMATED 179 10^3/uL (150-450)
[2024-12-27] MEDS: BOOSTRIX VACCINE (TETANUS/DIPHTH/ACEL. PERTUSSIS) 0.5 ML SYR IM.IMMUN ONE (09:17)
[2024-12-27 09:24] LABS: CK-MB VALUE MASS 2.4 NG/ML (<3.6)
[2024-12-27 09:26] LABS: ALT/SGPT 36.0 U/L (7.0-40); AST/SGOT 77.0 U/L (<34); CALCIUM LEVEL 8.0 MG/DL (8.3-10.6); CARBON DIOXIDE LEVEL 26.0 MMOL/L (20-31); CHLORIDE LEVEL 97.0 MMOL/L (98-107); CREATININE FOR GFR 1.34 MG/DL (0.55-1.30); GLOMERULAR FILTRATION RATE 42.1 (>39); POTASSIUM SERUM 4.7 MMOL/L (3.5-5.1); SODIUM LEVEL 139.0 MMOL/L (136-145)
[2024-12-27 09:32] LABS: INR 1.77
[2024-12-27 09:37] LABS: CPK CREATINE PHOSPHOKINASE 133.0 U/L (34-145); MB/CK RELATIVE INDEX 1.8 (< OR =4)
[2024-12-27] MEDS: NS 500 ML IV ONE (10:00)
[2024-12-27 10:30] LABS: CPK CREATINE PHOSPHOKINASE 135.0 U/L (34-145)
[2024-12-27 10:37] LABS: CK-MB VALUE MASS 1.7 NG/ML (<3.6); MB/CK RELATIVE INDEX 1.25 (< OR =4)
[2024-12-27 12:24] LABS: CK-MB VALUE MASS 2.4 NG/ML (<3.6)
[2024-12-27 12:25] LABS: CPK CREATINE PHOSPHOKINASE 124.0 U/L (34-145); MB/CK RELATIVE INDEX 1.93 (< OR =4)
[2024-12-27] MEDS: NS (Normal Saline) 0.9% 1,000 ML IV ONE (12:57)
[2024-12-27] MEDS ORDERED: ISOVUE-370 76% 100 ML VIAL As Ordered ONE (13:45)
[2024-12-27 13:53] LABS: DIGOXIN LEVEL 2.4 NG/ML (0.8-2.0)
[2024-12-27 14:18] LABS: KETONE, URINE AUTO RFX TRACE mg/dL (NEGATIVE); MUCUS, URINE RFX SMALL (NEGATIVE); NITRITE, URINE AUTO RFX NEGATIVE (NEGATIVE); RBC, URINE AUTO RFX 11 /HPF (0-3); SQUAM EPITHELIAL CELL UR AURFX 5 /HPF (0-6)
[2024-12-27] MEDS ORDERED: TORS10TA3 PO (14:42)
[2024-12-27] MEDS ORDERED: ELIQ5TAB PO (14:45)
[2024-12-27] MEDS ORDERED: QUET50TA4 PO (14:45)
[2024-12-27 14:55] LABS: LEUKOCYTE ESTERASE UR AUTO RFX 3+ (NEGATIVE); WBC, URINE AUTO RFX TNTC /HPF (0-3)
[2024-12-27] MEDS ORDERED: SENN-52 PO (15:07)
[2024-12-27] MEDS ORDERED: VENTAER INH (15:07)
[2024-12-27] MEDS ORDERED: FOLI1TAB11 PO (15:07)
[2024-12-27] MEDS ORDERED: DIGO0.123 PO (15:07)
[2024-12-27] MEDS ORDERED: PANT-23 PO (15:07)
[2024-12-27] MEDS ORDERED: POTA-298 PO (15:15)
[2024-12-27] MEDS ORDERED: IPRA0.00 INH (15:15)
[2024-12-27] MEDS ORDERED: MELA3TAB30 PO (15:15)
[2024-12-27] MEDS: PIPERACILLIN/TAZOBACTAM SOD 4.5 GM in DEXTROSE 5% (D5W) ADV/MINI-BAG 50 ML IV ONE (15:30)
[2024-12-27] MEDS ORDERED: HOME MED LIST COMPLETE! XX SCH (15:30)
[2024-12-27] MEDS ORDERED: MOM 30 ML SUSPENSION UDC PO PRN (18:00)
[2024-12-27] MEDS ORDERED: DEXTROSE 50% 50 ML SYRINGE IV PRN (18:15)
[2024-12-27] MEDS ORDERED: GLUCAGON INJ 1 MG VIAL SC PRN (18:15)
[2024-12-27] MEDS ORDERED: GLUCOSE 4 GM CHEW PO PRN (18:15)
[2024-12-27] MEDS ORDERED: IPRATROPIUM 0.5 MG/ALBUTEROL 2.5 MG INH SOL UD 3 ML INH PRN (18:15)
[2024-12-27] MEDS: FUROSEMIDE 40 MG/4 ML VIAL IV SCH (18:32)
[2024-12-27] MEDS: PANTOPRAZOLE 40MG TAB PO SCH (18:44)
[2024-12-27] MEDS: MORPHINE 2 MG/ML 1 ML VIAL IV PRN (19:28)
[2024-12-27] MEDS: INSULIN LISPRO (NovoLOG) PER UNIT SC SCH (21:00)
[2024-12-27] MEDS: DOXYCYCLINE HYCLATE 100 MG TABLET PO SCH (22:50)
[2024-12-27] MEDS: SENNOSIDES/DOCUSATE SODIUM 8.6 MG/50MG TAB PO SCH (22:50)
[2024-12-27] MEDS: METOPROLOL TART 25 MG TABLET PO SCH (22:51)
[2024-12-27] MEDS: APIXABAN 5 MG TAB PO SCH (22:52)
[2024-12-27] MEDS: ATORVASTATIN 20 MG TAB PO SCH (22:52)
[2024-12-27] MEDS: ACETAMINOPHEN 325 MG TAB PO PRN (22:52)
[2024-12-27] MEDS: PIPERACILLIN/TAZOBACTAM SOD 3.375 GM in DEXTROSE 5% (D5W) ADV/MINI-BAG 50 ML IV SCH (22:54)
[2024-12-27] MEDS: PRIMIDONE 50MG TAB PO SCH (23:50)
[2024-12-28] VITALS (35 sets, daily range): BP systolic 68–166; BP diastolic 36–75; TEMP 96.3–97.6; O2SAT 94–98
[2024-12-28] MEDS: MORPHINE 4 MG/ML 1 ML VIAL IV PRN (00:34)
[2024-12-28 07:05] LABS: C REACTIVE PROTEIN QUANTITATIV 7.44 MG/DL (<1.0)
[2024-12-28 07:08] LABS: ALT/SGPT 35.0 U/L (7.0-40); AST/SGOT 69.0 U/L (<34); CALCIUM LEVEL 7.8 MG/DL (8.3-10.6); CARBON DIOXIDE LEVEL 30.0 MMOL/L (20-31); CHLORIDE LEVEL 99.0 MMOL/L (98-107); CREATININE FOR GFR 1.19 MG/DL (0.55-1.30); GLOMERULAR FILTRATION RATE 48.6 (>39); MAGNESIUM LEVEL 1.7 MG/DL (1.8-2.4); POTASSIUM SERUM 3.6 MMOL/L (3.5-5.1); SODIUM LEVEL 143.0 MMOL/L (136-145)
[2024-12-28 07:13] LABS: BASO # 0.1 10^3/uL (0.0-0.2); BASO % 0.6 % (0.0-1.0); EOS # 0.1 10^3/uL (0.0-0.5); EOS % 1.2 % (0.0-3.0); LYMPH # 0.6 10^3/uL (1.5-5.0); LYMPH % 6.2 % (24.0-44.0); MONO # 1.1 10^3/uL (0.0-0.8); MONO % 12.3 % (2.0-8.0); NEUTROPHILS # 7.2 10^3/uL (1.5-8.5); NEUTROPHILS % 79.4 % (36.0-66.0); PLATELET COUNT, AUTOMATED 148 10^3/uL (150-450)
[2024-12-28] MEDS: INSULIN LISPRO (NovoLOG) PER UNIT SC SCH (07:30)
[2024-12-28] MEDS: POTASSIUM CHLORIDE 10MEQ SR TABLET PO SCH (11:13)
[2024-12-28] MEDS: ENTRESTO 24-26 MG TABLET (SACUBITRIL/VALSARTAN) PO SCH (11:26)
[2024-12-28] MEDS: SPIRONOLACTONE 25 MG TAB PO SCH (11:40)
[2024-12-28] MEDS: NS (Normal Saline) 0.9% 1,000 ML IV ONE (16:38)
[2024-12-28] MEDS: VASOPRESSIN IN 0.9 % NACL 20 UNIT in IV 1 EA IV SCH (18:09)
[2024-12-28] MEDS: ACETAMINOPHEN *IV* 1,000 MG in IV 1 EA IV SCH (21:00)
[2024-12-28] MEDS: METOPROLOL TART 12.5 MG PER 1/2 TAB PO SCH (21:13)
[2024-12-28] MEDS: MAG SULF 1GM/100ML (MAG RUN) 1 GM in IV 1 EA IV ONE (21:14)
[2024-12-28] MEDS: CALCIUM GLUCONATE 1,000 MG in DEXTROSE 5% (D5W) MINI-BAG PLU 100 ML IV ONE (21:16)
[2024-12-29] VITALS (70 sets, daily range): BP systolic 79–131; BP diastolic 47–71; TEMP 97–97.6; O2SAT 93–100
[2024-12-29 04:40] LABS: BASO # 0.0 10^3/uL (0.0-0.2); BASO % 0.5 % (0.0-1.0); EOS # 0.3 10^3/uL (0.0-0.5); EOS % 3.5 % (0.0-3.0); LYMPH # 0.4 10^3/uL (1.5-5.0); LYMPH % 4.9 % (24.0-44.0); MONO # 1.0 10^3/uL (0.0-0.8); MONO % 12.2 % (2.0-8.0); NEUTROPHILS # 6.7 10^3/uL (1.5-8.5); NEUTROPHILS % 78.4 % (36.0-66.0); PLATELET COUNT, AUTOMATED 153 10^3/uL (150-450)
[2024-12-29 04:58] LABS: ALT/SGPT 28.0 U/L (7.0-40); AST/SGOT 44.0 U/L (<34); CALCIUM LEVEL 7.6 MG/DL (8.3-10.6); CARBON DIOXIDE LEVEL 32.0 MMOL/L (20-31); CHLORIDE LEVEL 97.0 MMOL/L (98-107); CREATININE FOR GFR 1.29 MG/DL (0.55-1.30); GLOMERULAR FILTRATION RATE 44.1 (>39); MAGNESIUM LEVEL 1.8 MG/DL (1.8-2.4); POTASSIUM SERUM 3.3 MMOL/L (3.5-5.1); SODIUM LEVEL 139.0 MMOL/L (136-145)
[2024-12-29] MEDS: POTASSIUM CHLORIDE 10% LIQ 20MEQ/15ML UDC PO SCH (09:04)
[2024-12-29] MEDS: MAG SULF 1GM/100ML (MAG RUN) 1 GM in IV 1 EA IV ONE (09:04)
[2024-12-29] MEDS: cefTRIAXone SOD 1 GM in DEXTROSE 5% (D5W) ADV/MINI-BAG 50 ML IV SCH (10:39)
[2024-12-29] MEDS: CALCIUM GLUCONATE 1,000 MG in DEXTROSE 5% (D5W) MINI-BAG PLU 100 ML IV ONE (10:39)
[2024-12-29] MEDS: KETOROLAC 30 MG/ML 1 ML VIAL IV ONE (12:20)
[2024-12-29] MEDS: ACETAMINOPHEN *IV* 1,000 MG in IV 1 EA IV SCH (19:58)
[2024-12-30] VITALS (23 sets, daily range): BP systolic 75–137; BP diastolic 43–67; TEMP 97.1–97.9; O2SAT 90–99
[2024-12-30 04:35] LABS: BASO # 0.0 10^3/uL (0.0-0.2); BASO % 0.3 % (0.0-1.0); EOS # 0.3 10^3/uL (0.0-0.5); EOS % 3.0 % (0.0-3.0); LYMPH # 0.6 10^3/uL (1.5-5.0); LYMPH % 6.8 % (24.0-44.0); MONO # 1.2 10^3/uL (0.0-0.8); MONO % 13.5 % (2.0-8.0); NEUTROPHILS # 6.6 10^3/uL (1.5-8.5); NEUTROPHILS % 76.1 % (36.0-66.0); PLATELET COUNT, AUTOMATED 146 10^3/uL (150-450)
[2024-12-30 05:13] LABS: ALT/SGPT 29.0 U/L (7.0-40); AST/SGOT 43.0 U/L (<34); CALCIUM LEVEL 7.6 MG/DL (8.3-10.6); CARBON DIOXIDE LEVEL 30.0 MMOL/L (20-31); CHLORIDE LEVEL 99.0 MMOL/L (98-107); CREATININE FOR GFR 1.35 MG/DL (0.55-1.30); GLOMERULAR FILTRATION RATE 41.8 (>39); MAGNESIUM LEVEL 2.0 MG/DL (1.8-2.4); POTASSIUM SERUM 4.4 MMOL/L (3.5-5.1); SODIUM LEVEL 138.0 MMOL/L (136-145)
[2024-12-30] MEDS: KETOROLAC 30 MG/ML 1 ML VIAL IV ONE (08:25)
[2024-12-30] MEDS: METOPROLOL TART 25 MG TABLET PO SCH (08:25)
[2024-12-30] MEDS: TORSEMIDE 10 MG TABLET PO SCH (08:26)
[2024-12-30 11:39] LABS: DIGOXIN LEVEL 1.4 NG/ML (0.8-2.0)
[2024-12-30] MEDS: NS 500 ML IV ONE (12:40)
[2024-12-30] MEDS: traMADol 50 MG TAB PO PRN (14:51)
[2024-12-30] MEDS: MORPHINE 2 MG/ML 1 ML VIAL IV ONE (16:18)
[2024-12-30 17:02] LABS: CALCIUM LEVEL 7.2 MG/DL (8.3-10.6); CARBON DIOXIDE LEVEL 24.0 MMOL/L (20-31); CHLORIDE LEVEL 100.0 MMOL/L (98-107); CREATININE FOR GFR 1.3 MG/DL (0.55-1.30); GLOMERULAR FILTRATION RATE 43.7 (>39); POTASSIUM SERUM 5.0 MMOL/L (3.5-5.1); SODIUM LEVEL 137.0 MMOL/L (136-145)
[2024-12-31] VITALS (8 sets, daily range): BP systolic 114–155; BP diastolic 64–97; TEMP 97.1–98.2; O2SAT 94–97
[2024-12-31] MEDS: KETOROLAC 30 MG/ML 1 ML VIAL IV PRN (00:40)
[2024-12-31 04:38] LABS: BASO # 0.0 10^3/uL (0.0-0.2); BASO % 0.3 % (0.0-1.0); EOS # 0.3 10^3/uL (0.0-0.5); EOS % 3.6 % (0.0-3.0); LYMPH # 0.9 10^3/uL (1.5-5.0); LYMPH % 9.6 % (24.0-44.0); MONO # 1.1 10^3/uL (0.0-0.8); MONO % 12.2 % (2.0-8.0); NEUTROPHILS # 6.7 10^3/uL (1.5-8.5); NEUTROPHILS % 73.9 % (36.0-66.0); PLATELET COUNT, AUTOMATED 175 10^3/uL (150-450)
[2024-12-31 05:10] LABS: ALT/SGPT 31.0 U/L (7.0-40); AST/SGOT 45.0 U/L (<34); CALCIUM LEVEL 8.1 MG/DL (8.3-10.6); CARBON DIOXIDE LEVEL 28.0 MMOL/L (20-31); CHLORIDE LEVEL 99.0 MMOL/L (98-107); CREATININE FOR GFR 1.43 MG/DL (0.55-1.30); GLOMERULAR FILTRATION RATE 39.0 (>39); MAGNESIUM LEVEL 1.8 MG/DL (1.8-2.4); POTASSIUM SERUM 4.7 MMOL/L (3.5-5.1); SODIUM LEVEL 138.0 MMOL/L (136-145)
[2024-12-31] MEDS: FUROSEMIDE injection 100 MG, VIAL 2 BAG 13MM ADAPTER 1 EACH in NS 100 ML IV SCH (12:31)
[2024-12-31 21:44] LABS: CALCIUM LEVEL 7.9 MG/DL (8.3-10.6); CARBON DIOXIDE LEVEL 32.0 MMOL/L (20-31); CHLORIDE LEVEL 93.0 MMOL/L (98-107); CREATININE FOR GFR 1.25 MG/DL (0.55-1.30); GLOMERULAR FILTRATION RATE 45.8 (>39); MAGNESIUM LEVEL 1.8 MG/DL (1.8-2.4); POTASSIUM SERUM 4.2 MMOL/L (3.5-5.1); SODIUM LEVEL 137.0 MMOL/L (136-145)
[2025-01-01] VITALS (28 sets, daily range): BP systolic 91–150; BP diastolic 47–87; TEMP 97–98; O2SAT 92–98
[2025-01-01 05:08] LABS: BASO # 0.1 10^3/uL (0.0-0.2); BASO % 0.5 % (0.0-1.0); EOS # 0.1 10^3/uL (0.0-0.5); EOS % 0.9 % (0.0-3.0); LYMPH # 1.0 10^3/uL (1.5-5.0); LYMPH % 10.7 % (24.0-44.0); MONO # 1.3 10^3/uL (0.0-0.8); MONO % 13.3 % (2.0-8.0); NEUTROPHILS # 7.1 10^3/uL (1.5-8.5); NEUTROPHILS % 74.4 % (36.0-66.0); PLATELET COUNT, AUTOMATED 189 10^3/uL (150-450)
[2025-01-01 05:31] LABS: ALT/SGPT 38.0 U/L (7.0-40); AST/SGOT 52.0 U/L (<34); CALCIUM LEVEL 8.1 MG/DL (8.3-10.6); CARBON DIOXIDE LEVEL 32.0 MMOL/L (20-31); CHLORIDE LEVEL 92.0 MMOL/L (98-107); CREATININE FOR GFR 1.17 MG/DL (0.55-1.30); GLOMERULAR FILTRATION RATE 49.6 (>39); MAGNESIUM LEVEL 1.9 MG/DL (1.8-2.4); POTASSIUM SERUM 3.9 MMOL/L (3.5-5.1); SODIUM LEVEL 136.0 MMOL/L (136-145)
[2025-01-01] MEDS: METOPROLOL TART 12.5 MG PER 1/2 TAB PO SCH (08:00)
[2025-01-01] MEDS: POTASSIUM CHLORIDE 10MEQ SR TABLET PO SCH (09:44)
[2025-01-02] VITALS (13 sets, daily range): BP systolic 90–121; BP diastolic 52–59; TEMP 96.1–98; O2SAT 92–96
[2025-01-02 04:49] LABS: BASO # 0.0 10^3/uL (0.0-0.2); BASO % 0.4 % (0.0-1.0); EOS # 0.1 10^3/uL (0.0-0.5); EOS % 1.3 % (0.0-3.0); LYMPH # 1.2 10^3/uL (1.5-5.0); LYMPH % 13.1 % (24.0-44.0); MONO # 1.2 10^3/uL (0.0-0.8); MONO % 12.8 % (2.0-8.0); NEUTROPHILS # 6.6 10^3/uL (1.5-8.5); NEUTROPHILS % 72.2 % (36.0-66.0); PLATELET COUNT, AUTOMATED 192 10^3/uL (150-450)
[2025-01-02 05:15] LABS: ALT/SGPT 37.0 U/L (7.0-40); AST/SGOT 52.0 U/L (<34); CALCIUM LEVEL 8.3 MG/DL (8.3-10.6); CARBON DIOXIDE LEVEL 33.0 MMOL/L (20-31); CHLORIDE LEVEL 89.0 MMOL/L (98-107); CREATININE FOR GFR 1.32 MG/DL (0.55-1.30); GLOMERULAR FILTRATION RATE 42.9 (>39); MAGNESIUM LEVEL 1.9 MG/DL (1.8-2.4); POTASSIUM SERUM 4.3 MMOL/L (3.5-5.1); SODIUM LEVEL 132.0 MMOL/L (136-145)
[2025-01-02] MEDS: DOXYCYCLINE HYCLATE 100 MG TABLET PO SCH (12:36)
[2025-01-02] MEDS: cefTRIAXone SOD 2 GM in DEXTROSE 5% (D5W) ADV/MINI-BAG 50 ML IV SCH (12:53)
[2025-01-02] MEDS: ACETAMINOPHEN 325 MG TAB PO ONE (15:29)
[2025-01-03] VITALS (7 sets, daily range): BP systolic 98–126; BP diastolic 52–71; TEMP 96.3–97.6; O2SAT 91–95
[2025-01-03 04:46] LABS: BASO # 0.1 10^3/uL (0.0-0.2); BASO % 0.5 % (0.0-1.0); EOS # 0.1 10^3/uL (0.0-0.5); EOS % 0.7 % (0.0-3.0); LYMPH # 1.3 10^3/uL (1.5-5.0); LYMPH % 13.6 % (24.0-44.0); MONO # 1.3 10^3/uL (0.0-0.8); MONO % 13.7 % (2.0-8.0); NEUTROPHILS # 6.9 10^3/uL (1.5-8.5); NEUTROPHILS % 71.1 % (36.0-66.0); PLATELET COUNT, AUTOMATED 217 10^3/uL (150-450)
[2025-01-03 05:15] LABS: ALT/SGPT 33.0 U/L (7.0-40); AST/SGOT 49.0 U/L (<34); CALCIUM LEVEL 7.9 MG/DL (8.3-10.6); CARBON DIOXIDE LEVEL 30.0 MMOL/L (20-31); CHLORIDE LEVEL 89.0 MMOL/L (98-107); CREATININE FOR GFR 1.59 MG/DL (0.55-1.30); GLOMERULAR FILTRATION RATE 34.3 (>39); MAGNESIUM LEVEL 1.8 MG/DL (1.8-2.4); POTASSIUM SERUM 4.1 MMOL/L (3.5-5.1); SODIUM LEVEL 129.0 MMOL/L (136-145)
[2025-01-04 04:00] VITALS: BP 97/55; TEMP 97; O2SAT 97
[2025-01-04 07:39] LABS: BASO # 0.0 10^3/uL (0.0-0.2); BASO % 0.4 % (0.0-1.0); EOS # 0.0 10^3/uL (0.0-0.5); EOS % 0.2 % (0.0-3.0); LYMPH # 1.1 10^3/uL (1.5-5.0); LYMPH % 12.2 % (24.0-44.0); MONO # 1.3 10^3/uL (0.0-0.8); MONO % 14.8 % (2.0-8.0); NEUTROPHILS # 6.5 10^3/uL (1.5-8.5); NEUTROPHILS % 72.0 % (36.0-66.0); PLATELET COUNT, AUTOMATED 228 10^3/uL (150-450)
[2025-01-04 08:00] VITALS: BP 127/64; TEMP 97.5; O2SAT 90
[2025-01-04 08:26] LABS: ALT/SGPT 36.0 U/L (7.0-40); AST/SGOT 56.0 U/L (<34); CALCIUM LEVEL 7.9 MG/DL (8.3-10.6); CARBON DIOXIDE LEVEL 30.0 MMOL/L (20-31); CHLORIDE LEVEL 89.0 MMOL/L (98-107); CREATININE FOR GFR 1.37 MG/DL (0.55-1.30); GLOMERULAR FILTRATION RATE 41.0 (>39); MAGNESIUM LEVEL 1.9 MG/DL (1.8-2.4); POTASSIUM SERUM 4.6 MMOL/L (3.5-5.1); SODIUM LEVEL 130.0 MMOL/L (136-145)
[2025-01-04] MEDS: TORSEMIDE 20 MG TAB PO SCH (09:58)
[2025-01-04] MEDS: LIDOCAINE 5% PATCH TD SCH (09:59)
[2025-01-04 12:49] VITALS: BP 101/50; TEMP 96.3; O2SAT 92
[2025-01-04 16:11] VITALS: BP 104/64; TEMP 96.5; O2SAT 92
[2025-01-04 16:30] VITALS: BP 102/61; TEMP 97.3; O2SAT 90
[2025-01-04 19:59] VITALS: BP 91/57; TEMP 97.2; O2SAT 87
[2025-01-05 04:33] VITALS: BP 118/68; TEMP 97.5; O2SAT 94
[2025-01-05 08:06] VITALS: BP 114/65; TEMP 97.2; O2SAT 93
[2025-01-05 10:18] LABS: PLATELET COUNT, AUTOMATED 209 10^3/uL (150-450)
[2025-01-05 10:48] LABS: ALT/SGPT 36.0 U/L (7.0-40); AST/SGOT 57.0 U/L (<34); CALCIUM LEVEL 7.8 MG/DL (8.3-10.6); CARBON DIOXIDE LEVEL 29.0 MMOL/L (20-31); CHLORIDE LEVEL 89.0 MMOL/L (98-107); CREATININE FOR GFR 1.37 MG/DL (0.55-1.30); GLOMERULAR FILTRATION RATE 41.0 (>39); MAGNESIUM LEVEL 1.8 MG/DL (1.8-2.4); POTASSIUM SERUM 3.6 MMOL/L (3.5-5.1); SODIUM LEVEL 130.0 MMOL/L (136-145)
[2025-01-05 12:25] VITALS: BP 110/64; TEMP 97.2; O2SAT 96
[2025-01-05 16:43] VITALS: BP 109/75; TEMP 97.5; O2SAT 96
[2025-01-05 20:00] VITALS: BP 109/64; TEMP 97.5; O2SAT 96
[2025-01-06] VITALS (8 sets, daily range): BP systolic 75–161; BP diastolic 42–79; TEMP 96.8–97.7; O2SAT 96–98
[2025-01-06 10:29] LABS: PLATELET COUNT, AUTOMATED 222 10^3/uL (150-450)
[2025-01-06 10:59] LABS: ALT/SGPT 43.0 U/L (7.0-40); AST/SGOT 109.0 U/L (<34); CALCIUM LEVEL 7.3 MG/DL (8.3-10.6); CARBON DIOXIDE LEVEL 27.0 MMOL/L (20-31); CHLORIDE LEVEL 90.0 MMOL/L (98-107); CREATININE FOR GFR 1.18 MG/DL (0.55-1.30); GLOMERULAR FILTRATION RATE 49.1 (>39); MAGNESIUM LEVEL 1.9 MG/DL (1.8-2.4); POTASSIUM SERUM 5.6 MMOL/L (3.5-5.1); SODIUM LEVEL 129.0 MMOL/L (136-145)
[2025-01-06 14:45] LABS: CALCIUM LEVEL 7.6 MG/DL (8.3-10.6); CARBON DIOXIDE LEVEL 28.0 MMOL/L (20-31); CHLORIDE LEVEL 91.0 MMOL/L (98-107); CREATININE FOR GFR 1.19 MG/DL (0.55-1.30); GLOMERULAR FILTRATION RATE 48.6 (>39); POTASSIUM SERUM 4.0 MMOL/L (3.5-5.1); SODIUM LEVEL 130.0 MMOL/L (136-145)
[2025-01-06] MEDS: ADVAIR HFA 230/21 MCG INHALER INH SCH (20:00)
[2025-01-06] MEDS: ACETAMINOPHEN 325 MG TAB PO PRN (21:11)
[2025-01-07] VITALS (7 sets, daily range): BP systolic 84–139; BP diastolic 54–84; TEMP 96.8–97.7; O2SAT 96–99
[2025-01-07] MEDS: LR 1,000 ML IV SCH (05:03)
[2025-01-07 07:25] LABS: PLATELET COUNT, AUTOMATED 193 10^3/uL (150-450)
[2025-01-07 07:56] LABS: ALT/SGPT 32.0 U/L (7.0-40); AST/SGOT 58.0 U/L (<34); CALCIUM LEVEL 7.6 MG/DL (8.3-10.6); CARBON DIOXIDE LEVEL 30.0 MMOL/L (20-31); CHLORIDE LEVEL 90.0 MMOL/L (98-107); CREATININE FOR GFR 1.32 MG/DL (0.55-1.30); GLOMERULAR FILTRATION RATE 42.9 (>39); MAGNESIUM LEVEL 2.0 MG/DL (1.8-2.4); POTASSIUM SERUM 3.8 MMOL/L (3.5-5.1); SODIUM LEVEL 130.0 MMOL/L (136-145)
[2025-01-07] MEDS: TIOTROPIUM BROM 2.5MCG/ACTUATION 4GM INH INH SCH (08:03)
[2025-01-08 05:03] VITALS: BP 130/77; TEMP 97.5; O2SAT 93
[2025-01-08 07:05] LABS: PLATELET COUNT, AUTOMATED 208 10^3/uL (150-450)
[2025-01-08 07:57] LABS: ALT/SGPT 32.0 U/L (7.0-40); AST/SGOT 58.0 U/L (<34); CALCIUM LEVEL 7.5 MG/DL (8.3-10.6); CARBON DIOXIDE LEVEL 30.0 MMOL/L (20-31); CHLORIDE LEVEL 91.0 MMOL/L (98-107); CREATININE FOR GFR 1.12 MG/DL (0.55-1.30); GLOMERULAR FILTRATION RATE 52.3 (>39); MAGNESIUM LEVEL 1.9 MG/DL (1.8-2.4); POTASSIUM SERUM 3.8 MMOL/L (3.5-5.1); SODIUM LEVEL 130.0 MMOL/L (136-145)
[2025-01-08 08:00] VITALS: BP 136/83; TEMP 97.3; O2SAT 94
[2025-01-08 08:09] VITALS: BP 132/83
[2025-01-08] MEDS ORDERED: CEFD300CAP PO (10:30)
== END 2025-01-08 11:50 | DRG 562 ==
LOC: EDBD 07:52 → M ED 07:52 → M ED INP 17:20 → EEVIPCON 17:20 → M ICU 22:49 → M MS5PR 01-04 16:20
PROVIDERS: ADMIT Internal Medicine; ATTEND Internal Medicine
PROC: B246ZZZ Ultrasonography of Right and Left Heart (ICD-10-PCS; principal; 2024-12-27)
DX: S42.211A Unspecified displaced fracture of surgical neck of right humerus, initial encounter for closed fracture (principal); J18.9 Pneumonia, unspecified organism; R57.0 Cardiogenic shock; I50.43 Acute on chronic combined systolic (congestive) and diastolic (congestive) heart failure; I13.0 Hypertensive heart and chronic kidney disease with heart failure and stage 1 through stage 4 chronic kidney disease, or unspecified chronic kidney disease; N39.0 Urinary tract infection, site not specified; J44.0 Chronic obstructive pulmonary disease with (acute) lower respiratory infection; J96.11 Chronic respiratory failure with hypoxia; I24.89 Other forms of acute ischemic heart disease; N17.9 Acute kidney failure, unspecified; F05 Delirium due to known physiological condition; E87.1 Hypo-osmolality and hyponatremia; N25.81 Secondary hyperparathyroidism of renal origin; W06.XXXA Fall from bed, initial encounter; Z66 Do not resuscitate; Y93.89 Activity, other specified; Y99.8 Other external cause status; Y92.122 Bedroom in nursing home as the place of occurrence of the external cause; I27.20 Pulmonary hypertension, unspecified; E11.22 Type 2 diabetes mellitus with diabetic chronic kidney disease; N18.30 Chronic kidney disease, stage 3 unspecified; I69.320 Aphasia following cerebral infarction; I25.10 Atherosclerotic heart disease of native coronary artery without angina pectoris; D64.9 Anemia, unspecified; E11.51 Type 2 diabetes mellitus with diabetic peripheral angiopathy without gangrene; F32.A Depression, unspecified; E78.5 Hyperlipidemia, unspecified; I49.5 Sick sinus syndrome; F41.9 Anxiety disorder, unspecified; B96.1 Klebsiella pneumoniae [K. pneumoniae] as the cause of diseases classified elsewhere; F03.90 Unspecified dementia, unspecified severity, without behavioral disturbance, psychotic disturbance, mood disturbance, and anxiety; I48.0 Paroxysmal atrial fibrillation; K21.9 Gastro-esophageal reflux disease without esophagitis; R74.01 Elevation of levels of liver transaminase levels; I08.3 Combined rheumatic disorders of mitral, aortic and tricuspid valves; G40.909 Epilepsy, unspecified, not intractable, without status epilepticus; E55.9 Vitamin D deficiency, unspecified; Z99.81 Dependence on supplemental oxygen; Z89.612 Acquired absence of left leg above knee; Z95.810 Presence of automatic (implantable) cardiac defibrillator; Z79.01 Long term (current) use of anticoagulants; Z79.899 Other long term (current) drug therapy; Z88.5 Allergy status to narcotic agent; Z91.040 Latex allergy status; Z85.118 Personal history of other malignant neoplasm of bronchus and lung; Z92.3 Personal history of irradiation

== ENCOUNTER → 2025-01-09 | Outpatient (REF) ==
[~2025-01-09] MED LIST changes: +ATIV1TAB10 PO; +BISA10SU PR; +CEFD1CAP9 PO; +CEFD300CAP PO; +DIGO0.123 PO; +ELIQ5TAB PO; +FLEEENE12 PR; +FOLI1TAB11 PO; +HYOS125TA PO; +IPRA0.00 INH; +LIDO1ADH20 TD; +MELA3TAB30 PO; +MORP1SOL5 PO; +PANT-23 PO; +POTA-298 PO; +QUET50TA4 PO; +SENN-52 PO
[2025-01-09 09:23] LABS: PLATELET COUNT, AUTOMATED 224 10^3/uL (150-450)
[2025-01-09 10:01] LABS: ALT/SGPT 35.0 U/L (7.0-40); AST/SGOT 64.0 U/L (<34); CALCIUM LEVEL 8.2 MG/DL (8.3-10.6); CARBON DIOXIDE LEVEL 26.0 MMOL/L (20-31); CHLORIDE LEVEL 89.0 MMOL/L (98-107); CREATININE FOR GFR 1.19 MG/DL (0.55-1.30); GLOMERULAR FILTRATION RATE 48.6 (>39); POTASSIUM SERUM 4.1 MMOL/L (3.5-5.1); SODIUM LEVEL 126.0 MMOL/L (136-145)
== END ==
LOC: SKLAB5 08:29
PROVIDERS: ATTEND Internal Medicine
DX: I50.9 Heart failure, unspecified (principal)

== ENCOUNTER → 2025-01-11 | Outpatient (REF) ==
[2025-01-11 10:22] LABS: CALCIUM LEVEL 7.9 MG/DL (8.3-10.6); CARBON DIOXIDE LEVEL 24.0 MMOL/L (20-31); CHLORIDE LEVEL 90.0 MMOL/L (98-107); CREATININE FOR GFR 1.87 MG/DL (0.55-1.30); DIGOXIN LEVEL 0.8 NG/ML (0.8-2.0); GLOMERULAR FILTRATION RATE 28.2 (>39); PHOSPHORUS LEVEL 3.5 MG/DL (2.4-5.1); POTASSIUM SERUM 4.3 MMOL/L (3.5-5.1); SODIUM LEVEL 127.0 MMOL/L (136-145)
[2025-01-11 10:28] LABS: PTH INTACT 65.6 PG/ML (18.5-88.0)
== END ==
LOC: SKLAB5 07:57
PROVIDERS: ATTEND Internal Medicine
DX: I50.9 Heart failure, unspecified (principal)

== ENCOUNTER 2025-01-13 14:43 | Emergency (ER) | payer MEDICARE, OTHER ==
[~2025-01-13 14:43] MED LIST changes: -ATIV1TAB10 PO; -BISA10SU PR; -CEFD1CAP9 PO; -FLEEENE12 PR; -HYOS125TA PO; -LIDO1ADH20 TD; -MORP1SOL5 PO
[2025-01-13 17:10] LABS: BASO # 0.1 10^3/uL (0.0-0.2); BASO % 0.6 % (0.0-1.0); EOS # 0.0 10^3/uL (0.0-0.5); EOS % 0.4 % (0.0-3.0); LYMPH # 1.0 10^3/uL (1.5-5.0); LYMPH % 12.2 % (24.0-44.0); MONO # 1.3 10^3/uL (0.0-0.8); MONO % 15.6 % (2.0-8.0); NEUTROPHILS # 5.9 10^3/uL (1.5-8.5); NEUTROPHILS % 70.5 % (36.0-66.0); PLATELET COUNT, AUTOMATED 200 10^3/uL (150-450)
[2025-01-13 17:28] LABS: INR 2.14
[2025-01-13 17:35] LABS: CK-MB VALUE MASS 1.5 NG/ML (<3.6)
[2025-01-13 17:37] LABS: ALT/SGPT 41.0 U/L (7.0-40); AST/SGOT 73.0 U/L (<34); CALCIUM LEVEL 7.9 MG/DL (8.3-10.6); CARBON DIOXIDE LEVEL 22.0 MMOL/L (20-31); CHLORIDE LEVEL 99.0 MMOL/L (98-107); CPK CREATINE PHOSPHOKINASE 60.0 U/L (34-145); CREATININE FOR GFR 2.24 MG/DL (0.55-1.30); GLOMERULAR FILTRATION RATE 22.7 (>39); MB/CK RELATIVE INDEX 2.5 (< OR =4); POTASSIUM SERUM 5.2 MMOL/L (3.5-5.1); SODIUM LEVEL 133.0 MMOL/L (136-145)
[2025-01-13 17:40] LABS: FREE T4 1.15 NG/DL (0.89-1.76)
[2025-01-13] MEDS ORDERED: LIDO1ADH20 TD (19:26)
[2025-01-13] MEDS ORDERED: CEFD1CAP9 PO (19:26)
[2025-01-13] MEDS ORDERED: FLEEENE12 PR (19:26)
[2025-01-13] MEDS ORDERED: BISA10SU PR (19:26)
[2025-01-13] MEDS ORDERED: HOME MED LIST COMPLETE! XX SCH (19:30)
[2025-01-13 19:45] VITALS: BP 84/50; TEMP 97.1; O2SAT 100
[2025-01-13] MEDS ORDERED: HYOS125TA PO (20:20)
[2025-01-13] MEDS ORDERED: ATIV1TAB10 PO (20:20)
[2025-01-13] MEDS ORDERED: MORP1SOL5 PO (20:20)
== END 2025-01-13 20:42 | disposition home or self-care (01) ==
LOC: EDBD 14:43 → M ED 14:43
DX: I95.89 Other hypotension (principal); E87.5 Hyperkalemia; R79.89 Other specified abnormal findings of blood chemistry; E87.29 Other acidosis; J91.8 Pleural effusion in other conditions classified elsewhere; I48.91 Unspecified atrial fibrillation; I25.119 Atherosclerotic heart disease of native coronary artery with unspecified angina pectoris; I50.22 Chronic systolic (congestive) heart failure; E11.9 Type 2 diabetes mellitus without complications; J44.9 Chronic obstructive pulmonary disease, unspecified; Z86.73 Personal history of transient ischemic attack (TIA), and cerebral infarction without residual deficits; Z88.5 Allergy status to narcotic agent; Z91.040 Latex allergy status; Z79.1 Long term (current) use of non-steroidal anti-inflammatories (NSAID); Z79.51 Long term (current) use of inhaled steroids; Z79.01 Long term (current) use of anticoagulants; Z79.4 Long term (current) use of insulin; Z79.899 Other long term (current) drug therapy

== ENCOUNTER → 2025-01-13 | Outpatient (REF) | payer MEDICARE, OTHER ==
[2025-01-13 13:21] LABS: OSMOLALITY SERUM 301.0 MOSM/KG (280-301)
[2025-01-13 13:26] LABS: CALCIUM LEVEL 8.1 MG/DL (8.3-10.6); CARBON DIOXIDE LEVEL 18.0 MMOL/L (20-31); CHLORIDE LEVEL 98.0 MMOL/L (98-107); CREATININE FOR GFR 2.13 MG/DL (0.55-1.30); GLOMERULAR FILTRATION RATE 24.2 (>39); POTASSIUM SERUM 5.1 MMOL/L (3.5-5.1); SODIUM LEVEL 133.0 MMOL/L (136-145)
== END ==
LOC: SKLAB5 11:54
PROVIDERS: ATTEND Internal Medicine
DX: I50.9 Heart failure, unspecified (principal)